=== PATIENT | female | born 1935 | race Caucasian/White ===

== ENCOUNTER 2017-04-12 02:45 | Observation (INO) | payer MEDICARE ==
[2017-04-12 03:31] LABS: Hematocrit 40 % (35-47); Hemoglobin 12.9 g/dl (12.0-16.0); Mean Corpuscular HGB Conc 32 g/dl (31-36); Mean Corpuscular Hemoglobin 28 pg (27-31); Mean Corpuscular Volume 88 fL (80-97); Mean Platelet Volume 10 um3 (7.4-10.4); Red Blood Count 4.56 10^6/ul (4.0-5.4); Red Cell Distribution Width 14 % (10.5-15); White Blood Count 10.5 10^3/ul (3.5-10.8)
[2017-04-12 03:50] LABS: Albumin 4.1 g/dL (3.2-5.2); BUN/Creatinine Ratio 32.4 (8-20); C Reactive Protein 4.58 mg/L (< 5.00); Calcium 9.4 mg/dL (8.6-10.3); EGFR African American 107.3 (>60); EGFR Non-African American 83.5 (>60); Globulin 3.9 g/dL (2-4); Potassium 4.1 mmol/L (3.5-5.0); Total Bilirubin 0.6 mg/dL (0.2-1.0)
[2017-04-12 03:53] LABS: Urine Bilirubin Negative (Negative); Urine Glucose 1+(50 mg/dL) (Negative); Urine Nitrite Negative (Negative)
[2017-04-12 03:56] LABS: Urine Bacteria Absent (Absent)
[2017-04-12] MEDS ORDERED: NS 0.9% 1000 ML* 1,000 ML IV ONE (05:51)
[2017-04-12] MEDS: NS 0.9% 1000 ML* 1,000 ML IV SCH ×4 (05:55→22:06)
[2017-04-12] MEDS ORDERED: Phytonadione Oral Solution* 5 MG/25 ML UDC PO ONE (06:16)
[2017-04-12] MEDS ORDERED: Iodixanol* (CONTRAST) 320 MG/ML 100 ML SDV IV ONE (06:17)
--- NOTE | 2017-04-12 08:46 | RAD ---
INDICATION: Gross hematuria. Relevant surgical history includes hysterectomy and appendectomy. COMPARISON: Most recent comparison CT is dated October 10, 2011 TECHNIQUE: Axial source images were acquired. Coronal and sagittal reconstructed images were obtained along with CT urography. A three-phase examination was performed with noncontrast, immediate postcontrast (nephrographic phase), and delayed postcontrast (pyelographic phase) imaging. The patient received 100 mL Visipaque 320 Intravenously. FINDINGS: There are centrilobular emphysematous changes of the bilateral lung bases. Otherwise the lung bases are clear. There is no pleural effusion. There are no focal abnormalities of the liver or spleen. There are no calcific gallstones. There is no evidence of an adrenal or pancreatic mass. There is no jacinta hydronephrosis bilaterally. There is a small amount of stranding surrounding the right renal pelvis and proximal right ureter. There is no definite renal stones seen in either collecting system or either ureter. There are no renal calculi seen in the urinary bladder. Cortical medullary phase imaging does not reveal any acute or suspicious masses in either kidney. There is a defect along the anterior margin of the mid-level left kidney that is unchanged from the prior CT examination. There is a small degree of relative delay in excretion at the right kidney relative to the left. There are no free or localized fluid collections. There is no retroperitoneal or mesenteric adenopathy. There is moderate calcified atherosclerosis of the abdominal aorta extending into the bilateral iliac arterial system. The small and large bowel is not pathologically dilated. Scattered colonic diverticula are noted but none exhibit acute inflammatory change according to CT criteria. The uterus is surgically absent. There are no sinister bone lesions identified. Multilevel degenerative changes of the lower thoracic and lumbar spine includes loss of intervertebral disc height, multilevel vacuum disc phenomenon with bony proliferation overlying the lower lumbar facet joints. IMPRESSION: 1. There is mild infiltration of the right renal pelvis and proximal right ureter without identification of a stone or gross hydronephrosis. Please correlate to signs or symptoms of passage of a right renal stone or, less likely, pyelonephritis. 2. Diverticulosis without acute inflammatory change. 3. Additional chronic and degenerative changes described in the body the report. Please note the excretory phase imaging did not include the distal ureters and bladder according to protocol.
[2017-04-12] MEDS ORDERED: Phytonadione INJ (Adult)* 10 MG/ML 1 ML AMP IV ONE (09:18)
[2017-04-12] MEDS ORDERED: Triamcinolone 0.025% OINT * 15 GM TUBE TOPICAL PRN (10:22)
[2017-04-12] MEDS ORDERED: Docusate CAP* 100 MG PO PRN (10:22)
[2017-04-12] MEDS ORDERED: Benzonatate CAP* 100 MG PO PRN (10:22)
[2017-04-12] MEDS ORDERED: Nystatin TOP POWDER* 15 GM BTL TOPICAL PRN (10:22)
[2017-04-12] MEDS ORDERED: Dextrose 50% Syringe 50 ML* 25 GM/50 ML SYRINGE IV PUSH PRN (10:24)
--- NOTE | 2017-04-12 10:32 | ED ---
Honorio Kowalski Gabriel, scribed for Mikhail Moss MD on 04/12/17 at 0704 . Progress - Progress Note Progress Note: This patient was signed out from Dr. Farley, pending disposition, awaiting. At 8:[address] Denny Fowler, urologist. He recommends admitting patient to the hospitalist. At 9:[address] White, hospitalist. Who has agreed to accept the patient for admission. The patients condition is stable. Diagnosis of hematuria. - Results/Orders Results/Orders: CT Urogram reveals, per radiologist, 1. There is mild infiltration of the right renal pelvis and proximal right ureter without identification of a stone or gross hydronephrosis. Please correlate to signs or symptoms of passage of a right renal stone or, less likely, pyelonephritis. 2. Diverticulosis without acute inflammatory change. 3. Additional chronic and degenerative changes described in the body the report. ED physician has reviewed this radiology report and agrees Course/Dx - Diagnoses Provider Diagnoses: Hematuria The documentation as recorded by the Honorio galvin Gabriel accurately reflects the service I personally performed and the decisions made by me, Mikhail Moss MD.
[2017-04-12 13:07] LABS: Hematocrit 37 % (35-47); Hemoglobin 12.1 g/dl (12.0-16.0)
[2017-04-12] MEDS: Insulin LISPRO* 1 UNITS UNIT SUBCUT SCH ×2 (13:42→17:20)
--- NOTE | 2017-04-12 15:44 | HP ---
CC: Dr. Fowler; Dr. Rodriguez* DATE OF ADMISSION: 04/12/2017. ATTENDING PHYSICIAN: Dr. Elida White * (report dictated by Montserrat Srivastava NP). PRIMARY CARE PHYSICIAN: Dr. Rodriguez. CONSULTING UROLOGIST: Dr. Fowler. CHIEF COMPLAINT: Hematuria. HISTORY OF PRESENT ILLNESS: This patient is a 81-year-old female with a past medical history significant for COPD, atrial fibrillation on Warfarin, hypothyroidism, hyperlipidemia, and history of CVA in the past who presents to the emergency room with complaint of hematuria. The patient has significant short-term memory loss with some degree of dementia. Hence, information is obtained from her at the bedside. The patient's states that in the last week the patient has intermittently had dark urine. He has also noted that she has had increased incontinence as well as increased frequency. The patient herself denies any pain with urination. In the middle of the night last night, the noticed a significant amount of jacinta red blood; hence, he brought her to the emergency room for further evaluation. In the emergency room, the patient was found to have a hemoglobin of 12.9. This is around her baseline hemoglobin. The patient had an INR of 3 and was given 5 mg oral of vitamin K and subsequently 10 mg IV of vitamin K. urology was consulted and recommended admission for further work- up. Hospitalists were asked to evaluate this patient for admission. The patient will be admitted with hematuria. 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 PAST SURGICAL HISTORY: Tonsillectomy, adenoidectomy, hysterectomy, appendectomy , distant breast surgery. HOME MEDICATIONS: 1. Multivitamin with minerals one capsule oral daily. 2. Halobetasol 0.05% topical daily as needed. 3. Warfarin 3 mg Monday, Monday, Monday, Monday; 4.5 mg Monday, Monday, . 4. Triamcinolone one application topical daily as needed. 5. Torsemide 5 mg oral daily. 6. Tikosyn 250 mcg oral twice daily. 7. Zoloft 37.5 mg oral daily. 8. Lopressor 50 mg oral twice daily. 9. Potassium Chloride 30 mEq oral twice daily. 10. Synthroid 25 mcg oral at 8:00 a.m. 11. Keppra 250 mg in the morning and 500 mg in the evening. 12. Hydrocortisone 2.5% cream one application topical twice daily. 13. Amlodipine 5 mg oral daily. 14. Tessalon 200 mg oral 3 times daily as needed. 15. Lipitor 20 mg oral at bedtime. ALLERGIES: KEFLEX CAUSES DIARRHEA, RAMIPRIL CAUSES UNKNOWN REACTION. THE PATIENT IS LACTOSE INTOLERANT. FAMILY HISTORY: The patient's father from heart disease at the age of 55. SOCIAL HISTORY: The patient currently smokes one to two cigarettes a day, but was previously smoking up to a pack a day since the age of 17. She rarely drinks alcohol. She is retired. The patient's surrogate decision maker is her , Eliot Mosquera. REVIEW OF SYSTEMS: I performed a 14 point review of systems. All the pertinent positives and negatives are mentioned in the history of present illness. The remaining review of systems are negative. PHYSICAL EXAMINATION GENERAL: The patient was alert, pleasant and appeared to be in no apparent distress. VITAL SIGNS: Temperature 97.5, heart rate 54, oxygen saturation 93 percent, blood pressure 125/52, respiratory rate 16. HEENT: Normocephalic/atraumatic. Pupils are equal and reactive to light. Extraocular movements are intact. NECK: Supple. There is no lymphadenopathy noted. CARDIAC: S1, S2 were crisp. No murmurs, rubs or gallops heard. RESPIRATORY: There is no accessory muscle use. Lungs were clear to auscultation. ABDOMEN: Soft, nontender, nondistended. There are bowel sounds times four. EXTREMITIES: There is no lower extremity edema. DP and PT pulses were 2+ and symmetric. MUSCULOSKELETAL: There is no clubbing or cyanosis noted. Patient exhibited equal strength in all extremities. SKIN: There were no rashes or abnormalities seen. NEUROLOGIC: Cranial nerves II through XII were intact. The patient moves all extremities. Lower extremities were intact to light touch. PSYCH: The patient is alert and oriented times three. LABORATORY DATA: Sodium 136, potassium 4.1, chloride 105, CO2 26, BUN 22, creatinine 0.68, glucose 152, calcium 9.4, liver function test within normal limits; white blood cell count 10.5, hemoglobin 12.9 consistent with prior hemoglobins, hematocrit 40, platelet count 253; INR 3, PTT 52.9; BNP 233; urinalysis shows 2+ protein, 1+ ketones, 3+ blood, trace esterase and 1+ glucose. CT urogram shows: Mild infiltration of the right renal pelvis and proximal right ureter without identification of a stone or gross hydronephrosis. Please correlate the signs and symptoms of passage of a right renal stone or less likely pyelonephritis. Diverticulosis without acute inflammatory change. Additionally chronic and degenerative changes described in the body of the report. IMPRESSION: This is a 81-year-old female with a past medical history significant for atrial fibrillation on Warfarin, status post CVA with short- term memory loss, and COPD who presents to the emergency room with a complaint of hematuria. The patient will be admitted and placed on observation for hematuria. ASSESSMENT AND PLAN: 1. Hematuria: Case has been discussed with Urology who recommends the following. The patient's INR will be reversed to normal level. The patient was already given 5 mg of oral vitamin K and 10 mg IV of vitamin K. INR will be rechecked in the morning. An additional urine sample will be collected via catheter to send for cytology. A 20 to 22 [place] Bender will be inserted when this collection occurs so that we can better monitor the patient's hematuria. If the cytology is negative and the hematuria improves, it is unlikely the patient will have a procedure. If hematuria persists and/or cytology is positive or the patient becomes hemodynamically unstable, we would plan on cystoscopy. Hemoglobin will be checked every six hours for the first 24 hours of the patient's hospitalization. Warfarin will be held. 2. Atrial fibrillation: Lopressor and Tikosyn will continue. Anticoagulation will be held. 3. Hypertension: The patient's blood pressure appears to be controlled, so the time being both Torsemide and Norvasc will be held. 4. Hypothyroidism: Synthroid will continue. 5. History of seizures: Keppra will continue. 6. Hyperlipidemia: Lipitor will continue. 7. COPD: The patient does not appear to be in acute exacerbation. Breathing treatments will be prescribed as needed. 8. DVT prophylaxis: The patient is moderate risk, yet chemical prophylaxis is contraindicated due to the current bleed. The patient is currently anticoagulated with an INR of 3, yet once this drops there will be no further chemical prophylaxis, SCD's only. 9. Code status: Full. Time for this admission was 60 minutes and 30 minutes were spent with the patient and her discussing medications, past medical history and events leading up to her arrival in the emergency room. MONTSERRAT SRIVASTAVA NP [id number]/[facility] #: [id number] JANEEN
[2017-04-12 17:26] LABS: Hematocrit 36 % (35-47); Hemoglobin 11.8 g/dl (12.0-16.0)
[2017-04-12] MEDS ORDERED: Atorvastatin* 20 MG TAB PO SCH (18:00)
[2017-04-12] MEDS ORDERED: levETIRAcetam TAB* 500 MG PO SCH (18:00)
--- NOTE | 2017-04-12 18:14 | CONS ---
UROLOGY CONSULTATION REPORT: DATE OF CONSULTATION: 04/12/17 REQUESTING PHYSICIAN: Dr. Reji Farley. DIAGNOSES: 1. Gross hematuria. 2. Abnormality involving right kidney. HISTORY OF PRESENT ILLNESS: Cecilia Mosquera is a 81-year-old lady with multiple medical issues including dementia. She had presented to the emergency room with complaints of bleeding and initially, I guess, there was some confusion about the etiology of the bleeding. Eventually, it was determined that this was urinary bleeding and a CT scan was obtained. The CT scan revealed some fullness of the right proximal collecting system with some infiltration of the tissue around the right proximal ureter with no evidence of a discrete mass or a calculus noted. Of note, is the fact that she is anticoagulated on Coumadin for atrial fibrillation and her INR was around 3 at the time of admission. Because of continued hematuria, the plan is to admit her and to assess the hematuria after the reversal of the anticoagulation. PAST MEDICAL HISTORY: Significant for: 1. Dementia. 2. High cholesterol. 3. Diabetes. MEDICATIONS ON ADMISSION: 1. Atorvastatin 20 mg daily. 2. Colace 100 mg b.i.d. p.r.n. 3. Tikosyn 250 mg b.i.d. 4. Insulin Humalog as directed. 5. Keppra 500 mg q.p.m. 6. Levothyroxine 25 mcg daily. 7. Metoprolol 50 mg b.i.d. 8. Potassium chloride 30 mEq daily. 9. Zoloft 37.5 mg daily. ALLERGIES AND INTOLERANCES: Include RAMIPRIL and CEPHALEXIN. PHYSICAL EXAM: Reveals a pleasant elderly lady who is not very communicative. Blood pressure is 109/77, pulse 54 per minute. Oxygen saturation 96% on room air. Cardiovascular Exam: S1, S2. Lungs are clear bilaterally. Abdomen is soft with mild bilateral flank tenderness, right greater than left. DIAGNOSTIC STUDIES/LAB DATA: Review of the labs reveals a white count of 10.5, hemoglobin and hematocrit are 12.9 and 40, platelet count is 243. Review of the chemistries reveals a sodium of 136, potassium of 4.1, BUN and creatinine are normal at 22 and 0.68. Glucose is elevated at 152. Her INR is 3.07 with a PTT of 52.9. Urinalysis revealed red colored urine with 3+ blood, absent bacteria and negative nitrite. I reviewed the CT scan which revealed mild infiltrative changes around the right renal pelvis and proximal right ureter. There is no evidence of a discrete mass or a calculus. IMPRESSION: A 81-year-old lady with gross hematuria while over-anticoagulated for atrial fibrillation with mild infiltrative changes surrounding the right proximal ureter and renal pelvis with no discrete mass or calculus. RECOMMENDATIONS: I would recommend trying to hold off on Coumadin for now and to see if the hematuria resolves with the lowering of the INR. Sometimes,there can be spontaneous bleeding from blood vessels within the renal pelvis, and if that is so, this may be self-limiting. Once the anticoagulation wears of, if she continues to have hematuria, then the next step would be to consider a right retrograde and ureteroscopy to visualize that area of the right renal pelvis. I also would recommend sending urine for cytology and I have discussed this with Montserrat Srivastava. [id number]/[facility] #: [id number] JANEEN
[2017-04-12] MEDS: Metoprolol Tartrate TAB* 25 MG PO SCH (21:26)
[2017-04-12] MEDS: Dofetilide CAP* 250 MCG PO SCH (21:26)
[2017-04-12] MEDS: Hydrocortisone 1% CREAM* 30 GM TUBE TOPICAL SCH (21:26)
[2017-04-12 23:05] LABS: Hematocrit 37 % (35-47)
[2017-04-13] MEDS ORDERED: Levothyroxine TAB* 25 MCG TAB PO SCH (06:00)
[2017-04-13] MEDS: NS 0.9% 1000 ML* 1,000 ML IV SCH (06:00)
[2017-04-13 06:53] LABS: Hematocrit 35 % (35-47); Hemoglobin 11.6 g/dl (12.0-16.0); Mean Corpuscular HGB Conc 33 g/dl (31-36); Mean Corpuscular Hemoglobin 29 pg (27-31); Mean Corpuscular Volume 88 fL (80-97); Mean Platelet Volume 10 um3 (7.4-10.4); Red Blood Count 4.01 10^6/ul (4.0-5.4); Red Cell Distribution Width 14 % (10.5-15); White Blood Count 9.4 10^3/ul (3.5-10.8)
[2017-04-13 07:06] LABS: BUN/Creatinine Ratio 18.4 (8-20); Calcium 9.1 mg/dL (8.6-10.3); EGFR African American 156.7 (>60); EGFR Non-African American 121.8 (>60); Potassium 3.5 mmol/L (3.5-5.0)
[2017-04-13 07:25] VITALS: BP 137/70
[2017-04-13] MEDS ORDERED: MINERA AREDS PO SCH (09:00)
[2017-04-13] MEDS ORDERED: levETIRAcetam TAB* 500 MG PO SCH (09:00)
[2017-04-13] MEDS ORDERED: Potassium Chlor TAB* 10 MEQ TAB.ER PO SCH (09:00)
[2017-04-13] MEDS ORDERED: MULTIVITAMINS PO SCH (09:00)
[2017-04-13] MEDS ORDERED: Sertraline* 25 MG TAB PO SCH (09:00)
[2017-04-13] MEDS: Insulin LISPRO* 1 UNITS UNIT SUBCUT SCH ×2 (10:24→13:00)
[2017-04-13] MEDS: Metoprolol Tartrate TAB* 25 MG PO SCH (10:27)
[2017-04-13] MEDS: Hydrocortisone 1% CREAM* 30 GM TUBE TOPICAL SCH (10:31)
[2017-04-13] MEDS: Dofetilide CAP* 250 MCG PO SCH (10:31)
--- NOTE | 2017-04-13 10:34 | PN ---
Subjective Date of Service: 04/13/17 Interval History: Patient seen and examined at bedside. Denies fever, chills, shortness of breath , chest discomfort, N/V/D. Pt states that she doesn't feel well this morning, but isn't able to quantify this. She reports feeling constipated. Family History: Unchanged from Admission Social History: Unchanged from Admission Past Medical History: Unchanged from Admission Objective Active Medications: Atorvastatin Calcium (Lipitor*) 20 mg PO QPM MIGNON Benzonatate (Tessalon Cap*) 200 mg PO TID PRN Reason: COUGH Dextrose (D50w Syringe 50 Ml*) 12.5 gm IV PUSH .FOR FS < 60 - SS PRN Reason: FS < 60 Docusate Sodium (Colace Cap*) 100 mg PO BID PRN Reason: CONSTIPATION Dofetilide (Tikosyn Cap*) 250 mcg PO BID MIGNON Hydrocortisone (Hytone Cream 1%*) 1 applic TOPICAL BID MIGNON Sodium Chloride (Ns 0.9% 1000 Ml*) 1,000 mls @ 150 mls/hr IV PER RATE MIGNON Insulin Human Lispro (Humalog*) 0 - 15 units SUBCUT AC MIGNON Levetiracetam (Keppra Tab*) 250 mg PO QAM MIGNON Levetiracetam (Keppra Tab*) 500 mg PO QPM MIGNON Levothyroxine Sodium (Synthroid Tab*) 25 mcg PO 0600 MIGNON Metoprolol Tartrate (Lopressor Tab*) 50 mg PO BID MIGNON Multivitamins/Minerals (Preservision Areds(Multivitamins/Mineral)(Nf)) 1 cap PO DAILY MIGNON Nystatin (Nystatin Top Powder*) 1 applic TOPICAL BID PRN Reason: RASH Potassium Chloride (Klor Con Er Tab*) 30 meq PO DAILY MIGNON Sertraline HCl (Zoloft*) 37.5 mg PO DAILY MIGNON Triamcinolone Acetonide (Triamcinolone 0.025% Oint *) 1 applic TOPICAL DAILY PRN Reason: RASH Vital Signs 04/12/17 04/12/17 04/12/17 10:30 11:00 14:00 Temperature 97.5 F 98.1 F Pulse Rate 53 52 52 Respiratory 19 20 Rate Blood Pressure 133/90 151/52 133/52 (mmHg) O2 Sat by Pulse 93 94 98 Oximetry 11/15/17 11/15/17 11/15/17 17:24 19:40 23:28 Temperature 97.7 F 97.5 F 97.9 F Pulse Rate 52 77 53 Respiratory 16 16 18 Rate Blood Pressure 146/58 143/50 130/58 (mmHg) O2 Sat by Pulse 98 95 97 Oximetry 04/13/17 04/13/17 04/13/17 02:57 07:23 10:26 Temperature 97.5 F 97.8 F Pulse Rate 59 57 64 Respiratory 16 16 Rate Blood Pressure 153/50 137/70 (mmHg) O2 Sat by Pulse 94 96 Oximetry Oxygen Devices in Use Now: None Appearance: NAD, sitting up in a chair Ears/Nose/Mouth/Throat: Mucous Membranes Moist Respiratory: Symmetrical Chest Expansion and Respiratory Effort, Clear to Auscultation Cardiovascular: NL Sounds; No Murmurs; No JVD, RRR Abdominal: NL Sounds; No Tenderness; No Distention Extremities: No Edema Skin: No Rash or Ulcers Neurological: Alert and Oriented x 3, NL Muscle Strength and Tone Lines/Tubes/Other Access: Clean, Dry and Intact Peripheral IV - site benign Result Diagrams: 04/13/17 06:37 04/13/17 06:37 Assess/Plan/Problems-Billing Assessment: Ms. Mosquera is a 81 yo female with PMH significant for afib on warfarin, CVA with short term memory loss, and COPD who presented to the emergency room with complaints of hematuria. - Patient Problems (1) Hematuria Code(s): R31.9 - HEMATURIA, UNSPECIFIED SNOMED Code(s): 22143468 Comment: - Appreciate urology input - Cytology pending - Resolved (2) Atrial fibrillation Code(s): I48.91 - UNSPECIFIED ATRIAL FIBRILLATION SNOMED Code(s): 13706462 Comment: - INR is now subtherapeutic at 1.25. - Continue metoprolol and Tikosyn. - Continue to hold anticoagulation in setting of hematuria. (3) Seizures Code(s): R56.9 - UNSPECIFIED CONVULSIONS SNOMED Code(s): 95175703 Comment: - No signs of seizure activity - Continue Keppra and seizure precautions (4) HLD (hyperlipidemia) Code(s): E78.5 - HYPERLIPIDEMIA, UNSPECIFIED SNOMED Code(s): 25576815 Comment: - Continue statin (5) History of CVA (cerebrovascular accident) Code(s): Z86.73 - PRSNL HX OF TIA (TIA), AND CEREB INFRC W/O RESID DEFICITS SNOMED Code(s): 042468768 Comment: - Continue statin (6) HTN (hypertension) Code(s): I10 - ESSENTIAL (PRIMARY) HYPERTENSION SNOMED Code(s): 11589206 Comment: - The patient's BP is under good control, SBP 130-150's. - Resume Norvasc. - Continue to hold Torsemide and consider resuming in the AM, if BP allows. (7) Hypothyroidism Code(s): E03.9 - HYPOTHYROIDISM, UNSPECIFIED SNOMED Code(s): 28436288 Comment: - TSH 3.4 on 03/16/17 - Continue levothyroxine (8) COPD (chronic obstructive pulmonary disease) Code(s): J44.9 - CHRONIC OBSTRUCTIVE PULMONARY DISEASE, UNSPECIFIED SNOMED Code(s): 30278427 Comment: - No signs of acute exacerbation at this time (9) Type II diabetes mellitus Comment: - Glucose 160-190's. (10) DVT prophylaxis Code(s): CNO0721 - SNOMED Code(s): 267382587 Comment: - subtherapeutic INR - Hold chemical DVT prophylaxis in setting of hematuria - SCDs (11) Full code status Code(s): Z78.9 - OTHER SPECIFIED HEALTH STATUS SNOMED Code(s): 348516715 Status and Disposition: OBV. Stable for discharge to home today.
--- NOTE | 2017-04-14 03:57 | DS ---
CC: Denny Fowler MD; Manda Rodriguez MD * DISCHARGE SUMMARY: DATE OF ADMISSION: 04/12/17 DATE OF DISCHARGE: 04/13/17 ATTENDING PHYSICIAN: Parviz Olivas MD * (dictated by Mehnaz Ogden NP) PRIMARY CARE PROVIDER: Manda Rodriguez MD PRIMARY DIAGNOSIS: Hematuria, suspect in the setting of slightly supratherapeutic INR. SECONDARY DIAGNOSES: 1. Atrial fibrillation. 2. Hypertension. 3. Hypothyroidism. 4. History of seizures. 5. Hyperlipidemia. 6. Chronic obstructive pulmonary disease. CONSULTATION WHILE IN THE HOSPITAL: Dr. Denny Fowler with Urology. STUDIES WHILE IN THE HOSPITAL: Urogram CT on 04/12/17. Radiologist's impression: There is mild infiltration of the right renal pelvis and proximal right ureter without identification of a stone or gross hydronephrosis. Diverticulosis without acute inflammatory change. Additional chronic and degenerative changes described in the body of the report. DISCHARGE MEDICATIONS: Continued home medications: 1. Nystatin powder apply topical twice daily as needed for rash. 2. Keppra 250 mg oral every morning. 3. Keppra 500 mg oral every evening. 4. PreserVision AREDS. 5. Multivitamins 1 capsule oral daily. 6. Ultravate 0.05% topical daily as needed for rash. 7. Triamcinolone 0.1% cream apply topical daily as needed for rash. 8. Torsemide 5 mg oral daily. 9. Tikosyn 250 mcg oral twice daily. 10. Zoloft 37.5 mg oral daily. 11. Metoprolol tartrate 50 mg oral twice daily. 12. Potassium chloride 30 mEq oral twice daily. 13. Levothyroxine 25 mcg oral daily. 14. Hydrocortisone 2.5% cream apply topical twice daily. 15. Amlodipine 5 mg oral daily. 16. Colace 100 mg oral twice daily as needed for constipation. 17. Tessalon 200 mg oral 3 times daily as needed for cough. 18. Atorvastatin 20 mg oral every evening. Discontinued home medication: 1. Warfarin. HISTORY OF PRESENT ILLNESS/HOSPITAL COURSE: Ms. Mosquera is a 81-year-old female with past medical history significant for COPD; atrial fibrillation, on warfarin; hypothyroidism; hyperlipidemia; and history of cerebrovascular accident in the past, who presented to the emergency room with complaints of hematuria. The patient has significant short-term memory loss due to dementia. According to the patient's , over the last week, the patient has had intermittently dark urine. He had also noticed increased incontinence and urinary frequency. The patient denied any urinary symptoms. The patient's a day prior to admission had noticed significant amount of jacinta blood in her urine and he brought her to the emergency room for further evaluation. While in the emergency room, she was found to have a hemoglobin of 12.9, which is around her baseline. She was found to have an INR of 3 and was given 5 mg of oral vitamin K and subsequently 10 mg of IV vitamin K. Dr. Fowler with Urology was consulted and recommended admitting the patient for further workup. She had a CT urogram, please see the interpretation above. The hospitalists were asked to evaluate the patient for admission. While in the hospital, the patient had a urinary catheter and her hematuria resolved. She had clear yellow urine the next day. Her INR decreased to 1.25. Her hemoglobin and hematocrit were trended and were stable. Urine cytology was still pending. I discussed with Dr. Fowler the resolution of the hematuria. He recommended removing the urinary catheter and discharging the patient home with followup with him. Ms. Mosquera is stable for discharge to home today. Vital signs are as follows , temperature 97.8, heart rate 57, respiratory rate 16, O2 sat 96% on room air, blood pressure 137/70. DISCHARGE PLAN: Ms. Mosquera will be discharged to home. Activity as tolerated. She will be on a regular diet. As far as her hematuria, she should continue to hold her warfarin until instructed to resume by Dr. Fowler. Her has been instructed to call Dr. Fowler's office after discharge to set up a followup appointment in the next 10 days. An appointment has been made with the patient's primary care provider, Dr. Manda Rodriguez. She has an appointment on 04/25/17, at 10:10 a.m. The patient is going to resume her other usual medications. The patient has been instructed to return to the emergency room for any chest pain or shortness of breath. This is a summarized report of a complex medical history and hospital stay. For further details, please see the entire medical record. TIME SPENT: Time for this discharge was approximately 50 minutes, greater than half of that was spent with the patient and discussing discharge plans and instructions. CONDITION ON DISCHARGE: Stable. Reviewed by EDUARDO TOMLINSON 04/17/17 1621 [id number]/[facility] #: [id number] MTDD
[2017-04-14] MEDS ORDERED: amLODIPine TAB* 5 MG PO SCH (09:00)
--- NOTE | 2017-04-17 10:25 | ED ---
Amparo Kowalski Alfonso, scribed for Reji Farley MD on 04/12/17 at 0301 . GI/ HPI - HPI Summary HPI Summary: This patient is a 81 year old F presenting to [facility] accompanied by with a chief complaint of hematuria noticed at 0230 today. states there was dark blood on her depends and blood in the toilet. The patient rates the pain 0/10 in severity. Symptoms aggravated by nothing. Symptoms alleviated by nothing. reports vaginal erythema, and urinary incontinency (chronic) . Patient denies dizziness, lightheadedness, near-syncope, blood in the stool, melena, bowel symptoms, dysuria, abdominal pain, and back pain. She is on Coumadin. - History of Current Complaint Chief Complaint: EDUrogenitalProblems Time Seen by Provider: 04/12/17 02:58 Stated Complaint: VAGINAL BLEEDING Hx Obtained From: Patient, Family/Car Whacker Onset/Duration: Started Minutes Ago, Still Present Timing: Constant Pain Intensity: 0 - /10 Associated Signs and Symptoms: Positive: Other: - reports vaginal erythema, and urinary incontinency (chronic). Patient denies dizziness, lightheadedness, near-syncope, blood in the stool, melena, bowel symptoms, dysuria, abdominal pain, and back pain. She is on Coumadin. Aggravating Factor(s): Nothing Alleviating Factor(s): Nothing - Additional Pertinent History Primary Care Physician: [id number] - Allergy/Home Medications Allergies/Adverse Reactions: Allergies Allergy/AdvReac Type Severity Reaction Status Date / Time Lactose Intolerance (GI) Allergy Diarrhea Verified 04/13/17 10:52 Ramipril [From Altace] Allergy Unknown Verified 01/17/14 09:41 Reaction Details Cephalexin [From Keflex] AdvReac SEVERE Verified 03/13/15 07:48 DIARRHEA MILK Allergy Diarrhea Uncoded 01/17/14 09:41 PMH/Surg Hx/FS Hx/Imm Hx Endocrine/Hematology History: Reports: Hx Anticoagulant Therapy, Hx Diabetes - NO MEDS, CONTROLLED WITH DIET/ACTIVITY, Hx Thyroid Disease - ON DAILY MEDS Cardiovascular History: Reports: Hx Congestive Heart Failure, Hx Hypercholesterolemia, Hx Hypertension - ON MEDS, Other Cardiovascular Problems/ Disorders - 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, IDDM II Respiratory History: Reports: Hx Chronic Obstructive Pulmonary Disease (COPD) GI History: Reports: Other GI Disorders - gallstones Musculoskeletal History: Reports: Hx Back Problems Sensory History: Reports: Hx Cataracts, Hx Glaucoma Denies: Hx Contacts or Glasses, Hx Eye Injury, Hx Eye Prosthesis, Hx Legally Blind, Hx Macular Degeneration, Hx Vision Problem, Hx Deafness, Hx Hearing Aid, Hx Hearing Problem, Other Sensory Impairments Opthamlomology History: Reports: Hx Cataracts, Hx Glaucoma Denies: Hx Contacts or Glasses, Hx Eye Injury, Hx Eye Prosthesis, Hx Legally Blind, Hx Macular Degeneration, Hx Vision Problem, Other Sensory Impairments Neurological History: Reports: Hx Seizures - NOW ON KEPPRA, Hx Transient Ischemic Attacks (TIA) Denies: Hx Dementia, Hx Developmental Delay, Hx Headaches, Hx Migraine, Hx Nerve Disease, Hx Spinal Cord Injury Psychiatric History: Reports: Hx Anxiety - ON MEDS, Hx Depression - Cancer History Hx Chemotherapy: No Hx Radiation Therapy: No - Surgical History Surgery Procedure, Year, and Place: 1944 TONSILLECTOMY. 1984 HYSTERECTOMY AND APPENDECTOMY. 2011 RETINA SURGERY- RIGHT EYE- [place]. BREAST BIOPSY- [facility]. 12/18/13 RT EYE CATARACT [facility] Hx Anesthesia Reactions: No Infectious Disease History: No Infectious Disease History: Denies: Hx Clostridium Difficile, Hx Hepatitis, Hx Human Immunodeficiency Virus (HIV), Hx of Known/Suspected MRSA, Hx Shingles, Hx Tuberculosis, Hx Known/ Suspected VRE, Hx Known/Suspected VRSA, History Other Infectious Disease, Traveled Outside the [place] in Last 30 Days - Family History Known Family History: Positive: Cardiac Disease - Social History Alcohol Use: None Alcohol Amount: REFRAINS NOW BECAUSE OF MEDS Substance Use Type: Reports: None Hx Tobacco Use: Yes Smoking Status (MU): Light Every Day Tobacco Smoker Type: Cigarettes Amount Used/How Often: LESS THEN 1/2PPD CIGARETTES PER DAY X 60 YEARS Have You Smoked in the Last Year: Yes Review of Systems Negative: Fever Positive: Other - Negative blood in the stool, melena, bowel symptoms. Negative : Abdominal Pain Positive: hematuria, incontinence. Negative: dysuria Positive: Other - Negative back pain Positive: Other - vaginal erythema Neurological: Other - Negative dizziness, lightheadedness, near-syncope All Other Systems Reviewed And Are Negative: Yes Physical Exam - Summary Physical Exam Summary: General: well-appearing, no pain distress Skin: warm, color reflects adequate perfusion, dry Head: normal Eyes: EOMI, RAJINDER ENT: normal Neck: supple, nontender Respiratory: CTA, breath sounds present Cardiovascular: RRR Abdomen: soft, nontender, no CVA tenderness Bowel: present Musculoskeletal: normal, strength/ROM intact Neurological: normal, sensory/motor intact, A&O x3 Psychological: mildly confused Triage Information Reviewed: Yes Vital Signs On Initial Exam: Initial Vitals Temp Pulse Resp BP Pulse Ox 97.2 F 52 18 181/80 96 04/12/17 02:45 04/12/17 02:45 04/12/17 02:45 04/12/17 02:45 04/12/17 02:45 Vital Signs Reviewed: Yes Diagnostics - Vital Signs Vital Signs Temp Pulse Resp BP Pulse Ox 04/12/17 02:45 97.2 F 52 18 181/80 96 - Laboratory Lab Results: Lab Results 04/12/17 04/12/17 04/12/17 Range/Units 03:10 03:17 03:17 WBC (3.5-10.8) 10^3/ul RBC (4.0-5.4) 10^6/ul Hgb (12.0-16.0) g/dl Hct (35-47) % MCV (80-97) fL MCH (27-31) pg MCHC (31-36) g/dl RDW (10.5-15) % Plt Count (150-450) 10^3/ul MPV (7.4-10.4) um3 Neut % (Auto) (38-83) % Lymph % (Auto) (25-47) % Bureau % (Auto) (1-9) % Eos % (Auto) (0-6) % Baso % (Auto) (0-2) % Absolute Neuts (auto) (1.5-7.7) 10^3/ul Absolute Lymphs (auto) (1.0-4.8) 10^3/ul Absolute Monos (auto) (0-0.8) 10^3/ul Absolute Eos (auto) (0-0.6) 10^3/ul Absolute Basos (auto) (0-0.2) 10^3/ul Absolute Nucleated RBC 10^3/ul Nucleated RBC % INR (Anticoag Therapy) 3.07 H (0.89-1.11) APTT 52.9 H (26.0-36.3) seconds Sodium (133-145) mmol/L Potassium (3.5-5.0) mmol/L Chloride (101-111) mmol/L Carbon Dioxide (22-32) mmol/L Anion Gap (2-11) mmol/L BUN (6-24) mg/dL Creatinine (0.51-0.95) mg/dL Est GFR ( Amer) (>60) Est GFR (Non-Af Amer) (>60) BUN/Creatinine Ratio (8-20) Glucose (70-100) mg/dL Lactic Acid 0.8 (0.5-2.0) mmol/L Calcium (8.6-10.3) mg/dL Total Bilirubin (0.2-1.0) mg/dL AST (13-39) U/L ALT (7-52) U/L Alkaline Phosphatase (34-104) U/L C-Reactive Protein (< 5.00) mg/L B-Natriuretic Peptide ( - 100) pg/mL Total Protein (6.4-8.9) g/dL Albumin (3.2-5.2) g/dL Globulin (2-4) g/dL Albumin/Globulin Ratio (1-3) Urine Color Red A Urine Appearance Turbid Urine pH 6.0 (5-9) Ur Specific [place] 1.017 (1.010-1.030) Urine Protein 2+(100 mg/dl) H (Negative) Urine Ketones 1+ H (Negative) Urine Blood 3+ H (Negative) Urine Nitrate Negative (Negative) Urine Bilirubin Negative (Negative) Urine Urobilinogen Negative (Negative) Ur Leukocyte Esterase Trace H (Negative) Urine WBC (Auto) Absent (Absent) Urine RBC (Auto) 3+(>10/hpf) H (Absent) Urine Bacteria Absent (Absent) Urine Glucose 1+(50 mg/dl) H (Negative) Urine Ascorbic Acid * H (Negative) Blood Type Antibody Screen 04/12/17 04/12/17 04/12/17 Range/Units 03:17 03:17 03:17 WBC 10.5 (3.5-10.8) 10^3/ul RBC 4.56 (4.0-5.4) 10^6/ul Hgb 12.9 (12.0-16.0) g/dl Hct 40 (35-47) % MCV 88 (80-97) fL MCH 28 (27-31) pg MCHC 32 (31-36) g/dl RDW 14 (10.5-15) % Plt Count 253 (150-450) 10^3/ul MPV 10 (7.4-10.4) um3 Neut % (Auto) 44.3 (38-83) % Lymph % (Auto) 40.4 (25-47) % Bureau % (Auto) 9.7 H (1-9) % Eos % (Auto) 4.6 (0-6) % Baso % (Auto) 1.0 (0-2) % Absolute Neuts (auto) 4.6 (1.5-7.7) 10^3/ul Absolute Lymphs (auto) 4.2 (1.0-4.8) 10^3/ul Absolute Monos (auto) 1.0 H (0-0.8) 10^3/ul Absolute Eos (auto) 0.5 (0-0.6) 10^3/ul Absolute Basos (auto) 0.1 (0-0.2) 10^3/ul Absolute Nucleated RBC 0.01 10^3/ul Nucleated RBC % 0.1 INR (Anticoag Therapy) (0.89-1.11) APTT (26.0-36.3) seconds Sodium 136 (133-145) mmol/L Potassium 4.1 (3.5-5.0) mmol/L Chloride 105 (101-111) mmol/L Carbon Dioxide 26 (22-32) mmol/L Anion Gap 5 (2-11) mmol/L BUN 22 (6-24) mg/dL Creatinine 0.68 (0.51-0.95) mg/dL Est GFR ( Amer) 107.3 (>60) Est GFR (Non-Af Amer) 83.5 (>60) BUN/Creatinine Ratio 32.4 H (8-20) Glucose 152 H (70-100) mg/dL Lactic Acid (0.5-2.0) mmol/L Calcium 9.4 (8.6-10.3) mg/dL Total Bilirubin 0.60 (0.2-1.0) mg/dL AST 19 (13-39) U/L ALT 14 (7-52) U/L Alkaline Phosphatase 103 (34-104) U/L C-Reactive Protein 4.58 (< 5.00) mg/L B-Natriuretic Peptide 233 H ( - 100) pg/mL Total Protein 8.0 (6.4-8.9) g/dL Albumin 4.1 (3.2-5.2) g/dL Globulin 3.9 (2-4) g/dL Albumin/Globulin Ratio 1.1 (1-3) Urine Color Urine Appearance Urine pH (5-9) Ur Specific [place] (1.010-1.030) Urine Protein (Negative) Urine Ketones (Negative) Urine Blood (Negative) Urine Nitrate (Negative) Urine Bilirubin (Negative) Urine Urobilinogen (Negative) Ur Leukocyte Esterase (Negative) Urine WBC (Auto) (Absent) Urine RBC (Auto) (Absent) Urine Bacteria (Absent) Urine Glucose (Negative) Urine Ascorbic Acid (Negative) Blood Type Antibody Screen 04/12/17 Range/Units 03:17 WBC (3.5-10.8) 10^3/ul RBC (4.0-5.4) 10^6/ul Hgb (12.0-16.0) g/dl Hct (35-47) % MCV (80-97) fL MCH (27-31) pg MCHC (31-36) g/dl RDW (10.5-15) % Plt Count (150-450) 10^3/ul MPV (7.4-10.4) um3 Neut % (Auto) (38-83) % Lymph % (Auto) (25-47) % Bureau % (Auto) (1-9) % Eos % (Auto) (0-6) % Baso % (Auto) (0-2) % Absolute Neuts (auto) (1.5-7.7) 10^3/ul Absolute Lymphs (auto) (1.0-4.8) 10^3/ul Absolute Monos (auto) (0-0.8) 10^3/ul Absolute Eos (auto) (0-0.6) 10^3/ul Absolute Basos (auto) (0-0.2) 10^3/ul Absolute Nucleated RBC 10^3/ul Nucleated RBC % INR (Anticoag Therapy) (0.89-1.11) APTT (26.0-36.3) seconds Sodium (133-145) mmol/L Potassium (3.5-5.0) mmol/L Chloride (101-111) mmol/L Carbon Dioxide (22-32) mmol/L Anion Gap (2-11) mmol/L BUN (6-24) mg/dL Creatinine (0.51-0.95) mg/dL Est GFR ( Amer) (>60) Est GFR (Non-Af Amer) (>60) BUN/Creatinine Ratio (8-20) Glucose (70-100) mg/dL Lactic Acid (0.5-2.0) mmol/L Calcium (8.6-10.3) mg/dL Total Bilirubin (0.2-1.0) mg/dL AST (13-39) U/L ALT (7-52) U/L Alkaline Phosphatase (34-104) U/L C-Reactive Protein (< 5.00) mg/L B-Natriuretic Peptide ( - 100) pg/mL Total Protein (6.4-8.9) g/dL Albumin (3.2-5.2) g/dL Globulin (2-4) g/dL Albumin/Globulin Ratio (1-3) Urine Color Urine Appearance Urine pH (5-9) Ur Specific [place] (1.010-1.030) Urine Protein (Negative) Urine Ketones (Negative) Urine Blood (Negative) Urine Nitrate (Negative) Urine Bilirubin (Negative) Urine Urobilinogen (Negative) Ur Leukocyte Esterase (Negative) Urine WBC (Auto) (Absent) Urine RBC (Auto) (Absent) Urine Bacteria (Absent) Urine Glucose (Negative) Urine Ascorbic Acid (Negative) Blood Type A Positive Antibody Screen Negative Result Diagrams: 04/13/17 06:37 04/13/17 06:37 Lab Statement: Any lab studies that have been ordered have been reviewed, and results considered in the medical decision making process. - CT Urogram CT Interpretation Completed By: Radiologist ERAN Course/Dx - Diagnoses Provider Diagnoses: Hematuria - Physician Notifications Discussed Care Of Patient With: Denny Fowler Time Discussed With Above Provider: 05:46 Instructed by Provider To: Other - Consulted Dr. Fowler (urologist) at 0546 regarding the patient's case. Discharge - Discharge Plan Condition: Stable Disposition: ADMITTED TO [facility] documentation as recorded by the Amparo galvin Alfonso accurately reflects the service I personally performed and the decisions made by me, Reji Farley MD.
== END 2017-04-13 14:30 | disposition home or self-care (01) ==
LOC: ED 02:45 → MED 09:18
PROVIDERS: ADMIT Internal Medicine; ATTEND Internal Medicine
DX: R31.9 Hematuria, unspecified (principal); I48.91 Unspecified atrial fibrillation; E03.9 Hypothyroidism, unspecified; I10 Essential (primary) hypertension; G40.909 Epilepsy, unspecified, not intractable, without status epilepticus; E78.5 Hyperlipidemia, unspecified; J44.9 Chronic obstructive pulmonary disease, unspecified; E11.9 Type 2 diabetes mellitus without complications; F32.9 Major depressive disorder, single episode, unspecified; I69.911 Memory deficit following unspecified cerebrovascular disease; F17.210 Nicotine dependence, cigarettes, uncomplicated; Z79.01 Long term (current) use of anticoagulants; Z79.899 Other long term (current) drug therapy; Z88.1 Allergy status to other antibiotic agents; Z88.8 Allergy status to other drugs, medicaments and biological substances; K57.90 Diverticulosis of intestine, part unspecified, without perforation or abscess without bleeding
CPT/HCPCS: 36415; 74178; 76377; 80048; 80053; 81003; 81015; 83605; 83880; 85014; 85018; 85025; 85610; 85730; 86140; 86850; 86900; 86901; 87077; 87086; 87186; 88112; 96361; 96374; 99284; A9270-GY; G0378; J3430; Q9967

== ENCOUNTER 2017-05-04 11:09 | Emergency (ER) | payer MEDICARE ==
[2017-05-04 13:42] LABS: Hematocrit 37 % (35-47); Hemoglobin 12.1 g/dl (12.0-16.0); Mean Corpuscular HGB Conc 33 g/dl (31-36); Mean Corpuscular Hemoglobin 29 pg (27-31); Mean Corpuscular Volume 88 fL (80-97); Mean Platelet Volume 9 um3 (7.4-10.4); Red Blood Count 4.15 10^6/ul (4.0-5.4); Red Cell Distribution Width 14 % (10.5-15)
[2017-05-04 15:16] VITALS: BP 152/59
--- NOTE | 2017-05-06 18:42 | ED ---
Ankush Kowalski Angela, scribed for Krzysztof Alcantar MD on 05/04/17 at 1314 . Throat Pain/Nasal Congestion - HPI Summary HPI Summary: This pt is a 82 y/o female, accompanied by her , presenting to [facility] c/o epistaxis today. Pt reports she has had intermittent epistaxis since 0600 today. She went to Urgent Care this morning to check her INR level since last week it was 1.45. Urgent Care sent the pt to the ED as they didn't want to draw her blood because it may be too thin. She was sent to the ED in case she needed a cauterization. PMHx includes diabetes. Pt is on anticoagulants. - History of Current Complaint Chief Complaint: EDEpistaxis Time Seen by Provider: 05/04/17 13:03 Hx Obtained From: Patient Onset/Duration: Lasting Hours, Resolved, Other - intermittent Associated Signs And Symptoms: Positive: Negative Cough: None - Allergies/Home Medications Allergies/Adverse Reactions: Allergies Allergy/AdvReac Type Severity Reaction Status Date / Time Lactose Intolerance (GI) Allergy Diarrhea Verified 04/13/17 10:52 Ramipril [From Altace] Allergy Unknown Verified 01/17/14 09:41 Reaction Details Cephalexin [From Keflex] AdvReac SEVERE Verified 03/13/15 07:48 DIARRHEA MILK Allergy Diarrhea Uncoded 01/17/14 09:41 PMH/Surg Hx/FS Hx/Imm Hx Endocrine/Hematology History: Reports: Hx Anticoagulant Therapy, Hx Diabetes - NO MEDS, CONTROLLED WITH DIET/ACTIVITY, Hx Thyroid Disease - ON DAILY MEDS Cardiovascular History: Reports: Hx Congestive Heart Failure, Hx Hypercholesterolemia, Hx Hypertension - ON MEDS, Other Cardiovascular Problems/ Disorders - 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, IDDM II Respiratory History: Reports: Hx Chronic Obstructive Pulmonary Disease (COPD) GI History: Reports: Other GI Disorders - gallstones Musculoskeletal History: Reports: Hx Back Problems Sensory History: Reports: Hx Cataracts, Hx Glaucoma Denies: Hx Contacts or Glasses, Hx Eye Injury, Hx Eye Prosthesis, Hx Legally Blind, Hx Macular Degeneration, Hx Vision Problem, Hx Deafness, Hx Hearing Aid, Hx Hearing Problem, Other Sensory Impairments Opthamlomology History: Reports: Hx Cataracts, Hx Glaucoma Denies: Hx Contacts or Glasses, Hx Eye Injury, Hx Eye Prosthesis, Hx Legally Blind, Hx Macular Degeneration, Hx Vision Problem, Other Sensory Impairments Neurological History: Reports: Hx Seizures - NOW ON KEPPRA, Hx Transient Ischemic Attacks (TIA) Denies: Hx Dementia, Hx Developmental Delay, Hx Headaches, Hx Migraine, Hx Nerve Disease, Hx Spinal Cord Injury Psychiatric History: Reports: Hx Anxiety - ON MEDS, Hx Depression - Cancer History Hx Chemotherapy: No Hx Radiation Therapy: No - Surgical History Surgery Procedure, Year, and Place: 1944 TONSILLECTOMY. 1984 HYSTERECTOMY AND APPENDECTOMY. 2011 RETINA SURGERY- RIGHT EYE- [place]. BREAST BIOPSY- [facility]. 12/18/13 RT EYE CATARACT [facility] Hx Anesthesia Reactions: No Infectious Disease History: No Infectious Disease History: Denies: Hx Clostridium Difficile, Hx Hepatitis, Hx Human Immunodeficiency Virus (HIV), Hx of Known/Suspected MRSA, Hx Shingles, Hx Tuberculosis, Hx Known/ Suspected VRE, Hx Known/Suspected VRSA, History Other Infectious Disease, Traveled Outside the [place] in Last 30 Days - Family History Known Family History: Positive: Cardiac Disease - Social History Alcohol Use: None Alcohol Amount: REFRAINS NOW BECAUSE OF MEDS Substance Use Type: Reports: None Hx Tobacco Use: Yes Smoking Status (MU): Light Every Day Tobacco Smoker Type: Cigarettes Amount Used/How Often: LESS THEN 1/2PPD CIGARETTES PER DAY X 60 YEARS Have You Smoked in the Last Year: Yes Review of Systems Negative: Fever, Chills Positive: Epistaxis Genitourinary: Negative Musculoskeletal: Negative Skin: Negative Neurological: Negative All Other Systems Reviewed And Are Negative: Yes Physical Exam - Summary Physical Exam Summary: VITAL SIGNS: Reviewed. GENERAL: Patient is a well-developed and nourished female who is lying comfortable in the stretcher. Patient is not in any acute respiratory distress. HEAD AND FACE: No signs of trauma. No ecchymosis, hematomas or skull depressions. No sinus tenderness. There is old blood in the right nostril. No active bleeding. EYES: PERRLA, EOMI x 2, No injected conjunctiva, no nystagmus. EARS: Hearing grossly intact. Ear canals and tympanic membranes are within normal limits. MOUTH: Oropharynx within normal limits. NECK: Supple, trachea is midline, no adenopathy, no JVD, no carotid bruit, no c- spine tenderness, neck with full ROM. CHEST: Symmetric, no tenderness at palpation LUNGS: Clear to auscultation bilaterally. No wheezing or crackles. CVS: Regular rate and rhythm, S1 and S2 present, no murmurs or gallops appreciated. ABDOMEN: Soft, non-tender. No signs of distention. No rebound no guarding, and no masses palpated. Bowel sounds are normal. EXTREMITIES: FROM in all major joints, no edema, no cyanosis or clubbing. NEURO: Alert and oriented x 3. No acute neurological deficits. Speech is normal and follows commands. SKIN: Dry and warm Triage Information Reviewed: Yes Vital Signs On Initial Exam: Initial Vitals Temp Pulse Resp BP Pulse Ox 97.8 F 56 18 142/68 96 05/04/17 11:11 05/04/17 11:11 05/04/17 11:11 05/04/17 11:11 05/04/17 11:11 Vital Signs Reviewed: Yes Diagnostics - Vital Signs Vital Signs Temp Pulse Resp BP Pulse Ox 05/04/17 11:11 97.8 F 56 18 142/68 96 - Laboratory Result Diagrams: 05/04/17 13:30 Lab Statement: Any lab studies that have been ordered have been reviewed, and results considered in the medical decision making process. EENT Course/Dx - Course Assessment/Plan: This pt is a 82 y/o female, accompanied by her , [facility]. Pt reports she has had intermittent epistaxis since 0600 today. She went to Urgent Care this morning to check her INR level since last week it was 1.45. Urgent Care sent the pt to the ED as they didn't want to draw her blood because it may be too thin. She was sent to the ED in case she needed a cauterization. PMHx includes diabetes. Pt is on anticoagulants. CBC shows a normal H&H and INR of 3.07. Pt does not have epistaxis at this time. Therefore, the pt will be discharged home with follow up from her PCP. She was asked to stop taking Coumadin for 1 day and start re- taking it tomorrow. I also discussed pt care with the nurse from Dr. Rivera office and she agrees, and Dr. Rodriguez will follow up with her tomorrow. Pt is hemodynamically stable, alert and oriented x3. - Diagnoses Provider Diagnoses: Epistaxis, Elevated INR - Provider Notifications Discussed Care Of Patient With: Nurse from Dr. Rodriguez's office Time Discussed With Above Provider: 15:03 Instructed by Provider To: Other - I discussed the pt's case with a nurse from Dr. Rodriguez's office and agrees with discharge plan and instructions. Nurse will relay the message to Dr. Rodriguez. Discharge - Discharge Plan Condition: Stable Disposition: HOME Patient Education Materials: Nosebleed (ED), Elevated INR (ED) Referrals: Manda Rodriguez MD [Primary Care Provider] - Additional Instructions: STOP taking Coumadin only for today. Please follow up with your primary care provider, Dr. Rodriguez. RETURN TO THE ED FOR ANY WORSENING OR NEW SYMPTOMS. The documentation as recorded by the Ankush glavin Angela accurately reflects the service I personally performed and the decisions made by me, Krzysztof Alcantar MD.
== END 2017-05-04 15:17 | disposition home or self-care (01) ==
LOC: ED 11:09
DX: R04.0 Epistaxis (principal); R79.1 Abnormal coagulation profile; E11.8 Type 2 diabetes mellitus with unspecified complications; E07.9 Disorder of thyroid, unspecified; Z79.01 Long term (current) use of anticoagulants; E78.00 Pure hypercholesterolemia, unspecified; I50.9 Heart failure, unspecified; I10 Essential (primary) hypertension; Z86.73 Personal history of transient ischemic attack (TIA), and cerebral infarction without residual deficits; J44.9 Chronic obstructive pulmonary disease, unspecified; F32.9 Major depressive disorder, single episode, unspecified; F41.9 Anxiety disorder, unspecified; G40.909 Epilepsy, unspecified, not intractable, without status epilepticus; F17.210 Nicotine dependence, cigarettes, uncomplicated
CPT/HCPCS: 36415; 85025; 85610; 99281

== ENCOUNTER 2017-05-06 12:23 | Emergency (ER) | payer MEDICARE ==
[2017-05-06 13:53] LABS: Hematocrit 36 % (35-47); Hemoglobin 11.7 g/dl (12.0-16.0); Mean Corpuscular HGB Conc 33 g/dl (31-36); Mean Corpuscular Hemoglobin 29 pg (27-31); Mean Corpuscular Volume 88 fL (80-97); Mean Platelet Volume 9 um3 (7.4-10.4); Red Blood Count 4.08 10^6/ul (4.0-5.4); Red Cell Distribution Width 14 % (10.5-15); White Blood Count 6.6 10^3/ul (3.5-10.8)
[2017-05-06 14:07] LABS: Albumin 3.5 g/dL (3.2-5.2); BUN/Creatinine Ratio 31.8 (8-20); EGFR African American 110.8 (>60); EGFR Non-African American 86.2 (>60); Globulin 3.4 g/dL (2-4); Potassium 4.1 mmol/L (3.5-5.0); Total Bilirubin 0.5 mg/dL (0.2-1.0); Total Protein 6.9 g/dL (6.4-8.9)
[2017-05-06] MEDS ORDERED: Pantoprazole IV* 40 MG IV ONE (14:55)
--- NOTE | 2017-05-06 15:09 | ED ---
Amparo Kowalski Alfonso, scribed for Krzysztof Alcantar MD on 05/06/17 at 1239 . GI/ HPI - HPI Summary HPI Summary: This patient is an 82 year old F presenting to [facility] accompanied by with a chief complaint of melena since 2200 last night. The patient rates the pain 0/10 in severity. Symptoms alleviated by nothing. reports frequent nose bleeds. Patient reports tiredness. Patient denies CP and SOB. She is on Coumadin. - History of Current Complaint Chief Complaint: EDGIBleed Time Seen by Provider: 05/06/17 12:31 Stated Complaint: BLOOD IN STOOL Hx Obtained From: Patient, Family/Product Safety Administrator Onset/Duration: Started Hours Ago, Still Present Timing: Constant Pain Intensity: 0 - /10 Associated Signs and Symptoms: Positive: Other: - reports frequent nose bleeds. Patient reports tiredness. Patient denies CP and SOB. Alleviating Factor(s): Nothing - Additional Pertinent History Primary Care Physician: YANI - Allergy/Home Medications Allergies/Adverse Reactions: Allergies Allergy/AdvReac Type Severity Reaction Status Date / Time Lactose Intolerance (GI) Allergy Diarrhea Verified 04/13/17 10:52 Ramipril [From Altace] Allergy Unknown Verified 01/17/14 09:41 Reaction Details Cephalexin [From Keflex] AdvReac SEVERE Verified 03/13/15 07:48 DIARRHEA MILK Allergy Diarrhea Uncoded 01/17/14 09:41 PMH/Surg Hx/FS Hx/Imm Hx Endocrine/Hematology History: Reports: Hx Anticoagulant Therapy, Hx Diabetes - NO MEDS, CONTROLLED WITH DIET/ACTIVITY, Hx Thyroid Disease - ON DAILY MEDS Cardiovascular History: Reports: Hx Congestive Heart Failure, Hx Hypercholesterolemia, Hx Hypertension - ON MEDS, Other Cardiovascular Problems/ Disorders - 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, IDDM II Respiratory History: Reports: Hx Chronic Obstructive Pulmonary Disease (COPD) GI History: Reports: Other GI Disorders - gallstones Musculoskeletal History: Reports: Hx Back Problems Sensory History: Reports: Hx Cataracts, Hx Glaucoma Denies: Hx Contacts or Glasses, Hx Eye Injury, Hx Eye Prosthesis, Hx Legally Blind, Hx Macular Degeneration, Hx Vision Problem, Hx Deafness, Hx Hearing Aid, Hx Hearing Problem, Other Sensory Impairments Opthamlomology History: Reports: Hx Cataracts, Hx Glaucoma Denies: Hx Contacts or Glasses, Hx Eye Injury, Hx Eye Prosthesis, Hx Legally Blind, Hx Macular Degeneration, Hx Vision Problem, Other Sensory Impairments Neurological History: Reports: Hx Seizures - NOW ON KEPPRA, Hx Transient Ischemic Attacks (TIA) Denies: Hx Dementia, Hx Developmental Delay, Hx Headaches, Hx Migraine, Hx Nerve Disease, Hx Spinal Cord Injury Psychiatric History: Reports: Hx Anxiety - ON MEDS, Hx Depression - Cancer History Hx Chemotherapy: No Hx Radiation Therapy: No - Surgical History Surgery Procedure, Year, and Place: 1944 TONSILLECTOMY. 1984 HYSTERECTOMY AND APPENDECTOMY. 2011 RETINA SURGERY- RIGHT EYE- [place]. BREAST BIOPSY- [facility]. 12/18/13 RT EYE CATARACT [facility] Hx Anesthesia Reactions: No Infectious Disease History: No Infectious Disease History: Denies: Hx Clostridium Difficile, Hx Hepatitis, Hx Human Immunodeficiency Virus (HIV), Hx of Known/Suspected MRSA, Hx Shingles, Hx Tuberculosis, Hx Known/ Suspected VRE, Hx Known/Suspected VRSA, History Other Infectious Disease, Traveled Outside the [place] in Last 30 Days - Family History Known Family History: Positive: Cardiac Disease - Social History Alcohol Use: None Alcohol Amount: REFRAINS NOW BECAUSE OF MEDS Hx Substance Use: No Substance Use Type: Reports: None Hx Tobacco Use: Yes Smoking Status (MU): Light Every Day Tobacco Smoker Type: Cigarettes Amount Used/How Often: LESS THEN 1/2PPD CIGARETTES PER DAY X 60 YEARS Have You Smoked in the Last Year: Yes Review of Systems Positive: Other - Tiredness. Negative: Fever Positive: Other - frequent nose bleeds Negative: Chest Pain Negative: Shortness Of Breath Positive: Other - melena All Other Systems Reviewed And Are Negative: Yes Physical Exam - Summary Physical Exam Summary: VITAL SIGNS: Reviewed. GENERAL: Patient is an elderly and nourished female who is lying comfortable in the stretcher. Patient is not in any acute respiratory distress. HEAD AND FACE: No signs of trauma. No ecchymosis, hematomas or skull depressions. No sinus tenderness. EYES: PERRLA, EOMI x 2, No injected conjunctiva, no nystagmus. EARS: Hearing grossly intact. Ear canals and tympanic membranes are within normal limits. MOUTH: Oropharynx within normal limits. NECK: Supple, trachea is midline, no adenopathy, no JVD, no carotid bruit, no c- spine tenderness, neck with full ROM. CHEST: Symmetric, no tenderness at palpation LUNGS: Clear to auscultation bilaterally. No wheezing or crackles. CVS: Regular rate and rhythm, S1 and S2 present, no murmurs or gallops appreciated. ABDOMEN: Soft, non-tender. No signs of distention. No rebound no guarding, and no masses palpated. Bowel sounds are normal. RECTAL: Dark stool. Normal sphincter tongue. RN Yessenia present. EXTREMITIES: FROM in all major joints, no edema, no cyanosis or clubbing. NEURO: Alert and oriented x 3. No acute neurological deficits. Speech is normal and follows commands. SKIN: Dry and warm Triage Information Reviewed: Yes Vital Signs On Initial Exam: Initial Vitals Temp Pulse Resp BP Pulse Ox 97.3 F 50 18 145/73 97 05/06/17 12:26 05/06/17 12:26 05/06/17 12:26 05/06/17 12:26 05/06/17 12:26 Vital Signs Reviewed: Yes Diagnostics - Vital Signs Vital Signs Temp Pulse Resp BP Pulse Ox 05/06/17 12:26 97.3 F 50 18 145/73 97 - Laboratory Lab Results: Lab Results 05/06/17 05/06/17 05/06/17 Range/Units 13:40 13:40 13:40 WBC 6.6 (3.5-10.8) 10^3/ul RBC 4.08 (4.0-5.4) 10^6/ul Hgb 11.7 L (12.0-16.0) g/dl Hct 36 (35-47) % MCV 88 (80-97) fL MCH 29 (27-31) pg MCHC 33 (31-36) g/dl RDW 14 (10.5-15) % Plt Count 232 (150-450) 10^3/ul MPV 9 (7.4-10.4) um3 Neut % (Auto) 45.9 (38-83) % Lymph % (Auto) 39.5 (25-47) % [place] % (Auto) 9.4 H (1-9) % Eos % (Auto) 4.0 (0-6) % Baso % (Auto) 1.2 (0-2) % Absolute Neuts (auto) 3.0 (1.5-7.7) 10^3/ul Absolute Lymphs (auto) 2.6 (1.0-4.8) 10^3/ul Absolute Monos (auto) 0.6 (0-0.8) 10^3/ul Absolute Eos (auto) 0.3 (0-0.6) 10^3/ul Absolute Basos (auto) 0.1 (0-0.2) 10^3/ul Absolute Nucleated RBC 0.01 10^3/ul Nucleated RBC % 0.1 INR (Anticoag Therapy) 2.20 H (0.77-1.02) APTT 48.5 H (26.0-36.3) seconds Sodium 139 (133-145) mmol/L Potassium 4.1 (3.5-5.0) mmol/L Chloride 105 (101-111) mmol/L Carbon Dioxide 30 (22-32) mmol/L Anion Gap 4 (2-11) mmol/L BUN 21 (6-24) mg/dL Creatinine 0.66 (0.51-0.95) mg/dL Est GFR ( Amer) 110.8 (>60) Est GFR (Non-Af Amer) 86.2 (>60) BUN/Creatinine Ratio 31.8 H (8-20) Glucose 136 H (70-100) mg/dL Calcium 9.0 (8.6-10.3) mg/dL Total Bilirubin 0.50 (0.2-1.0) mg/dL AST 20 (13-39) U/L ALT 14 (7-52) U/L Alkaline Phosphatase 102 (34-104) U/L Total Protein 6.9 (6.4-8.9) g/dL Albumin 3.5 (3.2-5.2) g/dL Globulin 3.4 (2-4) g/dL Albumin/Globulin Ratio 1.0 (1-3) Blood Type Antibody Screen 05/06/17 Range/Units 13:40 WBC (3.5-10.8) 10^3/ul RBC (4.0-5.4) 10^6/ul Hgb (12.0-16.0) g/dl Hct (35-47) % MCV (80-97) fL MCH (27-31) pg MCHC (31-36) g/dl RDW (10.5-15) % Plt Count (150-450) 10^3/ul MPV (7.4-10.4) um3 Neut % (Auto) (38-83) % Lymph % (Auto) (25-47) % [place] % (Auto) (1-9) % Eos % (Auto) (0-6) % Baso % (Auto) (0-2) % Absolute Neuts (auto) (1.5-7.7) 10^3/ul Absolute Lymphs (auto) (1.0-4.8) 10^3/ul Absolute Monos (auto) (0-0.8) 10^3/ul Absolute Eos (auto) (0-0.6) 10^3/ul Absolute Basos (auto) (0-0.2) 10^3/ul Absolute Nucleated RBC 10^3/ul Nucleated RBC % INR (Anticoag Therapy) (0.77-1.02) APTT (26.0-36.3) seconds Sodium (133-145) mmol/L Potassium (3.5-5.0) mmol/L Chloride (101-111) mmol/L Carbon Dioxide (22-32) mmol/L Anion Gap (2-11) mmol/L BUN (6-24) mg/dL Creatinine (0.51-0.95) mg/dL Est GFR ( Amer) (>60) Est GFR (Non-Af Amer) (>60) BUN/Creatinine Ratio (8-20) Glucose (70-100) mg/dL Calcium (8.6-10.3) mg/dL Total Bilirubin (0.2-1.0) mg/dL AST (13-39) U/L ALT (7-52) U/L Alkaline Phosphatase (34-104) U/L Total Protein (6.4-8.9) g/dL Albumin (3.2-5.2) g/dL Globulin (2-4) g/dL Albumin/Globulin Ratio (1-3) Blood Type A Positive Antibody Screen Negative Result Diagrams: 05/06/17 13:40 05/06/17 13:40 Lab Statement: Any lab studies that have been ordered have been reviewed, and results considered in the medical decision making process. - EKG 1255 Cardiac Rate: Bradycardia EKG Rhythm: Sinus Bradycardia - 47 BPM EKG Interpretation: No ST elevations. GIGU Course/Dx - Course Assessment/Plan: Patient is an 82 y/o female with melena. In the ED course an IV access was obtained. Patient was placed in a manager laboratory. Patient was started with IV fluids. She was given Protonix IV. P/E: revela melena and she has a positive occult blood test. Labs without any significant abnormality except for Hb 11.7, Otherwise H/H is stable. INR is 2.2. EKG shows a A. fib at 47 BPM. CXR impression: No acute pathology. Patient is hemodynamically stable at this time. She is Alert and oriented x 3. There is no GI service front office spec. I discussed with Ms. Nick in [facility] transfer center and she accepted the petition for transfer Accepting physician is Dr. Pollock. [facility] [place] [facility] - Diagnoses Differential Diagnoses - Female: Gastritis, Gastroenteritis (Viral), Gastroenteritis (Bacterial), Other - GI bleed, Melena Provider Diagnoses: GI bleed, Atrial fib on Warfarin - Physician Notifications Discussed Care Of Patient With: Phill Time Discussed With Above Provider: 14:34 Instructed by Provider To: Other - Consulted Dr. Pollock ([facility]) at 1434 who accept the patient for transfer. Discharge - Discharge Plan Condition: Guarded Disposition: TRANS HIGHER LVL OF CARE FAC Discharge Disposition Comment: [facility] Referrals: Manda Rodriguez MD [Primary Care Provider] - The documentation as recorded by the Amparo galvin Alfonso accurately reflects the service I personally performed and the decisions made by , Krzysztof Alcantar MD.
[2017-05-06 15:25] VITALS: BP 117/53
== END 2017-05-06 16:02 | disposition short-term general hospital (02) ==
LOC: ED 12:23
DX: K92.2 Gastrointestinal hemorrhage, unspecified (principal); I48.91 Unspecified atrial fibrillation; Z79.01 Long term (current) use of anticoagulants; I50.9 Heart failure, unspecified; E78.00 Pure hypercholesterolemia, unspecified; I10 Essential (primary) hypertension; Z86.73 Personal history of transient ischemic attack (TIA), and cerebral infarction without residual deficits; E11.9 Type 2 diabetes mellitus without complications; F41.9 Anxiety disorder, unspecified; F32.9 Major depressive disorder, single episode, unspecified; F17.210 Nicotine dependence, cigarettes, uncomplicated
CPT/HCPCS: 36415; 80053; 82270; 85025; 85610; 85730; 86850; 86900; 86901; 93005; 96374; 99284

== ENCOUNTER 2017-08-26 17:05 | Emergency (ER) | payer MEDICARE ==
[2017-08-26] MEDS ORDERED: NS 0.9% 1000 ML* 1,000 ML IV SCH ×2 (17:45)
[2017-08-26 18:12] LABS: ABS Basophils 0.1 10^3/ul (0-0.2); ABS Eosinophils 0.5 10^3/ul (0-0.6); ABS Monocytes 0.9 10^3/ul (0-0.8); ABS Neutrophils 5.1 10^3/ul (1.5-7.7); ABS Nucleated RBC 0 10^3/ul; Eosinophil % 4.9 % (0-6); Hematocrit 39 % (35-47); Lymphocyte % 31.5 % (25-47); Mean Corpuscular HGB Conc 33 g/dl (31-36); Mean Corpuscular Hemoglobin 29 pg (27-31); Mean Corpuscular Volume 86 fL (80-97); Mean Platelet Volume 9.8 um3 (7.4-10.4); Nucleated Red Blood Cells % 0.1; Platelet Count 198 10^3/ul (150-450); Red Blood Count 4.53 10^6/ul (4.0-5.4); Red Cell Distribution Width 14 % (10.5-15); White Blood Count 9.5 10^3/ul (3.5-10.8)
[2017-08-26 18:21] LABS: INR 1.89 (0.77-1.02)
--- NOTE | 2017-08-26 18:22 | RAD ---
Indication: Fall. Anticoagulated. Early dementia. Comparison: June 09, 2015 CT Technique: Noncontrast CT vertex of skull through foramen magnum. Report: Massive RIGHT middle cerebral artery distribution encephalomalacia related to old infarct and smaller foci of encephalomalacia at the LEFT middle cerebral artery and posterior cerebral artery distribution consistent with old infarcts. No new region of stanley matter white matter obscuration evident compared with the 2016 exam. Moderate prominence of the cerebral sulci and mild prominence of the cerebellar fissures. Proportional enlargement of the ventricles. Patent basal cisterns. Negative for intra or extra-axial hemorrhage. Negative for calvarial or skull base fracture or suspicious focal osseous lesion. Fluid level at the LEFT sphenoid sinus. Mucosal thickening at the bilateral ethmoid sinuses. The remaining visualized paranasal sinuses and mastoid air spaces are grossly clear. Negative for scalp hematoma. IMPRESSION: 1. No CT evidence for traumatic brain injury/intracranial hemorrhage. 2. Multiple old cerebral infarcts as described. Stigmata of chronic small vessel ischemic disease. Involutional change. 3. Fluid level at the LEFT sphenoid sinus may represent acute sinusitis.
--- NOTE | 2017-08-26 18:31 | RAD ---
INDICATION: Fall. Anticoagulated. COMPARISON: No relevant prior exams available on the [facility] PACS for comparison. TECHNIQUE: Multidetector CT images foramen magnum to lung apices without contrast. Multiplanar reformation. REPORT: Normal vertebral alignment accounting for exam positioning without facet subluxation at any level. Negative for cervical vertebral body or posterior element fracture. Negative for paravertebral hematoma. Diffuse degenerative spondylosis and facet joint osteoarthritis. At C3-C4 uncinate process spurring and facet joint osteoarthritis results in moderately severe RIGHT foraminal stenosis. At C4-C5 uncinate process spurring and facet joint osteoarthritis results in moderately severe LEFT foraminal stenosis. At C5-C6 uncinate process spurring and facet joint osteoarthritis results in moderately severe bilateral foraminal stenosis. Congenitally generous pedicles mitigate against significant acquired central canal stenosis. IMPRESSION: No CT evidence for traumatic cervical spine injury.
[2017-08-26 18:38] LABS: EGFR Non-African American 80.5 (>60)
--- NOTE | 2017-08-26 19:30 | RAD ---
Indication: Fall. Comparison: March 16, 2017 chest radiograph. April 12, 2017 CT abdomen Technique: Upright AP 1910 hours Report: Cardiomegaly, prominent mildly ill-defined central pulmonary vasculature and diffuse prominence of interstitial markings with subtle thickened peripheral intralobular septa. Grossly clear pleural spaces. Negative for pneumothorax. No thoracic fracture evident. IMPRESSION: Mild pulmonary vascular congestion and interstitial edema.
[2017-08-26 20:20] VITALS: BP 142/66
--- NOTE | 2017-08-26 20:23 | ED ---
Vipul Kowalski Natalie, scribed for Reji Farley MD on 08/26/17 at 1748 . Syncope/Near Syncope - HPI Summary HPI Summary: The pt is an 82 y/o F presenting to the ED c/o headache s/p syncope at 14:00 today. She hit her head when she fell, and her posterior head and neck still hurt in the ED. Her states that she was complaining that her leg also hurt earlier, but the pt denies it hurting now. She also denies arm, back, and abd pain. The pt was able to ambulate as normal post fall, and she was alert, per . She isnt sure why she fell, but she didnt lose consciousness. She has hx of stroke in 2003, and seizure a few years ago. - History Of Current Complaint Chief Complaint: EDHeadInjury Time Seen by Provider: 08/26/17 17:30 Hx Obtained From: Patient Onset/Duration: Sudden Onset, Lasting Hours, Still Present Timing: Constant Context: Unwitnessed Activity At Onset: Other - standing Aggravating Factor(s): Nothing Alleviating Factor(s): Nothing Associated Signs And Symptoms: Headache, Other - POSITIVE: neck pain; NEGATIVE: leg, back, arm, abd pain, LOC - Allergies/Home Medications Allergies/Adverse Reactions: Allergies Allergy/AdvReac Type Severity Reaction Status Date / Time cephalexin Allergy Diarrhea Verified 08/26/17 17:19 lactose Allergy Diarrhea Verified 08/26/17 17:19 ramipril [From Altace] Allergy Unknown Verified 08/26/17 17:19 Reaction Details Home Medications: Home Medications Dofetilide CAP* [Tikosyn CAP*] 250 mcg PO BID 08/26/17 [History Confirmed ] Halobetasol Propionate [Ultravate] 0.05 % TOPICAL DAILY PRN 08/26/17 [History Confirmed 08/26/17] Loperamide CAP* [Imodium CAP*] 2 mg PO Q6H PRN 08/26/17 [History Confirmed 08/26] Torsemide TAB* [Demadex*] 50 mg PO DAILY 08/26/17 [History Confirmed 08/26/17] PMH/Surg Hx/FS Hx/Imm Hx Previously Healthy: No Endocrine/Hematology History: Reports: Hx Anticoagulant Therapy, Hx Diabetes - NO MEDS, CONTROLLED WITH DIET/ACTIVITY, Hx Thyroid Disease - ON DAILY MEDS Cardiovascular History: Reports: Hx Congestive Heart Failure, Hx Hypercholesterolemia, Hx Hypertension - ON MEDS, Other Cardiovascular Problems/ Disorders - CVA X 2 '02 & , IDDM II Respiratory History: Reports: Hx Chronic Obstructive Pulmonary Disease (COPD) GI History: Reports: Other GI Disorders - gallstones Musculoskeletal History: Reports: Hx Back Problems Sensory History: Reports: Hx Cataracts, Hx Glaucoma Denies: Hx Contacts or Glasses, Hx Eye Injury, Hx Eye Prosthesis, Hx Legally Blind, Hx Macular Degeneration, Hx Vision Problem, Hx Deafness, Hx Hearing Aid, Hx Hearing Problem, Other Sensory Impairments Opthamlomology History: Reports: Hx Cataracts, Hx Glaucoma Denies: Hx Contacts or Glasses, Hx Eye Injury, Hx Eye Prosthesis, Hx Legally Blind, Hx Macular Degeneration, Hx Vision Problem, Other Sensory Impairments Neurological History: Reports: Hx Seizures - NOW ON KEPPRA, Hx Transient Ischemic Attacks (TIA) Denies: Hx Dementia, Hx Developmental Delay, Hx Headaches, Hx Migraine, Hx Nerve Disease, Hx Spinal Cord Injury Psychiatric History: Reports: Hx Anxiety - ON MEDS, Hx Depression - Cancer History Hx Chemotherapy: No Hx Radiation Therapy: No - Surgical History Surgery Procedure, Year, and Place: 1944 TONSILLECTOMY. 1984 HYSTERECTOMY AND APPENDECTOMY. 2011 RETINA SURGERY- RIGHT EYE- [place]. BREAST BIOPSY- [facility]. 12/18/13 RT EYE CATARACT [facility] Hx Anesthesia Reactions: No Infectious Disease History: No Infectious Disease History: Denies: Hx Clostridium Difficile, Hx Hepatitis, Hx Human Immunodeficiency Virus (HIV), Hx of Known/Suspected MRSA, Hx Shingles, Hx Tuberculosis, Hx Known/ Suspected VRE, Hx Known/Suspected VRSA, History Other Infectious Disease, Traveled Outside the [place] in Last 30 Days - Family History Known Family History: Positive: Cardiac Disease, Hypertension - Social History Alcohol Use: None Alcohol Amount: REFRAINS NOW BECAUSE OF MEDS Hx Substance Use: No Substance Use Type: Reports: None Hx Tobacco Use: Yes Smoking Status (MU): Light Every Day Tobacco Smoker Type: Cigarettes Amount Used/How Often: LESS THEN 1/2PPD CIGARETTES PER DAY X 60 YEARS Have You Smoked in the Last Year: Yes Review of Systems Musculoskeletal: Negative Positive: Other - POSITIVE: neck pain; NEGATIVE: leg, back, arm, pain Neurological: Negative - LOC Positive: Headache, Syncope All Other Systems Reviewed And Are Negative: Yes Physical Exam Triage Information Reviewed: Yes Vital Signs On Initial Exam: Initial Vitals Temp Pulse Resp BP Pulse Ox 96.7 F 58 15 151/94 98 08/26/17 17:20 08/26/17 17:20 08/26/17 17:20 08/26/17 17:20 08/26/17 17:20 Vital Signs Reviewed: Yes Appearance: Positive: Well-Appearing, No Pain Distress Skin: Positive: Warm, Skin Color Reflects Adequate Perfusion, Dry Head/Face: Positive: Normal Head/Face Inspection Eyes: Positive: EOMI, RAJINDER ENT: Positive: Normal ENT inspection Neck: Positive: Supple, Nontender Respiratory/Lung Sounds: Positive: Clear to Auscultation, Breath Sounds Present Cardiovascular: Positive: RRR Abdomen Description: Positive: Nontender, Soft Bowel Sounds: Positive: Present Musculoskeletal: Positive: Normal, Strength/ROM Intact Neurological: Positive: Normal, Sensory/Motor Intact, Alert, Oriented to Person Place, Time, Other - some dementia Psychiatric: Positive: Affect/Mood Appropriate Diagnostics - Vital Signs Vital Signs Temp Pulse Resp BP Pulse Ox 08/26/17 17:20 96.7 F 58 15 151/94 98 - Laboratory Lab Results: Lab Results 08/26/17 08/26/17 08/26/17 Range/Units 17:57 17:57 17:57 WBC 9.5 (3.5-10.8) 10^3/ul RBC 4.53 (4.0-5.4) 10^6/ul Hgb 13.0 (12.0-16.0) g/dl Hct 39 (35-47) % MCV 86 (80-97) fL MCH 29 (27-31) pg MCHC 33 (31-36) g/dl RDW 14 (10.5-15) % Plt Count 198 (150-450) 10^3/ul MPV 9.8 (7.4-10.4) um3 Neut % (Auto) 53.6 (38-83) % Lymph % (Auto) 31.5 (25-47) % Dickey % (Auto) 9.0 H (0-7) % Eos % (Auto) 4.9 (0-6) % Baso % (Auto) 1.0 (0-2) % Absolute Neuts (auto) 5.1 (1.5-7.7) 10^3/ul Absolute Lymphs (auto) 3.0 (1.0-4.8) 10^3/ul Absolute Monos (auto) 0.9 H (0-0.8) 10^3/ul Absolute Eos (auto) 0.5 (0-0.6) 10^3/ul Absolute Basos (auto) 0.1 (0-0.2) 10^3/ul Absolute Nucleated RBC 0 10^3/ul Nucleated RBC % 0.1 INR (Anticoag Therapy) 1.89 H (0.77-1.02) APTT 45.3 H (26.0-36.3) seconds Sodium 141 (139-145) mmol/L Potassium 3.9 (3.5-5.0) mmol/L Chloride 106 (101-111) mmol/L Carbon Dioxide 29 (22-32) mmol/L Anion Gap 6 (2-11) mmol/L BUN 17 (6-24) mg/dL Creatinine 0.70 (0.51-0.95) mg/dL Est GFR ( Amer) 103.5 (>60) Est GFR (Non-Af Amer) 80.5 (>60) BUN/Creatinine Ratio 24.3 H (8-20) Glucose 137 H (70-100) mg/dL Lactic Acid (0.5-2.0) mmol/L Calcium 9.0 (8.6-10.3) mg/dL Magnesium 2.1 (1.9-2.7) mg/dL Total Bilirubin 0.40 (0.2-1.0) mg/dL AST 20 (13-39) U/L ALT 17 (7-52) U/L Alkaline Phosphatase 110 H (34-104) U/L Total Creatine Kinase 56 (10-223) U/L CK-MB (CK-2) 2.1 (0.6-6.3) ng/mL Troponin I 0.01 (<0.04) ng/mL C-Reactive Protein 2.19 (< 5.00) mg/L Total Protein 7.1 (6.4-8.9) g/dL Albumin 3.9 (3.2-5.2) g/dL Globulin 3.2 (2-4) g/dL Albumin/Globulin Ratio 1.2 (1-3) Lipase 23 (11.0-82.0) U/L TSH 2.54 (0.34-5.60) mcIU/mL 08/26/17 Range/Units 17:57 WBC (3.5-10.8) 10^3/ul RBC (4.0-5.4) 10^6/ul Hgb (12.0-16.0) g/dl Hct (35-47) % MCV (80-97) fL MCH (27-31) pg MCHC (31-36) g/dl RDW (10.5-15) % Plt Count (150-450) 10^3/ul MPV (7.4-10.4) um3 Neut % (Auto) (38-83) % Lymph % (Auto) (25-47) % Dickey % (Auto) (0-7) % Eos % (Auto) (0-6) % Baso % (Auto) (0-2) % Absolute Neuts (auto) (1.5-7.7) 10^3/ul Absolute Lymphs (auto) (1.0-4.8) 10^3/ul Absolute Monos (auto) (0-0.8) 10^3/ul Absolute Eos (auto) (0-0.6) 10^3/ul Absolute Basos (auto) (0-0.2) 10^3/ul Absolute Nucleated RBC 10^3/ul Nucleated RBC % INR (Anticoag Therapy) (0.77-1.02) APTT (26.0-36.3) seconds Sodium (139-145) mmol/L Potassium (3.5-5.0) mmol/L Chloride (101-111) mmol/L Carbon Dioxide (22-32) mmol/L Anion Gap (2-11) mmol/L BUN (6-24) mg/dL Creatinine (0.51-0.95) mg/dL Est GFR ( Amer) (>60) Est GFR (Non-Af Amer) (>60) BUN/Creatinine Ratio (8-20) Glucose (70-100) mg/dL Lactic Acid 0.9 (0.5-2.0) mmol/L Calcium (8.6-10.3) mg/dL Magnesium (1.9-2.7) mg/dL Total Bilirubin (0.2-1.0) mg/dL AST (13-39) U/L ALT (7-52) U/L Alkaline Phosphatase (34-104) U/L Total Creatine Kinase (10-223) U/L CK-MB (CK-2) (0.6-6.3) ng/mL Troponin I (<0.04) ng/mL C-Reactive Protein (< 5.00) mg/L Total Protein (6.4-8.9) g/dL Albumin (3.2-5.2) g/dL Globulin (2-4) g/dL Albumin/Globulin Ratio (1-3) Lipase (11.0-82.0) U/L TSH (0.34-5.60) mcIU/mL Result Diagrams: 08/26/17 17:57 08/26/17 17:57 Lab Statement: Any lab studies that have been ordered have been reviewed, and results considered in the medical decision making process. - CT Brain CT CT Interpretation: No Acute Changes - 1. No CT evidence for traumatic brain injury/intracranial hemorrhage. 2. Multiple old cerebral infarcts as described. Stigmata of chronic small vessel ischemic disease. Involutional change. 3. Fluid level at the LEFT sphenoid sinus may represent acute sinusitis. ED physician has reviewed this report. CT Interpretation Completed By: Radiologist Cervical Spine CT CT Interpretation: No Acute Changes - No CT evidence for traumatic cervical spine injury. ED physician has reviewed this report. CT Interpretation Completed By: Radiologist - EKG 18:30 Cardiac Rate: Bradycardia EKG Rhythm: Sinus Bradycardia - [address] Segment: Normal Ectopy: None Course/Dx Course Of Treatment: Medications reviewed. Allergies noted. BP noted and advised to follow up with PCP. DISCUSSED RESULTS WITH THE PATIENT AND HER . SHE DENIES SOB/PAIN/SINUSITIS SX. DISCUSSED ADMISSION VERSES DISCHARGE HOME, THE PATIENT WISHES TO GO HOME. F/U PMD; RETURN IF WORSE. - Diagnoses Provider Diagnoses: Head injury Discharge - Sign-Out/Discharge Documenting (check all that apply): Discharge - Discharge Plan Condition: Stable Disposition: HOME Patient Education Materials: Head Injury (ED) Referrals: Manda Rodriguez MD [Primary Care Provider] - Additional Instructions: FOLLOW UP WITH YOUR DOCTOR. RETURN TO THE EMERGENCY DEPARTMENT FOR ANY WORSENING OF YOUR CONDITION OR QUESTIONS OR CONCERNS. YOUR BLOOD PRESSURE WAS ELEVATED TODAY; FOLLOW UP WITH YOUR PRIMARY CARE DOCTOR WITHIN ONE WEEK. - Billing Disposition and Condition Condition: STABLE Disposition: HOME The documentation as recorded by the Vipul galvin Natalie accurately reflects the service I personally performed and the decisions made by me, Reji Farley MD.
== END 2017-08-26 20:23 | disposition home or self-care (01) ==
LOC: ED 17:05
DX: S09.90XA Unspecified injury of head, initial encounter (principal); R51 Headache; R55 Syncope and collapse; Z79.01 Long term (current) use of anticoagulants; F17.210 Nicotine dependence, cigarettes, uncomplicated; W19.XXXA Unspecified fall, initial encounter; Y92.9 Unspecified place or not applicable
CPT/HCPCS: 36415; 70450; 71045; 72125; 80053; 82550; 82553; 83605; 83690; 83735; 84443; 84484; 85025; 85610; 85730; 86140; 93005; 99283

== ENCOUNTER 2017-10-17 18:52 | Emergency (ER) | payer MEDICARE ==
--- NOTE | 2017-10-17 19:42 | RAD ---
INDICATION: Left rib pain after a fall COMPARISON: Chest x-ray August 26, 2017 TECHNIQUE: 4 views of the left ribs were obtained. FINDINGS: No fracture or significant focal osseous abnormality is seen. No pneumothorax is apparent. Limited views demonstrate grossly clear lungs. IMPRESSION: No radiographically apparent displaced rib fracture or pneumothorax. If the patient's symptoms persist, follow-up imaging is recommended.
--- NOTE | 2017-10-17 20:35 | ED ---
Adult Trauma - HPI Summary HPI Summary: Patient complains of right-sided pain S/P unwitnessed fall today at 4 PM. was in the other room heard "a thump" and was there immediately. denies head injury, LOC, any other observed symptoms other then right rib pain. Patient ambulated after fall to the car. Patient has history of dementia, cannot remember fall, but denies any other pain other than right side. States no pain here in the ED. - History of Current Complaint Chief Complaint: EDGeneral Stated Complaint: FALL/RIB PAIN Time Seen by Provider: 10/17/17 20:17 Hx Obtained From: Patient Hx From Patient Unobtainable Due To: Dementia Mechanism of Injury: Fall Ambulatory at the Scene: Yes Loss of Consciousness: no loss of consciousness Current Severity: None Pain Intensity: 0 - Additional Pertinent History Primary Care Physician: YANI - Allergy/Home Medications Allergies/Adverse Reactions: Allergies Allergy/AdvReac Type Severity Reaction Status Date / Time cephalexin Allergy Diarrhea Verified 10/17/17 18:59 lactose Allergy Diarrhea Verified 10/17/17 18:59 ramipril [From Altace] Allergy Unknown Verified 10/17/17 18:59 Reaction Details PMH/Surg Hx/FS Hx/Imm Hx Endocrine/Hematology History: Reports: Hx Anticoagulant Therapy, Hx Diabetes - NO MEDS, CONTROLLED WITH DIET/ACTIVITY, Hx Thyroid Disease - ON DAILY MEDS Cardiovascular History: Reports: Hx Congestive Heart Failure, Hx Hypercholesterolemia, Hx Hypertension - ON MEDS, Other Cardiovascular Problems/ Disorders - 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, IDDM II Respiratory History: Reports: Hx Chronic Obstructive Pulmonary Disease (COPD) GI History: Reports: Other GI Disorders - gallstones Musculoskeletal History: Reports: Hx Back Problems Sensory History: Reports: Hx Cataracts, Hx Glaucoma Denies: Hx Contacts or Glasses, Hx Eye Injury, Hx Eye Prosthesis, Hx Legally Blind, Hx Macular Degeneration, Hx Vision Problem, Hx Deafness, Hx Hearing Aid, Hx Hearing Problem, Other Sensory Impairments Opthamlomology History: Reports: Hx Cataracts, Hx Glaucoma Denies: Hx Contacts or Glasses, Hx Eye Injury, Hx Eye Prosthesis, Hx Legally Blind, Hx Macular Degeneration, Hx Vision Problem, Other Sensory Impairments Neurological History: Reports: Hx Seizures - NOW ON KEPPRA, Hx Transient Ischemic Attacks (TIA) Denies: Hx Dementia, Hx Developmental Delay, Hx Headaches, Hx Migraine, Hx Nerve Disease, Hx Spinal Cord Injury Psychiatric History: Reports: Hx Anxiety - ON MEDS, Hx Depression - Cancer History Hx Chemotherapy: No Hx Radiation Therapy: No - Surgical History Surgery Procedure, Year, and Place: 1944 TONSILLECTOMY. 1984 HYSTERECTOMY AND APPENDECTOMY. 2011 RETINA SURGERY- RIGHT EYE- [place]. BREAST BIOPSY- [facility]. 12/18/13 RT EYE CATARACT [facility] Hx Anesthesia Reactions: No Infectious Disease History: No Infectious Disease History: Denies: Hx Clostridium Difficile, Hx Hepatitis, Hx Human Immunodeficiency Virus (HIV), Hx of Known/Suspected MRSA, Hx Shingles, Hx Tuberculosis, Hx Known/ Suspected VRE, Hx Known/Suspected VRSA, History Other Infectious Disease, Traveled Outside the [place] in Last 30 Days - Family History Known Family History: Positive: Cardiac Disease, Hypertension - Social History Alcohol Use: None Alcohol Amount: REFRAINS NOW BECAUSE OF MEDS Hx Substance Use: No Substance Use Type: Reports: None Hx Tobacco Use: Yes Smoking Status (MU): Former Smoker Type: Cigarettes Amount Used/How Often: LESS THEN 1/2PPD CIGARETTES PER DAY X 60 YEARS Have You Smoked in the Last Year: Yes Review of Systems Constitutional: Negative Eyes: Negative ENT: Negative Cardiovascular: Negative Respiratory: Negative Gastrointestinal: Negative Genitourinary: Negative Musculoskeletal: Negative Skin: Negative Neurological: Negative Psychological: Normal All Other Systems Reviewed And Are Negative: Yes Physical Exam - Summary Physical Exam Summary: No ecchymosis, erythema, swelling, deformity, laceration or abrasion noted to head, face, tongue, teeth, lips. No pain with palpation of face, neck, back, chest wall, abdomen, bilateral upper extremities, bilateral lower extremities. Pain with palpation of right lower ribs. Breath sounds clear to auscultation bilaterally. Patient flexes and extends bilateral lower extremities and hips without any indication of pain. Fixes and extends bilateral upper extremities without any indication of pain Triage Information Reviewed: Yes Vital Signs On Initial Exam: Initial Vitals Temp Pulse Resp BP Pulse Ox 97.3 F 56 16 133/56 95 10/17/17 18:55 10/17/17 18:55 10/17/17 18:55 10/17/17 18:55 10/17/17 18:55 Vital Signs Reviewed: Yes Appearance: Positive: Well-Appearing Skin: Positive: Warm Head/Face: Positive: Normal Head/Face Inspection Eyes: Positive: Normal ENT: Positive: Normal ENT inspection Neck: Positive: Supple Respiratory/Lung Sounds: Positive: Clear to Auscultation Cardiovascular: Positive: Normal Abdomen Description: Positive: Nontender Musculoskeletal: Positive: Normal Neurological: Positive: Normal Psychiatric: Positive: Normal AVPU Assessment: Alert - Joesph Coma Scale Best Eye Response: 4 - Spontaneous Best Motor Response: 6 - Obeys Commands Diagnostics - Vital Signs Vital Signs Temp Pulse Resp BP Pulse Ox 10/17/17 18:55 97.3 F 56 16 133/56 95 - Laboratory Lab Statement: Any lab studies that have been ordered have been reviewed, and results considered in the medical decision making process. - Radiology cxr Xray Interpretation: No Acute Changes Radiology Interpretation Completed By: Radiologist Adult Trauma Course/Dx - Course Course Of Treatment: Complains of right side pain after fall. Denies active pain. Mild Pain with palpation of right side. Physical exam otherwise benign. Patient ambulatory. Chest x-ray negative for pneumothorax or rib fractures. Vital signs within normal limits. Discussed patient with Dr. Perez. Follow- up with primary care - Diagnoses Provider Diagnoses: Fall Discharge - Sign-Out/Discharge Documenting (check all that apply): Discharge/Admit/Transfer - Discharge Plan Condition: Stable Disposition: HOME Patient Education Materials: Fall Prevention for Older Adults (ED) Referrals: Manda Rodriguez MD [Primary Care Provider] - Additional Instructions: Follow-up with primary care. Return to the ED for any new or worsening symptoms - Billing Disposition and Condition Condition: STABLE Disposition: HOME
[2017-10-17 20:52] VITALS: BP 176/69
--- NOTE | 2017-10-17 22:08 | ED ---
Progress - Progress Note Progress Note: I supervised the care of the physician programs assistant and performed a history of physical on this patient. History: Unwitnessed fall with pain in the right rib area. History of dementia. No known head injury. Physical exam: Patient is comfortable and moves with assistance. There is no ecchymosis or abrasion the area of tenderness in the right lateral lower chest wall. No evidence of injury to the head. Plan: X-rays are negative. Treat symptomatically. Follow closely primary care physician. Course/Dx - Course Course Of Treatment: Complains of right side pain after fall. Denies active pain. Mild Pain with palpation of right side. Physical exam otherwise benign. Patient ambulatory. Chest x-ray negative for pneumothorax or rib fractures. Vital signs within normal limits. Discussed patient with Dr. Perez. Follow- up with primary care - Diagnoses Provider Diagnoses: Fall, Rib contusion Discharge - Sign-Out/Discharge Documenting (check all that apply): Discharge/Admit/Transfer - Discharge Plan Condition: Stable Disposition: HOME Patient Education Materials: Fall Prevention for Older Adults (ED) Referrals: Manda Rodriguez MD [Primary Care Provider] - Additional Instructions: Follow-up with primary care. Return to the ED for any new or worsening symptoms - Billing Disposition and Condition Condition: STABLE Disposition: HOME
== END 2017-10-17 20:51 | disposition home or self-care (01) ==
LOC: ED 18:52
DX: R07.81 Pleurodynia (principal); W19.XXXA Unspecified fall, initial encounter; Y92.9 Unspecified place or not applicable; I11.0 Hypertensive heart disease with heart failure; I50.9 Heart failure, unspecified; J44.9 Chronic obstructive pulmonary disease, unspecified; Z86.73 Personal history of transient ischemic attack (TIA), and cerebral infarction without residual deficits; Z79.899 Other long term (current) drug therapy; Z87.891 Personal history of nicotine dependence; Z88.8 Allergy status to other drugs, medicaments and biological substances; Z51.81 Encounter for therapeutic drug level monitoring; I48.91 Unspecified atrial fibrillation; Z79.01 Long term (current) use of anticoagulants
CPT/HCPCS: 99282

== ENCOUNTER 2018-10-01 15:07 | Emergency (ER) | payer MEDICARE ==
[2018-10-01] MEDS ORDERED: NS 0.9% 1000 ML** 1,000 ML IV ONE (15:33)
--- NOTE | 2018-10-01 15:39 | ED ---
Complex/Multi-Sys Presentation - HPI Summary HPI Summary: Pt is an 83 y/o female brought in by EMS who presents to the ED c/o medication non-compliance. As per EMS, she has been refusing to take her medications for the past 3 days. Today at the senior care she was combative with the staff. She was sent here by Dr. Rodriguez for further evaluation. As per EMS there is possible concern for a rash in her buttocks area. Pt is a level 5 caveat due to dementia. - History Of Current Complaint Time Seen by Provider: 10/01/18 15:19 Hx Obtained From: EMS, Medical Records Hx From Patient Unobtainable Due To: Dementia Onset/Duration: Gradual Onset Timing: Constant Aggravating Factor(s): Medication non-compliance Alleviating Factor(s): Nothing Associated Signs And Symptoms: Positive: Agitation - Allergies/Home Medications Allergies/Adverse Reactions: Allergies Allergy/AdvReac Type Severity Reaction Status Date / Time cephalexin Allergy Diarrhea Verified 10/17/17 18:59 lactose Allergy Diarrhea Verified 10/17/17 18:59 ramipril [From Altace] Allergy Unknown Verified 10/17/17 18:59 Reaction Details PMH/Surg Hx/FS Hx/Imm Hx Endocrine/Hematology History: Reports: Hx Anticoagulant Therapy, Hx Diabetes - NO MEDS, CONTROLLED WITH DIET/ACTIVITY, Hx Thyroid Disease - ON DAILY MEDS Cardiovascular History: Reports: Hx Congestive Heart Failure, Hx Hypercholesterolemia, Hx Hypertension - ON MEDS, Other Cardiovascular Problems/ Disorders - 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, IDDM II Respiratory History: Reports: Hx Chronic Obstructive Pulmonary Disease (COPD) GI History: Reports: Other GI Disorders - gallstones Musculoskeletal History: Reports: Hx Back Problems Sensory History: Reports: Hx Cataracts, Hx Glaucoma Denies: Hx Contacts or Glasses, Hx Eye Injury, Hx Eye Prosthesis, Hx Legally Blind, Hx Macular Degeneration, Hx Vision Problem, Hx Deafness, Hx Hearing Aid, Hx Hearing Problem, Other Sensory Impairments Opthamlomology History: Reports: Hx Cataracts, Hx Glaucoma Denies: Hx Contacts or Glasses, Hx Eye Injury, Hx Eye Prosthesis, Hx Legally Blind, Hx Macular Degeneration, Hx Vision Problem, Other Sensory Impairments Neurological History: Reports: Hx Dementia, Hx Seizures - NOW ON KEPPRA, Hx Transient Ischemic Attacks (TIA) Denies: Hx Developmental Delay, Hx Headaches, Hx Migraine, Hx Nerve Disease, Hx Spinal Cord Injury Psychiatric History: Reports: Hx Anxiety - ON MEDS, Hx Depression - Cancer History Hx Chemotherapy: No Hx Radiation Therapy: No - Surgical History Surgery Procedure, Year, and Place: 1944 TONSILLECTOMY. 1984 HYSTERECTOMY AND APPENDECTOMY. 2011 RETINA SURGERY- RIGHT EYE- [place]. BREAST BIOPSY- [facility]. 12/18/13 RT EYE CATARACT [facility] Hx Anesthesia Reactions: No Infectious Disease History: No Infectious Disease History: Denies: Hx Clostridium Difficile, Hx Hepatitis, Hx Human Immunodeficiency Virus (HIV), Hx of Known/Suspected MRSA, Hx Shingles, Hx Tuberculosis, Hx Known/ Suspected VRE, Hx Known/Suspected VRSA, History Other Infectious Disease, Traveled Outside the [place] in Last 30 Days - Family History Known Family History: Positive: Cardiac Disease, Hypertension - Social History Alcohol Use: None Alcohol Amount: REFRAINS NOW BECAUSE OF MEDS Hx Substance Use: No Substance Use Type: Reports: None Hx Tobacco Use: Yes Smoking Status (MU): Former Smoker Type: Cigarettes Amount Used/How Often: LESS THEN 1/2PPD CIGARETTES PER DAY X 60 YEARS Have You Smoked in the Last Year: Yes Review of Systems Positive: Rash Positive: Other - combative All Other Systems Reviewed And Are Negative: No Physical Exam - Summary Physical Exam Summary: GENERAL: Patient is a well-developed and nourished F who is lying comfortable in the stretcher. Patient is not in any acute respiratory distress. HEAD AND FACE: Normocephalic EYES: PERRLA, EOMI x 2. EARS: Hearing grossly intact. MOUTH: Oropharynx within normal limits. NECK: Supple, trachea is midline, no adenopathy, no JVD, no carotid bruit. CHEST: Symmetric, no tenderness at palpation LUNGS: Clear to auscultation bilaterally. No wheezing or crackles. CVS: Regular rate and rhythm, S1 and S2 present, no murmurs or gallops appreciated. ABDOMEN: Soft, non-tender. Bowel sounds are normal. No abnormal abdominal pulsations. EXTREMITIES: Full ROM in all major joints, no edema, no cyanosis or clubbing. NEURO: Alert but not oriented. No acute neurological deficits. Speech is normal and follows commands. SKIN: Dry and warm Triage Information Reviewed: Yes Vital Signs On Initial Exam: Initial Vitals Temp Pulse Resp BP Pulse Ox 97.8 F 62 17 173/73 96 05/06/19 15:07 10/01/18 15:07 10/01/18 15:07 10/01/18 15:07 10/01/18 15:07 Vital Signs Reviewed: Yes Completion Of Physical Exam Limited Due To: Dementia Diagnostics - Vital Signs Vital Signs Temp Pulse Resp BP Pulse Ox 10/01/18 15:07 97.8 F 62 17 173/73 96 - Laboratory Result Diagrams: 10/01/18 16:51 10/01/18 16:51 Lab Statement: Any lab studies that have been ordered have been reviewed, and results considered in the medical decision making process. - Radiology CXR Radiology Interpretation Completed By: Radiologist Summary of Radiographic Findings: No active cardiopulmonary disease is noted. ED physician reviewed radiology report. - EKG 18:17 Cardiac Rate: NL - 69 bpm EKG Rhythm: Sinus Rhythm Summary of EKG Findings: occasional PVCs, borderline prolonged QT interval Complex Multi-Symp Course/Dx Course Of Treatment: Pt is an 83 y/o female brought in by EMS who presents to the ED c/o being combative s/p medication non-compliance for 3 days. Pt is a level 5 caveat due to dementia. A physical exam revealed alert but not oriented. Pt has been calm and cooperative. Mood swings could be caused by her missed Zoloft doses. Pt is hypertensive because she missed several doses of her BP medication as well. A CXR was negative. An EKG revealed occasional PVCs, borderline prolonged QT interval. Bloodwork obtained. In the course pt was given Amlodipine, Lopressor, fluids, and Torsemide. Final dx of encounter for physical exam. Pt will be discharged. I discussed results with patient, and she reports feeling better. She is hemodynamically stable and safe for discharge. Strict return precautions given and she will otherwise follow up with her PCP. - Diagnoses Provider Diagnoses: Encounter for physical examination Discharge - Sign-Out/Discharge Documenting (check all that apply): Patient Departure - Discharge Patient Received Moderate/Deep Sedation with Procedure: No - Discharge Plan Condition: Stable Disposition: HOME Patient Education Materials: Dementia (ED) Referrals: Manda Rodriguez MD [Primary Care Provider] - (1-3 days) Additional Instructions: RETURN TO THE EMERGENCY DEPARTMENT FOR CHANGING OR WORSENING SYMPTOMS. - Billing Disposition and Condition Condition: STABLE Disposition: Home - Attestation Statements Document Initiated by Scribe: Yes Documenting Scribe: Shakila Benitez Provider For Whom Scribe is Documenting (Include Credential): Lindsay Wright MD Scribe Attestation: IShakila, scribed for Lindsay Wright MD on 10/02/18 at 0733. Scribe Documentation Reviewed: Yes Provider Attestation: The documentation as recorded by the scribeShakila accurately reflects the service I personally performed and the decisions made by me, Lindsay Wright MD Status of Scribe Document: Viewed
[2018-10-01 17:04] LABS: ABS Basophils 0.1 10^3/ul (0-0.2); ABS Eosinophils 0.2 10^3/ul (0-0.6); ABS Monocytes 0.6 10^3/ul (0-0.8); ABS Neutrophils 3.4 10^3/ul (1.5-7.7); Eosinophil % 2.6 %; Hematocrit 38 % (35-47); Hemoglobin 12.3 g/dL (12.0-16.0); Lymphocyte % 41.1 %; Mean Corpuscular HGB Conc 33 g/dL (31-36); Mean Corpuscular Hemoglobin 28 pg (27-31); Mean Corpuscular Volume 87 fL (80-97); Mean Platelet Volume 9.1 fL (7.4-10.4); Nucleated Red Blood Cells % 0.1; Platelet Count 216 10^3/uL (150-450); Red Blood Count 4.35 10^6 /uL (3.70-4.87); Red Cell Distribution Width 14 % (10.5-15); White Blood Count 7.3 10^3/uL (3.5-10.8)
[2018-10-01 17:13] LABS: Activated Partial Thrombo Time 49.8 seconds (26.0-36.3); INR 3.41 (0.82-1.09)
[2018-10-01] MEDS ORDERED: Metoprolol Tartrate TAB* 50 mg PO ONE (17:22)
[2018-10-01] MEDS ORDERED: amLODIPine TAB* 5 MG PO ONE (17:22)
[2018-10-01 17:23] LABS: Albumin 3.7 g/dL (3.2-5.2); Albumin/Globulin Ratio 1.2 (1-3); BUN/Creatinine Ratio 18.6 (8-20); C Reactive Protein 1.14 mg/L (<8.01); Calcium 8.9 mg/dL (8.6-10.3); EGFR African American 118.4 (>60); EGFR Non-African American 97.8 (>60); Globulin 3.2 g/dL (2-4); Potassium 3.5 mmol/L (3.5-5.0); Total Bilirubin 0.5 mg/dL (0.2-1.0); Total Protein 6.9 g/dL (6.4-8.9); Troponin I 0.01 ng/mL (<0.04)
[2018-10-01] MEDS ORDERED: Torsemide TAB* 20 MG PO ONE (17:23)
[2018-10-01] MEDS ORDERED: Metoprolol Tartrate TAB* 25 MG PO ONE (17:35)
[2018-10-01 17:40] LABS: Urine Appearance Clear; Urine Bacteria 1+ (Absent); Urine Bilirubin Negative (Negative); Urine Blood Negative (Negative); Urine Color Yellow; Urine Glucose 2+(150 mg/dL) (Negative); Urine Ketones Negative (Negative); Urine Nitrite Negative (Negative); Urine Protein Negative (Negative); Urine Red Blood Cell Trace(0-2/hpf) (Absent); Urine Specific Gravity 1.014 (1.010-1.030); Urine Squamous Epithelial Cell Present (Absent); Urine Urobilinogen Negative (Negative); Urine White Blood Cell 1+(6-10/hpf) (Absent)
[2018-10-01] MEDS ORDERED: Sertraline* 100 MG TAB PO ONE (18:35)
[2018-10-01] MEDS ORDERED: Sertraline* 50 MG TAB PO ONE (18:37)
[2018-10-01 19:15] VITALS: BP 174/92
[2018-10-02] MEDS ORDERED: Metoprolol Tartrate TAB* 25 MG PO ONE (18:33)
== END 2018-10-01 19:16 | disposition home or self-care (01) ==
LOC: ED 15:07
DX: Z00.00 Encounter for general adult medical examination without abnormal findings (principal); R94.31 Abnormal electrocardiogram [ECG] [EKG]; I11.0 Hypertensive heart disease with heart failure; I50.9 Heart failure, unspecified; E11.9 Type 2 diabetes mellitus without complications; E07.9 Disorder of thyroid, unspecified; E78.00 Pure hypercholesterolemia, unspecified; J44.9 Chronic obstructive pulmonary disease, unspecified; F03.90 Unspecified dementia, unspecified severity, without behavioral disturbance, psychotic disturbance, mood disturbance, and anxiety; F41.9 Anxiety disorder, unspecified; F32.9 Major depressive disorder, single episode, unspecified; Z88.3 Allergy status to other anti-infective agents; Z88.8 Allergy status to other drugs, medicaments and biological substances; Z79.01 Long term (current) use of anticoagulants; Z79.899 Other long term (current) drug therapy; Z86.73 Personal history of transient ischemic attack (TIA), and cerebral infarction without residual deficits; Z87.891 Personal history of nicotine dependence
CPT/HCPCS: 36415; 71046; 80053; 81003; 81015; 83605; 83880; 84484; 85025; 85610; 85730; 86140; 87040; 87086; 93005; 96360; 96361; 99283; A9270-GY

== ENCOUNTER 2019-01-09 17:00 | Emergency (ER) | payer MEDICARE ==
--- NOTE | 2019-01-09 18:20 | ED ---
Head Injury - HPI Summary HPI Summary: 83 year old F brought in by [facility] to [facility] from [place] accompanied by Eliot with a chief complaint of ecchymosis on the right side of her head after witnessed mechanical fall at 16:15 today. This afternoon, pt was walking to a chair when she suddenly turned to the right, fell forward, tried to grab a chair handle, but hit her head on the right side on a wall and landed on her right side on the floor per . states that pt did not get up to walk after the fall. Instead, pt laid on the floor until EMS arrived per . reports ecchymosis and swelling of pt's left index finger. reports left knee pain, right wrist pain, right middle finger pain. Pt denies shortness of breath, left arm pain, right elbow pain. denies bleeding and LOC. The patient rates the pain 5/10 initially in severity per triage note. Symptoms aggravated by movement and bending her left knee. Symptoms alleviated by nothing. Pt has taken Tylenol before to treat pain prior to today's fall. Pt takes Coumadin per . Pt gets bloodwork done routinely per . states pt is up to date on her vaccinations. Patient lives in [place] in the memory unit. Patient does not use walker or cane to ambulate. Patients medication reviewed this visit. Pt is no coumadin - History Of Current Complaint Chief Complaint: EDHeadInjury Stated Complaint: FALL PER EMS Time Seen by Provider: 01/09/19 17:42 Hx Obtained From: Patient, Family/Floor Layer - Eliot Mechanism Of Injury: Other - pt was walking to a chair when she suddenly turned to the right, fell forward, tried to grab a chair handle, but hit her head on the right side on a wall and landed on her right side on the floor Onset/Duration: Started Hours Ago - 2, Still Present Severity Initially: Moderate Pain Intensity: 5 Pain Scale Used: 0-10 Numeric Aggravating Factor(s): Movement, Other: - bending left knee Alleviating Factor(s): Other: Associated Signs And Symptoms: Negative - shortness of breath, left arm pain, right elbow pain, bleeding, LOC, Other: - ecchymosis and swelling of pt's left index finger, left knee pain, right wrist pain, right middle finger pain - Allergies/Home Medications Allergies/Adverse Reactions: Allergies Allergy/AdvReac Type Severity Reaction Status Date / Time cephalexin Allergy Diarrhea Verified 10/17/17 18:59 lactose Allergy Diarrhea Verified 10/17/17 18:59 ramipril [From Altace] Allergy Unknown Verified 10/17/17 18:59 Reaction Details Home Medications: Home Medications C,E,Zinc,Copper 11/Vfbpo7x/Lut [Ocuvite Adult 50 Plus Softgel] 1 each PO DAILY 01/09/19 [History Confirmed 01/09/19] Metoprolol Succinate XL TAB* [Toprol XL TAB*] 50 mg PO DAILY 01/09/19 [History Confirmed 01/09/19] Warfarin TAB(*) [Coumadin TAB(*)] 3 mg PO TUTHSA 01/09/19 [History Confirmed ] Warfarin TAB(*) [Coumadin TAB(*)] 6 mg PO MOWEFR 01/09/19 [History Confirmed ] PMH/Surg Hx/FS Hx/Imm Hx Previously Healthy: No Endocrine/Hematology History: Reports: Hx Anticoagulant Therapy, Hx Diabetes - NO MEDS, CONTROLLED WITH DIET/ACTIVITY, Hx Thyroid Disease - ON DAILY MEDS Cardiovascular History: Reports: Hx Congestive Heart Failure, Hx Hypercholesterolemia, Hx Hypertension - ON MEDS, Other Cardiovascular Problems/ Disorders - 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, IDDM II Respiratory History: Reports: Hx Chronic Obstructive Pulmonary Disease (COPD) GI History: Reports: Other GI Disorders - gallstones Musculoskeletal History: Reports: Hx Back Problems Sensory History: Reports: Hx Cataracts, Hx Glaucoma Denies: Hx Contacts or Glasses, Hx Eye Injury, Hx Eye Prosthesis, Hx Legally Blind, Hx Macular Degeneration, Hx Vision Problem, Hx Deafness, Hx Hearing Aid, Hx Hearing Problem, Other Sensory Impairments Opthamlomology History: Reports: Hx Cataracts, Hx Glaucoma Denies: Hx Contacts or Glasses, Hx Eye Injury, Hx Eye Prosthesis, Hx Legally Blind, Hx Macular Degeneration, Hx Vision Problem, Other Sensory Impairments Neurological History: Reports: Hx Dementia, Hx Seizures - NOW ON KEPPRA, Hx Transient Ischemic Attacks (TIA) Denies: Hx Developmental Delay, Hx Headaches, Hx Migraine, Hx Nerve Disease, Hx Spinal Cord Injury Psychiatric History: Reports: Hx Anxiety - ON MEDS, Hx Depression - Cancer History Hx Chemotherapy: No Hx Radiation Therapy: No - Surgical History Surgery Procedure, Year, and Place: 1944 TONSILLECTOMY. 1984 HYSTERECTOMY AND APPENDECTOMY. 2011 RETINA SURGERY- RIGHT EYE- [place]. BREAST BIOPSY- [facility]. 12/18/13 RT EYE CATARACT [facility] Hx Anesthesia Reactions: No - Immunization History Immunizations Up to Date: Yes Infectious Disease History: No Infectious Disease History: Denies: Hx Clostridium Difficile, Hx Hepatitis, Hx Human Immunodeficiency Virus (HIV), Hx of Known/Suspected MRSA, Hx Shingles, Hx Tuberculosis, Hx Known/ Suspected VRE, Hx Known/Suspected VRSA, History Other Infectious Disease, Traveled Outside the [place] in Last 30 Days - Family History Known Family History: Positive: Cardiac Disease, Hypertension, Non-Contributory - Social History Alcohol Use: None Alcohol Amount: REFRAINS NOW BECAUSE OF MEDS Hx Substance Use: No Substance Use Type: Reports: None Hx Tobacco Use: Yes Smoking Status (MU): Former Smoker Type: Cigarettes Amount Used/How Often: LESS THEN 1/2PPD CIGARETTES PER DAY X 60 YEARS Have You Smoked in the Last Year: Yes Review of Systems Constitutional: Negative Negative: Shortness Of Breath Musculoskeletal: Negative - left arm pain, right elbow pain Positive: Other - ecchymosis on the right side of her head, left knee pain, right wrist pain, right middle finger pain Neurological: Negative - LOC All Other Systems Reviewed And Are Negative: Yes Physical Exam - Summary Physical Exam Summary: Vital Signs Reviewed: Yes Alert, confused, at baseline per Eyes: Conjunctiva Clear, RAJINDER. EOM intact and full ENT: Hearing grossly normal TM x 2 clear no hemotymp b/l, no septal hematoma b/ l, pt with small bite wound left inner buccal membrane - , mmoist, uvula midline , no exudate, no erythema Neck: Positive: Suppl, no obvious pain Respiratory: Positive: No respiratory distress, No accessory muscle use + CTA throughout no w/r Cardiovascular: RRR nl s1, s2 no m/r CBT <2 sec abd soft + BS nt/nd no guarding, no distension Musculoskeletal Exam: TTP right wrist,, left middle finger + flex/ext elbow, shoulder + pronate/supinate + SLE b/l +TTP and flexion left knee > 60 + external rotation b/l hips + flex/ext ankle Neurological: Positive: Alert- confused at baseline Psychological: Positive: Normal 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 Re-Evaluation - Re-Evaluation First Eval Re-Evaluation Time: 22:20 Comment: We discussed all imaging results and discharge plan. Head Injury Course/Dx Course Of Treatment: Patient presents to the department by EMS. Patient coming by her . Patient had a witnessed fall at her nursing facility where she lives in a memory care unit. Patient did not lose consciousness. Patient is on Coumadin. Patient is unable to indicate or localized pain. Vital signs are stable. Patient does have discomfort with flexion of her left knee. Patient has ecchymosis of her left middle finger at the PIP joint. Patient with mild discomfort in the wrist. Patient does not have bruising to her chest and her pelvis. Patient also evidence of bruising to her head. We'll check a head CT C -spines. CT and plain film x-ray. We'll give patient Tylenol and ice. Patient 's tetanus is up-to-date. Patient will be signed out to Dr. Waller for his imaging. comfortable and aware of plan - Diagnoses Provider Diagnoses: Fall, Contusion of right wrist Discharge - Sign-Out/Discharge Documenting (check all that apply): Sign-Out Patient Signing out patient TO: Mikhail Waller Patient Received Moderate/Deep Sedation with Procedure: No - Discharge Plan Condition: Good Disposition: HOME Patient Education Materials: Wrist Injury (ED), Fall Prevention for Older Adults (ED) Referrals: Manda Rodriguez MD [Primary Care Provider] - 4 Days Additional Instructions: Return to the emergency department for any new or worsening symptoms. - Billing Disposition and Condition Condition: GOOD Disposition: Home - Attestation Statements Document Initiated by Scribe: Yes Documenting Scribe: Yasmeen Joseph Provider For Whom Scribe is Documenting (Include Credential): Park Guzman MD Scribe Attestation: I, Yasmeen Joseph, scribed for Park Guzman MD on 01/11/19 at 1809. Scribe Documentation Reviewed: Yes Provider Attestation: The documentation as recorded by the scribe, Yasmeen Joseph accurately reflects the service I personally performed and the decisions made by me, Park Guzman MD Status of Scribe Document: Viewed
[2019-01-09 18:45] LABS: INR 2.72 (0.82-1.09)
--- NOTE | 2019-01-09 19:15 | ED ---
Progress - Progress Note Progress Note: The patient is a sign-out from Dr. Park Guzman MD, to Dr. Mikhail Waller MD , at change of shift at 1900 on 01/09/2019, pending Brain CT, Cervical Spine CT , Bilateral Hands XR, Left Knee XR, and Right Wrist XR results, and disposition. Brain CT Impression: 1. No acute intracranial findings. 2. Old bilateral infarcts as above. 3. Age-related atrophy and chronic white matter ischemic change. Cervical Spine CT Impression: 1. No cervical spine fracture. Multilevel degenerative change. 2. Mild reversal of the normal cervical lordosis and minimal grade 1 C3 on C4 anterolisthesis, increased since prior. This finding is likely positional or related to muscle spasm and degenerative change. Soft tissue injury is not favored but cannot be excluded. Correlate with clinical exam. Bilateral Hands x-ray is negative for fracture. Left Knee x-ray is negative for fracture. Right Wrist x-ray is negative for fracture. I discussed all results with the patient. She agrees with discharge plan. - Results/Orders Results/Orders: Brain CT Impression: 1. No acute intracranial findings. 2. Old bilateral infarcts as above. 3. Age-related atrophy and chronic white matter ischemic change. ED physician has reviewed this report. Cervical Spine CT Impression: 1. No cervical spine fracture. Multilevel degenerative change. 2. Mild reversal of the normal cervical lordosis and minimal grade 1 C3 on C4 anterolisthesis, increased since prior. This finding is likely positional or related to muscle spasm and degenerative change. Soft tissue injury is not favored but cannot be excluded. Correlate with clinical exam. ED physician has reviewed this report. Bilateral Hands XR Impression: No obvious fracture. ED physician has interpreted this report. Pending official report. Left Knee XR Impression: No obvious fracture. ED physician has interpreted this report. Pending official report. Right Wrist XR Impression: No obvious fracture. ED physician has interpreted this report. Pending official report. Re-Evaluation - Re-Evaluation First Eval Re-Evaluation Time: 22:20 Comment: We discussed all imaging results and discharge plan. Course/Dx - Course Course Of Treatment: The patient is a sign-out from Dr. Park Guzman MD, to Dr. Mikhail Waller MD, at change of shift at 1900 on 01/09/2019, pending Brain CT, Cervical Spine CT, Bilateral Hands XR, Left Knee XR, and Right Wrist XR results, and disposition. Brain CT Impression: 1. No acute intracranial findings. 2. Old bilateral infarcts as above. 3. Age-related atrophy and chronic white matter ischemic change. Cervical Spine CT Impression: 1. No cervical spine fracture. Multilevel degenerative change. 2. Mild reversal of the normal cervical lordosis and minimal grade 1 C3 on C4 anterolisthesis, increased since prior. This finding is likely positional or related to muscle spasm and degenerative change. Soft tissue injury is not favored but cannot be excluded. Correlate with clinical exam. Bilateral Hands x-ray, Left Knee x-ray, and Right Wrist x-ray are negative for fracture. I discussed all results with the patient. She agrees with discharge plan. - Diagnoses Provider Diagnoses: Fall, Contusion of right wrist Discharge - Sign-Out/Discharge Documenting (check all that apply): Patient Departure - Patient will be discharged home., Receiving Sign-Out Receiving patient FROM: Park Guzman - Patient is a sign-out from Dr. Park Guzman MD, at change of shift 1900 on 01/09/2019, pending Brain CT, Cervical Spine CT, Bilateral Hands XR, Left Knee XR, and Right Wrist XR results, and disposition. Patient Received Moderate/Deep Sedation with Procedure: No - Discharge Plan Condition: Good Disposition: HOME Patient Education Materials: Wrist Injury (ED), Fall Prevention for Older Adults (ED) Referrals: Manda Rodriguez MD [Primary Care Provider] - 4 Days Additional Instructions: Return to the emergency department for any new or worsening symptoms. - Billing Disposition and Condition Condition: GOOD Disposition: Home - Attestation Statements Document Initiated by Garcia: Yes Documenting Scribe: Mary Matthew Provider For Whom Garcia is Documenting (Include Credential): Dr. Mikhail Waller MD Scribe Attestation: Mary Kowalski, scribed for Dr. Mikhail Waller MD on 01/13/19 at 2257. Scribe Documentation Reviewed: Yes Provider Attestation: The documentation as recorded by the Mary galvin accurately reflects the service I personally performed and the decisions made by me, Dr. Mikhail Waller MD Status of Scribe Document: Viewed
[2019-01-09] MEDS ORDERED: Acetaminophen TAB* 325 MG PO ONE (19:22)
[2019-01-09 22:26] VITALS: BP 117/89
--- NOTE | 2019-01-10 10:38 | PN ---
Progress Note - Progress Note Date of Service: 01/10/19 Note: patient xray read as IMPRESSION: 1. Nondisplaced transversely oriented lucency through the distal right radius. This is highly suspicious for fracture. Correlate with point tenderness and consider short-term follow-up imaging. 2. Osteopenia. 3. Advanced osteoarthropathy of the first IP and first [facility]. left vm to call back to arrange to get splint or told to follow up with ortho on message. spoke with . patient has been using wrist without difficult. will have pt son berry picker wrist splint for patient in ER
== END 2019-01-09 22:26 | disposition home or self-care (01) ==
LOC: ED 17:00
DX: S60.211A Contusion of right wrist, initial encounter (principal); W18.39XA Other fall on same level, initial encounter; Y92.9 Unspecified place or not applicable; E11.9 Type 2 diabetes mellitus without complications; E07.9 Disorder of thyroid, unspecified; I50.9 Heart failure, unspecified; E78.00 Pure hypercholesterolemia, unspecified; I11.0 Hypertensive heart disease with heart failure; J44.9 Chronic obstructive pulmonary disease, unspecified; F41.9 Anxiety disorder, unspecified; Z79.01 Long term (current) use of anticoagulants; Z79.899 Other long term (current) drug therapy; Z88.1 Allergy status to other antibiotic agents; Z88.8 Allergy status to other drugs, medicaments and biological substances; Z87.891 Personal history of nicotine dependence; M17.12 Unilateral primary osteoarthritis, left knee; M18.0 Bilateral primary osteoarthritis of first carpometacarpal joints; M85.842 Other specified disorders of bone density and structure, left hand; M85.841 Other specified disorders of bone density and structure, right hand
CPT/HCPCS: 36415; 70450; 72125; 85610; 99284; A9270-GY

== ENCOUNTER 2019-01-27 15:54 | Emergency (ER) | payer MEDICARE ==
--- NOTE | 2019-01-27 16:52 | ED ---
Skin Complaint - HPI Summary HPI Summary: This patient is a 83 year old F presenting to [facility] accompanied by daughter and with a chief complaint of rash on lower extremities since 01/26/19. Pt resides at [facility]. Pt has a PMHx of stroke, and a fib. Patient daughter reports tachycardia. Patient daughter denies change in diet, or known allergies. - History of Current Complaint Chief Complaint: EDRashSkinAbscess Time Seen by Provider: 01/27/19 16:37 Stated Complaint: RASH ON ARM AND LEGS PER Hx Obtained From: Family/Semiautomatic Stitcher Operator - daughter, negra Hx From Patient Unobtainable Due To: Altered Mental Status Onset/Duration: Started Hours Ago Skin Exposure Onset/Duration: Hours Ago Timing: Constant Current Severity: None Pain Intensity: 0 Pain Scale Used: 0-10 Numeric Skin Location: Arm, Leg Character: Swelling, Redness, Raised Aggravating Symptom(s): Nothing Alleviating Symptom(s): Nothing Associated Signs & Symptoms: Rash - Additional Pertinent History Primary Care Physician: YANI - Allergy/Home Medications Allergies/Adverse Reactions: Allergies Allergy/AdvReac Type Severity Reaction Status Date / Time cephalexin Allergy Diarrhea Verified 10/17/17 18:59 lactose Allergy Diarrhea Verified 10/17/17 18:59 ramipril [From Altace] Allergy Unknown Verified 10/17/17 18:59 Reaction Details Home Medications: Home Medications Docusate Sodium 100 mg PO BID 01/27/19 [History Confirmed 01/27/19] Loperamide HCl [Imodium A-D] 2 mg PO DAILY PRN 01/27/19 [History Confirmed 01/27] PMH/Surg Hx/FS Hx/Imm Hx Previously Healthy: Yes Endocrine/Hematology History: Reports: Hx Anticoagulant Therapy, Hx Diabetes - NO MEDS, CONTROLLED WITH DIET/ACTIVITY, Hx Thyroid Disease - ON DAILY MEDS Cardiovascular History: Reports: Hx Congestive Heart Failure, Hx Hypercholesterolemia, Hx Hypertension - ON MEDS, Other Cardiovascular Problems/ Disorders - CVA X 2 '02 & 03, IDDM II Respiratory History: Reports: Hx Chronic Obstructive Pulmonary Disease (COPD) GI History: Reports: Other GI Disorders - gallstones Musculoskeletal History: Reports: Hx Back Problems Sensory History: Reports: Hx Cataracts, Hx Glaucoma Denies: Hx Contacts or Glasses, Hx Eye Injury, Hx Eye Prosthesis, Hx Legally Blind, Hx Macular Degeneration, Hx Vision Problem, Hx Deafness, Hx Hearing Aid, Hx Hearing Problem, Other Sensory Impairments Opthamlomology History: Reports: Hx Cataracts, Hx Glaucoma Denies: Hx Contacts or Glasses, Hx Eye Injury, Hx Eye Prosthesis, Hx Legally Blind, Hx Macular Degeneration, Hx Vision Problem, Other Sensory Impairments Neurological History: Reports: Hx Dementia, Hx Seizures - NOW ON KEPPRA, Hx Transient Ischemic Attacks (TIA) Denies: Hx Developmental Delay, Hx Headaches, Hx Migraine, Hx Nerve Disease, Hx Spinal Cord Injury Psychiatric History: Reports: Hx Anxiety - ON MEDS, Hx Depression - Cancer History Hx Chemotherapy: No Hx Radiation Therapy: No - Surgical History Surgery Procedure, Year, and Place: 1944 TONSILLECTOMY. 1984 HYSTERECTOMY AND APPENDECTOMY. 2011 RETINA SURGERY- RIGHT EYE- [place]. BREAST BIOPSY- [facility]. 12/18/13 RT EYE CATARACT [facility] Hx Anesthesia Reactions: No Infectious Disease History: No Infectious Disease History: Denies: Hx Clostridium Difficile, Hx Hepatitis, Hx Human Immunodeficiency Virus (HIV), Hx of Known/Suspected MRSA, Hx Shingles, Hx Tuberculosis, Hx Known/ Suspected VRE, Hx Known/Suspected VRSA, History Other Infectious Disease, Traveled Outside the [place] in Last 30 Days - Family History Known Family History: Positive: Cardiac Disease, Hypertension, Non-Contributory - Social History Alcohol Use: None Alcohol Amount: REFRAINS NOW BECAUSE OF MEDS Hx Substance Use: No Substance Use Type: Reports: None Hx Tobacco Use: Yes Smoking Status (MU): Former Smoker Type: Cigarettes Amount Used/How Often: LESS THEN 1/2PPD CIGARETTES PER DAY X 60 YEARS Have You Smoked in the Last Year: Yes Review of Systems Negative: Fever Positive: Edema Positive: Rash All Other Systems Reviewed And Are Negative: Yes - Comments Additional Review of Systems Comments: LEVEL 5 CAVEAT - AMS Physical Exam - Summary Physical Exam Summary: Appearance: The patient is well-nourished in no acute distress and in no acute pain. Skin: The skin is warm and dry, and skin color reflects adequate perfusion. HEENT: The head is normocephalic and atraumatic. The pupils are equal and reactive. The conjunctivae are clear and without drainage. Nares are patent and without drainage. Mouth reveals moist mucous membranes, and the throat is without erythema and exudate. The external ears are intact. The ear canals are patent and without drainage. The tympanic membranes are intact. Neck: The neck is supple with full range of motion and non-tender. There are no carotid bruits. There is no neck vein distension. Respiratory: Chest is non-tender. Lungs are clear to auscultation and breath sounds are symmetrical and equal. Cardiovascular: Heart is tachycardic. There is no murmur or rub auscultated. pulses are symmetrical and equal. Abdomen: The abdomen is soft and non-tender. There are normal bowel sounds heard in all four quadrants and there is no organomegaly palpated. Musculoskeletal: There is no back tenderness noted. Extremities are non-tender with full range of motion. There is good capillary refill. Pitting edema. Non blanching macular papular rash on lower extremities Neurological: Patient is alert and oriented to person, place and time. The patient has symmetrical motor strength in all four extremities. Cranial nerves are grossly intact. Deep tendon reflexes are symmetrical and equal in all four extremities. Psychiatric: The patient has an appropriate affect and does not exhibit any anxiety or depression. Triage Information Reviewed: Yes Vital Signs On Initial Exam: Initial Vitals Temp Pulse Resp BP Pulse Ox 98.1 F 136 16 104/73 97 01/27/19 15:57 01/27/19 15:57 01/27/19 15:57 01/27/19 15:57 01/27/19 15:57 Vital Signs Reviewed: Yes Diagnostics - Vital Signs Vital Signs Temp Pulse Resp BP Pulse Ox 01/27/19 15:57 98.1 F 136 16 104/73 97 - Laboratory Result Diagrams: 01/27/19 17:06 01/27/19 17:06 Lab Statement: Any lab studies that have been ordered have been reviewed, and results considered in the medical decision making process. - Radiology CXR Radiology Interpretation Completed By: Radiologist Summary of Radiographic Findings: CXR reveals, per radiologist, IMPRESSION: CARDIOMEGALY IS NOTED. NO PNEUMONIA IS IDENTIFIED. ED physician has reviewed this radiology report. - EKG 1651 Cardiac Rate: Tachycardia - 134 BPM EKG Rhythm: Sinus Tachycardia Ectopy: PACs Summary of EKG Findings: An EKG at 16:51 reveals sinus tachycardia 134 bpm. Re-Evaluation - Re-Evaluation First Eval Re-Evaluation Time: 18:18 Comment: Discussed plan of care with pt Course/Dx - Course Course Of Treatment: Ms. Mosquera was brought in from the assisted for rash on her lower extremities. On arrival she is noted to be nontoxic in appearance but she is tachycardic in the 130s. This is a sinus tachycardia on EKG. Her chart from the assisted reveals that she has been running in the 110-140 range for a month. She has a nonblanching maculopapular sparse rash on her lower extremities. Her labs are unremarkable and she is kept on the monitor here. I'm not clear the etiology of the rash and on going to treat it with some steroid cream at this point. I recommended that they contact her PCP on Monday about the ongoing tachycardia. - Diagnoses Provider Diagnoses: Rash Discharge ED - Sign-Out/Discharge Documenting (check all that apply): Patient Departure - Discharge Patient Received Moderate/Deep Sedation with Procedure: No - Discharge Plan Condition: Stable Disposition: HOME Prescriptions: Betamethasone Cherry 0.1% CRM(NF) [Valisone 0.1% CM(NF)] 1 applic TOPICAL BID #1 tube Patient Education Materials: Acute Rash (ED) Referrals: Manda Rodriguez MD [Primary Care Provider] - 3 Days Additional Instructions: Follow up with Primary Care Physician in the upcoming week. RETURN TO THE ED FOR ANY NEW OR WORSENING SYMPTOMS. - Billing Disposition and Condition Condition: STABLE Disposition: Home - Attestation Statements Document Initiated by Garcia: Yes Documenting Scribe: Diana Fournier Provider For Whom Garcia is Documenting (Include Credential): Mikhail Moss MD Scribe Attestation: Diana Kowalski, scribed for Mikhail Moss MD on 01/28/19 at 0845. Scribe Documentation Reviewed: Yes Provider Attestation: The documentation as recorded by the Diana galvin accurately reflects the service I personally performed and the decisions made by me, Mikhail Moss MD Status of Scribe Document: Viewed
[2019-01-27 17:13] LABS: ABS Basophils 0.1 10^3/ul (0-0.2); ABS Eosinophils 0.5 10^3/ul (0-0.6); ABS Lymphocytes 1.6 10^3/ul (1.0-4.8); ABS Monocytes 0.6 10^3/ul (0-0.8); ABS Neutrophils 5.3 10^3/ul (1.5-7.7); Eosinophil % 6.6 %; Hematocrit 41 % (35-47); Hemoglobin 13.6 g/dL (12.0-16.0); Lymphocyte % 19.2 %; Mean Corpuscular HGB Conc 33 g/dL (31-36); Mean Corpuscular Hemoglobin 29 pg (27-31); Mean Corpuscular Volume 87 fL (80-97); Mean Platelet Volume 9.7 fL (7.4-10.4); Platelet Count 238 10^3/uL (150-450); Red Blood Count 4.75 10^6 /uL (3.70-4.87); Red Cell Distribution Width 15 % (10-15); White Blood Count 8.1 10^3/uL (3.5-10.8)
[2019-01-27 17:18] LABS: INR 3.52 (0.82-1.09)
[2019-01-27 17:32] LABS: Albumin 3.9 g/dL (3.2-5.2); Albumin/Globulin Ratio 1.1 (1-3); BUN/Creatinine Ratio 19.8 (8-20); C Reactive Protein 6.7 mg/L (<8.01); Calcium 9.5 mg/dL (8.6-10.3); EGFR African American 76.6 (>60); EGFR Non-African American 63.3 (>60); Globulin 3.4 g/dL (2-4); Total Bilirubin 0.6 mg/dL (0.2-1.0); Total Protein 7.3 g/dL (6.4-8.9)
[2019-01-27 17:34] LABS: Troponin I 0.03 ng/mL (<0.04)
[2019-01-27] MEDS ORDERED: Triamcinolone 0.025% OINT * 15 GM TUBE TOPICAL ONE (19:00)
[2019-01-27 19:16] VITALS: BP 138/117
[2019-01-27] MEDS ORDERED: BETAMETHASONE VAL 0.1% TOPICAL SCH (21:00)
== END 2019-01-27 19:15 | disposition home or self-care (01) ==
LOC: ED 15:54
DX: R21 Rash and other nonspecific skin eruption (principal); R60.0 Localized edema; Z87.891 Personal history of nicotine dependence; R00.0 Tachycardia, unspecified
CPT/HCPCS: 36415; 71045; 80053; 83605; 84484; 85025; 85610; 86140; 93005; 99284; A9270-GY

== ENCOUNTER 2019-01-28 11:42 | Inpatient (IN) | payer MEDICARE ==
--- NOTE | 2019-01-28 11:59 | ED ---
Altered Mental Status - HPI Summary HPI Summary: 83 year old F brought in by ambulance to [facility] from [place] complains of altered mental status since this morning per [place] staff. Per [place] staff, patient is less responsive than baseline and is leaning more to the right than baseline. Symptoms aggravated by nothing. Symptoms alleviated by nothing. Patient has PMHx TIAs. - History Of Current Complaint Chief Complaint: EDAltMentalStatus Stated Complaint: CONFUSION PER EMS Time Seen by Provider: 01/28/19 11:43 Hx Obtained From: Other: - [place] staff Onset/Duration: Still Present Severity Currently: None Aggravating Factor(s): Nothing Alleviating Factor(s): Nothing - Allergies/Home Medications Allergies/Adverse Reactions: Allergies Allergy/AdvReac Type Severity Reaction Status Date / Time cephalexin Allergy Diarrhea Verified 01/28/19 12:10 lactose Allergy Diarrhea Verified 01/28/19 12:10 ramipril [From Altace] Allergy Unknown Verified 01/28/19 12:10 Reaction Details Home Medications: Home Medications Triamcinolone 0.1% Oint (NF) [Triamcinolone Acetonide] 0.025 % TOPICAL BID 01/28 [History Confirmed 01/28/19] PMH/Surg Hx/FS Hx/Imm Hx Endocrine/Hematology History: Reports: Hx Anticoagulant Therapy, Hx Diabetes - NO MEDS, CONTROLLED WITH DIET/ACTIVITY, Hx Thyroid Disease - ON DAILY MEDS Cardiovascular History: Reports: Hx Congestive Heart Failure, Hx Hypercholesterolemia, Hx Hypertension - ON MEDS, Other Cardiovascular Problems/ Disorders - 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, IDDM II Respiratory History: Reports: Hx Chronic Obstructive Pulmonary Disease (COPD) GI History: Reports: Other GI Disorders - gallstones Musculoskeletal History: Reports: Hx Back Problems Sensory History: Reports: Hx Cataracts, Hx Glaucoma Denies: Hx Contacts or Glasses, Hx Eye Injury, Hx Eye Prosthesis, Hx Legally Blind, Hx Macular Degeneration, Hx Vision Problem, Hx Deafness, Hx Hearing Aid, Hx Hearing Problem, Other Sensory Impairments Opthamlomology History: Reports: Hx Cataracts, Hx Glaucoma Denies: Hx Contacts or Glasses, Hx Eye Injury, Hx Eye Prosthesis, Hx Legally Blind, Hx Macular Degeneration, Hx Vision Problem, Other Sensory Impairments Neurological History: Reports: Hx Dementia, Hx Seizures - NOW ON KEPPRA, Hx Transient Ischemic Attacks (TIA) Denies: Hx Developmental Delay, Hx Headaches, Hx Migraine, Hx Nerve Disease, Hx Spinal Cord Injury Psychiatric History: Reports: Hx Anxiety - ON MEDS, Hx Depression - Cancer History Hx Chemotherapy: No Hx Radiation Therapy: No - Surgical History Surgery Procedure, Year, and Place: 1944 TONSILLECTOMY. 1984 HYSTERECTOMY AND APPENDECTOMY. 2011 RETINA SURGERY- RIGHT EYE- [place]. BREAST BIOPSY- [facility]. 12/18/13 RT EYE CATARACT [facility] Hx Anesthesia Reactions: No Infectious Disease History: No Infectious Disease History: Denies: Hx Clostridium Difficile, Hx Hepatitis, Hx Human Immunodeficiency Virus (HIV), Hx of Known/Suspected MRSA, Hx Shingles, Hx Tuberculosis, Hx Known/ Suspected VRE, Hx Known/Suspected VRSA, History Other Infectious Disease, Traveled Outside the [place] in Last 30 Days - Family History Known Family History: Positive: Cardiac Disease, Hypertension - Social History Alcohol Use: None Alcohol Amount: REFRAINS NOW BECAUSE OF MEDS Hx Substance Use: No Substance Use Type: Reports: None Hx Tobacco Use: Yes Smoking Status (MU): Former Smoker Type: Cigarettes Amount Used/How Often: LESS THEN 1/2PPD CIGARETTES PER DAY X 60 YEARS Have You Smoked in the Last Year: Yes Review of Systems Negative: Fever Neurological: Other - altered mental status All Other Systems Reviewed And Are Negative: Yes Physical Exam - Summary Physical Exam Summary: Appearance: The patient is well-nourished in no acute distress and in no acute pain. Skin: The skin is warm and dry, and skin color reflects adequate perfusion. She prefers to sit leaning to the right but is able to look to the left. HEENT: The head is normocephalic and atraumatic. The pupils are equal and reactive. The conjunctivae are clear and without drainage. Nares are patent and without drainage. Mouth reveals moist mucous membranes, and the throat is without erythema and exudate. The external ears are intact. The ear canals are patent and without drainage. The tympanic membranes are intact. Neck: The neck is supple with full range of motion and non-tender. There are no carotid bruits. There is no neck vein distension. Respiratory: Chest is non-tender. Lungs are clear to auscultation and breath sounds are symmetrical and equal. Cardiovascular: Patient is tachycardic and has regular rhythm. There is no murmur or rub auscultated. There is no peripheral edema and pulses are symmetrical and equal. Abdomen: The abdomen is soft and non-tender. There are normal bowel sounds heard in all four quadrants and there is no organomegaly palpated. Musculoskeletal: There is no back tenderness noted. Extremities are non-tender with full range of motion. There is good capillary refill. There is no peripheral edema or calf tenderness elicited. Neurological: Patient answers to yes/no questions sometimes. Psychiatric: The patient has an appropriate affect and does not exhibit any anxiety or depression. GCS: Triage Information Reviewed: Yes Vital Signs On Initial Exam: Initial Vitals Temp Pulse Resp BP Pulse Ox 97.5 F 133 18 122/89 95 01/28/19 11:49 01/28/19 11:49 01/28/19 11:49 01/28/19 11:49 01/28/19 11:49 Vital Signs Reviewed: Yes Diagnostics - Vital Signs Vital Signs Temp Pulse Resp BP Pulse Ox 01/28/19 11:49 97.5 F 133 18 122/89 95 - Laboratory Result Diagrams: 01/28/19 11:57 01/28/19 11:57 Lab Statement: Any lab studies that have been ordered have been reviewed, and results considered in the medical decision making process. - CT Brain CT Interpretation Completed By: Radiologist Summary of CT Findings: Old infarct in the right middle cerebral artery territory. Old infarct in the left cerebral hemisphere. No acute changes are noted. Atrophy with chronic ischemic change. ED physician has reviewed this report. - EKG 1156 Cardiac Rate: Tachycardia - 138 BPM EKG Rhythm: Sinus Tachycardia Summary of EKG Findings: Sinus tachycardia 138 BPM. Unchanged from previous EKG done on 01/27/19 Altered Mental Statu Course/Dx - Course Course Of Treatment: Ms. Mosquera presented with report that she [facility]. When she arrives here she is in no acute distress and her exam is similar to yesterday. Her level of consciousness is also she was placed on the monitor while EKG and labs were obtained. Again she was noted to be tachycardic as she has [facility] at the [facility]. They have been trying to manage her medications and Tikosyn has been stopped and metoprolol has been titrated up. She went home yesterday as she seemed to be stable and they were working on the problem that it's unclear to me what this event was that happened at home today. It may be that her rate went a lot higher therefore I spoke with the hospitalist about bringing her in and slowing her down - Diagnoses Provider Diagnoses: Atrial fibrillation with RVR - Provider Notifications Discussed Care Of Patient With: Milly Kaufman Time Discussed With Above Provider: 13:00 Instructed by Provider To: Other - Dr. Kaufman, hospitalist, agrees to admit patient Discharge ED - Sign-Out/Discharge Documenting (check all that apply): Patient Departure - Admit All imaging exams completed and their final reports reviewed: Yes Patient Received Moderate/Deep Sedation with Procedure: No - Discharge Plan Condition: Stable Disposition: ADMITTED TO [facility] - Billing Disposition and Condition Condition: STABLE Disposition: Admitted to [facility] - Attestation Statements Document Initiated by Kdibe: Yes Documenting Scribe: Yasmeen Joseph Provider For Whom Garcia is Documenting (Include Credential): Mikhail Moss MD Scribe Attestation: I, Yasmeen Joseph, scribed for Mikhail Moss MD on 01/28/19 at 1640. Scribe Documentation Reviewed: Yes Provider Attestation: The documentation as recorded by the Yasmeen galvin accurately reflects the service I personally performed and the decisions made by me, Mikhail Moss MD Status of Scribe Document: Viewed
[2019-01-28 12:05] LABS: ABS Basophils 0.1 10^3/ul (0-0.2); ABS Eosinophils 0.5 10^3/ul (0-0.6); ABS Lymphocytes 1.5 10^3/ul (1.0-4.8); ABS Monocytes 0.5 10^3/ul (0-0.8); ABS Neutrophils 5.5 10^3/ul (1.5-7.7); Eosinophil % 5.8 %; Hematocrit 41 % (35-47); Hemoglobin 13.6 g/dL (12.0-16.0); Lymphocyte % 18.6 %; Mean Corpuscular HGB Conc 33 g/dL (31-36); Mean Corpuscular Hemoglobin 28 pg (27-31); Mean Corpuscular Volume 86 fL (80-97); Mean Platelet Volume 9.5 fL (7.4-10.4); Platelet Count 216 10^3/uL (150-450); Red Cell Distribution Width 15 % (10-15)
[2019-01-28 12:10] LABS: INR 3.46 (0.82-1.09)
[2019-01-28 12:23] LABS: Albumin 3.7 g/dL (3.2-5.2); Albumin/Globulin Ratio 1.2 (1-3); BUN/Creatinine Ratio 17.5 (8-20); Calcium 9.4 mg/dL (8.6-10.3); EGFR African American 83.3 (>60); EGFR Non-African American 68.8 (>60); Globulin 3.2 g/dL (2-4); Potassium 3.8 mmol/L (3.5-5.0); Total Bilirubin 0.9 mg/dL (0.2-1.0); Total Protein 6.9 g/dL (6.4-8.9); Troponin I 0.02 ng/mL (<0.04)
[2019-01-28 12:47] LABS: Urine Appearance Cloudy; Urine Bilirubin Negative (Negative); Urine Blood Negative (Negative); Urine Color Yellow; Urine Glucose 1+(50 mg/dL) (Negative); Urine Ketones Negative (Negative); Urine Nitrite Negative (Negative); Urine Protein Negative (Negative); Urine Specific Gravity 1.018 (1.010-1.030); Urine Urobilinogen Negative (Negative)
[2019-01-28] MEDS ORDERED: Digoxin IV* 0.5 MG/2 ML AMP (0.25 MG/ML) IV SLOW PU ONE ×3 (12:49→23:00)
[2019-01-28] MEDS ORDERED: NS 0.9% 1000 ML** 1,000 ML IV.FLUID IV ONE (13:06)
[2019-01-28] MEDS ORDERED: Ondansetron INJ* 2 MG/ML VIAL IV PRN (13:39)
[2019-01-28] MEDS ORDERED: Acetaminophen TAB* 325 MG PO PRN (13:39)
[2019-01-28] MEDS ORDERED: levETIRAcetam 1000MG IVPREMIX* 1,000 MG/100 ML BAG IVPB ONE (13:46)
[2019-01-28] MEDS ORDERED: Nystatin TOP POWDER* 15 GM BTL TOPICAL PRN (13:47)
[2019-01-28] MEDS: predniSONE TAB* 10 MG PO SCH (13:59)
[2019-01-28] MEDS ORDERED: WARFARIN - No Order Today* 1 NOTE MISC FOLLOW UP ONE (14:00)
[2019-01-28 14:16] LABS: C Reactive Protein 12.17 mg/L (<8.01)
[2019-01-28 14:48] LABS: TSH (Thyroid Stimulating Horm) 2.25 mcIU/mL (0.34-5.60)
[2019-01-28 15:04] LABS: Erythrocyte Sed Rate 48 mm/Hr (0-29)
--- NOTE | 2019-01-28 16:49 | HP ---
CC: Dr. Manda Rodriguez; Dr. Milly Kaufman; Dr. Yogesh Wilson; Dr. Catrachita Frederick* ADMISSION HISTORY AND PHYSICAL: DATE OF ADMISSION: 01/28/19 PRIMARY CARE PROVIDER: Dr. Manda Rodriguez. MY ATTENDING WHILE IN THE HOSPITAL: Dr. Milly Kaufman* (dictated by JUSTINE Ac). CONSULTING LEAD SHIPPER: Dr. Yogesh Wilson. CONSULTING NEUROLOGIST: Dr. Catrachita Frederick. CHIEF COMPLAINT: Altered mental status x1 day. HISTORY OF PRESENT ILLNESS: Ms. Mosquera is an 83-year-old female with past medical history significant for multiple CVAs; atrial fibrillation, on Coumadin ; COPD; dementia; and seizures who presents to the emergency department for the second time in 2 days after initially she was found to have a rash, came into the emergency department, was prescribed triamcinolone cream, but noted to have a heart rate of 130 which had been going on for approximately 7 weeks per her . The patient was discharged back to home with instructions to follow up with her primary care provider and her mortgage collector. The patient today had an episode around 10:45 which lasted about 15 minutes, wherein she was relatively unresponsive, had gaze and head deviation to her right, but did not have any other abnormal movements. The patient has not had a seizure in 5 years , but has recently been taken off her Keppra. The patient returned to baseline over the course of several hours, but was very lethargic after her episode. The patient has not had any other recent illnesses. The patient has no complaints, though she is markedly demented and is a very poor historian and is only intermittently cooperative with exam. The patient was found continued to have a heart rate of 130. The patient has been having some swelling in her legs , which her states was worse 2 weeks ago. The patient has not passed out. The patient has been falling more to her left and has significantly decreased exercise capacity compared to about 8 weeks ago. The patient was stopped on her Tikosyn 8 weeks ago. It is unclear why this occurred. The patient follows with Dr. Pablo Nesbitt outpatient and his most recent records are not able to be obtained at this time. The patient denies fevers, chills, chest pain, shortness of breath. The patient has no abdominal pain or diarrhea. Due to concern for altered mental status and tachycardia, we were asked to evaluate the patient for admission to the hospital. PAST MEDICAL HISTORY: COPD, atrial fibrillation, hypothyroidism, hyperlipidemia , multiple CVAs, dementia, psoriasis, history of seizure, diabetes mellitus type 2, depression. PAST SURGICAL HISTORY: Tonsillectomy, adenoidectomy, hysterectomy, appendectomy , breast surgery. MEDICATIONS: Per [facility] records: 1. Potassium chloride 30 mEq p.o. b.i.d. 2. Synthroid 25 mcg p.o. daily. 3. Atorvastatin 20 mg p.o. daily. 4. Sertraline 50 mg p.o. daily. 5. Nystatin topical powder 1 application topical b.i.d. as needed. 6. Torsemide 5 mg p.o. daily. 7. Warfarin 6 mg p.o. Monday, Monday. 8. Warfarin 3 mg p.o. Monday, , Monday, Monday, Monday. 9. Ocuvite 1 tab b.i.d. 10. Metoprolol succinate 150 mg p.o. daily. 11. Loperamide 2 mg p.o. daily as needed. 12. Docusate 100 mg p.o. b.i.d. 13. Triamcinolone 0.25% topical b.i.d. ALLERGIES: KEFLEX, RAMIPRIL, LACTOSE. FAMILY HISTORY: The patient's father of [place] at 55. The patient's mother of a medical complication at age 91. The patient's sister is alive and has mild dementia. SOCIAL HISTORY: The patient has a 70-pack year history of smoking. The patient drinks rare alcohol. The patient denies illicit drug use. 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 The patient is and has 2 children. REVIEW OF SYSTEMS: A 14-point review of systems was reviewed with the patient and her and is negative except as above in the HPI. PHYSICAL EXAMINATION GENERAL: The patient is an 83-year-old female who appears stated age and sitting comfortably in bed, in no acute distress. VITAL SIGNS: At the time of evaluation, temperature 97.5, pulse rate 138, respiratory rate 24, oxygen saturation 97% on room air, blood pressure 141/111. HEENT: Head: Normocephalic, atraumatic. Sclerae anicteric. No conjunctival injection. Nasal mucosa moist. Oral mucosa moist. No pharyngeal erythema, discharge, or exudate. NECK: Supple, nontender. No lymphadenopathy. No carotid bruits auscultated. No JVD. RESPIRATORY: Crackles heard in the bilateral lower lobes, diminished breath sounds. No other wheezes, rales, or rhonchi. Good air exchange bilaterally. CARDIAC: Tachycardic. S3 present. No other clicks, murmurs, gallops, or rubs. Pulses are 2+ in the bilateral dorsalis pedis, posterior tibialis, and radial areas. 1+ bilateral lower extremity edema noted. ABDOMEN: Soft, nontender, nondistended. Bowel sounds present and normoactive in all 4 quadrants. No hepatosplenomegaly. No abdominal bruits auscultated. No hepatojugular reflux. GENITOURINARY: No suprapubic or CVA tenderness. NEURO: Cranial nerves II through XII grossly intact. Diffusely weak. Unable to complete full neuro exam due to the patient's noncooperation. PSYCHIATRIC: Pleasant and cooperative, occasionally nonresponsive. SKIN: Clean, dry, and intact. Widespread papular rash on legs, shoulders, chest, arms. Possible 3-4 vesicles on B/L LE. DIAGNOSTIC STUDIES/LAB DATA: White blood cell count 8.0, hemoglobin 13.6, platelet count 216. INR 3.46. Sodium 140, potassium 3.8, chloride 106, carbon dioxide 27, anion gap 7, BUN 14, creatinine 0.80, glucose 159, lactic 1.2, calcium 9.4. Bilirubin 0.9, AST 16, ALT 10, alkaline phosphatase 98. Troponin I 0.02. Protein 6.9, albumin 3.7, globulin 3.2. Urine: Yellow, cloudy, pH 5.0 , otherwise unremarkable. Studies: Brain CT read as old infarct in the left middle cerebral artery territory and left cerebral hemisphere. No acute changes noted. Atrophy of chronic ischemic change. EKG shows tachycardia, borderline ST segment depression. No discernible definitive P waves. Normal axis. ASSESSMENT AND PLAN: Impression: Ms. Mosquera is an 83-year-old female with past medical history significant for multiple cerebrovascular accidents; atrial fibrillation, on Coumadin; chronic obstructive pulmonary disease; dementia; and seizures who presents to the emergency department after 2 days of rash and altered mental status for approximately 15 minutes this morning with subsequent lethargy consistent with seizure. 1. Altered mental status. The patient's altered mental status seems most likely related to a seizure with postictal state. The patient was taken off her Keppra. It is unclear why this occurred. The family just thinks it is because she was doing very well without it. The patient will be reloaded with Keppra and restarted on 500 mg b.i.d. The patient has been seen in consultation by Dr. Catrachita Frederick, who did not recommend additional neuroimaging. The patient had significant encephalomalacia on her CT consistent with previous multiple infarcts. The patient is going to have an EEG and will be monitored closely in the hospital. 2. Atrial fibrillation with rapid ventricular response. 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 The patient had a BNP during this time which was elevated above her baseline. The patient does have a known history of heart failure with preserved ejection fraction with significant pulmonary hypertension. The patient will have a repeat BNP at this time. The patient will have a repeat echocardiogram. The patient will be seen in consultation by Dr. Yogesh Wilson. The patient will be loaded with digoxin. The patient's blood pressure is initially low. The patient appeared dehydrated. Her diuretics will be held. The patient has been given 1 L of fluids gently. Her blood pressure responded well. Additional rate control agents will be given based on the patient's response to digoxin. The patient may require further definitive rhythm or rate control with increased medications or possible AV node ablation and pacemaker implantation. The patient was stopped on her Tikosyn, it is unclear why this was; however, the patient will not be restarted on rhythm control agents at this time. Cardioversion may be indicated. We will optimize the patient's electrolytes. 3. History of cerebrovascular accident. Continue secondary prophylaxis with warfarin. She is currently supratherapeutic. 4. Rash. The patient's rash is of unknown etiology. It is mainly papular with some macules and possible vesicular component. It is itchy. The patient will have systemic steroids for help with the itching. A biopsy will be obtained when available. The patient may need dermatology consultation if no other cause is found. 5. Chronic obstructive pulmonary disease. The patient is not in current exacerbation. 6. Dementia. Supportive care. 7. Hypothyroidism. Test TSH due to atrial fibrillation. Continue the patient' s Synthroid. 8. DVT prophylaxis: The patient is therapeutic on warfarin. 9. FEN: The patient will have a heart-healthy diet without caffeine. The patient had 1 L of fluids and will not be continued. TIME SPENT: Approximately 75 minutes was spent on the admission of this patient , 30 of which was spent [id number] with the patient obtaining history and physical and discussing treatment plan. This plan was discussed with my attending, Dr. Milly Kaufman, and she is in agreement. JUSTINE AC [id number]/[facility] #: [id number] JANEEN
--- NOTE | 2019-01-28 17:13 | CONS ---
NEUROLOGY CONSULTATION NOTE: DATE OF CONSULT: 01/28/19 CONSULTING PROVIDER: JUSTINE Lujan REASON FOR CONSULT: Seizure. CHIEF COMPLAINT: Elevated heart rate. HISTORY OF PRESENT ILLNESS: Ms. Cecilia Mosquera is an 83-year-old right-handed female, who has history of vascular dementia and post-stroke seizures. The patient is unable to provide any medical history. The medical history was obtained by Mr. Mosquera, who was at bedside today. According to the family, the patient was in normal state of health early this morning at approximately 10 :30 a.m. The patient resides at [place]. One of the nurses walked in and noticed that she was leaning towards the left side with eyes deviation towards the left. The patient was not verbalizing. After a few minutes, the patient was slowly getting back to her normal self with some groggy-like behavior. The patient was recently weaned off levetiracetam where she was taking 250 mg in the morning and 500 mg at night. She follows up with Dr. Cole. She discontinued the levetiracetam 1 month ago. It was suspected that the patient may have had a seizure today. The patient also has history of tachycardia for the past 2 weeks and has a rash that developed over the last few days mostly involving the distal lower extremity. The rash is pruritic. She does not complain of any pain caused by the rash. There have been no new medications that were initiated. PAST MEDICAL HISTORY: Atrial fibrillation, on Coumadin, with therapeutic INR; hypothyroidism; dyslipidemia; history of multifocal ischemic infarction with a large malignant right MCA stroke in 2003. She has a history of vascular dementia. She has history of post-stroke seizure with last seizure was in 2013, type 2 diabetes, depression, psoriasis. PAST SURGICAL HISTORY: Tonsillectomy, adenoidectomy, hysterectomy, appendectomy , distant breast surgery. MEDICATIONS: 1. Potassium 30 mEq p.o. b.i.d. 2. Levothyroxine 25 mcg p.o. daily. 3. Atorvastatin 20 mg p.o. daily. 4. Sertraline 50 mg p.o. daily. 5. Nystatin. 6. Torsemide 5 mg p.o. daily. 7. Warfarin 6 mg p.o. Monday, Monday, Monday. 8. Warfarin 3 mg p.o. the other remaining days. 9. Metoprolol. 10. Loperamide. 11. Docusate. ALLERGIES: CEPHALEXIN, LACTULOSE, RAMIPRIL. FAMILY HISTORY: Father of heart disease at age 55. No history of stroke or seizures. SOCIAL HISTORY: The patient lives at [place]. She was a former smoker. She does not drink alcohol. REVIEW OF SYSTEMS: A 14-point review of systems was obtained and otherwise negative except for what was mentioned in the HPI. PHYSICAL EXAM: Vitals: Temperature of 97.5, pulse rate of 138, respiratory rate of 24, oxygen saturation of 97%, blood pressure of 141/111. General: Well - nourished, well-developed, pleasant female, in no acute distress. Head: Atraumatic, normocephalic. Eyes: Conjunctivae/corneas are clear. Neck is supple and symmetrical with no carotid bruits. Cardiovascular: Sinus tachycardia. Pulmonary: Clear to auscultation bilaterally. Extremities: Normal range of motion with no cyanosis. No hammertoes. Skin: There is an erythematous, warm rash involving the left greater than right distal extremities. The rash is pruritic. There is some erythematous maculopapular rash involving the upper extremities bilaterally. Psych: Affect is broad and slightly restricted mood due to her previous history of dementia. Neurological Examination: Awake, alert, and oriented to person and place. She knew she was in the hospital. She is not oriented to time. Pupils are equal, round, and reactive to light. Extraocular muscles are intact. There is no facial asymmetry. Tongue is symmetrical and midline with no atrophy or fasciculation. Motor Examination: 5/5 strength in the right upper and right lower extremity with 3-4/5 strength in the left upper and lower extremities. Sensation is intact throughout. Reflexes 2+ in the left upper extremity with 1+ in the right , 0 at the ankles and knees bilaterally. Upgoing plantar responses bilaterally. [id number] and [id number] testing is normal. Gait was not assessed. DIAGNOSTIC STUDIES/LAB DATA: WBC of 8.0, hemoglobin of 13, hematocrit of 41, platelet count of 216. INR of 3.46. Sodium of 140, potassium of 3.8, chloride of 106, BUN of 14, glucose of 159, lactic acid 1.2. C-reactive protein 12.17. TSH is pending. Urinalysis is negative for pyuria. CT of the brain and head showed multifocal areas of chronic old lacunar stroke, mostly involving the right middle cerebral artery, the left cerebral artery, the left posterior cerebral artery. ASSESSMENT AND RECOMMENDATIONS: Ms. Cecilia Mosquera is an 83-year-old female with multifocal ischemic strokes, post-stroke seizures, and vascular dementia, who presented with what was reported to be a seizure-like activity, persistent tachycardia and a diffuse erythematous maculopapular rash involving the left more than the right lower extremity. In regards to her seizure, I recommend starting the patient on levetiracetam 1000 mg loading dose and 500 mg twice daily. The side effects of levetiracetam include, but are not limited to drowsiness and irritability. I discussed these side effects with the patient's at bedside. Defer management of the tachycardia and the rash to the primary team. No need for further imaging as the patient is back to her baseline. Please practice seizure precautions. The patient does not operate any heavy machinery. Please note that the rash was present before starting levetiracetam. Feel free to contact me for any questions or concerns. [id number]/[facility] #: [id number] MTDD
[2019-01-28] MEDS ORDERED: Metoprolol Tartrate TAB* 25 MG PO ONE (17:20)
[2019-01-28] MEDS ORDERED: Digoxin IV* 0.5 MG/2 ML AMP (0.25 MG/ML) IV SLOW PU SCH (19:30)
[2019-01-28] MEDS: levETIRAcetam LIQ* 500 MG/5 ML UDC PO SCH (23:04)
[2019-01-28] MEDS: Potassium Chlor TAB* 10 MEQ TAB.ER PO SCH (23:04)
[2019-01-29 06:05] LABS: ABS Eosinophils 0.5 10^3/ul (0-0.6); ABS Lymphocytes 1.2 10^3/ul (1.0-4.8); ABS Monocytes 0.6 10^3/ul (0-0.8); ABS Neutrophils 7.6 10^3/ul (1.5-7.7); Eosinophil % 5.1 %; Hematocrit 38 % (35-47); Hemoglobin 12.3 g/dL (12.0-16.0); Lymphocyte % 12.2 %; Mean Corpuscular HGB Conc 32 g/dL (31-36); Mean Corpuscular Hemoglobin 28 pg (27-31); Mean Corpuscular Volume 87 fL (80-97); Mean Platelet Volume 10.1 fL (7.4-10.4); Platelet Count 203 10^3/uL (150-450); Red Blood Count 4.39 10^6 /uL (3.70-4.87); Red Cell Distribution Width 15 % (10-15)
[2019-01-29] MEDS: Levothyroxine TAB* 25 MCG TAB PO SCH (06:08)
[2019-01-29 06:20] LABS: INR 4.14 (0.82-1.09)
[2019-01-29 06:25] LABS: BUN/Creatinine Ratio 17.3 (8-20); Calcium 8.8 mg/dL (8.6-10.3); EGFR African American 89.7 (>60); EGFR Non-African American 74.2 (>60); Magnesium 2.1 mg/dL (1.9-2.7); Potassium 3.7 mmol/L (3.5-5.0)
[2019-01-29 06:32] LABS: Digoxin 0.8 ng/ml (0.8-2.0)
[2019-01-29] MEDS ORDERED: Digoxin IV* 0.5 MG/2 ML AMP (0.25 MG/ML) IV SLOW PU ONE (07:05)
[2019-01-29] MEDS ORDERED: WARFARIN - No Order Today* 1 NOTE MISC FOLLOW UP ONE (08:00)
[2019-01-29] MEDS: Atorvastatin* 20 MG TAB PO SCH (08:26)
[2019-01-29] MEDS: levETIRAcetam LIQ* 500 MG/5 ML UDC PO SCH ×2 (08:26→21:27)
[2019-01-29] MEDS: Sertraline* 50 MG TAB PO SCH (08:28)
[2019-01-29] MEDS: Potassium Chlor TAB* 10 MEQ TAB.ER PO SCH ×2 (08:29→21:30)
[2019-01-29] MEDS: predniSONE TAB* 10 MG PO SCH (08:29)
--- NOTE | 2019-01-29 08:58 | ECHO ---
*[facility]* [place] [address] Fax #: [phone] Transthoracic Echocardiogram Patient: Cecilia Mosquera : 1935 Study Date: 01/29/2019 Age: 83 Gender: F HR: 99 bpm Height: 67 in /170.2 cm BSA: 2 m^2 Weight: 194.6 lb /88.5 kg BMI: 30.5 kg/m^2 *Billet Inspector: * Mehnaz Valenzuela [facility] *Referring Physician: * Reij Franz *Reading Physician: * Yogesh Wilson MD Indications: Congestive Heart Failure. History: Atrial fibrillation. Patent foramen ovale. Cerebrovascular accident. Chronic obstructive pulmonary disease. Risk factors: Current tobacco use. Conclusions Summary: - Left ventricle: Systolic function is at the lower limits of normal. The estimated ejection fraction is 50-55%. Wall motion is normal; there are no regional wall motion abnormalities. Left ventricular diastolic function parameters are indeterminate. - Right ventricle: Systolic function is mildly reduced. Systolic pressure is moderately increased. - Left atrium: The atrium is moderately to severely dilated. - Mitral valve: The findings are consistent with mild stenosis. There is mild regurgitation. - Aortic valve: Thickening, consistent with sclerosis. There is no evidence of stenosis. There is no significant regurgitation. - Tricuspid valve: There is moderate-severe regurgitation. - Ascending aorta: The ascending aorta is appears normal. - Pericardium, extracardiac: There is no significant pericardial effusion. - Compared to study of 08/18/15, the left ventricle function is the same. The degree of tricuspid regurgitation is worse. Pulm hypertension is the same. Study data: Transthoracic echocardiogram. Procedure: Transthoracic echocardiography was performed. Image quality was fair. Complete 2D, spectral Doppler, and color flow Doppler. Location: Bedside. Patient status: Inpatient. Patient room number: 435. Rhythm: Atrial fibrillation. Findings Left ventricle: The cavity size is normal. Wall thickness is normal. Systolic function is at the lower limits of normal. The estimated ejection fraction is 50-55%. Wall motion is normal; there are no regional wall motion abnormalities. Left ventricular diastolic function parameters are indeterminate. Right ventricle: The cavity size is mildly to moderately dilated. Systolic function is mildly reduced. Systolic pressure is moderately increased. Left atrium: The atrium is moderately to severely dilated. Right atrium: The atrium is moderately dilated. Mitral valve: The Mitral valve annulus appears mildly calcified. The leaflets are mildly thickened. The findings are consistent with mild stenosis. There is mild regurgitation. Aortic valve: The annulus is mildly calcified. The valve is trileaflet. Mild focal thickening involving the noncoronary cusp. Thickening, consistent with sclerosis. Noncoronary cusp mobility is mildly restricted. There is no evidence of stenosis. There is no significant regurgitation. Tricuspid valve: The leaflets are normal thickness. There is no evidence of stenosis. There is moderate-severe regurgitation. Pulmonic valve: The leaflets are normal thickness. There is no evidence of stenosis. There is trace regurgitation. Aorta: Ascending aorta: The ascending aorta is appears normal. Aortic arch: The aortic arch is not visualized. The aortic root appears normal. Pericardium: A prominent pericardial fat pad is present. There is no significant pericardial effusion. Pulmonary arteries: The main pulmonary artery is normal-sized. Systolic pressure is moderately increased. Systemic veins: Inferior vena cava: The vessel is dilated. There is (< 50%) respiratory change in the IVC dimension. Measurements Left ventricle Value Ref Aortic valve Value Ref ZULEMA, LAX 4.3 cm 3.8 - 5.2 Aleah diam, ED 1.9 cm ----- ESD, LAX 3.4 cm 2.2 - 3.5 Peak v, S 1.16 m/sec ----- FS, LAX (L) 19 % 27 - 45 VTI, S 21.8 cm ----- PW, ED, LAX 0.9 cm 0.6 - 0.9 Mean grad, S 3.0 mm Hg ----- FS (L) 19 % 27 - 45 Peak grad, S 5.0 mm Hg ----- PW, ED 0.9 cm 0.6 - 0.9 LVOT/AV, VTI ratio 0.69 ----- E', lat aleah, TDI (L) 6.4 cm/sec >=10.0 DAVID, VTI 2.16 cm^2 --- -- E/e', lat aleah, 21 DAVID, Vmax 1.91 cm^2 ----- TDI E', med aleah, TDI (L) 6.6 cm/sec >=7.0 Mitral valve Value Ref E/e', med aleah, 20 Peak E 1.32 m/sec ----- TDI Peak A 0 m/sec ----- E', avg, TDI 6.5 cm/sec Decel time 98 ms ----- E/e', avg, TDI (H) 20 <=14 PHT 119 ms --- -- Mean grad, D 2.0 mm Hg ----- LVOT Value Ref Peak grad, D 8.0 mm Hg ----- Diam, S 2.00 cm Peak E/A ratio 660 ----- Area 3.1 cm^2 MVA, PHT 2.0 cm^2 ----- Peak juanita, S 0.71 m/sec VTI, S 15.0 cm Pulmonic valve Value Ref Mean grad, S 1 mm Hg Peak v, S 0.79 m/sec ----- SV 46 ml Peak grad, S 2.0 mm Hg ----- SV/bsa 23 ml/m^2 Tricuspid valve Value Ref Ventricular septum Value Ref TR peak v (H) 3 m/sec <=2.8 IVS, ED 0.9 cm 0.6 - 0.9 Peak RV-RA grad, S 36 mm Hg ----- Right ventricle Value Ref Aortic root Value Ref ZULEMA, LAX 3.4 cm Root diam 3.2 cm <4.1 ZULEMA minor ax, A4C (H) 5.1 cm 1.9 - 3.5 mid Ascending aorta Value Ref Pressure, S 51 mm Hg AAo AP diam, S 3.5 cm ----- Left atrium Value Ref Pulmonary artery Value Ref AP dim, ES (H) 4.40 cm 2.70 - Pressure, S 49.0 mm Hg ----- 3.80 ML dim, A4C 4.2 cm Inferior vena cava Value Ref SI dim, A4C 5.7 cm Diam 2.9 cm ----- Vol/bsa, ES, 1-p 34 ml/m^2 11 - 40 A4C Vol/bsa, ES, A/L (H) 48 ml/m^2 16 - 34 Right atrium Value Ref SI dim, ES (H) 6.7 cm 3.4 - 5.3 ML dim, ES, A4C 3.8 cm 2.6 - 4.4 SI dim, ES, A4C (H) 6.7 cm 3.4 - 5.3 Estimated RAP 15 mm Hg Legend: (L) and (H) nakita values outside specified reference range. Prepared and electronically signed by Yogesh Wilson MD 01/29/2019 08:57
[2019-01-29] MEDS ORDERED: Metoprolol Succinate XL TAB* 50 MG PO SCH (09:00)
--- NOTE | 2019-01-29 10:59 | CONS ---
CC: Dr. Yogesh Wilson* CONSULTATION REPORT: DATE OF CONSULT: 01/29/19 ATTENDING PHYSICIAN: Dr. Yogesh Wilson, cardiology* (dictated by Chelsey Saldivar NP). PRIMARY PHYSICIAN: Dr. Rodriguez. PRIMARY MANUAL ARTS THERAPIST: Dr. Pablo Nesbitt. CHIEF COMPLAINT: According to [place], where the patient resides, increased altered mental status and difficulty articulating words. HISTORY OF PRESENT ILLNESS: This is an 83-year-old female patient with a history of advanced dementia, residing at [facility] in addition to paroxysmal AFib; on metoprolol and Coumadin therapy, CVA in 2003, diabetes, and hyperlipidemia. According to her medical records, the patient presented to [facility] on 01/28/19 due to increased confusion with inability to form words. I personally spoke with one of the nurses at [facility] who states that for the past month the patient has been having increased heart rates. There has been a confusion in her metoprolol order. Apparently, all of her medications are written to be crushed because the patient has a hard time swallowing pills and will spit them out; however, apparently, metoprolol is not able to be crushed. However, the patient's medications were ordered to be given while her was with her at dinnertime and I am told she has been adequately taking medication. Apparently, she started to develop a rash on Monday afternoon. On Monday, she developed the episode of increased altered mental status and difficulty articulating words. Thus, she presented to [facility]. According to the emergency room records, she underwent a brain CT that revealed an old right middle cerebral artery infarct. Dr. Frederick of neurology saw the patient in consultation. Apparently, there were recent medication changes involving Keppra. The patient was restarted on Keppra therapy. She was noted to be in AFib with rapid ventricular response; thus, cardiology was consulted. The patient, although severely demented, denies any pain. It is very difficult to obtain an adequate history of present illness. According to the nurse at [facility], again, she has had elevated heart rates to the past month. Her isoenzymes have been negative x2. She was loaded with IV digoxin. Currently, her heart rate is 119. Last echocardiogram according to her outpatient notes was in 2016; at that time , LVEF of 55% to 60% with moderate left atrial dilatation. Left ischemic valve with Lexiscan nuclear stress test in 2016, no ischemia per myocardial perfusion report. PAST MEDICAL HISTORY: 1. AFib. 2. Pulmonary hypertension. 3. Diabetes. 4. Hyperlipidemia. 5. CVA in 2003. 6. COPD. 7. Dementia. PAST SURGICAL HISTORY: Listed in her medical records include appendectomy, cataract repair, and cardioversion in 2011. HOME MEDICATIONS: Per admission med rec. ALLERGIES: Listed in her medical records include ALTACE, KEFLEX, VANTIN, LACTOSE, and RAMIPRIL. FAMILY HISTORY: Noncontributory. SOCIAL HISTORY: The patient is . She resides at [place]. She is a DNR. Otherwise, unable to obtain other social history. REVIEW OF SYSTEMS: Unfortunately, due to the patient's baseline confusion, unable to obtain accurate review of systems. PHYSICAL EXAMINATION: The patient is lying in bed, appears in no apparent distress with registered nurse at her bedside. When asked to state her name, she is unable to do so. Current temperature 97.2, pulse 107, respirations 20, oxygenation 93% on room air, blood pressure 133/75. General: The patient is lying upright in bed, appears in no apparent distress. HEENT: Head is atraumatic, normocephalic. Oral mucosa is moist. Tongue is midline. Neck: Supple. Trachea midline. No JVD. No carotid bruits. Cardiac: Tachycardic, S1, S2. Irregular rate and rhythm. No murmur, rub, or gallop noted. Lungs: Auscultated posteriorly. Clear throughout. Respirations nonlabored, rate 20. /GI: Abdomen is soft, nontender, nondistended. Positive bowel sounds throughout. Extremities: No pedal edema. No clubbing. No cyanosis. Peripheral Vascular: 2+ brachial and dorsalis pedis pulses palpated bilaterally and symmetrically. Skin: Positive rash noted on bilateral lower extremities; otherwise, intact. DIAGNOSTIC STUDIES/LAB DATA: Blood work obtained here at [facility] on 01/29/19: Sodium 140, potassium of 3.7, chloride 110, carbon dioxide 25, BUN 13, creatinine 0.75, glucose 176. Troponin negative x2. TSH 2.25. INR 4.14. White count 10, hemoglobin 12.3, hematocrit 38, platelets 203. ECG obtained from 01/28/19 was reviewed. Although P waves are difficult to identify in leads II and I, there appear to be P waves. Thus, ECG is sinus tachycardia, rate 138, although it could be AFib given difficulty identifying P waves. Very minimal ST-segment depression noted in lead II, V6, V5, and V4. Telemetry reviewed AFib, rate 100 to 120. ASSESSMENT AND PLAN: 1. History of paroxysmal atrial fibrillation; currently, in atrial fibrillation with rapid ventricular rate response despite IV digoxin load. The patient reportedly takes metoprolol 150 mg a day, although in the past she has had problems with being combative and refusing medications. Thus, Tikosyn was discontinued in September 2018. Historically, she had liver toxicity on amiodarone therapy. It does not appear that the patient is symptomatic; however, this is difficult to assess due to her advanced dementia. She has a history of cerebrovascular accident and is on Coumadin therapy with a supratherapeutic INR of 4.14 today. Currently, her heart rate is 106. Echocardiogram is pending. I am told for the past 4 weeks she has had an elevated heart rate. Ultimately, rate control response would be appropriate. I think it would be prudent to establish goals of care given the patient's advanced dementia to the point of having difficulty swallowing medications and sometimes refusing medications. Would recommend continuing digoxin therapy and continuing metoprolol therapy. We will follow and reevaluate post echocardiogram. Recommend labile heart rate control. Troponin negative. TFTs are normal. 2. History of cerebrovascular accident in 2003, likely due to above #1, on Coumadin therapy. Recommend INR 2 to 3. 3. Altered mental status 01/28/19. Neurology following, now back on Keppra therapy. 4. History of advanced dementia. The patient is DNR. It would likely be beneficial to have a conversation with her and daughter about goals of care. I am told by the nursing staff at [place] that her medications have to be crushed due to her having difficulty swallowing medications and then refusing them. 5. Disposition. Pending course. Thank you for this kind consultation. We will follow the patient. Dr. Yogesh Wilson has seen the patient and agrees with the above plan. CHELSEYLEONEL SALDIVAR NP [id number]/[facility] #: [id number] JANEEN
[2019-01-29] MEDS: Torsemide TAB 10 MG PO SCH ×2 (11:13→12:27)
--- NOTE | 2019-01-29 11:33 | PN ---
Subjective Date of Service: 01/29/19 Length of Stay: 1 Days Neurology is following for breakthrough seizure. Interval History: There has been no reported seizures overnight. She is tolerating levetiracetam therapy. She refused her PO medications today, but with encouragement, we were able to give her the medications with apple sauce. The rash is still apparent especially in the left lower extremity. Review of Systems: Denied CP. Difficult to obtain a detailed ROS due to her cognitive slowing. Objective Active Medications: Acetaminophen (Tylenol Tab*) 650 mg PO Q6H PRN PRN Reason: MILD PAIN or TEMP > 100.4 Atorvastatin Calcium (Lipitor*) 20 mg PO DAILY [facility] Last Admin: 01/29/19 08:26 Dose: 20 mg Digoxin (Lanoxin Tab*) 0.25 mg PO 1700 [facility] Levetiracetam (Keppra Liq*) 500 mg PO BID [facility] Last Admin: 01/29/19 08:26 Dose: 500 mg Levothyroxine Sodium (Synthroid Tab*) 25 mcg PO 0600 [facility] Last Admin: 01/29/19 06:08 Dose: 25 mcg Metoprolol Succinate (Toprol Xl Tab*) 50 mg PO ONCE ONE Stop: 01/29/19 21:01 Metoprolol Succinate (Toprol Xl Tab*) 100 mg PO BID [facility] Nystatin (Nystatin Top Powder*) 1 applic TOPICAL BID PRN PRN Reason: RASH Ondansetron HCl (Zofran Inj*) 4 mg IV Q6H PRN PRN Reason: NAUSEA Pharmacy Profile Note (Coumadin Per Pharmacy*) 1 note FOLLOW UP .PER PHARMACY PROTOC [facility]; Protocol Potassium Chloride (Klor Con Er Tab*) 30 meq PO BID [facility] Last Admin: 01/29/19 08:29 Dose: 30 meq Prednisone (Deltasone Tab*) 30 mg PO DAILY [facility] Last Admin: 01/29/19 08:29 Dose: 30 mg Sertraline HCl (Zoloft*) 50 mg PO DAILY [facility] Last Admin: 01/29/19 08:28 Dose: 50 mg Torsemide (Torsemide) 5 mg PO DAILY [facility] Vital Signs 01/28/19 01/28/19 01/28/19 11:46 11:48 11:49 Temperature 97.5 F Pulse Rate 139 133 Respiratory 18 Rate Blood Pressure 122/89 122/89 (mmHg) O2 Sat by Pulse 92 95 Oximetry 01/28/19 01/28/19 01/28/19 12:01 12:08 12:16 Temperature Pulse Rate 121 138 Respiratory 19 19 Rate Blood Pressure 117/90 (mmHg) O2 Sat by Pulse 95 96 96 Oximetry 01/28/19 01/28/19 01/28/19 12:26 12:40 12:57 Temperature Pulse Rate 140 138 142 Respiratory 26 20 26 Rate Blood Pressure 115/88 124/89 99/79 (mmHg) O2 Sat by Pulse 91 96 88 Oximetry 01/28/19 01/28/19 01/28/19 13:00 13:01 13:26 Temperature Pulse Rate 139 133 136 Respiratory 24 27 Rate Blood Pressure 119/86 (mmHg) O2 Sat by Pulse 98 96 Oximetry 01/28/19 01/28/19 01/28/19 13:44 13:49 13:56 Temperature Pulse Rate 138 139 147 Respiratory 21 23 Rate Blood Pressure 136/94 141/111 (mmHg) O2 Sat by Pulse 93 96 Oximetry 01/28/19 01/28/19 01/28/19 14:00 14:46 15:15 Temperature 98.6 F Pulse Rate 141 138 135 Respiratory 24 17 Rate Blood Pressure 141/111 (mmHg) O2 Sat by Pulse 97 97 Oximetry 01/28/19 01/28/19 01/28/19 15:32 19:15 20:00 Temperature 98.1 F 97.5 F Pulse Rate 122 136 Respiratory 18 16 16 Rate Blood Pressure 136/79 128/87 (mmHg) O2 Sat by Pulse 91 93 Oximetry 01/28/19 01/28/19 01/29/19 23:05 23:15 03:15 Temperature 97.6 F 97.4 F Pulse Rate 137 136 132 Respiratory 18 18 Rate Blood Pressure 151/81 139/75 (mmHg) O2 Sat by Pulse 95 91 Oximetry 01/29/19 01/29/19 07:15 08:21 Temperature 97.2 F Pulse Rate 107 104 Respiratory 20 Rate Blood Pressure 133/75 (mmHg) O2 Sat by Pulse 93 Oximetry Intake and Output Last 24 Hours 01/27/19 01/28/19 01/29/19 01/30/19 06:59 06:59 06:59 06:59 Intake Total 220 Output Total 115 Balance 105 Weight 185 lb 6.4 oz Intake: IV Fluids 100 Oral 120 Output: Urine 0 Straight Cath 115 Oxygen Devices in Use Now: None Neurology Exam: General: Pleasantly demented female in no acute distress. She is resting comfortable. HEENT: Normocephelic/atraumatic, sclera anicteric, mucous membranes moist Neck: Supple Chest: Clear to auscultation bilaterally Cardiovascular: Regular rate and rhythm without murmurs, rubs, gallops Extremities: No clubbing, cyanosis, or edema Skin: erythematous maculopapular rash involving the left > right lower extremity and minimally in the upper extremities bilaterally. Neurological Findings: awake, alert to self, but not place or time. Severely demented. Severe psychomotor slowing. Speech: severe dysarthria Cranial Nerve: PERRL, EOM intact, left facial droop Motor: right extremity 4/5, left 3/5. Sensation: intact to LT/PP bilaterally upper and lower extremities Deep Tendon Reflex: 2+ symmetric in the upper/lower extremities, Babinski - extensor plantar response bilaterally Coordination: unable to cooperate Gait: n/a Result Diagrams: 01/29/19 05:15 01/29/19 05:15 Microbiology and Other Data: Microbiology 01/28/19 12:40 Nasal Screen MRSA (PCR) - Final Nasal Mrsa Not Detected Assessment/Plan Mrs. 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 She was recently weaned off levetiracetam. She presented to [facility] with symptoms of one episode of seizure like activity, two week history of tachycardia, and a diffuse rash. 1. Breakthrough seizure- restarted levetiracetam 500 mg twice daily. I discontinued the EEG as it's not necessary at this point. Patient does not have any clinical seizures and is back to her baseline. Follow-up with Dr. Cole. We will arrange a follow-up appointment in 6 weeks. Continue neuro checks every 4 hours. I will sign off but please contact me for any questions or concerns.
--- NOTE | 2019-01-29 13:21 | PN ---
Subjective Date of Service: 01/29/19 Interval History: Patient continues to be intermittently only mildly communicative. Patient denies pain. Patient keeps spitting out meds, but was able to get all meds in eventually. Family History: Unchanged from Admission Social History: Unchanged from Admission Past Medical History: Unchanged from Admission Objective Active Medications: Acetaminophen (Tylenol Tab*) 650 mg PO Q6H PRN PRN Reason: MILD PAIN or TEMP > 100.4 Atorvastatin Calcium (Lipitor*) 20 mg PO DAILY [facility] Last Admin: 01/29/19 08:26 Dose: 20 mg Digoxin (Lanoxin Tab*) 0.25 mg PO 1700 [facility] Levetiracetam (Keppra Liq*) 500 mg PO BID [facility] Last Admin: 01/29/19 08:26 Dose: 500 mg Levothyroxine Sodium (Synthroid Tab*) 25 mcg PO 0600 [facility] Last Admin: 01/29/19 06:08 Dose: 25 mcg Metoprolol Succinate (Toprol Xl Tab*) 50 mg PO ONCE ONE Stop: 01/29/19 21:01 Metoprolol Succinate (Toprol Xl Tab*) 100 mg PO BID [facility] Nystatin (Nystatin Top Powder*) 1 applic TOPICAL BID PRN PRN Reason: RASH Ondansetron HCl (Zofran Inj*) 4 mg IV Q6H PRN PRN Reason: NAUSEA Pharmacy Profile Note (Coumadin Per Pharmacy*) 1 note FOLLOW UP .PER PHARMACY PROTOC [facility]; Protocol Potassium Chloride (Klor Con Er Tab*) 30 meq PO BID [facility] Last Admin: 01/29/19 08:29 Dose: 30 meq Prednisone (Deltasone Tab*) 30 mg PO DAILY [facility] Last Admin: 01/29/19 08:29 Dose: 30 mg Sertraline HCl (Zoloft*) 50 mg PO DAILY [facility] Last Admin: 01/29/19 08:28 Dose: 50 mg Torsemide (Torsemide) 5 mg PO DAILY [facility] Last Admin: 01/29/19 12:27 Dose: 5 mg Vital Signs - 8 hr 01/29/19 01/29/19 01/29/19 07:15 08:21 11:43 Temperature 97.2 F 97 F Pulse Rate 107 104 93 Respiratory 20 16 Rate Blood Pressure 133/75 132/76 (mmHg) O2 Sat by Pulse 93 92 Oximetry Oxygen Devices in Use Now: None Appearance: Patient is an 83yo female who appears stated age and is sitting in the bed in [facility]. Eyes: No Scleral Icterus, PERRLA Ears/Nose/Mouth/Throat: NL Teeth, Lips, Gums, Clear Oropharnyx, Mucous Membranes Moist Neck: NL Appearance and Movements; NL JVP, Trachea Midline Respiratory: Symmetrical Chest Expansion and Respiratory Effort, - - Crackles [place] in B/L LL Cardiovascular: NL Sounds; No Murmurs; No JVD, - - 1+ B/L LE edema. Tachycardia with irregularly irregular rhythm. Abdominal: NL Sounds; No Tenderness; No Distention, No Hepatosplenomegaly Lymphatic: No Cervical Adenopathy Extremities: No Edema, No Clubbing, Cyanosis Skin: No Nodules or Sclerosis, - - Widespread papular rash. Neurological: - - alert, not oriented, general weakness, limited exam. Result Diagrams: 01/29/19 05:15 01/29/19 05:15 Microbiology and Other Data: Microbiology 01/28/19 12:40 Nasal Screen MRSA (PCR) - Final Nasal Mrsa Not Detected Assess/Plan/Problems-Billing Mrs. 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 She was recently weaned off levetiracetam. She presented to [facility] ER with symptoms of one episode of seizure like activity, two week history of tachycardia, and a diffuse rash. - Patient Problems (1) Elevated INR Current Visit: No Status: Acute Code(s): R79.1 - ABNORMAL COAGULATION PROFILE SNOMED Code(s): 162406027 Comment: INR is still elevated. Follow up level on 03/18/15 and redose coumadin as outpatient. (2) Atrial fibrillation Current Visit: No Status: Chronic Code(s): I48.91 - UNSPECIFIED ATRIAL FIBRILLATION SNOMED Code(s): 55318232 Comment: - With RVR - Appreciate Cardiology input - Continue Digoxin and Metoprolol - Has possibly not been taking meds. Rate now controlled. - Continue Coumadin - EF not depressed, possibly exacerbating HFpEF (3) Rash Current Visit: Yes Status: Acute Code(s): R21 - RASH AND OTHER NONSPECIFIC SKIN ERUPTION SNOMED Code(s): 027026113 Comment: - Papular, Pruritic and widespread - Appears to be urticarial, biopsy requested - On Steroids. (4) COPD (chronic obstructive pulmonary disease) Current Visit: No Status: Chronic Code(s): J44.9 - CHRONIC OBSTRUCTIVE PULMONARY DISEASE, UNSPECIFIED SNOMED Code(s): 06602129 Comment: - No signs of acute exacerbation at this time (5) HLD (hyperlipidemia) Current Visit: No Status: Chronic Code(s): E78.5 - HYPERLIPIDEMIA, UNSPECIFIED SNOMED Code(s): 68661534 Comment: - Continue statin (6) HTN (hypertension) Current Visit: No Status: Chronic Code(s): I10 - ESSENTIAL (PRIMARY) HYPERTENSION SNOMED Code(s): 94219930 Comment: - The patient's BP is under good control, SBP 130-150's. - Resume Norvasc. - Continue to hold Torsemide and consider resuming in the AM, if BP allows. (7) History of CVA (cerebrovascular accident) Current Visit: No Status: Chronic Code(s): Z86.73 - PRSNL HX OF TIA (TIA), AND CEREB INFRC W/O RESID DEFICITS SNOMED Code(s): 690780791 Comment: - Continue statin and coumadin - Severe encephalomalacia and multiple strokes - Likely cause of dementia. (8) Hypothyroidism Current Visit: No Status: Chronic Code(s): E03.9 - HYPOTHYROIDISM, UNSPECIFIED SNOMED Code(s): 44655355 Comment: - Continue levothyroxine - TSH WNL (9) Seizures Current Visit: No Status: Chronic Code(s): R56.9 - UNSPECIFIED CONVULSIONS SNOMED Code(s): 11777299 Comment: - Seizure before admission - Continue Keppra and seizure precautions (10) Type II diabetes mellitus Current Visit: No Status: Chronic Comment: - On No meds (11) DVT prophylaxis Current Visit: No Status: Acute Code(s): PWT5449 - SNOMED Code(s): 353810058 Comment: - Supratherapeutic INR Status and Disposition: Inpatient, hopeful D/C in 1-2 days.
[2019-01-29] MEDS ORDERED: Warfarin TAB(*) 3 MG PO SCH (17:00)
[2019-01-29] MEDS: Digoxin TAB* 0.25 MG PO SCH (18:26)
[2019-01-29] MEDS ORDERED: Metoprolol Succinate XL TAB* 50 MG PO ONE (21:00)
[2019-01-30] MEDS: Levothyroxine TAB* 25 MCG TAB PO SCH (05:52)
[2019-01-30 05:55] LABS: Hematocrit 38 % (35-47); Hemoglobin 12.4 g/dL (12.0-16.0); Mean Platelet Volume 9.7 fL (7.4-10.4); Platelet Count 220 10^3/uL (150-450)
[2019-01-30 06:18] LABS: INR 5.51 (0.82-1.09)
[2019-01-30] MEDS: Torsemide TAB 10 MG PO SCH (08:43)
[2019-01-30] MEDS: levETIRAcetam LIQ* 500 MG/5 ML UDC PO SCH ×2 (08:43→22:02)
[2019-01-30] MEDS: Atorvastatin* 20 MG TAB PO SCH (08:43)
[2019-01-30] MEDS: Sertraline* 50 MG TAB PO SCH (08:44)
[2019-01-30] MEDS: Metoprolol Succinate XL TAB* 100 MG PO SCH ×2 (08:44→22:03)
[2019-01-30] MEDS: Potassium Chlor TAB* 10 MEQ TAB.ER PO SCH ×2 (08:45→22:03)
[2019-01-30] MEDS: predniSONE TAB* 10 MG PO SCH (08:45)
--- NOTE | 2019-01-30 08:58 | PN ---
<JannaChelsey - Last Filed: 01/30/19 08:43> Subjective Date of Service: 01/30/19 - PAF with RVR Interval History: Patient sitting up right in bed with nurse trying to administer morning medications. No events last night per nurse. HR 90-=120. Patient is severely demented Medications Active Medications: Acetaminophen (Tylenol Tab*) 650 mg PO Q6H PRN PRN Reason: MILD PAIN or TEMP > 100.4 Atorvastatin Calcium (Lipitor*) 20 mg PO DAILY [facility] Last Admin: 01/29/19 08:26 Dose: 20 mg Digoxin (Lanoxin Tab*) 0.25 mg PO 1700 [facility] Last Admin: 01/29/19 18:26 Dose: 0.25 mg Levetiracetam (Keppra Liq*) 500 mg PO BID [facility] Last Admin: 01/29/19 21:27 Dose: 500 mg Levothyroxine Sodium (Synthroid Tab*) 25 mcg PO 0600 [facility] Last Admin: 01/30/19 05:52 Dose: 25 mcg Metoprolol Succinate (Toprol Xl Tab*) 100 mg PO BID [facility] Nystatin (Nystatin Top Powder*) 1 applic TOPICAL BID PRN PRN Reason: RASH Ondansetron HCl (Zofran Inj*) 4 mg IV Q6H PRN PRN Reason: NAUSEA Pharmacy Profile Note (Coumadin Per Pharmacy*) 1 note FOLLOW UP .PER PHARMACY PROTOC [facility]; Protocol Potassium Chloride (Klor Con Er Tab*) 30 meq PO BID [facility] Last Admin: 01/29/19 21:30 Dose: 30 meq Prednisone (Deltasone Tab*) 30 mg PO DAILY [facility] Last Admin: 01/29/19 08:29 Dose: 30 mg Sertraline HCl (Zoloft*) 50 mg PO DAILY [facility] Last Admin: 01/29/19 08:28 Dose: 50 mg Torsemide (Torsemide) 5 mg PO DAILY [facility] Last Admin: 01/29/19 12:27 Dose: 5 mg Objective Vital Signs: Temp Pulse Resp BP Pulse Ox 97.1 F 81 18 145/88 94 01/30/19 03:38 01/30/19 03:38 01/30/19 03:38 01/30/19 03:38 01/30/19 03:38 Oxygen Devices in Use Now: None Appearance: sitting up in bed. not alert per person place or time Eyes: PERRLA Ears/Nose/Mouth/Throat: NL Teeth, Lips, Gums, Mucous Membranes Moist Neck: NL Appearance and Movements; NL JVP, Trachea Midline Respiratory: Symmetrical Chest Expansion and Respiratory Effort Cardiovascular: No Edema, - - normal S1, S2 Irregular rate and rhythm. Extremities: No Edema Lines/Tubes/Other Access: Clean, Dry and Intact Peripheral IV Laboratory Results: 01/30/19 05:36 01/29/19 05:15 INR (Anticoag Therapy) 5.51 (0.82-1.09) H* 01/30/19 05:36 Total Bilirubin 0.90 mg/dL (0.2-1.0) 01/28/19 11:57 AST 16 U/L (13-39) 01/28/19 11:57 ALT 10 U/L (7-52) 01/28/19 11:57 Alkaline Phosphatase 98 U/L (34-104) 01/28/19 11:57 B-Natriuretic Peptide 523 pg/mL (<=100) H 01/28/19 11:57 Total Protein 6.9 g/dL (6.4-8.9) 01/28/19 11:57 Albumin 3.7 g/dL (3.2-5.2) 01/28/19 11:57 Globulin 3.2 g/dL (2-4) 01/28/19 11:57 Albumin/Globulin Ratio 1.2 (1-3) 01/28/19 11:57 TSH 2.25 mcIU/mL (0.34-5.60) 01/28/19 11:57 01/28/19 11:57 Troponin I 0.02 Laboratory Results - last 24 hr 01/30/19 01/30/19 05:36 05:36 Hgb 12.4 Hct 38 Plt Count 220 MPV 9.7 INR (Anticoag Therapy) 5.51 H* Diagnostic Imaging: *[facility]* [place] [address] Fax #: [phone] Transthoracic Echocardiogram Patient: Cecilia Mosquera : 1935 Study Date: 01/29/2019 Age: 83 Gender: F HR: 99 bpm Height: 67 in /170.2 cm BSA: 2 m^2 Weight: 194.6 lb /88.5 kg BMI: 30.5 kg/m^2 *Sex Crimes Detective: * Mehnaz Valenzuela RDCS *Referring Physician: * Reji Franz *Reading Physician: * Yogesh Wilson MD Indications: Congestive Heart Failure. History: Atrial fibrillation. Patent foramen ovale. Cerebrovascular accident. Chronic obstructive pulmonary disease. Risk factors: Current tobacco use. Conclusions Summary: - Left ventricle: Systolic function is at the lower limits of normal. The estimated ejection fraction is 50-55%. Wall motion is normal; there are no regional wall motion abnormalities. Left ventricular diastolic function parameters are indeterminate. - Right ventricle: Systolic function is mildly reduced. Systolic pressure is moderately increased. - Left atrium: The atrium is moderately to severely dilated. - Mitral valve: The findings are consistent with mild stenosis. There is mild regurgitation. - Aortic valve: Thickening, consistent with sclerosis. There is no evidence of stenosis. There is no significant regurgitation. - Tricuspid valve: There is moderate-severe regurgitation. - Ascending aorta: The ascending aorta is appears normal. This report is only to be considered final once signed by the Provider(s) as displayed in the "<Electronically Signed by >" field (s). Absence of a signature indicates the report is in a draft status and still needs to be finalized. In the event this document was created by someone other than the signing Provider, the individual initiating the document will be listed in the "Entered by:" or "Dictated by:" fung. EKG Data: ECG 01/28/2019; Afib/Flutter rate 138 telemetry; Afib rate 80-120. pauses < 3 seconds noted. Assessment/Plan #1 h/o PAF with RVR; Chads Vasc >2 on coumadin with goal INR 2-3. Coumadin current held due to supratherapeutic INR. Currently HR in 80-90's. Toprol increased from 150/day to now 100mg BID. Continue Digoxin therapy. Recommend labile heart rate control <110 given patient appears to be asymptomatic and has severe dementia. In the past she has failed tikosyn and Amiodarone therapy due to medication side effects ( amio) and uncertainty of taking medications due to spitting them out ( Tikosyn). It appears if someone sits next to her after a period of time she eventually takes her medications. #2 h/o Advanced dementia; patient DNR. Defer to primary team #3 h/o CVA; on coumadin #4 Disposition pending course. Will follow and consider up titrating Toprol if rates do not lower to consistently < 110. Attending: Merna Barillas <Merna Barillas - Last Filed: 01/30/19 10:30> Medications Active Medications: Acetaminophen (Tylenol Tab*) 650 mg PO Q6H PRN PRN Reason: MILD PAIN or TEMP > 100.4 Atorvastatin Calcium (Lipitor*) 20 mg PO DAILY [facility] Last Admin: 01/30/19 08:43 Dose: 20 mg Digoxin (Lanoxin Tab*) 0.25 mg PO 1700 [facility] Last Admin: 01/29/19 18:26 Dose: 0.25 mg Levetiracetam (Keppra Liq*) 500 mg PO BID [facility] Last Admin: 01/30/19 08:43 Dose: 500 mg Levothyroxine Sodium (Synthroid Tab*) 25 mcg PO 0600 [facility] Last Admin: 01/30/19 05:52 Dose: 25 mcg Metoprolol Succinate (Toprol Xl Tab*) 100 mg PO BID [facility] Last Admin: 01/30/19 08:44 Dose: 100 mg Nystatin (Nystatin Top Powder*) 1 applic TOPICAL BID PRN PRN Reason: RASH Ondansetron HCl (Zofran Inj*) 4 mg IV Q6H PRN PRN Reason: NAUSEA Pharmacy Profile Note (Coumadin Per Pharmacy*) 1 note FOLLOW UP .PER PHARMACY PROTOC [facility]; Protocol Potassium Chloride (Klor Con Er Tab*) 30 meq PO BID [facility] Last Admin: 01/30/19 08:45 Dose: 30 meq Prednisone (Deltasone Tab*) 30 mg PO DAILY [facility] Last Admin: 01/30/19 08:45 Dose: 30 mg Sertraline HCl (Zoloft*) 50 mg PO DAILY [facility] Last Admin: 01/30/19 08:44 Dose: 50 mg Torsemide (Torsemide) 5 mg PO DAILY [facility] Last Admin: 01/30/19 08:43 Dose: 5 mg Objective Vital Signs: Temp Pulse Resp BP Pulse Ox 97.3 F 82 18 152/73 92 01/30/19 07:53 01/30/19 07:53 01/30/19 07:53 01/30/19 07:53 01/30/19 07:53 Laboratory Results: 01/30/19 05:36 01/29/19 05:15 INR (Anticoag Therapy) 5.51 (0.82-1.09) H* 01/30/19 05:36 Total Bilirubin 0.90 mg/dL (0.2-1.0) 01/28/19 11:57 AST 16 U/L (13-39) 01/28/19 11:57 ALT 10 U/L (7-52) 01/28/19 11:57 Alkaline Phosphatase 98 U/L (34-104) 01/28/19 11:57 B-Natriuretic Peptide 523 pg/mL (<=100) H 01/28/19 11:57 Total Protein 6.9 g/dL (6.4-8.9) 01/28/19 11:57 Albumin 3.7 g/dL (3.2-5.2) 01/28/19 11:57 Globulin 3.2 g/dL (2-4) 01/28/19 11:57 Albumin/Globulin Ratio 1.2 (1-3) 01/28/19 11:57 TSH 2.25 mcIU/mL (0.34-5.60) 01/28/19 11:57 01/28/19 11:57 Troponin I 0.02 Assessment/Plan I personally saw and examined the patient. The patient denied c/o, but vague/poor historian and exam c/w dementia. Clear lungs. Monitor: A fib, RVR, rate improved with improved compliance of meds (pt spits pills), increased metoprolol and addition of digoxen. Agree with continuation of rate control and anticoagulation for persistent/ chronic Afib. Responding to measures above. If unable to rate control adequately the most aggressive path would be pacemaker implant and AVN ablate, but I don't recommend this at this time due to current improvements, on steroids for rash and INR. I agree with the above recommendations and plans.
--- NOTE | 2019-01-30 16:35 | PN ---
Subjective Date of Service: 01/30/19 Interval History: Patient is feeling well today. Patient appears much better. Patient is unable to give a ROS. Discussed treatment with and he states he would be open to invasive intervention if medical therapy failed, but would want to discuss it at the time. Family History: Unchanged from Admission Social History: Unchanged from Admission Past Medical History: Unchanged from Admission Objective Active Medications: Acetaminophen (Tylenol Tab*) 650 mg PO Q6H PRN PRN Reason: MILD PAIN or TEMP > 100.4 Atorvastatin Calcium (Lipitor*) 20 mg PO DAILY [facility] Last Admin: 01/30/19 08:43 Dose: 20 mg Digoxin (Lanoxin Tab*) 0.25 mg PO 1700 [facility] Last Admin: 01/29/19 18:26 Dose: 0.25 mg Levetiracetam (Keppra Liq*) 500 mg PO BID [facility] Last Admin: 01/30/19 08:43 Dose: 500 mg Levothyroxine Sodium (Synthroid Tab*) 25 mcg PO 0600 [facility] Last Admin: 01/30/19 05:52 Dose: 25 mcg Metoprolol Succinate (Toprol Xl Tab*) 100 mg PO BID [facility] Last Admin: 01/30/19 08:44 Dose: 100 mg Nystatin (Nystatin Top Powder*) 1 applic TOPICAL BID PRN PRN Reason: RASH Ondansetron HCl (Zofran Inj*) 4 mg IV Q6H PRN PRN Reason: NAUSEA Pharmacy Profile Note (Coumadin Per Pharmacy*) 1 note FOLLOW UP .PER PHARMACY PROTOC [facility]; Protocol Potassium Chloride (Klor Con Er Tab*) 30 meq PO BID [facility] Last Admin: 01/30/19 08:45 Dose: 30 meq Prednisone (Deltasone Tab*) 20 mg PO DAILY [facility] Sertraline HCl (Zoloft*) 50 mg PO DAILY [facility] Last Admin: 01/30/19 08:44 Dose: 50 mg Torsemide (Torsemide) 5 mg PO DAILY [facility] Last Admin: 01/30/19 08:43 Dose: 5 mg Vital Signs - 8 hr 01/30/19 01/30/19 11:18 15:07 Temperature 97 F 97 F Pulse Rate 99 67 Respiratory 20 20 Rate Blood Pressure 108/52 132/98 (mmHg) O2 Sat by Pulse 94 91 Oximetry Oxygen Devices in Use Now: None Appearance: Patient is an 83yo female who appears stated age and is sitting in the bed in [facility]. Eyes: No Scleral Icterus, PERRLA Ears/Nose/Mouth/Throat: NL Teeth, Lips, Gums, Clear Oropharnyx, Mucous Membranes Moist Neck: NL Appearance and Movements; NL JVP, Trachea Midline Respiratory: Symmetrical Chest Expansion and Respiratory Effort, Clear to Auscultation Cardiovascular: NL Sounds; No Murmurs; No JVD, - - Irregularly irregular rhythm. Abdominal: NL Sounds; No Tenderness; No Distention, No Hepatosplenomegaly Lymphatic: No Cervical Adenopathy Extremities: No Clubbing, Cyanosis Skin: No Nodules or Sclerosis, - - Widespread rash on arms, legs, and chest, improving. Neurological: Alert and Oriented x 3, NL Sensation, NL Muscle Strength and Tone , - - CN II-XII intact. Result Diagrams: 01/30/19 05:36 01/29/19 05:15 Microbiology and Other Data: Microbiology 01/28/19 12:40 Nasal Screen MRSA (PCR) - Final Nasal Mrsa Not Detected Assess/Plan/Problems-Billing Mrs. 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 She was recently weaned off levetiracetam. She presented to [facility] with symptoms of one episode of seizure like activity, two week history of tachycardia, and a diffuse rash. - Patient Problems (1) Atrial fibrillation Current Visit: No Status: Chronic Code(s): I48.91 - UNSPECIFIED ATRIAL FIBRILLATION SNOMED Code(s): 22617117 Comment: - With RVR - Appreciate Cardiology input - Continue Digoxin and Metoprolol - Has possibly not been taking meds. Rate now controlled. Goal <110 - Continue Coumadin outpatient - EF not depressed, possibly exacerbating HFpEF - Continue torsemide. - Minimize pill burden if able. (2) Rash Current Visit: Yes Status: Acute Code(s): R21 - RASH AND OTHER NONSPECIFIC SKIN ERUPTION SNOMED Code(s): 883123250 Comment: - Papular, Pruritic and widespread - Appears to be urticarial, biopsy requested - On Steroids. Improving, taper steroids. (3) COPD (chronic obstructive pulmonary disease) Current Visit: No Status: Chronic Code(s): J44.9 - CHRONIC OBSTRUCTIVE PULMONARY DISEASE, UNSPECIFIED SNOMED Code(s): 87335090 Comment: - No signs of acute exacerbation at this time (4) HLD (hyperlipidemia) Current Visit: No Status: Chronic Code(s): E78.5 - HYPERLIPIDEMIA, UNSPECIFIED SNOMED Code(s): 70042571 Comment: - Continue statin (5) HTN (hypertension) Current Visit: No Status: Chronic Code(s): I10 - ESSENTIAL (PRIMARY) HYPERTENSION SNOMED Code(s): 62792468 Comment: - The patient's BP is under good control, SBP 130-150's. - Resume Norvasc. - Continue to hold Torsemide and consider resuming in the AM, if BP allows. (6) History of CVA (cerebrovascular accident) Current Visit: No Status: Chronic Code(s): Z86.73 - PRSNL HX OF TIA (TIA), AND CEREB INFRC W/O RESID DEFICITS SNOMED Code(s): 110006656 Comment: - Continue statin and coumadin - Severe encephalomalacia and multiple strokes - Likely cause of dementia. (7) Hypothyroidism Current Visit: No Status: Chronic Code(s): E03.9 - HYPOTHYROIDISM, UNSPECIFIED SNOMED Code(s): 14681533 Comment: - Continue levothyroxine - TSH WNL (8) Seizures Current Visit: No Status: Chronic Code(s): R56.9 - UNSPECIFIED CONVULSIONS SNOMED Code(s): 28286742 Comment: - Seizure before admission - Continue Keppra and seizure precautions - No ongoing activity. (9) Type II diabetes mellitus Current Visit: No Status: Chronic Comment: - On No meds (10) Elevated INR Current Visit: No Status: Acute Code(s): R79.1 - ABNORMAL COAGULATION PROFILE SNOMED Code(s): 237609469 Comment: - Supratherapeutic INR, continue to hold coumadin. (11) DVT prophylaxis Current Visit: No Status: Acute Code(s): QKB4393 - SNOMED Code(s): 304952387 Comment: - Supratherapeutic INR Status and Disposition: Inpatient, hopeful D/C tomorrow.
[2019-01-30] MEDS: Digoxin TAB* 0.25 MG PO SCH (16:51)
[2019-01-30] MEDS ORDERED: Warfarin TAB(*) 6 MG PO SCH (17:00)
--- NOTE | 2019-01-30 17:39 | PN ---
Progress Note - Progress Note Date of Service: 01/30/19 Note: Brief Surgery Note: (full note dictated) Asked to perform punch biopsy of rash. Hx reviewed. INR 5.5 No allergies to lidocaine or betadine. Consent obtained from her . Timeout performed. Two traveling sales representative areas of the proximal Left riley-lateral thigh were marked and 3 mm punch bx taken from each, submitted in formalin and Shira solution. Wounds closed w/ single 5-0 nylon suture each. Hemostasis obtained. Pressure dressing placed. Patient tolerated procedure well.
--- NOTE | 2019-01-30 20:55 | PRO ---
CC: Dr. Manda Rodriguez PROCEDURE NOTE: DATE OF PROCEDURE: 01/30/19 ATTENDING SURGEON: Dr. Dillon Lemon. HISTORY: This is an 83-year-old female who was admitted to the Medical Service with mental status ch anges preceded by a rash. We were asked by the Medical Service to perform punch biopsy of representa tive lesions of the rash. The patient was examined. The rash included both upper and lower extremit ies and was more or less confluent in the distal lower extremities, but with separate areas with macu lopapular lesions measuring on average approximately 1 to 1.5 cm each and these were salmon colored. Medical history is also notable for the patient being chronically anticoagulated on Coumadin for her chronic atrial fibrillation, her INR was noted to be at 5.5 today. She had no allergies to lidocain e or Betadine. Because of the patient's dementia, consent was obtained from her . The procedu re was explained in detail including risks. DESCRIPTION OF PROCEDURE: A time-out was performed with the nursing staff. Two mortician supplies sales representative areas had previously been marked on the left anterolateral thigh. 1% plain lidocaine was administered for local anesthesia to each of the areas utilizing approximately a total of 2 cc. A 3 mm punch biopsy w as performed of each of the areas and one specimen each submitted in formalin in Maurice's solution. E ach wound was closed with a single 5-0 nylon suture. Hemostasis was obtained. A dry sterile pressur e dressing was applied. The patient tolerated the procedure well. There were no complications. Spe cimens were submitted as noted above and delivered personally to the lab. Sutures will need to be re moved in 7 to 10 days. JUSTINE NAVARRO [id number]/[facility] #: [id number]
[2019-01-31 06:02] LABS: ABS Eosinophils 1.2 10^3/ul (0-0.6); ABS Lymphocytes 2.4 10^3/ul (1.0-4.8); ABS Monocytes 0.9 10^3/ul (0-0.8); ABS Neutrophils 6.4 10^3/ul (1.5-7.7); Eosinophil % 10.8 %; Hematocrit 37 % (35-47); Hemoglobin 12.2 g/dL (12.0-16.0); Lymphocyte % 21.7 %; Mean Corpuscular HGB Conc 33 g/dL (31-36); Mean Corpuscular Hemoglobin 28 pg (27-31); Mean Corpuscular Volume 85 fL (80-97); Mean Platelet Volume 9.7 fL (7.4-10.4); Platelet Count 220 10^3/uL (150-450); Red Blood Count 4.36 10^6 /uL (3.70-4.87); Red Cell Distribution Width 14 % (10-15); White Blood Count 10.9 10^3/uL (3.5-10.8)
[2019-01-31 06:07] LABS: INR 2.82 (0.82-1.09)
[2019-01-31 06:16] LABS: BUN/Creatinine Ratio 20.5 (8-20); Calcium 8.9 mg/dL (8.6-10.3); EGFR African American 92.6 (>60); EGFR Non-African American 76.5 (>60); Potassium 3.9 mmol/L (3.5-5.0)
[2019-01-31 06:22] LABS: Digoxin 1.3 ng/ml (0.8-2.0)
[2019-01-31] MEDS: Levothyroxine TAB* 25 MCG TAB PO SCH (06:27)
[2019-01-31] MEDS ORDERED: Warfarin TAB(*) 3 MG PO ONE ×2 (09:00→17:00)
[2019-01-31] MEDS: Torsemide TAB 10 MG PO SCH (09:35)
[2019-01-31] MEDS: Sertraline* 50 MG TAB PO SCH (09:37)
[2019-01-31] MEDS: predniSONE TAB* 20 MG PO SCH (09:37)
[2019-01-31] MEDS: Potassium Chlor TAB* 10 MEQ TAB.ER PO SCH ×2 (09:37→21:50)
[2019-01-31] MEDS: Atorvastatin* 20 MG TAB PO SCH (09:38)
[2019-01-31] MEDS: Metoprolol Succinate XL TAB* 100 MG PO SCH ×2 (09:38→21:50)
[2019-01-31] MEDS: levETIRAcetam LIQ* 500 MG/5 ML UDC PO SCH ×2 (09:41→21:50)
--- NOTE | 2019-01-31 16:05 | PN ---
Subjective Date of Service: 01/31/19 Interval History: Patient was very alert and in a good mood in AM. When preparing to D/C, patient became briefly unresponsive with involuntary movement of left hand and a prolonged period of sedation afterward. Family History: Unchanged from Admission Social History: Unchanged from Admission Past Medical History: Unchanged from Admission Objective Active Medications: Acetaminophen (Tylenol Tab*) 650 mg PO Q6H PRN PRN Reason: MILD PAIN or TEMP > 100.4 Atorvastatin Calcium (Lipitor*) 20 mg PO DAILY [facility] Last Admin: 01/31/19 09:38 Dose: 20 mg Digoxin (Lanoxin Tab*) 0.25 mg PO 1700 [facility] Last Admin: 01/30/19 16:51 Dose: 0.25 mg Levetiracetam (Keppra Liq*) 500 mg PO BID [facility] Last Admin: 01/31/19 09:41 Dose: 500 mg Levothyroxine Sodium (Synthroid Tab*) 25 mcg PO 0600 [facility] Last Admin: 01/31/19 06:27 Dose: 25 mcg Metoprolol Succinate (Toprol Xl Tab*) 100 mg PO BID [facility] Last Admin: 01/31/19 09:38 Dose: 100 mg Nystatin (Nystatin Top Powder*) 1 applic TOPICAL BID PRN PRN Reason: RASH Ondansetron HCl (Zofran Inj*) 4 mg IV Q6H PRN PRN Reason: NAUSEA Pharmacy Profile Note (Coumadin Per Pharmacy*) 1 note FOLLOW UP .PER PHARMACY PROTOC [facility]; Protocol Potassium Chloride (Klor Con Er Tab*) 30 meq PO BID [facility] Last Admin: 01/31/19 09:37 Dose: 30 meq Prednisone (Deltasone Tab*) 20 mg PO DAILY [facility] Last Admin: 01/31/19 09:37 Dose: 20 mg Sertraline HCl (Zoloft*) 50 mg PO DAILY [facility] Last Admin: 01/31/19 09:37 Dose: 50 mg Torsemide (Torsemide) 5 mg PO DAILY [facility] Last Admin: 01/31/19 09:35 Dose: 5 mg Warfarin Sodium (Coumadin Tab(*)) 3 mg PO ONCE ONE Stop: 01/31/19 17:01 Vital Signs - 8 hr 01/31/19 08:00 Respiratory 18 Rate Oxygen Devices in Use Now: None Appearance: Patient is an 83yo female who appears stated age and is sitting in the bed in NAD. Eyes: No Scleral Icterus, PERRLA Ears/Nose/Mouth/Throat: NL Teeth, Lips, Gums, Clear Oropharnyx, Mucous Membranes Moist Neck: NL Appearance and Movements; NL JVP, Trachea Midline Respiratory: Symmetrical Chest Expansion and Respiratory Effort, Clear to Auscultation Cardiovascular: NL Sounds; No Murmurs; No JVD, No Edema, - - Irregularly irregular rhythm. Abdominal: NL Sounds; No Tenderness; No Distention, No Hepatosplenomegaly Lymphatic: No Cervical Adenopathy Extremities: No Edema, No Clubbing, Cyanosis Skin: No Nodules or Sclerosis, - - Improving widespread rash, Biopsy sites benign. Neurological: - - Diffusely weak, drowsy on reassessment. Result Diagrams: 01/31/19 05:41 01/31/19 05:41 Microbiology and Other Data: Microbiology 01/28/19 12:40 Nasal Screen MRSA (PCR) - Final Nasal Mrsa Not Detected Assess/Plan/Problems-Billing Mrs. 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 She was recently weaned off levetiracetam. She presented to [facility] with symptoms of one episode of seizure like activity, two week history of tachycardia, and a diffuse rash. - Patient Problems (1) Atrial fibrillation Current Visit: No Status: Chronic Code(s): I48.91 - UNSPECIFIED ATRIAL FIBRILLATION SNOMED Code(s): 55933446 Comment: - With RVR, now excellent control. - Appreciate Cardiology input - Continue Digoxin and Metoprolol - Has possibly not been taking meds. Rate now controlled. Goal <110 - Continue Coumadin outpatient - EF not depressed, possibly exacerbating HFpEF - Continue torsemide. - Minimize pill burden if able. (2) Seizures Current Visit: No Status: Chronic Code(s): R56.9 - UNSPECIFIED CONVULSIONS SNOMED Code(s): 05424403 Comment: - Seizure before admission - Continue Keppra and seizure precautions - Possible repeat seizure today. - EEG in AM. (3) Rash Current Visit: Yes Status: Acute Code(s): R21 - RASH AND OTHER NONSPECIFIC SKIN ERUPTION SNOMED Code(s): 762780511 Comment: - Papular, Pruritic and widespread - Appears to be urticarial, biopsy requested - On Steroids. Improving, taper steroids. - Biopsy sites benign. (4) COPD (chronic obstructive pulmonary disease) Current Visit: No Status: Chronic Code(s): J44.9 - CHRONIC OBSTRUCTIVE PULMONARY DISEASE, UNSPECIFIED SNOMED Code(s): 61047443 Comment: - No signs of acute exacerbation at this time (5) HLD (hyperlipidemia) Current Visit: No Status: Chronic Code(s): E78.5 - HYPERLIPIDEMIA, UNSPECIFIED SNOMED Code(s): 80746141 Comment: - Continue statin (6) HTN (hypertension) Current Visit: No Status: Chronic Code(s): I10 - ESSENTIAL (PRIMARY) HYPERTENSION SNOMED Code(s): 56146404 Comment: - The patient's BP is under good control, SBP 130-150's. - Resume Norvasc. - Resume Torsemide. (7) History of CVA (cerebrovascular accident) Current Visit: No Status: Chronic Code(s): Z86.73 - PRSNL HX OF TIA (TIA), AND CEREB INFRC W/O RESID DEFICITS SNOMED Code(s): 075464518 Comment: - Continue statin and coumadin - Severe encephalomalacia and multiple strokes - Likely cause of dementia. (8) Hypothyroidism Current Visit: No Status: Chronic Code(s): E03.9 - HYPOTHYROIDISM, UNSPECIFIED SNOMED Code(s): 26488683 Comment: - Continue levothyroxine - TSH WNL (9) Type II diabetes mellitus Current Visit: No Status: Chronic Comment: - On No meds (10) Elevated INR Current Visit: No Status: Acute Code(s): R79.1 - ABNORMAL COAGULATION PROFILE SNOMED Code(s): 614550283 Comment: - Therapeutic INR, Coumadin Per pharmacy. (11) DVT prophylaxis Current Visit: No Status: Acute Code(s): RTL1219 - SNOMED Code(s): 320706501 Comment: - Therapeutic INR Status and Disposition: Inpatient, hopeful D/C tomorrow.
[2019-01-31] MEDS: Digoxin TAB* 0.25 MG PO SCH (17:40)
--- NOTE | 2019-01-31 20:53 | PN ---
Subjective Date of Service: 01/31/19 Length of Stay: 3 Days Neurology is following for history of seizures and stroke. Interval History: I was contacted by Reji to reassess the patient for increase in confusion and cooperation. The patient had an episode of unresponsiveness of unknown duration. According to the documentation from the bedside nurse, the patient would only respond to noxious stimuli. After a few minutes, she was able to respond to command and state her name. Mr. Mosquera reported the patient to be awake and interactive yesterday. She was greeting friends and doing extremely well. Today, he reports the patient is very different and quiet. She wants to keep getting up to the bathroom without assistance, which she does not typically do that. She is groggy. She does not want to communicate or verbalize with anyone. She is irritable. These behaviors are new and started today. When interviewing Mrs. Mosquera, she responds with one word sentences and is not as pleasant as she was two days ago-last time I assessed her. She denied any headaches or visual disturbance. She denied any new weakness. The new change that took place is we started her back on levetiracetam 3 days ago. She is on 500 mg twice daily. According to the [facility] notes, the patient was drowsy on that dose and Dr. Cole had decreased it at some point to 250 mg in AM and 500 mg at night. Review of Systems: Denied CP, SOB, or palpitations. Family History: Unchanged from Admission Social History: Unchanged from Admission Past Medical History: Unchanged from Admission Objective Active Medications: Acetaminophen (Tylenol Tab*) 650 mg PO Q6H PRN PRN Reason: MILD PAIN or TEMP > 100.4 Atorvastatin Calcium (Lipitor*) 20 mg PO DAILY [facility] Last Admin: 01/31/19 09:38 Dose: 20 mg Digoxin (Lanoxin Tab*) 0.25 mg PO 1700 [facility] Last Admin: 01/31/19 17:40 Dose: 0.25 mg Levetiracetam (Keppra Liq*) 500 mg PO BID [facility] Last Admin: 01/31/19 09:41 Dose: 500 mg Levothyroxine Sodium (Synthroid Tab*) 25 mcg PO 0600 [facility] Last Admin: 01/31/19 06:27 Dose: 25 mcg Metoprolol Succinate (Toprol Xl Tab*) 100 mg PO BID [facility] Last Admin: 01/31/19 09:38 Dose: 100 mg Nystatin (Nystatin Top Powder*) 1 applic TOPICAL BID PRN PRN Reason: RASH Ondansetron HCl (Zofran Inj*) 4 mg IV Q6H PRN PRN Reason: NAUSEA Pharmacy Profile Note (Coumadin Per Pharmacy*) 1 note FOLLOW UP .PER PHARMACY PROTOC [facility]; Protocol Potassium Chloride (Klor Con Er Tab*) 30 meq PO BID [facility] Last Admin: 01/31/19 09:37 Dose: 30 meq Prednisone (Deltasone Tab*) 20 mg PO DAILY [facility] Last Admin: 01/31/19 09:37 Dose: 20 mg Sertraline HCl (Zoloft*) 50 mg PO DAILY [facility] Last Admin: 01/31/19 09:37 Dose: 50 mg Torsemide (Torsemide) 5 mg PO DAILY [facility] Last Admin: 01/31/19 09:35 Dose: 5 mg Vital Signs 01/30/19 01/30/19 01/31/19 22:15 23:54 03:54 Temperature 97.7 F 97.1 F Pulse Rate 95 96 96 Respiratory 18 22 Rate Blood Pressure 131/71 120/72 (mmHg) O2 Sat by Pulse 96 95 Oximetry 01/31/19 01/31/19 01/31/19 07:15 08:00 17:40 Temperature 97 F Pulse Rate 69 68 Respiratory 20 18 Rate Blood Pressure 129/70 (mmHg) O2 Sat by Pulse 93 Oximetry Intake and Output Last 24 Hours 01/29/19 01/30/19 01/31/19 02/01/19 06:59 06:59 06:59 06:59 Intake Total 220 480 360 120 Output Total 115 250 0 0 Balance 105 230 360 120 Weight 185 lb 6.4 oz 183 lb 11.2 oz Intake: IV Fluids 100 0 IV Fluids 0 IVPB 0 IV Fluids 0 Oral 120 480 360 120 Output: Urine 0 250 0 0 Straight Cath 115 Other: Estimated Void Medium Large # Voids 1 2 Oxygen Devices in Use Now: None Neurology Exam: General: Ill appearing frail female in no distress. Resting in a chair. Requiring multiple cues to move back in a chair or to follow simple commands. HEENT: Normocephelic/atraumatic, sclera anicteric, mucous membranes moist Neurological Findings: Awake, alert to self but not place or time. She has severe psychomotor slowing , worse than prior examination. Speech: moderate dysarthria. Cranial Nerve: PERRL, EOM intact, left facial droop Motor: reduced activation throughout due to poor cooperation but she has left> right sided weakness graded as 3-4/5. Sensation: seems intact as she responded to minimal stimuli. Result Diagrams: 01/31/19 05:41 01/31/19 05:41 Microbiology and Other Data: Microbiology 01/28/19 12:40 Nasal Screen MRSA (PCR) - Final Nasal Mrsa Not Detected Assessment/Plan Mrs. Mosquera is an 83-year-old female with a past medical history of remote multifocal embolic strokes, largest one involving the entire right MCA distribution, who has history of severe dementia, most likely of vascular type, and post-stroke seizures. She was recently weaned off levetiracetam. She presented to [facility] with symptoms of one episode of seizure like activity, two week history of tachycardia, and a diffuse rash. She was loaded with levetiracetam and continued with a 500 mg BID dosing. She was ready for discharge today when she suddenly developed what was reported as transient encephalopathy manifesting as reduced cooperation and alertness. The patient was then irritable to staff and did not want to participate with the examiner. There were no reported seizures. 1. Acute encephalopathy of unclear etiology- the differential diagnosis includes complex partial seizures with post-ictal state, side effects related to levetiracetam, mild ICH in the setting of previously elevated INR, or hospitalization related delirium. Recommendation: - Neuro checks every 4 hours - Ordered a UA - CT head without contrast to rule out ICH - EEG to evaluate epileptiform abnormalities. If there is any epileptiform discharges, then we can assume that she is at risk of having complex and possible subclinical seizures. If the EEG shows the expected slowing pattern, we can trial her on a lower dose of levetiracetam. - Continue supportive care Discussed the case with Mr. Mosquera. The discharge was cancelled so we can further evaluate the patient's change in mentation.
[2019-02-01] MEDS: Levothyroxine TAB* 25 MCG TAB PO SCH (05:14)
[2019-02-01 06:04] LABS: ABS Basophils 0.1 10^3/ul (0-0.2); ABS Eosinophils 1.3 10^3/ul (0-0.6); ABS Lymphocytes 2.9 10^3/ul (1.0-4.8); ABS Monocytes 0.9 10^3/ul (0-0.8); ABS Neutrophils 4.8 10^3/ul (1.5-7.7); Eosinophil % 13.4 %; Hematocrit 39 % (35-47); Hemoglobin 13.2 g/dL (12.0-16.0); Lymphocyte % 28.7 %; Mean Corpuscular HGB Conc 34 g/dL (31-36); Mean Corpuscular Hemoglobin 29 pg (27-31); Mean Corpuscular Volume 85 fL (80-97); Mean Platelet Volume 9.6 fL (7.4-10.4); Platelet Count 248 10^3/uL (150-450); Red Cell Distribution Width 14 % (10-15); White Blood Count 9.9 10^3/uL (3.5-10.8)
[2019-02-01 06:10] LABS: INR 1.4 (0.82-1.09)
[2019-02-01 06:20] LABS: BUN/Creatinine Ratio 21.4 (8-20); Calcium 9.2 mg/dL (8.6-10.3); EGFR African American 97.2 (>60); EGFR Non-African American 80.3 (>60); Potassium 3.9 mmol/L (3.5-5.0)
[2019-02-01] MEDS: Torsemide TAB 10 MG PO SCH (10:46)
[2019-02-01] MEDS: predniSONE TAB* 20 MG PO SCH (10:46)
[2019-02-01] MEDS: Atorvastatin* 20 MG TAB PO SCH (10:46)
[2019-02-01] MEDS: Potassium Chlor TAB* 10 MEQ TAB.ER PO SCH ×2 (10:46→22:07)
[2019-02-01] MEDS: Metoprolol Succinate XL TAB* 100 MG PO SCH ×2 (10:46→22:09)
[2019-02-01] MEDS: Sertraline* 50 MG TAB PO SCH (10:49)
[2019-02-01] MEDS: levETIRAcetam LIQ* 500 MG/5 ML UDC PO SCH (10:51)
[2019-02-01 13:42] LABS: Urine Appearance Clear; Urine Bilirubin Negative (Negative); Urine Blood Negative (Negative); Urine Color Yellow; Urine Glucose 2+(150 mg/dL) (Negative); Urine Ketones Negative (Negative); Urine Nitrite Negative (Negative); Urine Protein Negative (Negative); Urine Urobilinogen Negative (Negative)
--- NOTE | 2019-02-01 15:13 | PN ---
Subjective Date of Service: 02/01/19 Interval History: Patient is intermittently tired today. Patient was also aggravated early with staff and resisting care. Patient denies pain on exam, ROS otherwise not able to be obtained. Family History: Unchanged from Admission Social History: Unchanged from Admission Past Medical History: Unchanged from Admission Objective Active Medications: Acetaminophen (Tylenol Tab*) 650 mg PO Q6H PRN PRN Reason: MILD PAIN or TEMP > 100.4 Atorvastatin Calcium (Lipitor*) 20 mg PO DAILY [facility] Last Admin: 02/01/19 10:46 Dose: 20 mg Digoxin (Lanoxin Tab*) 0.25 mg PO 1700 [facility] Last Admin: 01/31/19 17:40 Dose: 0.25 mg Levetiracetam (Keppra Liq*) 500 mg PO BID [facility] Last Admin: 02/01/19 10:51 Dose: 500 mg Levothyroxine Sodium (Synthroid Tab*) 25 mcg PO 0600 [facility] Last Admin: 02/01/19 05:14 Dose: 25 mcg Metoprolol Succinate (Toprol Xl Tab*) 100 mg PO BID [facility] Last Admin: 02/01/19 10:46 Dose: 100 mg Nystatin (Nystatin Top Powder*) 1 applic TOPICAL BID PRN PRN Reason: RASH Ondansetron HCl (Zofran Inj*) 4 mg IV Q6H PRN PRN Reason: NAUSEA Pharmacy Profile Note (Coumadin Per Pharmacy*) 1 note FOLLOW UP .PER PHARMACY PROTOC [facility]; Protocol Potassium Chloride (Klor Con Er Tab*) 30 meq PO BID [facility] Last Admin: 02/01/19 10:46 Dose: 30 meq Prednisone (Deltasone Tab*) 20 mg PO DAILY [facility] Last Admin: 02/01/19 10:46 Dose: 20 mg Sertraline HCl (Zoloft*) 50 mg PO DAILY [facility] Last Admin: 02/01/19 10:49 Dose: 50 mg Torsemide (Torsemide) 5 mg PO DAILY [facility] Last Admin: 02/01/19 10:46 Dose: 5 mg Warfarin Sodium (Coumadin Tab(*)) 4 mg PO ONCE@1700 [facility] Stop: 02/01/19 17:01 Vital Signs - 8 hr 02/01/19 02/01/19 02/01/19 07:58 09:00 11:39 Temperature 97.4 F Pulse Rate 67 83 Respiratory 18 18 Rate Blood Pressure 133/67 113/52 (mmHg) O2 Sat by Pulse 93 Oximetry Oxygen Devices in Use Now: None Appearance: Patient is an 83yo female who appears older than stated age and is sitting in the bed in NAD. Eyes: No Scleral Icterus, PERRLA Ears/Nose/Mouth/Throat: NL Teeth, Lips, Gums, Clear Oropharnyx, Mucous Membranes Moist Neck: NL Appearance and Movements; NL JVP, Trachea Midline Respiratory: Symmetrical Chest Expansion and Respiratory Effort, Clear to Auscultation Cardiovascular: NL Sounds; No Murmurs; No JVD, RRR, No Edema Abdominal: NL Sounds; No Tenderness; No Distention, No Hepatosplenomegaly Lymphatic: No Cervical Adenopathy Extremities: No Edema, No Clubbing, Cyanosis Skin: No Nodules or Sclerosis, - - Rash diminished, biosy sites benign Neurological: - - Uncooperative with exam. Result Diagrams: 02/01/19 05:46 02/01/19 05:46 Microbiology and Other Data: Microbiology 01/28/19 12:40 Nasal Screen MRSA (PCR) - Final Nasal Mrsa Not Detected Assess/Plan/Problems-Billing Mrs. 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 She was recently weaned off levetiracetam. She presented to [facility] with symptoms of one episode of seizure like activity, two week history of tachycardia, and a diffuse rash. - Patient Problems (1) Atrial fibrillation Current Visit: No Status: Chronic Code(s): I48.91 - UNSPECIFIED ATRIAL FIBRILLATION SNOMED Code(s): 85713860 Comment: - With RVR, now excellent control. - Appreciate Cardiology input - Continue Digoxin and Metoprolol - Has possibly not been taking meds. Rate now controlled. Goal <110 - Continue Coumadin outpatient - EF not depressed, possibly exacerbating HFpEF - Continue torsemide. - Minimize pill burden if able. (2) Seizures Current Visit: No Status: Chronic Code(s): R56.9 - UNSPECIFIED CONVULSIONS SNOMED Code(s): 40779545 Comment: - Seizure before admission - Continue Keppra and seizure precautions - Possible repeat seizure yesterday - Sedation possibly from Keppra. - EEG in AM read pending. (3) Rash Current Visit: Yes Status: Acute Code(s): R21 - RASH AND OTHER NONSPECIFIC SKIN ERUPTION SNOMED Code(s): 752111920 Comment: - Papular, Pruritic and widespread - Appears to be urticarial, biopsy shows likely allregic rash from something taken orally. - On Steroids. Improving, taper steroids. - Biopsy sites benign. (4) COPD (chronic obstructive pulmonary disease) Current Visit: No Status: Chronic Code(s): J44.9 - CHRONIC OBSTRUCTIVE PULMONARY DISEASE, UNSPECIFIED SNOMED Code(s): 54042849 Comment: - No signs of acute exacerbation at this time (5) HLD (hyperlipidemia) Current Visit: No Status: Chronic Code(s): E78.5 - HYPERLIPIDEMIA, UNSPECIFIED SNOMED Code(s): 55777496 Comment: - Continue statin (6) HTN (hypertension) Current Visit: No Status: Chronic Code(s): I10 - ESSENTIAL (PRIMARY) HYPERTENSION SNOMED Code(s): 90477971 Comment: - The patient's BP is under good control, SBP 130-150's. - Resume Norvasc. - Resume Torsemide. (7) History of CVA (cerebrovascular accident) Current Visit: No Status: Chronic Code(s): Z86.73 - PRSNL HX OF TIA (TIA), AND CEREB INFRC W/O RESID DEFICITS SNOMED Code(s): 021564541 Comment: - Continue statin and coumadin - Severe encephalomalacia and multiple strokes - Likely cause of dementia. (8) Hypothyroidism Current Visit: No Status: Chronic Code(s): E03.9 - HYPOTHYROIDISM, UNSPECIFIED SNOMED Code(s): 62825513 Comment: - Continue levothyroxine - TSH WNL (9) Type II diabetes mellitus Current Visit: No Status: Chronic Comment: - On No meds (10) DVT prophylaxis Current Visit: No Status: Acute Code(s): SYG8398 - SNOMED Code(s): 673019520 Comment: - Subtherapeutic INR - Do not bridge Status and Disposition: Inpatient, Patient will now need rehab and is pending placement, likely on Monday.
[2019-02-01] MEDS ORDERED: Warfarin TAB(*) 4 MG PO ONE (17:00)
[2019-02-01] MEDS: Digoxin TAB* 0.25 MG PO SCH (17:20)
--- NOTE | 2019-02-01 18:18 | EEG ---
ELECTROENCEPHALOGRAPHY: DATE OF STUDY: 02/01/19 ORDERED BY: JUSTINE Lujan CLINICAL PROBLEM: Ms. Mosquera is an 83-year-old female with history of multifocal strokes with malignant right MCA stroke in the past, who presents with excessive drowsiness. MEDICATIONS: 1. Lipitor. 2. Keppra. 3. Toprol. 4. Potassium. 5. Prednisone. 6. Zoloft. 7. Torsemide. 8. Digoxin. 9. Synthroid. 10. Tylenol. 11. Nystatin. 12. Zofran. 13. Warfarin. DURATION OF RECORDIN:59 to :19. CLINICAL STATE: Predominantly encephalopathic. REPORT: The background lacked organization of clearly defined anterior- posterior voltage and frequency gradients. There was a brief discernible posterior dominant rhythm of approximately 5 Hz. However, instead though throughout the recording, the background consisted of diffuse, medium amplitude , polymorphic 2-5 Hz delta and theta range slowing. At times, the delta slowing became sharply contoured over the left frontal region and took on triphasic morphology. There was some emergence of faster frequency with verbal and tactile stimulation. Please note that there was some high amplitude delta slowing seen in the left frontal, right frontal and central regions. Hyperventilation and photic stimulation were not performed. Throughout the recording, there were no epileptiform discharges or electrographic seizures. CLINICAL IMPRESSION: This is an abnormal EEG due to the presence of diffuse slowing, triphasic waves over the left frontal region, and multifocal independent delta slowing in the right frontocentral, temporal and left frontal regions. These findings are suggestive of nonspecific moderate diffuse encephalopathy with superimposed multifocal neuronal dysfunction consistent with the patient's history of remote stroke. There is no evidence of epileptiform discharges or electrographic seizures. I reviewed the results with JUSTINE Lujan. We will decrease the levetiracetam to 250 mg in the morning and 500 mg at night to help with the patient's excessive drowsiness. [id number]/[facility] #: [id number] [facility]
[2019-02-01] MEDS: levETIRAcetam TAB* 500 MG PO SCH (22:09)
--- NOTE | 2019-02-01 23:36 | PN ---
Subjective Date of Service: 02/01/19 Length of Stay: 4 Days Neurology is following for confusion. Interval History: No seizure activity reported overnight. She is smiling and interacting with the examiner by responding to one step command. She denied any headaches or visual disturbance. Mr. Mosquera stated that she is still drowsy in the morning. She did not have breakfast as a result. I reviewed the CT head result and imaging with Mr. Mosquera. Review of Systems: Denied CP, SOB, or palpitations. Family History: Unchanged from Admission Social History: Unchanged from Admission Past Medical History: Unchanged from Admission Objective Active Medications: Acetaminophen (Tylenol Tab*) 650 mg PO Q6H PRN PRN Reason: MILD PAIN or TEMP > 100.4 Atorvastatin Calcium (Lipitor*) 20 mg PO DAILY [facility] Last Admin: 02/01/19 10:46 Dose: 20 mg Digoxin (Lanoxin Tab*) 0.25 mg PO 1700 [facility] Last Admin: 02/01/19 17:20 Dose: 0.25 mg Levetiracetam (Keppra Tab*) 500 mg PO BEDTIME [facility] Last Admin: 02/01/19 22:09 Dose: 500 mg Levetiracetam (Keppra Liq*) 250 mg PO DAILY [facility] Levothyroxine Sodium (Synthroid Tab*) 25 mcg PO 0600 [facility] Last Admin: 02/01/19 05:14 Dose: 25 mcg Metoprolol Succinate (Toprol Xl Tab*) 100 mg PO BID [facility] Last Admin: 02/01/19 22:09 Dose: 100 mg Nystatin (Nystatin Top Powder*) 1 applic TOPICAL BID PRN PRN Reason: RASH Ondansetron HCl (Zofran Inj*) 4 mg IV Q6H PRN PRN Reason: NAUSEA Pharmacy Profile Note (Coumadin Per Pharmacy*) 1 note FOLLOW UP .PER PHARMACY PROTOC [facility]; Protocol Potassium Chloride (Klor Con Er Tab*) 30 meq PO BID [facility] Last Admin: 02/01/19 22:07 Dose: 30 meq Prednisone (Deltasone Tab*) 20 mg PO DAILY [facility] Last Admin: 02/01/19 10:46 Dose: 20 mg Sertraline HCl (Zoloft*) 50 mg PO DAILY [facility] Last Admin: 02/01/19 10:49 Dose: 50 mg Torsemide (Torsemide) 5 mg PO DAILY [facility] Last Admin: 02/01/19 10:46 Dose: 5 mg Vital Signs 02/01/19 02/01/19 02/01/19 04:20 07:58 09:00 Temperature 97.5 F 97.4 F Pulse Rate 78 67 Respiratory 18 18 18 Rate Blood Pressure 155/78 133/67 (mmHg) O2 Sat by Pulse 93 93 Oximetry 02/01/19 02/01/19 02/01/19 11:39 15:30 17:20 Temperature 98.3 F Pulse Rate 83 65 85 Respiratory 16 Rate Blood Pressure 113/52 145/60 (mmHg) O2 Sat by Pulse 94 Oximetry Intake and Output Last 24 Hours 01/30/19 01/31/19 02/01/19 02/02/19 06:59 06:59 06:59 06:59 Intake Total 480 360 120 360 Output Total 250 0 0 400 Balance 230 360 120 -40 Weight 183 lb 11.2 oz 177 lb 3.2 oz Intake: IV Fluids 0 IV Fluids 0 IVPB 0 IV Fluids 0 Oral 480 360 120 360 Output: Urine 250 0 0 400 Other: Estimated Void Medium Large Large # Voids 1 2 1 Oxygen Devices in Use Now: None Neurology Exam: General: Ill appearing frail female in no distress. Resting in a chair. Resting with deviation towards the right. HEENT: Normocephelic/atraumatic, sclera anicteric, mucous membranes moist Neurological Findings: Awake, alert to self but not place or time. She has severe psychomotor slowing , better than yesterday. Speech: moderate dysarthria. Cranial Nerve: PERRL, EOM intact, left facial droop Motor: reduced activation throughout due to poor cooperation but she has left> right sided weakness graded as 3-4/5. Sensation: seems intact as she responded to minimal stimuli. Result Diagrams: 02/01/19 05:46 02/01/19 05:46 Microbiology and Other Data: Microbiology 01/28/19 12:40 Nasal Screen MRSA (PCR) - Final Nasal Mrsa Not Detected Assessment/Plan Mrs. Mosquera is an 83-year-old female with a past medical history of remote multifocal embolic strokes, largest one involving the entire right MCA distribution, who has history of severe dementia, most likely of vascular type, and post-stroke seizures. She was recently weaned off levetiracetam. She presented to [facility] ER with symptoms of one episode of seizure like activity, two week history of tachycardia, and a diffuse rash. She was loaded with levetiracetam and continued with a 500 mg BID dosing. She was ready for discharge today when she suddenly developed what was reported as transient encephalopathy manifesting as reduced cooperation and alertness. The patient was then irritable to staff and did not want to participate with the examiner. There were no reported seizures. The EEG today did not show any seizures or epileptiform discharges. UA was obtained and did not show UTI. Repeat CT head without contrast on 01/31/2019 showed no new stroke or hemorrhage. 1. Acute encephalopathy of unclear etiology- most likely chronic encephalopathy due to severe vascular dementia, delirium, and possible medication side effect. Levetiracetam may be contributing to her confusion and drowsiness. Recommendation: - Neuro checks every 4 hours - Reduce levetiracetam to 250 mg in the morning and 500 mg at night to minimize side effects. May have to change levetiracetam to Depakote if she develops agitation, worsening delirium, or seizures. - Continue supportive care - I will sign off but please contact us for any questions or concerns. Discussed the case with Mr. Mosquera and Reji.
[2019-02-02] MEDS: Levothyroxine TAB* 25 MCG TAB PO SCH (05:46)
[2019-02-02 07:32] LABS: INR 1.67 (0.82-1.09)
[2019-02-02] MEDS: levETIRAcetam LIQ* 500 MG/5 ML UDC PO SCH (08:31)
[2019-02-02] MEDS: Potassium Chlor TAB* 10 MEQ TAB.ER PO SCH ×2 (08:34→22:11)
[2019-02-02] MEDS: predniSONE TAB* 20 MG PO SCH (08:36)
[2019-02-02] MEDS: Atorvastatin* 20 MG TAB PO SCH (08:37)
[2019-02-02] MEDS: Sertraline* 50 MG TAB PO SCH (08:38)
[2019-02-02] MEDS: Torsemide TAB 10 MG PO SCH (08:41)
[2019-02-02] MEDS: Metoprolol Succinate XL TAB* 100 MG PO SCH ×2 (08:42→22:11)
[2019-02-02] MEDS: Enoxaparin(*) 80 MG/0.8 ML SYR SUBCUT SCH ×2 (14:11→22:12)
--- NOTE | 2019-02-02 15:24 | PN ---
Subjective Date of Service: 02/02/19 Interval History: Patient was very calm and pleasant this morning, Patient denies pain, shortness of breath, or chest pain. Patient later in the morning became agitated and was resistant to care. Patient was able to be calmed by her and is now more cooperative. Family History: Unchanged from Admission Social History: Unchanged from Admission Past Medical History: Unchanged from Admission Objective Active Medications: Acetaminophen (Tylenol Tab*) 650 mg PO Q6H PRN PRN Reason: MILD PAIN or TEMP > 100.4 Atorvastatin Calcium (Lipitor*) 20 mg PO DAILY [facility] Last Admin: 02/02/19 08:37 Dose: 20 mg Digoxin (Lanoxin Tab*) 0.25 mg PO 1700 [facility] Last Admin: 02/01/19 17:20 Dose: 0.25 mg Enoxaparin Sodium (Lovenox(*)) 80 mg SUBCUT Q12H [facility] Last Admin: 02/02/19 14:11 Dose: 80 mg Levetiracetam (Keppra Tab*) 500 mg PO BEDTIME [facility] Last Admin: 02/01/19 22:09 Dose: 500 mg Levetiracetam (Keppra Liq*) 250 mg PO DAILY [facility] Last Admin: 02/02/19 08:31 Dose: 250 mg Levothyroxine Sodium (Synthroid Tab*) 25 mcg PO 0600 [facility] Last Admin: 02/02/19 05:46 Dose: 25 mcg Metoprolol Succinate (Toprol Xl Tab*) 100 mg PO BID [facility] Last Admin: 02/02/19 08:42 Dose: 100 mg Nystatin (Nystatin Top Powder*) 1 applic TOPICAL BID PRN PRN Reason: RASH Ondansetron HCl (Zofran Inj*) 4 mg IV Q6H PRN PRN Reason: NAUSEA Pharmacy Profile Note (Coumadin Per Pharmacy*) 1 note FOLLOW UP .PER PHARMACY PROTOC [facility]; Protocol Potassium Chloride (Klor Con Er Tab*) 30 meq PO BID [facility] Last Admin: 02/02/19 08:34 Dose: 30 meq Prednisone (Deltasone Tab*) 10 mg PO DAILY [facility] Sertraline HCl (Zoloft*) 50 mg PO DAILY [facility] Last Admin: 02/02/19 08:38 Dose: 50 mg Torsemide (Torsemide) 5 mg PO DAILY [facility] Last Admin: 09/07/19 08:41 Dose: 5 mg Warfarin Sodium (Coumadin Tab(*)) 4 mg PO 1700 [facility] Stop: 02/02/19 17:01 Vital Signs - 8 hr 02/02/19 02/02/19 07:15 08:00 Temperature 97.7 F Pulse Rate 70 Respiratory 20 18 Rate Blood Pressure 144/74 (mmHg) O2 Sat by Pulse 92 Oximetry Oxygen Devices in Use Now: None Appearance: Patient is an 83yo female who appears stated age and is sitting in the bed in NAD. Eyes: No Scleral Icterus, PERRLA Ears/Nose/Mouth/Throat: NL Teeth, Lips, Gums, Clear Oropharnyx, Mucous Membranes Moist Neck: NL Appearance and Movements; NL JVP, Trachea Midline Respiratory: Symmetrical Chest Expansion and Respiratory Effort, Clear to Auscultation Cardiovascular: NL Sounds; No Murmurs; No JVD, RRR, No Edema Abdominal: NL Sounds; No Tenderness; No Distention, No Hepatosplenomegaly Lymphatic: No Cervical Adenopathy Extremities: No Edema, No Clubbing, Cyanosis Skin: No Rash or Ulcers, No Nodules or Sclerosis Neurological: NL Sensation, NL Gait, NL Muscle Strength and Tone, - - Oriented only to self. Result Diagrams: 02/01/19 05:46 02/01/19 05:46 Microbiology and Other Data: Microbiology 01/28/19 12:40 Nasal Screen MRSA (PCR) - Final Nasal Mrsa Not Detected Assess/Plan/Problems-Billing Mrs. 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 She was recently weaned off levetiracetam. She presented to [facility] with symptoms of one episode of seizure like activity, two week history of tachycardia, and a diffuse rash. - Patient Problems (1) Atrial fibrillation Current Visit: No Status: Chronic Code(s): I48.91 - UNSPECIFIED ATRIAL FIBRILLATION SNOMED Code(s): 82654021 Comment: - With RVR, now excellent control. - Appreciate Cardiology input - Continue Digoxin and Metoprolol - Has possibly not been taking meds. Rate now controlled. Goal <110 - Continue Coumadin outpatient - EF not depressed, possibly exacerbating HFpEF - Continue torsemide. - Minimize pill burden if able. (2) Seizures Current Visit: No Status: Chronic Code(s): R56.9 - UNSPECIFIED CONVULSIONS SNOMED Code(s): 43098755 Comment: - Seizure before admission - Continue Keppra and seizure precautions - Possible repeat seizure yesterday - Sedation possibly from Keppra. - EEG shows slowing - Decrease keppra for sedation and agitation. If persistently agitated, may need to chnage seizure meds. (3) Rash Current Visit: Yes Status: Acute Code(s): R21 - RASH AND OTHER NONSPECIFIC SKIN ERUPTION SNOMED Code(s): 421673852 Comment: - Papular, Pruritic and widespread - Appears to be urticarial, biopsy shows likely allregic rash from something taken orally. - On Steroids. Improving, taper steroids. - Biopsy sites benign. (4) COPD (chronic obstructive pulmonary disease) Current Visit: No Status: Chronic Code(s): J44.9 - CHRONIC OBSTRUCTIVE PULMONARY DISEASE, UNSPECIFIED SNOMED Code(s): 75461115 Comment: - No signs of acute exacerbation at this time (5) HLD (hyperlipidemia) Current Visit: No Status: Chronic Code(s): E78.5 - HYPERLIPIDEMIA, UNSPECIFIED SNOMED Code(s): 75485042 Comment: - Continue statin (6) HTN (hypertension) Current Visit: No Status: Chronic Code(s): I10 - ESSENTIAL (PRIMARY) HYPERTENSION SNOMED Code(s): 33369936 Comment: - The patient's BP is under good control, SBP 130-150's. - Resume Norvasc. - Resume Torsemide. (7) History of CVA (cerebrovascular accident) Current Visit: No Status: Chronic Code(s): Z86.73 - PRSNL HX OF TIA (TIA), AND CEREB INFRC W/O RESID DEFICITS SNOMED Code(s): 586110172 Comment: - Continue statin and coumadin - Severe encephalomalacia and multiple strokes - Likely cause of dementia. - Bridge until therapeutic. (8) Hypothyroidism Current Visit: No Status: Chronic Code(s): E03.9 - HYPOTHYROIDISM, UNSPECIFIED SNOMED Code(s): 63185687 Comment: - Continue levothyroxine - TSH WNL (9) Type II diabetes mellitus Current Visit: No Status: Chronic Comment: - On No meds (10) DVT prophylaxis Current Visit: No Status: Acute Code(s): WGZ0529 - SNOMED Code(s): 665917598 Comment: - Persistent Subtherapeutic INR - Bridge with Lovenox. Status and Disposition: Inpatient, Patient will now need rehab and is pending placement, likely on Monday.
[2019-02-02] MEDS: Digoxin TAB* 0.25 MG PO SCH (16:33)
[2019-02-02] MEDS ORDERED: Warfarin TAB(*) 4 MG PO ONE (17:00)
[2019-02-02] MEDS: levETIRAcetam TAB* 500 MG PO SCH (22:10)
[2019-02-03] MEDS: Levothyroxine TAB* 25 MCG TAB PO SCH (05:51)
[2019-02-03 06:40] LABS: INR 1.67 (0.82-1.09)
[2019-02-03 06:54] LABS: BUN/Creatinine Ratio 20.8 (8-20); Calcium 8.8 mg/dL (8.6-10.3); EGFR African American 94.1 (>60); EGFR Non-African American 77.7 (>60)
[2019-02-03 06:57] LABS: Digoxin 1.6 ng/ml (0.8-2.0)
[2019-02-03] MEDS ORDERED: predniSONE TAB* 20 MG PO SCH (09:00)
--- NOTE | 2019-02-03 11:24 | PN ---
Subjective Date of Service: 02/03/19 Length of Stay: 6 Days Interval History: She has had no seizure activity, but since restarting her on Keppra, her agitation has worsened dramatically, even after lowering the Keppra. No other new issues overnight. Family History: Unchanged from Admission Social History: Unchanged from Admission Past Medical History: Unchanged from Admission Objective Active Medications: Acetaminophen (Tylenol Tab*) 650 mg PO Q6H PRN PRN Reason: MILD PAIN or TEMP > 100.4 Atorvastatin Calcium (Lipitor*) 20 mg PO DAILY [facility] Last Admin: 02/02/19 08:37 Dose: 20 mg Digoxin (Lanoxin Tab*) 0.125 mg PO 1700 [facility] Divalproex Sodium (Depakote Er Tab(*)) 500 mg PO DAILY [facility] Enoxaparin Sodium (Lovenox(*)) 80 mg SUBCUT Q12H [facility] Last Admin: 02/02/19 22:12 Dose: 80 mg Valproic Acid 750 mg/ Sodium (Chloride) 107.5 mls @ 210 mls/hr IVPB ONCE ONE Stop: 02/03/19 12:00 Levetiracetam (Keppra Tab*) 500 mg PO BEDTIME [facility] Last Admin: 02/02/19 22:10 Dose: 500 mg Levetiracetam (Keppra Liq*) 250 mg PO DAILY [facility] Last Admin: 02/02/19 08:31 Dose: 250 mg Levothyroxine Sodium (Synthroid Tab*) 25 mcg PO 0600 [facility] Last Admin: 02/03/19 05:51 Dose: 25 mcg Metoprolol Succinate (Toprol Xl Tab*) 100 mg PO BID [facility] Last Admin: 02/02/19 22:11 Dose: 100 mg Nystatin (Nystatin Top Powder*) 1 applic TOPICAL BID PRN PRN Reason: RASH Ondansetron HCl (Zofran Inj*) 4 mg IV Q6H PRN PRN Reason: NAUSEA Pharmacy Profile Note (Coumadin Per Pharmacy*) 1 note FOLLOW UP .PER PHARMACY PROTOC [facility]; Protocol Potassium Chloride (Klor Con Er Tab*) 30 meq PO BID [facility] Last Admin: 02/02/19 22:11 Dose: 30 meq Prednisone (Deltasone Tab*) 5 mg PO DAILY [facility] Sertraline HCl (Zoloft*) 50 mg PO DAILY [facility] Last Admin: 02/02/19 08:38 Dose: 50 mg Torsemide (Torsemide) 5 mg PO DAILY [facility] Last Admin: 02/02/19 08:41 Dose: 5 mg Vital Signs 02/02/19 02/02/19 02/02/19 15:15 19:30 20:00 Temperature 97.6 F 97.4 F Pulse Rate 69 63 Respiratory 16 16 16 Rate Blood Pressure 131/69 137/63 (mmHg) O2 Sat by Pulse 95 95 Oximetry 02/03/19 02/03/19 02/03/19 00:11 06:04 07:15 Temperature 98.6 F 96.7 F Pulse Rate 72 61 63 Respiratory 16 20 18 Rate Blood Pressure 139/63 137/86 143/54 (mmHg) O2 Sat by Pulse 93 96 Oximetry 02/03/19 08:00 Temperature Pulse Rate Respiratory 18 Rate Blood Pressure (mmHg) O2 Sat by Pulse Oximetry Intake and Output Last 24 Hours 02/01/19 02/02/19 02/03/19 02/04/19 06:59 06:59 06:59 06:59 Intake Total 120 360 120 Output Total 0 400 Balance 120 -40 120 Weight 177 lb 3.2 oz 180 lb 179 lb 6.4 oz Intake: Oral 120 360 120 Output: Urine 0 400 Other: Estimated Void Large Large # Voids 1 Oxygen Devices in Use Now: None Neurology Exam: General: Well nourished, well developed HEENT: Normocephalic/atraumatic, sclera anicteric, mucous membranes moist Neck: Supple Chest: Clear to auscultation bilaterally Abdomen: Soft, non-tender/non-distended Extremities: No clubbing Neurological Findings: Awake, oriented to person only Speech: non-fluent Cranial Nerve: PERRL, Face appears symmetric Motor: moves all extremities although not following commands No tremors or seizure like activity Result Diagrams: 02/01/19 05:46 02/03/19 05:14 Microbiology and Other Data: Microbiology 01/28/19 12:40 Nasal Screen MRSA (PCR) - Final Nasal Mrsa Not Detected Assessment/Plan Initial assessment: Mrs. Mosquera is an 83-year-old female with a past medical history of remote multifocal embolic strokes, largest one involving the entire right MCA distribution, who has history of severe dementia, most likely of vascular type, and post-stroke seizures. She was recently weaned off levetiracetam. She presented to [facility] ER with symptoms of one episode of seizure like activity, two week history of tachycardia, and a diffuse rash. She was loaded with levetiracetam and continued with a 500 mg BID dosing. She was ready for discharge today when she suddenly developed what was reported as transient encephalopathy manifesting as reduced cooperation and alertness. The patient was then irritable to staff and did not want to participate with the examiner. There were no reported seizures. The EEG today did not show any seizures or epileptiform discharges. UA was obtained and did not show UTI. Repeat CT head without contrast on 01/31/2019 showed no new stroke or hemorrhage. Since adding the Keppra back, she has been much more agitated and angry at times. Despite the fact that she was tolerating this in the past, given the temporal nature of her symptoms, I have real concerns she is no longer able to tolerate and I fear decreasing the dose further will make her more likely to have a seizure. 1. I am going to load her on Depakote 750mg IV X 1 and then start Depakote ER 500mg qd, will check level tomorrow 2. Continue Keppra for now, once therapeutic on Depakote, will start wean 3. Watch for seizure like activity 4. Follow INR closely on the new medication would could affect level 5. Supportive care
[2019-02-03] MEDS: Atorvastatin* 20 MG TAB PO SCH (11:29)
[2019-02-03] MEDS: Potassium Chlor TAB* 10 MEQ TAB.ER PO SCH ×2 (11:29→21:04)
[2019-02-03] MEDS: Torsemide TAB 10 MG PO SCH (11:30)
[2019-02-03] MEDS: predniSONE TAB* 5 MG PO SCH (11:30)
[2019-02-03] MEDS ORDERED: Valproic Acid IV(*) 750 MG in NS 0.9% 100 ML* 100 ML IVPB ONE (11:30)
[2019-02-03] MEDS: Sertraline* 50 MG TAB PO SCH (11:30)
[2019-02-03] MEDS: Metoprolol Succinate XL TAB* 100 MG PO SCH ×2 (11:31→21:04)
[2019-02-03] MEDS: Enoxaparin(*) 80 MG/0.8 ML SYR SUBCUT SCH ×2 (11:42→22:48)
[2019-02-03] MEDS: levETIRAcetam LIQ* 500 MG/5 ML UDC PO SCH (12:13)
--- NOTE | 2019-02-03 13:12 | PN ---
Subjective Date of Service: 02/03/19 Interval History: Patient much more amaya and uncooperative with care for last 2 days, resisting vital signs and any other intervention. Threatening to hit staff as well. Discussed with neurologist and this could be related to Keppra dosing. Unable to obtain ROS. Family History: Unchanged from Admission Social History: Unchanged from Admission Past Medical History: Unchanged from Admission Objective Active Medications: Acetaminophen (Tylenol Tab*) 650 mg PO Q6H PRN PRN Reason: MILD PAIN or TEMP > 100.4 Atorvastatin Calcium (Lipitor*) 20 mg PO DAILY [facility] Last Admin: 02/03/19 11:29 Dose: 20 mg Digoxin (Lanoxin Tab*) 0.125 mg PO 1700 [facility] Divalproex Sodium (Depakote Er Tab(*)) 500 mg PO DAILY [facility] Enoxaparin Sodium (Lovenox(*)) 80 mg SUBCUT Q12H [facility] Last Admin: 02/03/19 11:42 Dose: 80 mg Levetiracetam (Keppra Tab*) 500 mg PO BEDTIME [facility] Last Admin: 02/02/19 22:10 Dose: 500 mg Levetiracetam (Keppra Liq*) 250 mg PO DAILY [facility] Last Admin: 02/03/19 12:13 Dose: Not Given Levothyroxine Sodium (Synthroid Tab*) 25 mcg PO 0600 [facility] Last Admin: 02/03/19 05:51 Dose: 25 mcg Metoprolol Succinate (Toprol Xl Tab*) 100 mg PO BID [facility] Last Admin: 02/03/19 11:31 Dose: 100 mg Nystatin (Nystatin Top Powder*) 1 applic TOPICAL BID PRN PRN Reason: RASH Ondansetron HCl (Zofran Inj*) 4 mg IV Q6H PRN PRN Reason: NAUSEA Pharmacy Profile Note (Coumadin Per Pharmacy*) 1 note FOLLOW UP .PER PHARMACY PROTOC [facility]; Protocol Potassium Chloride (Klor Con Er Tab*) 30 meq PO BID [facility] Last Admin: 02/03/19 11:29 Dose: 30 meq Prednisone (Deltasone Tab*) 5 mg PO DAILY [facility] Last Admin: 02/03/19 11:30 Dose: 5 mg Sertraline HCl (Zoloft*) 50 mg PO DAILY [facility] Last Admin: 02/03/19 11:30 Dose: 50 mg Torsemide (Torsemide) 5 mg PO DAILY [facility] Last Admin: 02/03/19 11:30 Dose: 5 mg Vital Signs - 8 hr 02/03/19 02/03/19 02/03/19 06:04 07:15 08:00 Temperature 96.7 F Pulse Rate 61 63 Respiratory 20 18 18 Rate Blood Pressure 137/86 143/54 (mmHg) O2 Sat by Pulse 96 Oximetry Oxygen Devices in Use Now: None Appearance: Patient is an 83yo female who appears stated age and is sitting in the bed in [facility]. Eyes: No Scleral Icterus, PERRLA Ears/Nose/Mouth/Throat: NL Teeth, Lips, Gums, Clear Oropharnyx, Mucous Membranes Moist Neck: NL Appearance and Movements; NL JVP, Trachea Midline Respiratory: Symmetrical Chest Expansion and Respiratory Effort, Clear to Auscultation Cardiovascular: NL Sounds; No Murmurs; No JVD, RRR, No Edema Abdominal: NL Sounds; No Tenderness; No Distention, No Hepatosplenomegaly Lymphatic: No Cervical Adenopathy Extremities: No Edema, No Clubbing, Cyanosis Skin: No Nodules or Sclerosis, - - Rash almost resolved. Neurological: - - Unable to perform. Result Diagrams: 02/01/19 05:46 02/03/19 05:14 Microbiology and Other Data: Microbiology 01/28/19 12:40 Nasal Screen MRSA (PCR) - Final Nasal Mrsa Not Detected Assess/Plan/Problems-Billing Mrs. 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 She was recently weaned off levetiracetam. She presented to [facility] ER with symptoms of one episode of seizure like activity, two week history of tachycardia, and a diffuse rash. - Patient Problems (1) Atrial fibrillation Current Visit: No Status: Chronic Code(s): I48.91 - UNSPECIFIED ATRIAL FIBRILLATION SNOMED Code(s): 80975675 Comment: - With RVR, now excellent control. - Appreciate Cardiology input - Continue Digoxin and Metoprolol - Has possibly not been taking meds. Rate now controlled. Goal <110 - Continue Coumadin outpatient - EF not depressed, possibly exacerbating HFpEF - Continue torsemide. - Minimize pill burden if able. (2) Seizures Current Visit: No Status: Chronic Code(s): R56.9 - UNSPECIFIED CONVULSIONS SNOMED Code(s): 02274712 Comment: - Seizure before admission - Started Keppra, Patient became aggressive, now transitioning to Depakote. - Sedation possibly from Keppra. - EEG shows slowing - Appreciate Neuro Input (3) Rash Current Visit: Yes Status: Acute Code(s): R21 - RASH AND OTHER NONSPECIFIC SKIN ERUPTION SNOMED Code(s): 227929099 Comment: - Papular, Pruritic and widespread. Now almost resolved. - Appears to be urticarial, biopsy shows likely allregic rash from something taken orally. - On Steroids. Improving, taper steroids. - Biopsy sites benign. (4) COPD (chronic obstructive pulmonary disease) Current Visit: No Status: Chronic Code(s): J44.9 - CHRONIC OBSTRUCTIVE PULMONARY DISEASE, UNSPECIFIED SNOMED Code(s): 80769787 Comment: - No signs of acute exacerbation at this time (5) HLD (hyperlipidemia) Current Visit: No Status: Chronic Code(s): E78.5 - HYPERLIPIDEMIA, UNSPECIFIED SNOMED Code(s): 58035221 Comment: - Continue statin (6) HTN (hypertension) Current Visit: No Status: Chronic Code(s): I10 - ESSENTIAL (PRIMARY) HYPERTENSION SNOMED Code(s): 95423886 Comment: - The patient's BP is under good control, SBP 130-150's. - Resume Norvasc. - Resume Torsemide. (7) History of CVA (cerebrovascular accident) Current Visit: No Status: Chronic Code(s): Z86.73 - PRSNL HX OF TIA (TIA), AND CEREB INFRC W/O RESID DEFICITS SNOMED Code(s): 833902778 Comment: - Continue statin and coumadin - Severe encephalomalacia and multiple strokes - Likely cause of dementia. - Bridge until therapeutic. (8) Hypothyroidism Current Visit: No Status: Chronic Code(s): E03.9 - HYPOTHYROIDISM, UNSPECIFIED SNOMED Code(s): 59701873 Comment: - Continue levothyroxine - TSH WNL (9) Type II diabetes mellitus Current Visit: No Status: Chronic Comment: - On No meds (10) DVT prophylaxis Current Visit: No Status: Acute Code(s): KMX7761 - SNOMED Code(s): 101409430 Comment: - Persistent Subtherapeutic INR - Bridge with Lovenox. Status and Disposition: Inpatient, Patient will now need rehab and is pending placement, likely on Monday.
[2019-02-03] MEDS: Digoxin TAB* 0.125 MG PO SCH (16:27)
[2019-02-03] MEDS: levETIRAcetam TAB* 500 MG PO SCH (21:04)
[2019-02-04 06:05] LABS: ABS Basophils 0.1 10^3/ul (0-0.2); ABS Lymphocytes 4.4 10^3/ul (1.0-4.8); ABS Monocytes 0.8 10^3/ul (0-0.8); Eosinophil % 9.6 %; Hematocrit 42 % (35-47); Mean Corpuscular HGB Conc 33 g/dL (31-36); Mean Corpuscular Hemoglobin 28 pg (27-31); Mean Corpuscular Volume 85 fL (80-97); Mean Platelet Volume 9.5 fL (7.4-10.4); Nucleated Red Blood Cells % 0.1; Platelet Count 289 10^3/uL (150-450); Red Blood Count 4.97 10^6 /uL (3.70-4.87); Red Cell Distribution Width 15 % (10-15); White Blood Count 10.2 10^3/uL (3.5-10.8)
[2019-02-04 06:09] LABS: INR 2.2 (0.82-1.09)
[2019-02-04 06:23] LABS: BUN/Creatinine Ratio 19.2 (8-20); Calcium 8.9 mg/dL (8.6-10.3); EGFR African American 85.8 (>60); EGFR Non-African American 70.9 (>60); Magnesium 2.2 mg/dL (1.9-2.7)
--- NOTE | 2019-02-04 08:56 | PN ---
Subjective Date of Service: 02/04/19 Length of Stay: 7 Days Interval History: No new issues overnight. Her nurse today states that she has had some episodes of mild agitation. No seizure activity. Eating breakfast this am. Depakote Level 33 Family History: Unchanged from Admission Social History: Unchanged from Admission Past Medical History: Unchanged from Admission Objective Active Medications: Acetaminophen (Tylenol Tab*) 650 mg PO Q6H PRN PRN Reason: MILD PAIN or TEMP > 100.4 Atorvastatin Calcium (Lipitor*) 20 mg PO DAILY [facility] Last Admin: 02/03/19 11:29 Dose: 20 mg Digoxin (Lanoxin Tab*) 0.125 mg PO 1700 [facility] Last Admin: 02/03/19 16:27 Dose: 0.125 mg Divalproex Sodium (Depakote Er Tab(*)) 500 mg PO BID [facility] Levetiracetam (Keppra Tab*) 500 mg PO BEDTIME [facility] Last Admin: 02/03/19 21:04 Dose: Not Given Levetiracetam (Keppra Liq*) 250 mg PO DAILY [facility] Last Admin: 02/03/19 12:13 Dose: Not Given Levothyroxine Sodium (Synthroid Tab*) 25 mcg PO 0600 [facility] Last Admin: 02/03/19 05:51 Dose: 25 mcg Metoprolol Succinate (Toprol Xl Tab*) 100 mg PO BID [facility] Last Admin: 02/03/19 21:04 Dose: Not Given Nystatin (Nystatin Top Powder*) 1 applic TOPICAL BID PRN PRN Reason: RASH Ondansetron HCl (Zofran Inj*) 4 mg IV Q6H PRN PRN Reason: NAUSEA Pharmacy Profile Note (Coumadin Per Pharmacy*) 1 note FOLLOW UP .PER PHARMACY PROTOC [facility]; Protocol Potassium Chloride (Klor Con Er Tab*) 30 meq PO BID [facility] Last Admin: 02/03/19 21:04 Dose: Not Given Prednisone (Deltasone Tab*) 5 mg PO DAILY [facility] Last Admin: 02/03/19 11:30 Dose: 5 mg Sertraline HCl (Zoloft*) 50 mg PO DAILY [facility] Last Admin: 02/03/19 11:30 Dose: 50 mg Torsemide (Torsemide) 5 mg PO DAILY [facility] Last Admin: 02/03/19 11:30 Dose: 5 mg Vital Signs 02/03/19 02/03/19 02/03/19 11:15 15:15 16:27 Temperature 97.0 F 98.2 F Pulse Rate 51 55 71 Respiratory 16 18 Rate Blood Pressure 137/56 132/65 (mmHg) O2 Sat by Pulse 94 94 Oximetry 02/03/19 02/03/19 02/04/19 19:40 20:00 03:40 Temperature 98.3 F 98.1 F Pulse Rate 74 80 Respiratory 18 18 18 Rate Blood Pressure 116/50 127/58 (mmHg) O2 Sat by Pulse 92 Oximetry Intake and Output Last 24 Hours 02/02/19 02/03/19 02/04/19 02/05/19 06:59 06:59 06:59 06:59 Intake Total 360 120 323 Output Total 400 Balance -40 120 323 Weight 180 lb 179 lb 6.4 oz 179 lb 6.4 oz Intake: IV Fluids 15 Valproic Acid 15 IVPB 108 Valproic Acid 108 Oral 360 120 200 Output: Urine 400 Other: Estimated Void Large # Voids 1 Oxygen Devices in Use Now: None Neurology Exam: General: Well nourished, well developed, and in no acute distress HEENT: Normocephalic/atraumatic, sclera anicteric, mucous membranes moist Neck: Supple Chest: Clear to auscultation bilaterally Abdomen: Soft, non-tender/non-distended Extremities: No clubbing, cyanosis, or edema Neurological Findings: Awake, oriented to person Speech: paucity of speech, no severe dysarthria but only speaks a few words Cranial Nerve: PERRL, EOM intact Motor: Moving all extremities, antigravity No trmeors Result Diagrams: 02/04/19 05:22 02/04/19 05:22 Microbiology and Other Data: Microbiology 01/28/19 12:40 Nasal Screen MRSA (PCR) - Final Nasal Mrsa Not Detected Assessment/Plan Initial assessment: Mrs. Mosquera is an 83-year-old female with a past medical history of remote multifocal embolic strokes, largest one involving the entire right MCA distribution, who has history of severe dementia, most likely of vascular type, and post-stroke seizures. She was recently weaned off levetiracetam. She presented to [facility] [place] [facility] with symptoms of one episode of seizure like activity, two week history of tachycardia, and a diffuse rash. She was loaded with levetiracetam and continued with a 500 mg BID dosing. She was ready for discharge today when she suddenly developed what was reported as transient encephalopathy manifesting as reduced cooperation and alertness. The patient was then irritable to staff and did not want to participate with the examiner. There were no reported seizures. The EEG today did not show any seizures or epileptiform discharges. UA was obtained and did not show UTI. Repeat CT head without contrast on 01/31/2019 showed no new stroke or hemorrhage. Since adding the Keppra back, she has been much more agitated and angry at times. Despite the fact that she was tolerating this in the past, given the temporal nature of her symptoms, I have real concerns she is no longer able to tolerate and I fear decreasing the dose further will make her more likely to have a seizure. 1. Depakote level 33 after 750mg load yesterday. We are going to start 500mg po bid, will check a level in am. Once above 50, we can start to decrease the Keppra by 250mg every 3-4 days. Will continue the Keppra unchanged for now. 2. Continue to monitor for seizure like activity 3. Follow INR 4. Supportive Care
[2019-02-04] MEDS ORDERED: Divalproex ER TAB(*) 500 MG PO SCH (09:00)
[2019-02-04] MEDS: Atorvastatin* 20 MG TAB PO SCH (11:01)
[2019-02-04] MEDS: levETIRAcetam LIQ* 500 MG/5 ML UDC PO SCH (11:01)
[2019-02-04] MEDS: Sertraline* 50 MG TAB PO SCH (11:01)
[2019-02-04] MEDS: Metoprolol Succinate XL TAB* 100 MG PO SCH ×2 (11:02→21:07)
[2019-02-04] MEDS: predniSONE TAB* 5 MG PO SCH (11:02)
[2019-02-04] MEDS: Potassium Chlor TAB* 10 MEQ TAB.ER PO SCH ×2 (11:02→21:01)
[2019-02-04] MEDS: Divalproex ER TAB(*) 500 MG PO SCH ×2 (11:02→21:01)
[2019-02-04] MEDS: Torsemide TAB 10 MG PO SCH (11:03)
[2019-02-04] MEDS: Levothyroxine TAB* 25 MCG TAB PO SCH (11:20)
--- NOTE | 2019-02-04 11:56 | PN ---
Progress Note - Progress Note Date of Service: 02/04/19 Note: Surgery followup. POD #6 from punch bx x 2 Left proximal thigh. Path report noted. Both bx sites are healing well w/o evidence of infection. Single sutures from each wound were removed. No add'l dressings needed. Communicated w/ nurse. Will sign off.
--- NOTE | 2019-02-04 16:39 | PN ---
Subjective Date of Service: 02/04/19 Interval History: Patient is feeling well today. More alert and cooperative with care. States she has no pain and denies CP, SOB. Patient is still needing assistance with walking. SON states that she would need to be only "hand hold" assistance to return. Family History: Unchanged from Admission Social History: Unchanged from Admission Past Medical History: Unchanged from Admission Objective Active Medications: Acetaminophen (Tylenol Tab*) 650 mg PO Q6H PRN PRN Reason: MILD PAIN or TEMP > 100.4 Atorvastatin Calcium (Lipitor*) 20 mg PO DAILY [facility] Last Admin: 02/04/19 11:01 Dose: 20 mg Digoxin (Lanoxin Tab*) 0.125 mg PO 1700 [facility] Last Admin: 02/03/19 16:27 Dose: 0.125 mg Divalproex Sodium (Depakote Er Tab(*)) 500 mg PO BID [facility] Last Admin: 02/04/19 11:02 Dose: 500 mg Levetiracetam (Keppra Tab*) 500 mg PO BEDTIME [facility] Last Admin: 02/03/19 21:04 Dose: Not Given Levetiracetam (Keppra Liq*) 250 mg PO DAILY [facility] Last Admin: 02/04/19 11:01 Dose: 250 mg Levothyroxine Sodium (Synthroid Tab*) 25 mcg PO 0600 [facility] Last Admin: 02/04/19 11:20 Dose: Not Given Metoprolol Succinate (Toprol Xl Tab*) 100 mg PO BID [facility] Last Admin: 02/04/19 11:02 Dose: 100 mg Nystatin (Nystatin Top Powder*) 1 applic TOPICAL BID PRN PRN Reason: RASH Ondansetron HCl (Zofran Inj*) 4 mg IV Q6H PRN PRN Reason: NAUSEA Pharmacy Profile Note (Coumadin Per Pharmacy*) 1 note FOLLOW UP .PER PHARMACY PROTOC [facility]; Protocol Pharmacy Profile Note (Coumadin Daily Reminder*) 1 note FOLLOW UP 1700 [facility] Potassium Chloride (Klor Con Er Tab*) 30 meq PO BID [facility] Last Admin: 02/04/19 11:02 Dose: 30 meq Prednisone (Deltasone Tab*) 5 mg PO DAILY [facility] Last Admin: 02/04/19 11:02 Dose: 5 mg Sertraline HCl (Zoloft*) 50 mg PO DAILY [facility] Last Admin: 02/04/19 11:01 Dose: 50 mg Torsemide (Torsemide) 5 mg PO DAILY [facility] Last Admin: 02/04/19 11:03 Dose: 5 mg Warfarin Sodium (Coumadin Tab(*)) 4 mg PO ONCE ONE Stop: 02/04/19 17:01 Vital Signs - 8 hr 02/04/19 02/04/19 02/04/19 11:00 11:15 15:13 Temperature 97.5 F 97.6 F Pulse Rate 68 71 84 Respiratory 16 17 Rate Blood Pressure 115/50 107/87 136/61 (mmHg) O2 Sat by Pulse 98 95 Oximetry 02/04/19 16:16 Temperature Pulse Rate 84 Respiratory Rate Blood Pressure (mmHg) O2 Sat by Pulse Oximetry Oxygen Devices in Use Now: None Appearance: Patient is an 83yo female who appears stated age and is sitting in the bed in [facility]. Eyes: No Scleral Icterus, PERRLA Ears/Nose/Mouth/Throat: NL Teeth, Lips, Gums, Clear Oropharnyx, Mucous Membranes Moist Neck: NL Appearance and Movements; NL JVP, Trachea Midline Respiratory: Symmetrical Chest Expansion and Respiratory Effort, Clear to Auscultation Cardiovascular: NL Sounds; No Murmurs; No JVD, No Edema, - - Irregularly irregular rhythm. Abdominal: NL Sounds; No Tenderness; No Distention, No Hepatosplenomegaly Lymphatic: No Cervical Adenopathy Extremities: No Edema, No Clubbing, Cyanosis Skin: No Nodules or Sclerosis, - - Slight erythema. Neurological: - - Refused to have gait assessed. Result Diagrams: 02/04/19 05:22 02/04/19 05:22 Microbiology and Other Data: Microbiology 01/28/19 12:40 Nasal Screen MRSA (PCR) - Final Nasal Mrsa Not Detected Assess/Plan/Problems-Billing Mrs. 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 She was recently weaned off levetiracetam. She presented to [facility] [place] [facility] with symptoms of one episode of seizure like activity, two week history of tachycardia, and a diffuse rash. - Patient Problems (1) Seizures Current Visit: No Status: Chronic Code(s): R56.9 - UNSPECIFIED CONVULSIONS SNOMED Code(s): 35418231 Comment: - Seizure before admission - Started Keppra, Patient became aggressive, now transitioning to Depakote. - Depakote subtherapeutic this am. Increased to BID. When therapeutic, taper Keppra. - Sedation possibly from Keppra. - EEG shows slowing - Appreciate Neuro Input (2) Atrial fibrillation Current Visit: No Status: Chronic Code(s): I48.91 - UNSPECIFIED ATRIAL FIBRILLATION SNOMED Code(s): 01727822 Comment: - With RVR, now excellent control. - Appreciate Cardiology input - Continue Digoxin and Metoprolol - Has possibly not been taking meds. Rate now controlled. Goal <110 - Continue Coumadin outpatient - EF not depressed, possibly exacerbating HFpEF - Continue torsemide. - Minimize pill burden if able. (3) Rash Current Visit: Yes Status: Acute Code(s): R21 - RASH AND OTHER NONSPECIFIC SKIN ERUPTION SNOMED Code(s): 469435209 Comment: - Papular, Pruritic and widespread. Now almost resolved. - Appears to be urticarial, biopsy shows likely allregic rash from something taken orally. - On Steroids. Improving, stop steroids - Biopsy sites benign. (4) COPD (chronic obstructive pulmonary disease) Current Visit: No Status: Chronic Code(s): J44.9 - CHRONIC OBSTRUCTIVE PULMONARY DISEASE, UNSPECIFIED SNOMED Code(s): 60812388 Comment: - No signs of acute exacerbation at this time (5) HLD (hyperlipidemia) Current Visit: No Status: Chronic Code(s): E78.5 - HYPERLIPIDEMIA, UNSPECIFIED SNOMED Code(s): 79015455 Comment: - Continue statin (6) HTN (hypertension) Current Visit: No Status: Chronic Code(s): I10 - ESSENTIAL (PRIMARY) HYPERTENSION SNOMED Code(s): 56308232 Comment: - The patient's BP is under good control, SBP 130-150's. - Resume Norvasc. - Resume Torsemide. (7) History of CVA (cerebrovascular accident) Current Visit: No Status: Chronic Code(s): Z86.73 - PRSNL HX OF TIA (TIA), AND CEREB INFRC W/O RESID DEFICITS SNOMED Code(s): 876991039 Comment: - Continue statin and coumadin - Severe encephalomalacia and multiple strokes - Likely cause of dementia. - INR therapeutic. (8) Hypothyroidism Current Visit: No Status: Chronic Code(s): E03.9 - HYPOTHYROIDISM, UNSPECIFIED SNOMED Code(s): 59657013 Comment: - Continue levothyroxine - TSH WNL (9) Type II diabetes mellitus Current Visit: No Status: Chronic Comment: - On No meds (10) DVT prophylaxis Current Visit: No Status: Acute Code(s): DZI5843 - SNOMED Code(s): 123119896 Comment: - Therapeutic INR - Stop Bridging. Status and Disposition: Inpatient, Will likely need rehab, Will get choices from tomorrow unless [facility] is able to take her back.
[2019-02-04] MEDS ORDERED: Warfarin TAB(*) 4 MG PO ONE (17:00)
[2019-02-04] MEDS: Digoxin TAB* 0.125 MG PO SCH (17:38)
[2019-02-04] MEDS: levETIRAcetam TAB* 500 MG PO SCH (21:01)
[2019-02-05] MEDS: Levothyroxine TAB* 25 MCG TAB PO SCH (06:03)
[2019-02-05 06:41] LABS: INR 2.61 (0.82-1.09)
[2019-02-05] MEDS: Potassium Chlor TAB* 10 MEQ TAB.ER PO SCH ×2 (08:56→21:38)
[2019-02-05] MEDS: Sertraline* 50 MG TAB PO SCH (08:57)
[2019-02-05] MEDS: Atorvastatin* 20 MG TAB PO SCH (08:57)
[2019-02-05] MEDS: Torsemide TAB 10 MG PO SCH (08:57)
--- NOTE | 2019-02-05 08:57 | PN ---
Subjective Date of Service: 02/05/19 Length of Stay: 8 Days Interval History: No new issues overnight. Reports are that she was slightly more awake and pleasant yesterday and cooperative. She seems to be tolerating the Depakote well. No side effects. No seizure activity. Family History: Unchanged from Admission Social History: Unchanged from Admission Past Medical History: Unchanged from Admission Objective Active Medications: Acetaminophen (Tylenol Tab*) 650 mg PO Q6H PRN PRN Reason: MILD PAIN or TEMP > 100.4 Atorvastatin Calcium (Lipitor*) 20 mg PO DAILY [facility] Last Admin: 02/04/19 11:01 Dose: 20 mg Digoxin (Lanoxin Tab*) 0.125 mg PO 1700 [facility] Last Admin: 02/04/19 17:38 Dose: 0.125 mg Divalproex Sodium (Depakote Er Tab(*)) 500 mg PO BID [facility] Last Admin: 02/04/19 21:01 Dose: 500 mg Levetiracetam (Keppra Tab*) 250 mg PO BID [facility] Levothyroxine Sodium (Synthroid Tab*) 25 mcg PO 0600 [facility] Last Admin: 02/05/19 06:03 Dose: 25 mcg Metoprolol Succinate (Toprol Xl Tab*) 100 mg PO BID [facility] Last Admin: 02/04/19 21:07 Dose: 100 mg Nystatin (Nystatin Top Powder*) 1 applic TOPICAL BID PRN PRN Reason: RASH Ondansetron HCl (Zofran Inj*) 4 mg IV Q6H PRN PRN Reason: NAUSEA Pharmacy Profile Note (Coumadin Per Pharmacy*) 1 note FOLLOW UP .PER PHARMACY PROTOC [facility]; Protocol Pharmacy Profile Note (Coumadin Daily Reminder*) 1 note FOLLOW UP 1700 [facility] Last Admin: 02/04/19 21:09 Dose: 1 note Potassium Chloride (Klor Con Er Tab*) 30 meq PO BID [facility] Last Admin: 02/04/19 21:01 Dose: 30 meq Prednisone (Deltasone Tab*) 5 mg PO DAILY [facility] Last Admin: 02/04/19 11:02 Dose: 5 mg Sertraline HCl (Zoloft*) 50 mg PO DAILY [facility] Last Admin: 02/04/19 11:01 Dose: 50 mg Torsemide (Torsemide) 5 mg PO DAILY [facility] Last Admin: 02/04/19 11:03 Dose: 5 mg Vital Signs 02/04/19 02/04/19 02/04/19 11:00 11:15 15:13 Temperature 97.5 F 97.6 F Pulse Rate 68 71 84 Respiratory 16 17 Rate Blood Pressure 115/50 107/87 136/61 (mmHg) O2 Sat by Pulse 98 95 Oximetry 02/04/19 02/04/19 02/04/19 16:16 17:36 17:38 Temperature Pulse Rate 84 78 78 Respiratory Rate Blood Pressure 170/83 (mmHg) O2 Sat by Pulse Oximetry 02/04/19 02/04/19 02/04/19 19:15 20:00 21:08 Temperature 97.9 F 97.9 F Pulse Rate 98 102 Respiratory 19 20 20 Rate Blood Pressure 128/48 130/54 (mmHg) O2 Sat by Pulse 97 97 Oximetry 02/04/19 02/05/19 23:15 04:08 Temperature 98.7 F 98.1 F Pulse Rate 81 94 Respiratory 18 18 Rate Blood Pressure 152/69 157/84 (mmHg) O2 Sat by Pulse 94 96 Oximetry Intake and Output Last 24 Hours 02/03/19 02/04/19 02/05/19 02/06/19 06:59 06:59 06:59 06:59 Intake Total 120 323 720 Balance 120 323 720 Weight 179 lb 6.4 oz 179 lb 6.4 oz 175 lb 12.8 oz Intake: IV Fluids 15 Valproic Acid 15 IVPB 108 Valproic Acid 108 Oral 120 200 720 Other: Estimated Void Medium Oxygen Devices in Use Now: None Neurology Exam: General: Well nourished, well developed, and in no acute distress. Sitting up in bed HEENT: Normocephalic/atraumatic, sclera anicteric, mucous membranes moist Neck: Supple Chest: Clear to auscultation bilaterally Abdomen: Soft, non-tender/non-distended Extremities: No clubbing, cyanosis Neurological Findings: Awake, alert, oriented to person only Speech: Paucity of speech. Cranial Nerve: PERRL, no nystagmus, face symmetric bilaterally. Motor: moving all extremities and holding antigravity without significant drift Sensation: W/D to pain X4 No tremors Result Diagrams: 02/04/19 05:22 02/04/19 05:22 Microbiology and Other Data: Microbiology 01/28/19 12:40 Nasal Screen MRSA (PCR) - Final Nasal Mrsa Not Detected Assessment/Plan Initial assessment: Mrs. Mosquera is an 83-year-old female with a past medical history of remote multifocal embolic strokes, largest one involving the entire right MCA distribution, who has history of severe dementia, most likely of vascular type, and post-stroke seizures. She was recently weaned off levetiracetam. She presented to [facility] with symptoms of one episode of seizure like activity, two week history of tachycardia, and a diffuse rash. She was loaded with levetiracetam and continued with a 500 mg BID dosing. She was ready for discharge today when she suddenly developed what was reported as transient encephalopathy manifesting as reduced cooperation and alertness. The patient was then irritable to staff and did not want to participate with the examiner. There were no reported seizures. The EEG today did not show any seizures or epileptiform discharges. UA was obtained and did not show UTI. Repeat CT head without contrast on 01/31/2019 showed no new stroke or hemorrhage. Since adding the Keppra back, she has been much more agitated and angry at times. Despite the fact that she was tolerating this in the past, given the temporal nature of her symptoms, I have real concerns she is no longer able to tolerate and I fear decreasing the dose further will make her more likely to have a seizure. Overnight, there have been no seizure activity. She seems to be tolerating the Depakote well. She was more pleasant and agreeable yesterday. 1. Depakote 500mg bid, tolerating well and her level is therapeutic. I would also recommend rechecking Depakote level in 1 week for stability and adjust according for a level 50-100. --We spoke with Pranav and she has to have her medications crushed. To that end, I am going to switch her ER formulation to sprinkles. --I am going to start a slow wean of her Keppra today. She will need liquid formulation. The plan is to decrease her dose today to 250mg po bid. I would recommend a slow, conservative wean over the next several weeks. Lower dose by 250mg every week until off. 2. Follow INR over time. 3. Supportive care I will sign off for now but remain available for any other issues or concerns. She will need follow up with Neurology in 1-2 months.
[2019-02-05] MEDS: predniSONE TAB* 5 MG PO SCH (08:58)
[2019-02-05] MEDS ORDERED: levETIRAcetam TAB* 500 MG PO SCH (09:00)
[2019-02-05] MEDS: levETIRAcetam LIQ* 500 MG/5 ML UDC PO SCH ×2 (09:11→21:36)
[2019-02-05] MEDS: Metoprolol Succinate XL TAB* 100 MG PO SCH ×2 (09:12→21:37)
[2019-02-05] MEDS: Divalproex Sprinkle CAP* 125 MG PO SCH ×2 (10:58→21:35)
--- NOTE | 2019-02-05 14:19 | PN ---
Subjective Date of Service: 02/05/19 Interval History: Patient seen and examined. Very lethargic today, will respond to voice but will not open her eyes for exam. Unable to answer questions meaningfully, but does not appear to be in distress. Family History: Unchanged from Admission Social History: Unchanged from Admission Past Medical History: Unchanged from Admission Objective Active Medications: Acetaminophen (Tylenol Tab*) 650 mg PO Q6H PRN PRN Reason: MILD PAIN or TEMP > 100.4 Atorvastatin Calcium (Lipitor*) 20 mg PO DAILY [facility] Last Admin: 02/05/19 08:57 Dose: 20 mg Digoxin (Lanoxin Tab*) 0.125 mg PO 1700 [facility] Last Admin: 02/04/19 17:38 Dose: 0.125 mg Divalproex Sodium (Depakote Sprinkle Cap*) 500 mg PO BID [facility] Last Admin: 02/05/19 10:58 Dose: 500 mg Levetiracetam (Keppra Liq*) 250 mg PO BID [facility] Last Admin: 02/05/19 09:11 Dose: 250 mg Levothyroxine Sodium (Synthroid Tab*) 25 mcg PO 0600 [facility] Last Admin: 02/05/19 06:03 Dose: 25 mcg Metoprolol Succinate (Toprol Xl Tab*) 100 mg PO BID [facility] Last Admin: 02/05/19 09:12 Dose: 100 mg Nystatin (Nystatin Top Powder*) 1 applic TOPICAL BID PRN PRN Reason: RASH Ondansetron HCl (Zofran Inj*) 4 mg IV Q6H PRN PRN Reason: NAUSEA Pharmacy Profile Note (Coumadin Per Pharmacy*) 1 note FOLLOW UP .PER PHARMACY PROTOC [facility]; Protocol Pharmacy Profile Note (Coumadin Daily Reminder*) 1 note FOLLOW UP 1700 [facility] Last Admin: 02/04/19 21:09 Dose: 1 note Potassium Chloride (Klor Con Er Tab*) 30 meq PO BID [facility] Last Admin: 02/05/19 08:56 Dose: 30 meq Prednisone (Deltasone Tab*) 5 mg PO DAILY [facility] Last Admin: 02/05/19 08:58 Dose: 5 mg Sertraline HCl (Zoloft*) 50 mg PO DAILY [facility] Last Admin: 02/05/19 08:57 Dose: 50 mg Torsemide (Torsemide) 5 mg PO DAILY [facility] Last Admin: 02/05/19 08:57 Dose: 5 mg Warfarin Sodium (Coumadin Tab(*)) 3 mg PO 1700 [facility] Stop: 02/05/19 17:01 Vital Signs - 8 hr 02/05/19 02/05/19 02/05/19 08:00 08:30 11:55 Temperature 97.6 F 97.6 F Pulse Rate 51 64 Respiratory 18 18 20 Rate Blood Pressure 121/59 138/57 (mmHg) O2 Sat by Pulse 96 98 Oximetry Oxygen Devices in Use Now: None Appearance: sleepy, NAD Eyes: PERRLA Ears/Nose/Mouth/Throat: Mucous Membranes Moist Neck: NL Appearance and Movements; NL JVP, Trachea Midline Respiratory: Symmetrical Chest Expansion and Respiratory Effort, Clear to Auscultation Cardiovascular: NL Sounds; No Murmurs; No JVD, RRR Abdominal: NL Sounds; No Tenderness; No Distention Skin: No Rash or Ulcers Neurological: - - confused, lethargic Nutrition: Taking PO's Result Diagrams: 02/04/19 05:22 02/04/19 05:22 Microbiology and Other Data: Microbiology 01/28/19 12:40 Nasal Screen MRSA (PCR) - Final Nasal Mrsa Not Detected Assess/Plan/Problems-Billing This is an 83-year-old female with a past medical history of remote multifocal embolic strokes, 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 - Patient Problems (1) Seizures Code(s): R56.9 - UNSPECIFIED CONVULSIONS SNOMED Code(s): 00275689 Comment: - Seizure before admission - Started Keppra, Patient became aggressive, now transitioning to Depakote sprinkles - Taper liquid Keppra per recs by neuro, by 250mg per week - Sedation likely from combo of depakote and keppra wean, continue supportive care (2) Rash Code(s): R21 - RASH AND OTHER NONSPECIFIC SKIN ERUPTION SNOMED Code(s): 958265862 Comment: - Papular, Pruritic and widespread, now resolved with prednisone - Appears to be urticarial, biopsy shows likely allregic rash from something taken orally. - Biopsy sites benign (3) Atrial fibrillation Code(s): I48.91 - UNSPECIFIED ATRIAL FIBRILLATION SNOMED Code(s): 51245122 Comment: - With RVR at admission - Appreciate Cardiology input, continuing Digoxin and Metoprolol - Has possibly not been taking meds. Rate now controlled. Goal <110 - Continue Coumadin for AC - EF not depressed, possibly exacerbating HFpEF - Continue torsemide. - Minimize pill burden if able. (4) Elevated INR Code(s): R79.1 - ABNORMAL COAGULATION PROFILE SNOMED Code(s): 301413750 Comment: - Resolved (5) HTN (hypertension) Code(s): I10 - ESSENTIAL (PRIMARY) HYPERTENSION SNOMED Code(s): 28794933 Comment: - Stable on Norvasc and Torsemide (6) History of CVA (cerebrovascular accident) Code(s): Z86.73 - PRSNL HX OF TIA (TIA), AND CEREB INFRC W/O RESID DEFICITS SNOMED Code(s): 947986204 Comment: - With severe encephalomalacia, dementia and seizures - Continue statin and coumadin (7) DVT prophylaxis Code(s): WVA5054 - SNOMED Code(s): 856251344 Comment: - INR therapeutic on coumadin (8) Full code status Code(s): Z78.9 - OTHER SPECIFIED HEALTH STATUS SNOMED Code(s): 561743663 Status and Disposition: Inpatient for Keppra wean. Cannot return to [place] until improved functioning. May need STR in between. Discussed with case mgmt.
[2019-02-05] MEDS ORDERED: Warfarin TAB(*) 3 MG PO ONE (17:00)
[2019-02-05] MEDS: Digoxin TAB* 0.125 MG PO SCH (17:15)
[2019-02-06] MEDS: Levothyroxine TAB* 25 MCG TAB PO SCH (05:25)
[2019-02-06 06:23] LABS: INR 3.21 (0.82-1.09)
[2019-02-06] MEDS: Atorvastatin* 20 MG TAB PO SCH (09:21)
[2019-02-06] MEDS: Potassium Chlor TAB* 10 MEQ TAB.ER PO SCH ×2 (09:21→21:54)
[2019-02-06] MEDS: Metoprolol Succinate XL TAB* 100 MG PO SCH ×2 (09:21→21:55)
[2019-02-06] MEDS: predniSONE TAB* 5 MG PO SCH (09:22)
[2019-02-06] MEDS: levETIRAcetam LIQ* 500 MG/5 ML UDC PO SCH ×2 (09:22→21:53)
[2019-02-06] MEDS: Divalproex Sprinkle CAP* 125 MG PO SCH ×2 (09:22→21:56)
[2019-02-06] MEDS: Sertraline* 50 MG TAB PO SCH (09:22)
[2019-02-06] MEDS: Torsemide TAB 10 MG PO SCH (09:22)
--- NOTE | 2019-02-06 10:30 | PN ---
Subjective Date of Service: 02/06/19 Interval History: patient seen this morning, she has intermittent confusion still, but as per nursing staff she seems to be doing better than yesterday. Past Medical History: Unchanged from Admission Objective Active Medications: Acetaminophen (Tylenol Tab*) 650 mg PO Q6H PRN PRN Reason: MILD PAIN or TEMP > 100.4 Atorvastatin Calcium (Lipitor*) 20 mg PO DAILY [facility] Last Admin: 02/06/19 09:21 Dose: 20 mg Digoxin (Lanoxin Tab*) 0.125 mg PO 1700 [facility] Last Admin: 02/05/19 17:15 Dose: 0.125 mg Divalproex Sodium (Depakote Sprinkle Cap*) 500 mg PO BID [facility] Last Admin: 02/06/19 09:22 Dose: 500 mg Levetiracetam (Keppra Liq*) 250 mg PO BID [facility] Last Admin: 02/06/19 09:22 Dose: 250 mg Levothyroxine Sodium (Synthroid Tab*) 25 mcg PO 0600 [facility] Last Admin: 02/06/19 05:25 Dose: 25 mcg Metoprolol Succinate (Toprol Xl Tab*) 100 mg PO BID [facility] Last Admin: 02/06/19 09:21 Dose: 100 mg Nystatin (Nystatin Top Powder*) 1 applic TOPICAL BID PRN PRN Reason: RASH Ondansetron HCl (Zofran Inj*) 4 mg IV Q6H PRN PRN Reason: NAUSEA Pharmacy Profile Note (Coumadin Per Pharmacy*) 1 note FOLLOW UP .PER PHARMACY PROTOC [facility]; Protocol Pharmacy Profile Note (Coumadin Daily Reminder*) 1 note FOLLOW UP 1700 [facility] Last Admin: 02/05/19 17:16 Dose: 1 note Potassium Chloride (Klor Con Er Tab*) 30 meq PO BID [facility] Last Admin: 02/06/19 09:21 Dose: 30 meq Prednisone (Deltasone Tab*) 5 mg PO DAILY [facility] Last Admin: 02/06/19 09:22 Dose: 5 mg Sertraline HCl (Zoloft*) 50 mg PO DAILY [facility] Last Admin: 02/06/19 09:22 Dose: 50 mg Torsemide (Torsemide) 5 mg PO DAILY [facility] Last Admin: 02/06/19 09:22 Dose: 5 mg Vital Signs - 8 hr 02/06/19 02/06/19 02/06/19 03:37 08:42 10:06 Temperature 98.6 F 97.3 F Pulse Rate 92 70 Respiratory 18 16 Rate Blood Pressure 149/75 132/64 (mmHg) O2 Sat by Pulse 92 93 Oximetry Oxygen Devices in Use Now: None Appearance: drowsy but arousable. no distress. out of bed in chair Eyes: No Scleral Icterus, - - EOMI Ears/Nose/Mouth/Throat: NL Teeth, Lips, Gums, - - dry oral mucosa Neck: Trachea Midline Respiratory: Symmetrical Chest Expansion and Respiratory Effort Cardiovascular: NL Sounds; No Murmurs; No JVD, No Edema Abdominal: NL Sounds; No Tenderness; No Distention Skin: No Rash or Ulcers Neurological: - - disoriented, drowsy Result Diagrams: 02/04/19 05:22 02/04/19 05:22 Microbiology and Other Data: Microbiology 01/28/19 12:40 Nasal Screen MRSA (PCR) - Final Nasal Mrsa Not Detected Assess/Plan/Problems-Billing This is an 83-year-old female with a past medical history of remote multifocal embolic strokes, 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 - Patient Problems (1) Seizures Current Visit: No Status: Chronic Code(s): R56.9 - UNSPECIFIED CONVULSIONS SNOMED Code(s): 30114266 Comment: - Seizure before admission - Started Keppra, Patient became aggressive, now transitioning to Depakote sprinkles and taper liquid Keppra per recs by neuro, by 250mg per week. currently on 250 mg bid - Sedation likely from combo of depakote and keppra wean, continue supportive care (2) Atrial fibrillation Current Visit: No Status: Chronic Code(s): I48.91 - UNSPECIFIED ATRIAL FIBRILLATION SNOMED Code(s): 11689790 Comment: - s/p RVR at admission, - Controlled on digoxin 0.125 mcg daily and and metoprolol-xl 100 mg bid - see by Cardiology on admissions - Continue Coumadin for AC as per pharmacy input (3) HLD (hyperlipidemia) Current Visit: No Status: Chronic Code(s): E78.5 - HYPERLIPIDEMIA, UNSPECIFIED SNOMED Code(s): 07974003 Comment: - Continue atorvastatin 20 mg HS (4) HTN (hypertension) Current Visit: No Status: Chronic Code(s): I10 - ESSENTIAL (PRIMARY) HYPERTENSION SNOMED Code(s): 83092359 Comment: - continue metoprolol 100 mg bid (5) History of CVA (cerebrovascular accident) Current Visit: No Status: Chronic Code(s): Z86.73 - PRSNL HX OF TIA (TIA), AND CEREB INFRC W/O RESID DEFICITS SNOMED Code(s): 870343072 Comment: - With severe encephalomalacia, dementia and seizures - Continue statin and coumadin - appreciate neuro input (6) Hypothyroidism Current Visit: No Status: Chronic Code(s): E03.9 - HYPOTHYROIDISM, UNSPECIFIED SNOMED Code(s): 83267581 Comment: - Continue levothyroxine 25 mcg daily (7) Type II diabetes mellitus Current Visit: No Status: Chronic Comment: - On No meds - Last A1c 10/25/2018 was 8.9% - Will place her o SS and recheck A1c (8) DVT prophylaxis Current Visit: No Status: Acute Code(s): [id number] - SNOMED Code(s): 991083578 Comment: - INR therapeutic on coumadin Status and Disposition: Inpatient for Keppra wean. Cannot return to [place] until improved functioning. May need STR in between. Discussed with case mgmt.
[2019-02-06] MEDS ORDERED: WARFARIN - No Order Today* 1 NOTE MISC FOLLOW UP SCH (13:00)
[2019-02-06] MEDS ORDERED: Dextrose 50% VIAL 50 ml IV PUSH PRN (17:32)
[2019-02-06] MEDS: Digoxin TAB* 0.125 MG PO SCH (17:32)
[2019-02-06] MEDS: Insulin LISPRO* 1 UNITS UNIT SUBCUT SCH (21:58)
[2019-02-07] MEDS: Levothyroxine TAB* 25 MCG TAB PO SCH (05:22)
[2019-02-07 06:17] LABS: ABS Basophils 0.1 10^3/ul (0-0.2); ABS Eosinophils 0.4 10^3/ul (0-0.6); ABS Lymphocytes 3.7 10^3/ul (1.0-4.8); ABS Neutrophils 5.8 10^3/ul (1.5-7.7); Eosinophil % 3.5 %; Hematocrit 43 % (35-47); Hemoglobin 14.1 g/dL (12.0-16.0); Lymphocyte % 33.5 %; Mean Corpuscular HGB Conc 33 g/dL (31-36); Mean Corpuscular Hemoglobin 28 pg (27-31); Mean Corpuscular Volume 86 fL (80-97); Mean Platelet Volume 9.7 fL (7.4-10.4); Nucleated Red Blood Cells % 0.1; Platelet Count 247 10^3/uL (150-450); Red Blood Count 4.99 10^6 /uL (3.70-4.87); Red Cell Distribution Width 14 % (10-15)
[2019-02-07 06:18] LABS: INR 2.82 (0.82-1.09)
[2019-02-07 06:42] LABS: BUN/Creatinine Ratio 27.6 (8-20); Calcium 9.2 mg/dL (8.6-10.3); EGFR African American 88.4 (>60); Magnesium 2.2 mg/dL (1.9-2.7); Phosphorus 3.9 mg/dL (2.5-5.0); Potassium 4.5 mmol/L (3.5-5.0)
[2019-02-07] MEDS: Insulin LISPRO* 1 UNITS UNIT SUBCUT SCH ×4 (09:16→20:56)
[2019-02-07] MEDS: Torsemide TAB 10 MG PO SCH (09:17)
[2019-02-07] MEDS: Atorvastatin* 20 MG TAB PO SCH (09:17)
[2019-02-07] MEDS: Potassium Chlor TAB* 10 MEQ TAB.ER PO SCH ×2 (09:17→21:41)
[2019-02-07] MEDS: Sertraline* 50 MG TAB PO SCH (09:17)
[2019-02-07] MEDS: Metoprolol Succinate XL TAB* 100 MG PO SCH (09:17)
[2019-02-07] MEDS: levETIRAcetam LIQ* 500 MG/5 ML UDC PO SCH ×2 (09:18→21:41)
[2019-02-07] MEDS: predniSONE TAB* 5 MG PO SCH (09:18)
[2019-02-07] MEDS: Divalproex Sprinkle CAP* 125 MG PO SCH ×2 (09:18→21:41)
--- NOTE | 2019-02-07 12:05 | PN ---
Subjective Date of Service: 02/07/19 Interval History: patient seen today, she is still waxing and waning. Apparently yesterday afternoon she was more awake and alert than her current mental state. she is arousable, respond to questions but having difficulty following command. she did have one episode of 8 beats V-Tach. Non sustained. No other acute issue Past Medical History: Unchanged from Admission Objective Active Medications: Acetaminophen (Tylenol Tab*) 650 mg PO Q6H PRN PRN Reason: MILD PAIN or TEMP > 100.4 Atorvastatin Calcium (Lipitor*) 20 mg PO DAILY [facility] Last Admin: 02/07/19 09:17 Dose: 20 mg Dextrose (Dextrose 50% Vial 50 Ml*) 25 ml IV PUSH .FOR FS < 60 - SS PRN PRN Reason: FS < 60 Digoxin (Lanoxin Tab*) 0.125 mg PO 1700 [facility] Last Admin: 02/06/19 17:32 Dose: 0.125 mg Divalproex Sodium (Depakote Sprinkle Cap*) 500 mg PO BID [facility] Last Admin: 02/07/19 09:18 Dose: 500 mg Insulin Human Lispro (Humalog*) 0 units SUBCUT [facility]; Protocol Last Admin: 02/07/19 09:16 Dose: 2 units Levetiracetam (Keppra Liq*) 250 mg PO BID [facility] Last Admin: 02/07/19 09:18 Dose: 250 mg Levothyroxine Sodium (Synthroid Tab*) 25 mcg PO 0600 [facility] Last Admin: 02/07/19 05:22 Dose: 25 mcg Metoprolol Succinate (Toprol Xl Tab*) 100 mg PO BID [facility] Last Admin: 02/07/19 09:17 Dose: 100 mg Nystatin (Nystatin Top Powder*) 1 applic TOPICAL BID PRN PRN Reason: RASH Ondansetron HCl (Zofran Inj*) 4 mg IV Q6H PRN PRN Reason: NAUSEA Pharmacy Profile Note (Coumadin Per Pharmacy*) 1 note FOLLOW UP .PER PHARMACY PROTOC [facility]; Protocol Pharmacy Profile Note (Coumadin Daily Reminder*) 1 note FOLLOW UP 1700 [facility] Last Admin: 02/06/19 17:42 Dose: 1 note Potassium Chloride (Klor Con Er Tab*) 30 meq PO BID [facility] Last Admin: 02/07/19 09:17 Dose: 30 meq Prednisone (Deltasone Tab*) 5 mg PO DAILY [facility] Last Admin: 02/07/19 09:18 Dose: 5 mg Sertraline HCl (Zoloft*) 50 mg PO DAILY [facility] Last Admin: 02/07/19 09:17 Dose: 50 mg Torsemide (Torsemide) 5 mg PO DAILY [facility] Last Admin: 02/07/19 09:17 Dose: 5 mg Warfarin Sodium (Coumadin Tab(*)) 2 mg PO 1700 [facility] Stop: 02/07/19 17:01 Vital Signs - 8 hr 02/07/19 02/07/19 07:15 08:00 Temperature 97.2 F Pulse Rate 88 Respiratory 16 16 Rate Blood Pressure 110/63 (mmHg) O2 Sat by Pulse 98 Oximetry Oxygen Devices in Use Now: None Appearance: in bed, flat affect. arousable. respond but sluggish. Eyes: No Scleral Icterus, - - EOMI Ears/Nose/Mouth/Throat: Mucous Membranes Moist Neck: NL Appearance and Movements; NL JVP, Trachea Midline Respiratory: Symmetrical Chest Expansion and Respiratory Effort, Clear to Auscultation Abdominal: NL Sounds; No Tenderness; No Distention, - - afib irregular irregular Extremities: No Edema Neurological: - - she is flat affect. she did respond to questions and follows command but very sluggist. no facial droop. 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 - Patient Problems (1) Seizures Current Visit: No Status: Chronic Code(s): R56.9 - UNSPECIFIED CONVULSIONS SNOMED Code(s): 50190306 Comment: - Seizure before admission - Started Keppra, Patient became aggressive, now transitioning to Depakote sprinkles and taper liquid Keppra per recs by neuro, by 250mg per week. currently on 250 mg bid as of 02/05 and plan to go to once a day on 02/12 for one week and stop - Sedation likely from combo of depakote and keppra wean, continue supportive care. Will check depakote level (2) Atrial fibrillation Current Visit: No Status: Chronic Code(s): I48.91 - UNSPECIFIED ATRIAL FIBRILLATION SNOMED Code(s): 75578680 Comment: - s/p RVR at admission, - Controlled on digoxin 0.125 mcg daily and and metoprolol-xl 100 mg bid, however, she has sinus pause today. I will hold off her digoxin and metoprolol for now. check EKG and Valproic acid level. - seen by Cardiology on admissions - Continue Coumadin for AC as per pharmacy input (3) HLD (hyperlipidemia) Current Visit: No Status: Chronic Code(s): E78.5 - HYPERLIPIDEMIA, UNSPECIFIED SNOMED Code(s): 61061536 Comment: - Continue atorvastatin 20 mg HS (4) HTN (hypertension) Current Visit: No Status: Chronic Code(s): I10 - ESSENTIAL (PRIMARY) HYPERTENSION SNOMED Code(s): 22834295 Comment: - continue metoprolol 100 mg bid, but held today due to sinsu pause (5) History of CVA (cerebrovascular accident) Current Visit: No Status: Chronic Code(s): Z86.73 - PRSNL HX OF TIA (TIA), AND CEREB INFRC W/O RESID DEFICITS SNOMED Code(s): 541508969 Comment: - With severe encephalomalacia, dementia and seizures - Continue statin and coumadin - appreciate neuro input (6) Hypothyroidism Current Visit: No Status: Chronic Code(s): E03.9 - HYPOTHYROIDISM, UNSPECIFIED SNOMED Code(s): 64695544 Comment: - Continue levothyroxine 25 mcg daily (7) Type II diabetes mellitus Current Visit: No Status: Chronic Comment: - On No meds - Last A1c 10/25/2018 was 8.9% - Will place her o SS and recheck A1c (8) DVT prophylaxis Current Visit: No Status: Acute Code(s): LXL7197 - SNOMED Code(s): 011533389 Comment: - INR therapeutic on coumadin Status and Disposition: Inpatient for Keppra wean. Cannot return to [place] until improved functioning. May need STR in between. Discussed with case mgmt.
[2019-02-07] MEDS ORDERED: Warfarin TAB(*) 2 MG PO ONE (17:00)
[2019-02-08] MEDS: Levothyroxine TAB* 25 MCG TAB PO SCH (05:48)
[2019-02-08 06:05] LABS: ABS Basophils 0.1 10^3/ul (0-0.2); ABS Eosinophils 0.2 10^3/ul (0-0.6); ABS Lymphocytes 3.7 10^3/ul (1.0-4.8); ABS Monocytes 0.8 10^3/ul (0-0.8); ABS Neutrophils 3.5 10^3/ul (1.5-7.7); Hematocrit 43 % (35-47); Hemoglobin 14.3 g/dL (12.0-16.0); Lymphocyte % 45.1 %; Mean Corpuscular HGB Conc 33 g/dL (31-36); Mean Corpuscular Hemoglobin 29 pg (27-31); Mean Corpuscular Volume 86 fL (80-97); Mean Platelet Volume 9.6 fL (7.4-10.4); Nucleated Red Blood Cells % 0.1; Platelet Count 222 10^3/uL (150-450); Red Blood Count 5.02 10^6 /uL (3.70-4.87); Red Cell Distribution Width 14 % (10-15); White Blood Count 8.3 10^3/uL (3.5-10.8)
[2019-02-08 06:07] LABS: INR 1.98 (0.82-1.09)
[2019-02-08 06:20] LABS: BUN/Creatinine Ratio 28.2 (8-20); Calcium 8.9 mg/dL (8.6-10.3); EGFR African American 95.6 (>60); Potassium 4.6 mmol/L (3.5-5.0)
[2019-02-08] MEDS: levETIRAcetam LIQ* 500 MG/5 ML UDC PO SCH ×2 (09:28→21:37)
[2019-02-08] MEDS: predniSONE TAB* 5 MG PO SCH (09:29)
[2019-02-08] MEDS: Potassium Chlor TAB* 10 MEQ TAB.ER PO SCH ×2 (09:29→21:42)
[2019-02-08] MEDS: Divalproex Sprinkle CAP* 125 MG PO SCH ×2 (09:29→21:42)
[2019-02-08] MEDS: Torsemide TAB 10 MG PO SCH (09:30)
[2019-02-08] MEDS: Insulin LISPRO* 1 UNITS UNIT SUBCUT SCH ×4 (09:30→21:39)
[2019-02-08] MEDS: Sertraline* 50 MG TAB PO SCH (09:30)
[2019-02-08] MEDS: Atorvastatin* 20 MG TAB PO SCH (09:30)
--- NOTE | 2019-02-08 12:16 | PN ---
Subjective Date of Service: 02/08/19 Interval History: Ms. Mosquera woke to voice and spoke 3 words to me. Would not open eyes. She feels "fine" today. When asked if anything is bothering her, she says no. Denies feeling tired. No concerns from nursing. Family History: Unchanged from Admission Social History: Unchanged from Admission Past Medical History: Unchanged from Admission Objective Active Medications: Acetaminophen (Tylenol Tab*) 650 mg PO Q6H PRN MILD PAIN or TEMP > 100.4 Atorvastatin Calcium (Lipitor*) 20 mg PO DAILY [facility] Dextrose (Dextrose 50% Vial 50 Ml*) 25 ml IV PUSH .FOR FS < 60 - SS PRN FS < 60 Divalproex Sodium (Depakote Sprinkle Cap*) 500 mg PO BID [facility] Insulin Human Lispro (Humalog*) 0 units SUBCUT [facility]; Protocol Levetiracetam (Keppra Liq*) 250 mg PO BID [facility] Levothyroxine Sodium (Synthroid Tab*) 25 mcg PO 0600 [facility] Nystatin (Nystatin Top Powder*) 1 applic TOPICAL BID PRN [facility] Ondansetron HCl (Zofran Inj*) 4 mg IV Q6H PRN NAUSEA Potassium Chloride (Klor Con Er Tab*) 30 meq PO BID [facility] Prednisone (Deltasone Tab*) 5 mg PO DAILY [facility] Sertraline HCl (Zoloft*) 50 mg PO DAILY [facility] Torsemide (Torsemide) 5 mg PO DAILY [facility] Warfarin Sodium (Coumadin Tab(*)) 2 mg PO ONCE [facility] Vital Signs - 8 hr 02/08/19 02/08/19 07:15 08:00 Temperature 98.1 F Pulse Rate 70 Respiratory 17 20 Rate Blood Pressure 140/69 (mmHg) O2 Sat by Pulse 95 Oximetry Oxygen Devices in Use Now: None Appearance: Elderly female laying in bed in NAD Neck: NL Appearance and Movements; NL JVP, Trachea Midline Respiratory: Symmetrical Chest Expansion and Respiratory Effort, - - Fine crackles bilat bases Cardiovascular: NL Sounds; No Murmurs; No JVD, RRR Abdominal: NL Sounds; No Tenderness; No Distention Neurological: - - Wakes to voice Lines/Tubes/Other Access: Clean, Dry and Intact Peripheral IV Result Diagrams: 02/08/19 05:07 02/08/19 05:02 Assess/Plan/Problems-Billing Assessment: This is an 83 yo F with a PMH of remote multifocal embolic strokes, 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 - Patient Problems (1) Seizures Code(s): R56.9 - UNSPECIFIED CONVULSIONS Comment: - Seizure activity prior to admission - EEG unremarkable for seziure activity - Appreciate Neuro consult - Was started Keppra and became aggressive, now transitioning to Depakote sprinkles and taper liquid Keppra per recs by neuro, by 250mg per week; currently on 250 mg bid as of 02/05 and plan to go to once a day on 02/12 for one week and stop - Sedation likely from combo of Depakote and Keppra wean; continue supportive care - Depakote level today therapeutic (2) Atrial fibrillation Code(s): I48.91 - UNSPECIFIED ATRIAL FIBRILLATION Comment: - RVR on admission, HR now 70-90s with one short episode of RVR overnight - Was started on digoxin 0.125 mcg daily and and metoprolol XL 100 mg bid, but developed pauses on 02/07/19 and both medications were discontinued - Cardiology consulted earlier this admission; has previously failed therapy on amiodarone and Tikosyn; recommended Toprol and digoxin - Continue Coumadin; resume Toprol 50 mg daily and monitor for pauses (3) HTN (hypertension) Code(s): I10 - ESSENTIAL (PRIMARY) HYPERTENSION Comment: - Slightly hypertensive, SBP 130-150s without medication - Resume metoprolol as above (4) Type II diabetes mellitus Comment: - Not on outpatient medication - Last A1c 8.9% in September 2018 - Continue Lispro SS (5) HLD (hyperlipidemia) Code(s): E78.5 - HYPERLIPIDEMIA, UNSPECIFIED Comment: - Continue atorvastatin (6) History of CVA (cerebrovascular accident) Code(s): Z86.73 - PRSNL HX OF TIA (TIA), AND CEREB INFRC W/O RESID DEFICITS Comment: - With severe encephalomalacia, dementia and seizures - Continue Coumadin, atorvastatin (7) Hypothyroidism Code(s): E03.9 - HYPOTHYROIDISM, UNSPECIFIED Comment: - Continue levothyroxine (8) DVT prophylaxis Comment: - Coumadin (9) Full code status Code(s): Z78.9 - OTHER SPECIFIED HEALTH STATUS Comment: Status and Disposition: Inpatient for Keppra wean. Cannot return to [place] until improved functioning. May need STR in between. Attending: Delicia Clarke
[2019-02-08] MEDS: Metoprolol Succinate XL TAB* 50 MG PO SCH (14:34)
[2019-02-08] MEDS ORDERED: Warfarin TAB(*) 2 MG PO ONE (17:00)
[2019-02-09] MEDS: Levothyroxine TAB* 25 MCG TAB PO SCH (05:33)
[2019-02-09 07:10] LABS: INR 1.49 (0.82-1.09)
[2019-02-09] MEDS: Potassium Chlor TAB* 10 MEQ TAB.ER PO SCH ×2 (09:03→20:27)
[2019-02-09] MEDS: Atorvastatin* 20 MG TAB PO SCH (09:04)
[2019-02-09] MEDS: Metoprolol Succinate XL TAB* 50 MG PO SCH (09:04)
[2019-02-09] MEDS: Torsemide TAB 10 MG PO SCH (09:04)
[2019-02-09] MEDS: Sertraline* 50 MG TAB PO SCH (09:04)
[2019-02-09] MEDS: predniSONE TAB* 5 MG PO SCH (09:05)
[2019-02-09] MEDS: levETIRAcetam LIQ* 500 MG/5 ML UDC PO SCH ×2 (09:06→20:27)
[2019-02-09] MEDS: Divalproex Sprinkle CAP* 125 MG PO SCH ×2 (09:07→20:27)
[2019-02-09] MEDS: Insulin LISPRO* 1 UNITS UNIT SUBCUT SCH ×4 (09:15→21:31)
--- NOTE | 2019-02-09 14:01 | PN ---
Subjective Date of Service: 02/09/19 Interval History: Ms. Mosquera is awake on my exam, but only answers questions by laughing. She does make eye contact when she is spoken to. Offers no complaints. No concerns from nursing. Family History: Unchanged from Admission Social History: Unchanged from Admission Past Medical History: Unchanged from Admission Objective Active Medications: Acetaminophen (Tylenol Tab*) 650 mg PO Q6H PRN MILD PAIN or TEMP > 100.4 Atorvastatin Calcium (Lipitor*) 20 mg PO DAILY [facility] Dextrose (Dextrose 50% Vial 50 Ml*) 25 ml IV PUSH .FOR FS < 60 - SS PRN FS < 60 Divalproex Sodium (Depakote Sprinkle Cap*) 500 mg PO BID [facility] Insulin Human Lispro (Humalog*) 0 units SUBCUT [facility]; Protocol Levetiracetam (Keppra Liq*) 250 mg PO BID [facility] Levothyroxine Sodium (Synthroid Tab*) 25 mcg PO 0600 [facility] Metoprolol Succinate (Toprol Xl Tab*) 50 mg PO DAILY [facility] Nystatin (Nystatin Top Powder*) 1 applic TOPICAL BID PRN [facility] Ondansetron HCl (Zofran Inj*) 4 mg IV Q6H PRN NAUSEA Potassium Chloride (Klor Con Er Tab*) 30 meq PO BID [facility] Prednisone (Deltasone Tab*) 5 mg PO DAILY [facility] Sertraline HCl (Zoloft*) 50 mg PO DAILY [facility] Torsemide (Torsemide) 5 mg PO DAILY [facility] Warfarin Sodium (Coumadin Tab(*)) 5 mg PO ONCE@1700 [facility]; Protocol Vital Signs - 8 hr 02/09/19 02/09/19 02/09/19 07:15 08:00 11:15 Temperature 96.8 F 97.4 F Pulse Rate 58 81 Respiratory 16 18 16 Rate Blood Pressure 132/56 117/83 (mmHg) O2 Sat by Pulse 92 98 Oximetry Oxygen Devices in Use Now: None Appearance: Elderly female laying in bed in NAD Ears/Nose/Mouth/Throat: Mucous Membranes Moist Neck: NL Appearance and Movements; NL JVP, Trachea Midline Respiratory: Symmetrical Chest Expansion and Respiratory Effort, Clear to Auscultation Cardiovascular: NL Sounds; No Murmurs; No JVD Abdominal: NL Sounds; No Tenderness; No Distention Neurological: - - Awake and alert Lines/Tubes/Other Access: Clean, Dry and Intact Peripheral IV Nutrition: Taking PO's Result Diagrams: 02/08/19 05:07 02/08/19 05:02 Assess/Plan/Problems-Billing Assessment: This is an 83 yo F with a PMH of remote multifocal embolic strokes, 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 - Patient Problems (1) Seizures Code(s): R56.9 - UNSPECIFIED CONVULSIONS Comment: - Seizure activity prior to admission - EEG unremarkable for seziure activity - Appreciate Neuro consult - Was started Keppra and became aggressive, now transitioning to Depakote sprinkles and taper liquid Keppra per recs by neuro, by 250mg per week; currently on 250 mg bid as of 02/05 and plan to go to once a day on 02/12 for one week and stop - Sedation likely from combo of Depakote and Keppra wean; continue supportive care - Depakote level today therapeutic (2) Atrial fibrillation Code(s): I48.91 - UNSPECIFIED ATRIAL FIBRILLATION Comment: - RVR on admission, HR now 70-90s with one short episode of RVR overnight - Was started on digoxin 0.125 mcg daily and and metoprolol XL 100 mg bid, but developed pauses on 02/07/19 and both medications were discontinued; metoprolol restarted on 02/08/19 at decreased dose with only occasional 2 sec pauses - Cardiology consulted earlier this admission; has previously failed therapy on amiodarone and Tikosyn; recommended Toprol and digoxin - Continue Coumadin, metoprolol 50mg daily (should likely not be increased any further d/t the risk of pauses) (3) HTN (hypertension) Code(s): I10 - ESSENTIAL (PRIMARY) HYPERTENSION Comment: - Normotensive, SBP 110-130s - Continue metoprolol (4) Type II diabetes mellitus Comment: - Not on outpatient medication - Last A1c 8.9% in September 2018 - Continue Lispro SS (5) HLD (hyperlipidemia) Code(s): E78.5 - HYPERLIPIDEMIA, UNSPECIFIED Comment: - Continue atorvastatin (6) History of CVA (cerebrovascular accident) Code(s): Z86.73 - PRSNL HX OF TIA (TIA), AND CEREB INFRC W/O RESID DEFICITS Comment: - With severe encephalomalacia, dementia and seizures - Continue Coumadin, atorvastatin (7) Hypothyroidism Code(s): E03.9 - HYPOTHYROIDISM, UNSPECIFIED Comment: - Continue levothyroxine (8) DVT prophylaxis Comment: - Coumadin (9) Full code status Code(s): Z78.9 - OTHER SPECIFIED HEALTH STATUS Comment: Status and Disposition: Inpatient for Keppra wean. Cannot return to [place] until improved functioning. May need STR in between. Attending: Delicia Clarke
[2019-02-09] MEDS ORDERED: Warfarin TAB(*) 5 MG PO ONE (17:00)
[2019-02-10 06:16] LABS: INR 1.24 (0.82-1.09)
[2019-02-10] MEDS: Levothyroxine TAB* 25 MCG TAB PO SCH (07:31)
[2019-02-10] MEDS: Potassium Chlor TAB* 10 MEQ TAB.ER PO SCH ×2 (09:11→21:28)
[2019-02-10] MEDS: Metoprolol Succinate XL TAB* 50 MG PO SCH (09:12)
[2019-02-10] MEDS: Torsemide TAB 10 MG PO SCH (09:13)
[2019-02-10] MEDS: Atorvastatin* 20 MG TAB PO SCH (09:13)
[2019-02-10] MEDS: Sertraline* 50 MG TAB PO SCH (09:14)
[2019-02-10] MEDS: levETIRAcetam LIQ* 500 MG/5 ML UDC PO SCH ×2 (09:14→21:30)
[2019-02-10] MEDS: predniSONE TAB* 5 MG PO SCH (09:14)
[2019-02-10] MEDS: Insulin LISPRO* 1 UNITS UNIT SUBCUT SCH ×4 (09:15→21:29)
[2019-02-10] MEDS: Divalproex Sprinkle CAP* 125 MG PO SCH ×2 (09:16→21:30)
--- NOTE | 2019-02-10 18:05 | PN ---
Subjective Date of Service: 02/10/19 Interval History: Patient seen and examined. Alert, at baseline does not follow commands. No acute overnight events per record. Chart reviewed in detail. Family History: Unchanged from Admission Social History: Unchanged from Admission Past Medical History: Unchanged from Admission Objective Active Medications: Acetaminophen (Tylenol Tab*) 650 mg PO Q6H PRN PRN Reason: MILD PAIN or TEMP > 100.4 Atorvastatin Calcium (Lipitor*) 20 mg PO DAILY [facility] Last Admin: 02/10/19 09:13 Dose: 20 mg Dextrose (Dextrose 50% Vial 50 Ml*) 25 ml IV PUSH .FOR FS < 60 - SS PRN PRN Reason: FS < 60 Divalproex Sodium (Depakote Sprinkle Cap*) 500 mg PO BID [facility] Last Admin: 02/10/19 09:16 Dose: 500 mg Insulin Human Lispro (Humalog*) 0 units SUBCUT [facility]; Protocol Last Admin: 02/10/19 17:48 Dose: Not Given Levetiracetam (Keppra Liq*) 250 mg PO BID [facility] Last Admin: 02/10/19 09:14 Dose: 250 mg Levothyroxine Sodium (Synthroid Tab*) 25 mcg PO 0600 [facility] Last Admin: 02/10/19 07:31 Dose: 25 mcg Metoprolol Succinate (Toprol Xl Tab*) 50 mg PO DAILY [facility] Last Admin: 02/10/19 09:12 Dose: 50 mg Ondansetron HCl (Zofran Inj*) 4 mg IV Q6H PRN PRN Reason: NAUSEA Pharmacy Profile Note (Coumadin Daily Reminder*) 1 note FOLLOW UP 1700 [facility] Last Admin: 02/10/19 17:48 Dose: 1 note Potassium Chloride (Klor Con Er Tab*) 30 meq PO BID [facility] Last Admin: 02/10/19 09:11 Dose: 30 meq Prednisone (Deltasone Tab*) 5 mg PO DAILY [facility] Last Admin: 02/10/19 09:14 Dose: 5 mg Sertraline HCl (Zoloft*) 50 mg PO DAILY [facility] Last Admin: 02/10/19 09:14 Dose: 50 mg Torsemide (Torsemide) 5 mg PO DAILY [facility] Last Admin: 02/10/19 09:13 Dose: 5 mg Vital Signs - 8 hr 02/10/19 02/10/19 11:30 15:15 Temperature 97.2 F 98.1 F Pulse Rate 89 93 Respiratory 20 16 Rate Blood Pressure 122/60 135/58 (mmHg) O2 Sat by Pulse 96 98 Oximetry Oxygen Devices in Use Now: None Appearance: alert, NAD Eyes: PERRLA Ears/Nose/Mouth/Throat: Mucous Membranes Moist Neck: NL Appearance and Movements; NL JVP, Trachea Midline Respiratory: Symmetrical Chest Expansion and Respiratory Effort, Clear to Auscultation Cardiovascular: - - irregular Extremities: No Edema Skin: No Rash or Ulcers Neurological: - - confused/dementia Nutrition: Taking PO's Result Diagrams: 02/08/19 05:07 02/08/19 05:02 Microbiology and Other Data: Microbiology 01/28/19 12:40 Nasal Screen MRSA (PCR) - Final Nasal Mrsa Not Detected Assess/Plan/Problems-Billing Assessment: This is an 83 yo F with a PMH of remote multifocal embolic strokes, 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 - Patient Problems (1) Seizures Code(s): R56.9 - UNSPECIFIED CONVULSIONS SNOMED Code(s): 17178231 Comment: - Seizure activity prior to admission - EEG unremarkable for seziure activity - Appreciate Neuro consult - Was started Keppra and became aggressive, now transitioning to Depakote sprinkles and taper liquid Keppra per recs by neuro, by 250mg per week; currently on 250 mg bid as of 02/05 and plan to go to once a day on 02/12 for one week and stop - Sedation likely from combo of Depakote and Keppra wean; continue supportive care - Depakote level therapeutic (2) Atrial fibrillation Code(s): I48.91 - UNSPECIFIED ATRIAL FIBRILLATION SNOMED Code(s): 28807711 Comment: - RVR on admission, HR mostly in the 70s to 90s - Short bursts of RVR, asymptomatic in the 140's, continue tele - Was started on digoxin 0.125 mcg daily and and metoprolol XL 100 mg bid, but developed pauses on 02/07/19 and both medications were discontinued; metoprolol restarted on 02/08/19 at decreased dose with only occasional 2 sec pauses - Cardiology consulted earlier this admission; has previously failed therapy on amiodarone and Tikosyn; recommended Toprol and digoxin - Continue Coumadin, metoprolol 50mg daily (should likely not be increased any further d/t the risk of pauses) (3) Rash Code(s): R21 - RASH AND OTHER NONSPECIFIC SKIN ERUPTION SNOMED Code(s): 491559347 Comment: - Resolved (4) Elevated INR Code(s): R79.1 - ABNORMAL COAGULATION PROFILE SNOMED Code(s): 681847255 Comment: - Resolved (5) HTN (hypertension) Code(s): I10 - ESSENTIAL (PRIMARY) HYPERTENSION SNOMED Code(s): 62591072 Comment: - Normotensive, SBP 110-130s - Continue metoprolol (6) History of CVA (cerebrovascular accident) Code(s): Z86.73 - PRSNL HX OF TIA (TIA), AND CEREB INFRC W/O RESID DEFICITS SNOMED Code(s): 142031635 Comment: - With severe encephalomalacia, dementia and seizures - Continue Coumadin, atorvastatin (7) DVT prophylaxis Code(s): UXT3651 - SNOMED Code(s): 434930456 Comment: - Coumadin (8) Full code status Code(s): Z78.9 - OTHER SPECIFIED HEALTH STATUS SNOMED Code(s): 676427685 Comment: Status and Disposition: Inpatient for Keronaldra wean. Cannot return to [place] until improved functioning. Discuss rehab with SW in AM.
[2019-02-10] MEDS ORDERED: Metoprolol Tartrate IV* 1 MG/ML 5 ML VIAL IV PRN (18:06)
[2019-02-11 05:23] LABS: INR 1.31 (0.82-1.09)
[2019-02-11] MEDS: Levothyroxine TAB* 25 MCG TAB PO SCH (07:12)
[2019-02-11 09:05] VITALS: BP 134/51
[2019-02-11] MEDS: Divalproex Sprinkle CAP* 125 MG PO SCH (09:47)
[2019-02-11] MEDS: Potassium Chlor TAB* 10 MEQ TAB.ER PO SCH (09:48)
[2019-02-11] MEDS: levETIRAcetam LIQ* 500 MG/5 ML UDC PO SCH (09:48)
[2019-02-11] MEDS: Metoprolol Succinate XL TAB* 50 MG PO SCH (09:49)
[2019-02-11] MEDS: predniSONE TAB* 5 MG PO SCH (09:50)
[2019-02-11] MEDS: Sertraline* 50 MG TAB PO SCH (09:50)
[2019-02-11] MEDS: Torsemide TAB 10 MG PO SCH (09:50)
[2019-02-11] MEDS: Atorvastatin* 20 MG TAB PO SCH (09:50)
[2019-02-11] MEDS: Insulin LISPRO* 1 UNITS UNIT SUBCUT SCH ×3 (09:53→13:26)
--- NOTE | 2019-02-11 14:09 | DS ---
CC: Dr. Manda Rodriguez; Dr. Alfonso Salinas, Neurology; Chelsey Saldivar NP, Cardiology * DATE OF ADMISSION: 01/28/2019. DATE OF DISCHARGE: 02/11/2019. ATTENDING PHYSICIAN: Dr. Vicky Kimble * (dictated by Juan Escobar NP ). PRIMARY CARE PHYSICIAN: Dr. Manda Rodriguez. HOSPITAL COURSE: Please refer to admitting history and physical dated 2018. In short, Ms. 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 She was prescribed Triamcinolone; however, the second time she came she was found to have a heart rate of 130. She was having tachycardia at home; however, she was discharged and told to follow-up with her primary care provider. However, after returning to the ER again, she was found to be somewhat unresponsive and did appear to have some upward gaze to the right and was possibly having some seizure activity. The patient was noted to have had seizures in the past and had recently been taken off of Keppra. The patient was also having some falls as per her and was also recently within the last couple of months taken off of Tikosyn which was being used for rate control. In any case, the patient was found to be somewhat altered, even though she has dementia she was off of her baseline, so she was admitted for her altered mental status and for her A-fib with RVR. She was also found to be somewhat fluid overloaded. She did have some edema in her legs and some elevated BNP. She was started on Prednisone for her rash. It did appear to be maculopapular in nature. She was continued on her Coumadin for her history of CVA. In terms of her A-fib, she was given rate control with Digoxin and beta yo. She received an echocardiogram and was seen by Cardiology. She was also seen by Neurology, by Dr. Frederick, given her history of CVA's and previous infarcts. She did receive CT imaging and an EEG. The patient's mental status was waxing and waning significantly. It was unclear whether this was related to additional seizure activity versus sundowning or advancing dementia-type activity. The patient had been started on her anti-seizure medications during this admission, so there was some concern that with the initiation of her anticonvulsants, that this was contributing to periods of unresponsiveness. This was also commingled with some periods of agitation and outburst behavior. Her brain CT did not show any acute changes. It did, in fact, just show her old damage. Her EEG on 2018 showed some predominantly encephalopathic changes, but there were no epileptiform discharges. She did have some nonspecified moderate diffuse encephalopathic changes and dysfunction that Dr. Frederick chose to manage medically given her physical presentation and altered mental status. During this time, her medications for her atrial fibrillation with rapid ventricular response were also titrated. The patient was noted to start having some pauses on telemetry. She was on a higher dose beta yo and also Digoxin. Even though she was having periods of RVR, these were interrupted with frequent pauses. Her beta block was titrated down and ultimately her Digoxin was weaned and stopped. Her heart rate has primarily been in atrial fibrillation in the 70s and 80s. There are periods where she does have RVR, but these are periods that are self-limiting and it is difficult to say whether she is asymptomatic or not because for the most part she is not very verbal and cannot describe her needs or her feelings; however, these periods again are self-limiting and she is no longer having pauses. In terms of her skin rash, she did respond well to Prednisone. She did have a skin biopsy on 01/30/2019. Her skin biopsy did not show any acute pathology. 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 The report also states it is favored to represent a hypersensitivity reaction, likely to a medication or other internal antigen. The rash continued to resolve during the course of her hospitalization. Overall, the patient's course was very complicated because of the patient's altered mental status and her cardiac and neurologic history. Essentially, the time in the hospital was utilized to manage her medically and titrate medications to benefit her and optimize her without overmedicating her and also without causing any further adverse side effects. The final recommendation from Neurology was to continue to wean her off her Keppra and continue her on Depakote sprinkles without oversedating the patient, minimizing any seizure activity, and then also controlling her heart rate with the lowest dose beta yo that would given her maximal control without causing pauses. On today' s examination, 02/11/2019, the patient does have significant periods of lethargy. She will open her eyes. She is not overtly responsive and does not answer questions and cannot state how she feels during review of systems. However, clinically she is stable. She has had not any major alterations in vital signs. Her laboratories have been within normal range for the last three days. Her only other issue was her INR was slightly elevated at admission. It is slightly subtherapeutic today, but her Warfarin has been continued. At this point, the patient is medically stable for discharge. She is not active enough and participating enough in her own care to return to [place]. The patient's has selected [facility] for her to be discharged to. DISCHARGE DIAGNOSES: 1. Seizures, now controlled. 2. Atrial fibrillation with RVR. 3. Maculopapular rash, now resolved. 4. Elevated INR, now resolved. 5. History of hypertension, stable. 6. History of CVA with encephalomalacia, stable. 7. History of dementia with altered mental status at baseline. SECONDARY DIAGNOSES: 1. Diabetes mellitus, type 2. 2. Hyperlipidemia. 3. Hypothyroidism. 4. COPD. MEDICATIONS FOR DISCHARGE: 1. Loperamide 2 mg daily prn. 2. Torsemide 5 mg daily. 3. Nystatin topical two times a day as needed. 4. Sertraline 50 mg p.o. daily. 5. Potassium Chloride 30 mEq p.o. b.i.d. 6. Warfarin 6 mg p.o. Monday, Monday, and Monday, and 3 mg Monday and . 7. Levothyroxine 25 mcg p.o. daily. 8. Atorvastatin 20 mg p.o. daily. 9. Prednisone 5 mg p.o. 10. Keppra 250 mg p.o. b.i.d. to be tapered by 250 mg per week until completed weaned. 11. Depakote sprinkles 500 mg p.o. b.i.d. 12. Tylenol 650 mg p.o. q.6 hours as needed for pain, fever, or headache. REVIEW OF SYMPTOMS: Unable to obtain secondary to the patient's condition. PHYSICAL EXAMINATION: General: The patient is lethargic, arousable to verbal and tactile stimulation, but otherwise in no acute distress. Vital signs: Blood pressure 134/51, heart rate 81, respiratory rate 16, 2 saturation 96 percent on room air, temperature 97.0. HEENT: The patient is atraumatic, normocephalic. PERRLA. Nonicteric sclerae. Oral mucosa is moist. Tongue is midline. Neck: Supple, nontender. No JVD noted. No thyromegaly appreciated. Cardiovascular: S1, S2 present. Rate is irregular. No murmurs, gallops or rubs noted. Chronic A- fib on telemetry with no ectopy. Lungs: Clear bilaterally to auscultation with no wheezing, rhonchi, or rales. Abdomen: Soft , nontender, nondistended. Positive bowel sounds all four quadrants. : Deferred. Musculoskeletal: There is no clubbing, no cyanosis. She has trace bipedal edema and +2 distal pulses palpable. Neurologic: She is confused at baseline, for the most part nonverbal. Can say some isolated words, but otherwise is not very talkative and cannot make her needs known. Psychiatric: Her demeanor is calm and otherwise cooperative. LABORATORY DATA: WBC 8.3, RBC 5.02, hemoglobin 14.3, hematocrit 43, platelets 222; sodium 139, potassium 4.6, chloride 104, CO2 28, BUN 20, creatinine 0.71, GFR 79, glucose 156, calcium 8.9, magnesium 2.0. IMAGING STUDIES: 1. CT of the brain at admission on 01/28/2019 shows old infarct in the right middle cerebral artery territory and an old infarct in the left cerebral hemisphere with no acute changes noted. Atrophy with chronic ischemic change. 2. Repeat CT of the head on 01/31/2019 shows chronic changes as noted on previous with no definite acute intracranial abnormalities. 3. Transthoracic echocardiogram dated 01/28/2019 shows LV systolic function at the lower limits of normal with an EF at 50 to 55 percent. Wall motion is normal. There are no regional wall motion abnormalities. LV diastolic function parameters are indeterminate. Right ventricle: Systolic function is mildly reduced; systolic pressure is moderately increased. Left atrium is moderately to severely dilated. Mitral valve: Findings are consistent with mild stenosis with mild regurgitation. Aortic valve thickening consistent with sclerosis. There was no evidence of stenosis. There was no significant regurgitation. Tricuspid valve: There is moderate-severe regurgitation. Ascending aorta appears normal. Pericardium shows no significant pericardial effusion. Compared to the study of 08/18/2015, the left ventricular function is the same. The degree of tricuspid regurgitation is slightly worse and pulmonary hypertension is sustained. 4. EEG is as noted in the body of this document above. 5. Pathology report is also noted in the body of this document above. DISPOSITION: The patient will be discharged to [facility] via ambulance transport. She is in stable condition. ACTIVITY: Progress activity as tolerated. DIET: Heart-healthy, no caffeine diet as tolerated with Glucerna with breakfast and lunch daily. FOLLOW-UP: The patient should follow-up with Dr. Rodriguez, her primary care provider after she is released from short-term rehab within one to two weeks. Also with Dr. Salinas from Neurology in four to six weeks. She may also follow-up with Cardiology, Dr. Nesbitt or Chelsey Saldivar NP in four to six weeks or on an as needed basis. Again, the patient was discharged in stable condition. All questions were directed through case management to the patient's who is satisfied with the discharge plan of care. JUAN ESCOBAR NP [id number]/[facility] #: [id number] JANEEN
== END 2019-02-11 14:11 | DRG 309 ==
LOC: ED 11:42 → MEDTELE 14:13
PROVIDERS: ADMIT Hospitalist; ATTEND Internal Medicine
PROC: 0HBJXZX Excision of Left Upper Leg Skin, External Approach, Diagnostic (ICD-10-PCS; principal; 2019-01-30)
PROC: 4A00X4Z Measurement of Central Nervous Electrical Activity, External Approach (ICD-10-PCS; 2019-02-01)
DX: I48.0 Paroxysmal atrial fibrillation (principal); G93.40 Encephalopathy, unspecified; I50.32 Chronic diastolic (congestive) heart failure; J44.9 Chronic obstructive pulmonary disease, unspecified; E03.9 Hypothyroidism, unspecified; E78.5 Hyperlipidemia, unspecified; L40.9 Psoriasis, unspecified; F32.9 Major depressive disorder, single episode, unspecified; R21 Rash and other nonspecific skin eruption; E78.00 Pure hypercholesterolemia, unspecified; I11.0 Hypertensive heart disease with heart failure; E11.36 Type 2 diabetes mellitus with diabetic cataract; F41.9 Anxiety disorder, unspecified; E11.39 Type 2 diabetes mellitus with other diabetic ophthalmic complication; H42 Glaucoma in diseases classified elsewhere; I49.5 Sick sinus syndrome; R79.89 Other specified abnormal findings of blood chemistry; G93.89 Other specified disorders of brain; R56.9 Unspecified convulsions; I47.2 Ventricular tachycardia; R79.1 Abnormal coagulation profile; I27.20 Pulmonary hypertension, unspecified; F01.50 Vascular dementia, unspecified severity, without behavioral disturbance, psychotic disturbance, mood disturbance, and anxiety; Z90.710 Acquired absence of both cervix and uterus; Z88.1 Allergy status to other antibiotic agents; Z88.8 Allergy status to other drugs, medicaments and biological substances; Z86.73 Personal history of transient ischemic attack (TIA), and cerebral infarction without residual deficits; Z82.49 Family history of ischemic heart disease and other diseases of the circulatory system; Z82.0 Family history of epilepsy and other diseases of the nervous system; Z87.891 Personal history of nicotine dependence; Z98.41 Cataract extraction status, right eye
CPT/HCPCS: 36415; 70450; 71045; 80048; 80053; 80162; 80164; 81003; 83036; 83605; 83735; 83880; 84100; 84443; 84484; 85014; 85018; 85025; 85049; 85610; 85652; 86140; 87641; 88305; 88312; 88341; 88342; 88346; 88350; 93005; 93306; 95816; 99284; A9270-GY; G8978-GP-CK; G8979-GP-CI; G8987-GO-CM; G8988-GO-CM; G8989-GO-CM; J1160; J1650; J1953; J7512

== ENCOUNTER 2019-04-05 15:44 | Inpatient (IN) | payer MEDICARE ==
--- OUTSIDE RECORDS SUMMARY | 2019-04-05 15:51 | XMS REPORT | Continuity of Care Document ---
:1935 External Reference #:[id number] Author Name Pablo Nesbitt M.D., [facility] (transmitted by agent of provider Belgica Kapadia) Address [address] [place] [address] Care Team Providers Name Role Phone Manda Rodriguez MD - Internal Care Team Information Heading And Priming Operator Medicine Pablo Nesbitt MD, [facility] - Care Team Information Heading And Priming Operator Cardiovascular Disease Maria Alejandra Woodruff MD - Dermatology Care Team Information Heading And Priming Operator Ade Srivastava MD - Surgery Care Team Information Heading And Priming Operator [phone] Zelalem Barth MD - Otolaryngology Care Team Information Heading And Priming Operator Problems Active Problems Provider Date 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 Onset: 04/18/2009 Hyperlipidemia Manda Rodriguez M.D. Onset: 04/18/2009 Elevated levels of transaminase & Manda Rodriguez M.D. Onset: 08/10/2009 lactic acid dehydrogenase Type 2 diabetes mellitus Manda Rodriguez M.D. Onset: 06/26/2011 Chest pain Pablo Nesbitt M.D., [facility], Onset: 07/29/2015 [facility] Paroxysmal atrial fibrillation aPblo Nesbitt M.D., [facility], Onset: 2016 [facility] Pulmonary hypertension Pablo Nesbitt M.D., [facility], Onset: 12/13/2017 [facility] Social History Type Date Description Comments Sex Unknown Tobacco Use Start: Unknown Currently smokes 1-5 Cigarettes Daily Tobacco Use Start: Unknown End: Former Cigarette Smoker quite 2016 Unknown Smoking Status Reviewed: 12/28/18 Former Cigarette Smoker 2016 ETOH Use Occasionally consumes alcohol Recreational Drug Use Denies Drug Use Tobacco Use Start: Unknown End: Patient is a former Unknown smoker Exercise Type/Frequency Does not exercise Allergies, Adverse Reactions, Alerts Active Allergies Reaction Severity Comments Date Altace intolerance, unknown Moderate 04/15/2009 Keflex Severe diarrhea 10/12/2010 Vantin Diarrhea 03/19/2015 Inactive Allergies Milk-related Compounds 04/11/2014 Medications Active Medications SIG Qnty Indications Ordering Date Provider Keppra 1 by mouth twice 60tabs Manda 02/12/2019 250mg Tablets a day to be Ishmael Rodriguez tapered by 250 mg a wk until completely weaned Depakote 1 by mouth twice 60tabs Manda 02/12/2019 500mg Tablets a day Ishmael Rodriguez DR Metoprolol Succinate 1 and half tabs 45tabs Manda 01/14/2019 ER once daily Ishmael Rodriguez 100mg Tablets ER 24HR Colace 100 MG Tablets one Tablet po bid 60units Manda 01/08/2019 prn Ishmael Rodriguez Warfarin Sodium pt. is to take 6 90tabs Manda 10/30/2018 6mg mg on Ishmael Rodriguez Tablets mon.wed.,fri.,and 3 mg the other days of the wk.as directed by physician, based on inr Sertraline HCL 1 by mouth every 90tabs Manda 10/04/2018 50mg day with evening Ishmael Rodriguez Tablets meal Ocuvite Eye + Multi 1 PO qd 90tabs Manda 08/02/2018 Ishmael Rodriguez Tablets Nystatin apply three times 60gm Manda 07/26/2018 [id number]/GM a day as needed Ishmael Rodriguez Cream Potassium Chloride ER 1 and 1/2 tablets 135tabs Manda 12/26/2016 by mouth once Ishmael Rodriguez 20Meq Tablets ER daily, take with evening meal Imodium A-D 2 tabs by mouth 30tabs Madna 06/30/2016 2mg Tablets with first loose Ishmael Rodriguez stool, followed by 1 by mouth as needed loose stool up to max 4 per day Levothyroxine Sodium take 1 tablet by 30tabs [facility] 03/17/2015 mouth once daily Ishmael Rodriguez 25mcg Tablets Torsemide take 1 tablet by 90tabs I10 [facility] 07/22/2013 5mg Tablets mouth once daily Ishmael Rodriguez Atorvastatin Calcium 1 tablet daily 90tabs [facility] 08/07/2012 Ishmael Rodriguez 20mg Tablets Nystop apply twice daily 15gm R21 [facility] 09/09/2010 [id number]/GM to affected areas Ishmael Rodriguez Powder History Medications [facility] Capsules daily as needed M.D. 01/08/2019 Metoprolol Succinate 1 and half by 45tabs [facility], 12/05/2018 - ER mouth every day M.D. 01/14/2019 50mg Tablets ER 24HR at night Doxycycline Hyclate 1 tab by mouth 14tabs [facility], 11/22/2018 - twice a day for 7 M.D. 12/27/2018 100mg Tablets days Metoprolol Tartrate take one tablet 60tabs [facility], 11/21/2018 - by mouth two M.D. 12/05/2018 25mg Tablets times daily Warfarin 6MG pt. to take 6 mg 90units [facility], 10/30/2018 - on Mon.,Wed.,and M.D. 10/30/2018 Fri.and 3 mg the other days of the wk as per Inr results Metoprolol Succinate 1 by mouth every 90tabs [facility], 2018 - ER day with evening M.D. 11/21/2018 50mg Tablets ER 24HR meal Medications Administered in Office Medication SIG Qnty Indications Ordering Provider Date ELIAN Starr NP 07/16/2018 Injection Inj, Regadenoson, 0.1 MG Pablo Nesbitt M.D., 09/14/2015 Injection REGGIE GREEN Technetium TC 99M Pablo Nesbitt M.D., 09/14/2015 Tetrofosmin, Per Unit Dose REGGIE GREEN Up To 40 Millicuries Injection Inj, Regadenoson, 0.1 MG Pablo Nesbitt M.D., 02/08/2013 Injection REGGIE GREEN Technetium TC 99M Pablo Nesbitt M.D., 02/08/2013 Tetrofosmin, Per Unit Dose REGGIE GREEN Up To 40 Millicuries Injection Immunizations CPT Code Status Date Vaccine Lot # [id number] Given 03/06/2018 Influenza Virus Vaccine, Quadrivalent, Split, Preservative Free [id number] Given 03/07/2017 Influenza Virus Vaccine, Quadrivalent, Split, Preservative Free [id number] Given 03/03/2016 Flu Vaccine NOS [id number] Given 03/19/2015 Influenza Virus Vaccine, Quadrivalent, Split, [id number] Preservative Free 94695 Given 01/26/2015 Pneumococcal Conjugate Vaccine 13 Valent For [id number] Intramuscular Use Q2037 Given 03/29/2014 Fluvirin Im 3Yrs And Older 81999 Given 07/09/2013 Tdap - Tetanus/Diptheria/Acellular Pertussis [id number] Given 03/08/2013 Flu Vaccine Split Virus Preservative Free For [id number] Indiv 3Yr Older Q2038 Given 01/26/2012 Fluzone Vaccine [id number] Vital Signs Date Vital Result Comment 12/28/2018 11:49am Height 61 inches 5'1" Weight 188.00 lb Heart Rate 128 /min BP Systolic 107 mmHg BP Diastolic 78 mmHg Body Temperature 96.5 F O2 % BldC Oximetry 94 % BMI (Body Mass Index) 35.5 kg/m2 07/16/2018 4:36pm Height 61 inches 5'1" Weight 184.00 lb Heart Rate 60 /min BP Systolic 133 mmHg BP Diastolic 67 mmHg Body Temperature 97.2 F O2 % BldC Oximetry 97 % BMI (Body Mass Index) 34.8 kg/m2 Results Test Date Facility Test Result H/L Range Note CBC Auto 01/28/2019 [facility] White Blood 8.0 10^3/uL Normal 3.5-10.[address] [place] [address] [phone] Red Blood Count 4.80 10^6/uL Normal 3.70-4.87 Hemoglobin 13.6 g/dL Normal 12.0-16.0 Hematocrit 41 % Normal 35-47 Mean Corpuscular Volume 86 fL Normal 80-97 Mean Corpuscular Hemoglobin 28 pg Normal 27-31 Mean Corpuscular HGB Conc 33 g/dL Normal 31-36 Red Cell Distribution Width 15 % Normal 10-15 Platelet Count 216 10^3/uL Normal 150-450 Mean Platelet Volume 9.5 fL Normal 7.4-10.4 Abs Neutrophils 5.5 10^3/uL Normal 1.5-7.7 Abs Lymphocytes 1.5 10^3/uL Normal 1.0-4.8 Abs Monocytes 0.5 10^3/uL Normal 0-0.8 Abs Eosinophils 0.5 10^3/uL Normal 0-0.6 Abs Basophils 0.1 10^3/uL Normal 0-0.2 Abs Nucleated RBC 0.0 10^3/uL Granulocyte % 68.9 % Lymphocyte % 18.6 % Monocyte % 6.0 % Eosinophil % 5.8 % Basophil % 0.7 % Nucleated Red Blood Cells % 0.0 Inr/Protime 01/28/2019 [facility] Inr 3.46 High 0.82-1.09 1 [address] [place] [address] [phone] Urinalysis Profile 01/28/2019 [facility] Urine Color Yellow [address] [place] [address] [phone] Urine Appearance Cloudy Urine Specific [place] 1.018 Normal 1.010-1.030 Urine pH 5.0 Normal 5-9 Urine Urobilinogen Negative Negative Urine Ketones Negative Negative Urine Protein Negative Negative Urine Leukocytes Negative Negative Urine Blood Negative Negative * * Abnormal Negative 2 Urine Nitrite Negative Negative Urine Bilirubin Negative Negative Urine Glucose 1+(50 mg/dL) Abnormal Negative Laboratory test 01/28/2019 [facility] Lactic Acid 1.2 mmol/L Normal 0.5-2.0 3 finding [address] [place] [address] [phone] Comp Metabolic 01/28/2019 [facility] Sodium 140 mmol/L Normal 135-[address] [place] [address] [phone] Potassium 3.8 mmol/L Normal 3.5-5.0 Chloride 106 mmol/L Normal 101-111 Co2 Carbon Dioxide 27 mmol/L Normal 22-32 Anion Gap 7 mmol/L Normal 2-11 Glucose 159 mg/dL High 70-100 Blood Urea Nitrogen 14 mg/dL Normal 6-24 Creatinine 0.80 mg/dL Normal 0.51-0.95 BUN/Creatinine Ratio 17.5 Normal 8-20 Calcium 9.4 mg/dL Normal 8.6-10.3 Total Protein 6.9 g/dL Normal 6.4-8.9 Albumin 3.7 g/dL Normal 3.2-5.2 Globulin 3.2 g/dL Normal 2-4 Albumin/Globulin Ratio 1.2 Normal 1-3 Total Bilirubin 0.90 mg/dL Normal 0.2-1.0 Alkaline Phosphatase 98 U/L Normal 34-104 Alt 10 U/L Normal 7-52 Ast 16 U/L Normal 13-39 Egfr Non- 68.8 >60 Egfr 83.3 >60 4 Laboratory test 01/28/2019 [facility] Troponin-I (TnI) 0.02 ng/ mL <0.04 [address] [place] [address] [phone] B-Type Natriuretic Peptide BNP 523 pg/mL High <=100 Magnesium 2.0 mg/dL Normal 1.9-2.7 C Reactive Protein 12.17 mg/L High <8.01 TSH (Thyroid Stim Horm) 2.25 mcIU/mL Normal 0.34-5.60 Erythrocyte Sed Rate 48 mm/Hr High 0-29 CBC Auto 01/27/2019 [facility] White Blood 8.1 10^3/uL Normal 3.5-10.[address] [place] [address] [phone] Red Blood Count 4.75 10^6/uL Normal 3.70-4.87 Hemoglobin 13.6 g/dL Normal 12.0-16.0 Hematocrit 41 % Normal 35-47 Mean Corpuscular Volume 87 fL Normal 80-97 Mean Corpuscular Hemoglobin 29 pg Normal 27-31 Mean Corpuscular HGB Conc 33 g/dL Normal 31-36 Red Cell Distribution Width 15 % Normal 10-15 Platelet Count 238 10^3/uL Normal 150-450 Mean Platelet Volume 9.7 fL Normal 7.4-10.4 Abs Neutrophils 5.3 10^3/uL Normal 1.5-7.7 Abs Lymphocytes 1.6 10^3/uL Normal 1.0-4.8 Abs Monocytes 0.6 10^3/uL Normal 0-0.8 Abs Eosinophils 0.5 10^3/uL Normal 0-0.6 Abs Basophils 0.1 10^3/uL Normal 0-0.2 Abs Nucleated RBC 0.0 10^3/uL Granulocyte % 65.6 % Lymphocyte % 19.2 % Monocyte % 7.8 % Eosinophil % 6.6 % Basophil % 0.8 % Nucleated Red Blood Cells % 0.0 Inr/Protime 01/27/2019 [facility] Inr 3.52 High 0.82-1.[address] [place] [address] [phone] Laboratory test 01/27/2019 [facility] Lactic Acid 1.2 Normal 0.5-2.0 [address] mmol/[place] [address] [phone] Comp Metabolic 01/27/2019 [facility] Sodium 136 Normal 135- [address] mmol/[place] [address] [phone] Potassium 4.0 mmol/L Normal 3.5-5.0 Chloride 103 mmol/L Normal 101-111 Co2 Carbon Dioxide 26 mmol/L Normal 22-32 Anion Gap 7 mmol/L Normal 2-11 Glucose 203 mg/dL High 70-100 Blood Urea Nitrogen 17 mg/dL Normal 6-24 Creatinine 0.86 mg/dL Normal 0.51-0.95 BUN/Creatinine Ratio 19.8 Normal 8-20 Calcium 9.5 mg/dL Normal 8.6-10.3 Total Protein 7.3 g/dL Normal 6.4-8.9 Albumin 3.9 g/dL Normal 3.2-5.2 Globulin 3.4 g/dL Normal 2-4 Albumin/Globulin Ratio 1.1 Normal 1-3 Total Bilirubin 0.60 mg/dL Normal 0.2-1.0 Alkaline Phosphatase 97 U/L Normal 34-104 Alt 12 U/L Normal 7-52 Ast 19 U/L Normal 13-39 Egfr Non- 63.3 >60 Egfr 76.6 >60 8 Laboratory test 01/27/2019 [facility] C Reactive 6.70 mg/L Normal <8.[address] [place] [address] [phone] Troponin-I (TnI) 0.03 ng/mL <0.04 9 Inr/Protime 01/09/2019 [facility] Inr 2.72 High 0.82-1.[address] [place] [address] [phone] Comp Metabolic 12/28/2018 [facility] Sodium 142 mmol/L Normal 135-[address] [place] [address] [phone] Potassium 4.2 mmol/L Normal 3.5-5.0 Chloride 106 mmol/L Normal 101-111 Co2 Carbon Dioxide 28 mmol/L Normal 22-32 Anion Gap 8 mmol/L Normal 2-11 Glucose 146 mg/dL High 70-100 Blood Urea Nitrogen 18 mg/dL Normal 6-24 Creatinine 0.84 mg/dL Normal 0.51-0.95 BUN/Creatinine Ratio 21.4 High 8-20 Calcium 9.5 mg/dL Normal 8.6-10.3 Total Protein 7.5 g/dL Normal 6.4-8.9 Albumin 4.2 g/dL Normal 3.2-5.2 Globulin 3.3 g/dL Normal 2-4 Albumin/Globulin Ratio 1.3 Normal 1-3 Total Bilirubin 0.70 mg/dL Normal 0.2-1.0 Alkaline Phosphatase 90 U/L Normal 34-104 Alt 10 U/L Normal 7-52 Ast 18 U/L Normal 13-39 Egfr Non- 65.1 >60 Egfr 78.7 >60 11 Laboratory 12/28/2018 [facility] B-Type 447 pg/mL High <=100 test finding [address] [place] [address] Peptide BNP [phone] Protime W/ Inr 12/13/2018 [facility] Inr 2.59 High 0.82-1.[address] [place] [address] [phone] Inr/Protime 11/28/2018 [facility] Inr 2.09 High 0.82-1.[address] [place] [address] [phone] Protime W/ Inr 11/22/2018 [facility] Inr 2.64 High 0.82-1.0 14, [address] 9 15 [place] [address] [phone] Protime W/ Inr 11/19/2018 Other Rendering Prothrombin <pending> Time Inr <pending> Urinalysis Profile 11/18/2018 [facility] Urine Color Straw [address] [place] [address] [phone] Urine Appearance Clear Urine Specific [place] 1.006 Low 1.010-1.030 Urine pH 7.0 Normal 5-9 Urine Urobilinogen Negative Negative Urine Ketones Negative Negative Urine Protein Negative Negative Urine Leukocytes Negative Negative Urine Blood 2+ Abnormal Negative Urine Nitrite Negative Negative Urine Bilirubin Negative Negative Urine Glucose Negative Negative Urine White Blood Cell Trace(0-5/hpf) Absent Urine Red Blood Cell Trace(0-2/hpf) Absent Urine Bacteria Absent Absent Urine Culture And 11/18/2018 [facility] Urine SEE RESULT [address] [place] [address] [phone] Protime W/ Inr 11/09/2018 [facility] Inr 2.04 High 0.[address] -1.0 [place] [address] 9 [phone] Protime W/ Inr 10/25/2018 [facility] Inr 2.34 High 0.[address] -1.0 [place] [address] 9 [phone] Comp Metabolic 10/25/2018 [facility] Sodium 139 mmol/L Normal 135- Panel [address] [place], [place] [address] [phone] Potassium 3.8 mmol/L Normal 3.5-5.0 Chloride 104 mmol/L Normal 101-111 Co2 Carbon Dioxide 27 mmol/L Normal 22-32 Anion Gap 8 mmol/L Normal 2-11 Glucose 283 mg/dL High 70-100 Blood Urea Nitrogen 15 mg/dL Normal 6-24 Creatinine 0.71 mg/dL Normal 0.51-0.95 BUN/Creatinine Ratio 21.1 High 8-20 Calcium 9.0 mg/dL Normal 8.6-10.3 Total Protein 7.0 g/dL Normal 6.4-8.9 Albumin 3.9 g/dL Normal 3.2-5.2 Globulin 3.1 g/dL Normal 2-4 Albumin/Globulin Ratio 1.3 Normal 1-3 Total Bilirubin 0.50 mg/dL Normal 0.2-1.0 Alkaline Phosphatase 94 U/L Normal 34-104 Alt 11 U/L Normal 7-52 Ast 16 U/L Normal 13-39 Egfr Non- 79.0 >60 Egfr 95.6 >60 19 Laboratory 10/25/2018 [facility] TSH (Thyroid 1.88 Normal 0.34 -5.60 test finding [address] Stim Horm) mcIU/[place] [address] [phone] Hemoglobin A1c (Glyco HGB) 8.6 % High 4.0-5.6 20 CBC Auto 10/18/2018 [facility] White Blood 8.2 10^3/uL Normal 3.5-10.[address] [place] [address] [phone] Red Blood Count 4.55 10^6/uL Normal 3.70-4.87 Hemoglobin 12.9 g/dL Normal 12.0-16.0 Hematocrit 40 % Normal 35-47 Mean Corpuscular Volume 87 fL Normal 80-97 Mean Corpuscular Hemoglobin 28 pg Normal 27-31 Mean Corpuscular HGB Conc 33 g/dL Normal 31-36 Red Cell Distribution Width 14 % Normal 10.5-15 Platelet Count 223 10^3/uL Normal 150-450 Mean Platelet Volume 9.8 fL Normal 7.4-10.4 Abs Neutrophils 4.0 10^3/uL Normal 1.5-7.7 Abs Lymphocytes 3.1 10^3/uL Normal 1.0-4.8 Abs Monocytes 0.7 10^3/uL Normal 0-0.8 Abs Eosinophils 0.3 10^3/uL Normal 0-0.6 Abs Basophils 0.1 10^3/uL Normal 0-0.2 Abs Nucleated RBC 0.0 10^3/uL Granulocyte % 49.2 % Lymphocyte % 37.7 % Monocyte % 8.2 % Eosinophil % 4.2 % Basophil % 0.7 % Nucleated Red Blood Cells % 0.0 Comp Metabolic 10/18/2018 [facility] Sodium 140 mmol/L Normal 135-[address] [place] [address] [phone] Potassium 4.2 mmol/L Normal 3.5-5.0 Chloride 104 mmol/L Normal 101-111 Co2 Carbon Dioxide 27 mmol/L Normal 22-32 Anion Gap 9 mmol/L Normal 2-11 Glucose 227 mg/dL High 70-100 Blood Urea Nitrogen 12 mg/dL Normal 6-24 Creatinine 0.59 mg/dL Normal 0.51-0.95 BUN/Creatinine Ratio 20.3 High 8-20 Calcium 8.9 mg/dL Normal 8.6-10.3 Total Protein 6.6 g/dL Normal 6.4-8.9 Albumin 3.7 g/dL Normal 3.2-5.2 Globulin 2.9 g/dL Normal 2-4 Albumin/Globulin Ratio 1.3 Normal 1-3 Total Bilirubin 0.60 mg/dL Normal 0.2-1.0 Alkaline Phosphatase 88 U/L Normal 34-104 Alt 10 U/L Normal 7-52 Ast 13 U/L Normal 13-39 Egfr Non- 97.8 >60 Egfr 118.4 >60 21 Inr/Protime 10/18/2018 [facility] Inr 3.14 High 0.82-1.[address] [place] [address] [phone] Laboratory test 10/18/2018 [facility] TSH 2.71 Normal 0.34- 5.[address] (Thyroid mcIU/[place] [address] Stim [phone] Horm) Hemoglobin A1c (Glyco HGB) 8.4 % High 4.0-5.6 23 Protime W/ Inr 10/15/2018 Other Rendering Prothrombin Time <pending> Inr <pending> CBC Auto 10/12/2018 [facility] White Blood 8.9 10^3/uL Normal 3.5-10.[address] [place] [address] [phone] Red Blood Count 4.88 10^6/uL High 3.70-4.87 Hemoglobin 14.0 g/dL Normal 12.0-16.0 Hematocrit 43 % Normal 35-47 Mean Corpuscular Volume 88 fL Normal 80-97 Mean Corpuscular Hemoglobin 29 pg Normal 27-31 Mean Corpuscular HGB Conc 33 g/dL Normal 31-36 Red Cell Distribution Width 14 % Normal 10.5-15 Platelet Count 249 10^3/uL Normal 150-450 Mean Platelet Volume 9.4 fL Normal 7.4-10.4 Abs Neutrophils 4.2 10^3/uL Normal 1.5-7.7 Abs Lymphocytes 3.5 10^3/uL Normal 1.0-4.8 Abs Monocytes 0.8 10^3/uL Normal 0-0.8 Abs Eosinophils 0.3 10^3/uL Normal 0-0.6 Abs Basophils 0.1 10^3/uL Normal 0-0.2 Abs Nucleated RBC 0.0 10^3/uL Granulocyte % 47.9 % Lymphocyte % 39.2 % Monocyte % 8.5 % Eosinophil % 3.4 % Basophil % 1.0 % Nucleated Red Blood Cells % 0.1 Inr/Protime 10/05/2018 [facility] Inr 4.29 High 0.82-1.09 24, [address] [place], [place] [id number] [phone] Urine Culture 10/01/2018 [facility] Urine Culture SEE [address] [place] [address] BELOW [phone] Laboratory test 10/01/2018 [facility] B-Type 208 High <=[address] Natriuretic pg/[place] [address] Peptide BNP [phone] Inr/Protime 10/01/2018 [facility] Inr 3.41 High 0.82-1.[address] [place] [address] [phone] CBC Auto Diff 10/01/2018 [facility] White Blood 7.3 Normal 3.5 -10.[address] Count 10^3/[place] [address] [phone] Red Blood Count 4.35 10^6/uL Normal 3.70-4.87 Hemoglobin 12.3 g/dL Normal 12.0-16.0 Hematocrit 38 % Normal 35-47 Mean Corpuscular Volume 87 fL Normal 80-97 Mean Corpuscular Hemoglobin 28 pg Normal 27-31 Mean Corpuscular HGB Conc 33 g/dL Normal 31-36 Red Cell Distribution Width 14 % Normal 10.5-15 Platelet Count 216 10^3/uL Normal 150-450 Mean Platelet Volume 9.1 fL Normal 7.4-10.4 Abs Neutrophils 3.4 10^3/uL Normal 1.5-7.7 Abs Lymphocytes 3.0 10^3/uL Normal 1.0-4.8 Abs Monocytes 0.6 10^3/uL Normal 0-0.8 Abs Eosinophils 0.2 10^3/uL Normal 0-0.6 Abs Basophils 0.1 10^3/uL Normal 0-0.2 Abs Nucleated RBC 0.0 10^3/uL Granulocyte % 47.0 % Lymphocyte % 41.1 % Monocyte % 8.2 % Eosinophil % 2.6 % Basophil % 1.1 % Nucleated Red Blood Cells % 0.1 Laboratory test 10/01/2018 [facility] Blood SEE RESULT [address] [place] [address] [phone] Comp Metabolic 10/01/2018 [facility] Sodium 140 mmol/L Normal 135-[address] [place] [address] [phone] Potassium 3.5 mmol/L Normal 3.5-5.0 Chloride 107 mmol/L Normal 101-111 Co2 Carbon Dioxide 25 mmol/L Normal 22-32 Anion Gap 8 mmol/L Normal 2-11 Glucose 168 mg/dL High 70-100 Blood Urea Nitrogen 11 mg/dL Normal 6-24 Creatinine 0.59 mg/dL Normal 0.51-0.95 BUN/Creatinine Ratio 18.6 Normal 8-20 Calcium 8.9 mg/dL Normal 8.6-10.3 Total Protein 6.9 g/dL Normal 6.4-8.9 Albumin 3.7 g/dL Normal 3.2-5.2 Globulin 3.2 g/dL Normal 2-4 Albumin/Globulin Ratio 1.2 Normal 1-3 Total Bilirubin 0.50 mg/dL Normal 0.2-1.0 Alkaline Phosphatase 79 U/L Normal 34-104 Alt 12 U/L Normal 7-52 Ast 18 U/L Normal 13-39 Egfr Non- 97.8 >60 Egfr 118.4 >60 29 Laboratory test 10/01/2018 [facility] Troponin-I (TnI) 0.01 ng/ mL <0.04 [address] [place] [address] [phone] C Reactive Protein 1.14 mg/L Normal <8.01 Lactic Acid 0.9 mmol/L Normal 0.5-2.0 31 Laboratory test 10/01/2018 [facility] Partial 49.8 High 26.0- 36.[address] [place] [address] PTT [phone] Urinalysis 10/01/2018 [facility] Urine Color Yellow Profile [address] [place] [address] [phone] Urine Appearance Clear Urine Specific [place] 1.014 Normal 1.010-1.030 Urine pH 5.0 Normal 5-9 Urine Urobilinogen Negative Negative Urine Ketones Negative Negative Urine Protein Negative Negative Urine Leukocytes Trace Abnormal Negative Urine Blood Negative Negative * * Abnormal Negative 32 Urine Nitrite Negative Negative Urine Bilirubin Negative Negative Urine Glucose 2+(150 mg/dL) Abnormal Negative Urine White Blood Cell 1+(6-10/hpf) Abnormal Absent Urine Red Blood Cell Trace(0-2/hpf) Absent Urine Bacteria 1+ Abnormal Absent Urine Squamous Epithelial Cell Present Abnormal Absent Urinalysis Profile 09/28/2018 [facility] Urine Color Yellow [address] [place] [address] [phone] Urine Appearance Cloudy Urine Specific [place] 1.013 Normal 1.010-1.030 Urine pH 5.0 Normal 5-9 Urine Urobilinogen Negative Negative Urine Ketones Negative Negative Urine Protein Negative Negative Urine Leukocytes 2+ Abnormal Negative Urine Blood Negative Negative Urine Nitrite Negative Negative Urine Bilirubin Negative Negative Urine Glucose Negative Negative Urine White Blood Cell 3+(>20/hpf) Abnormal Absent Urine Red Blood Cell Absent Absent Urine Bacteria 3+ Abnormal Absent Urine Squamous Epithelial Cell Present Abnormal Absent Urine Hyaline Casts Present Abnormal Absent Urine Culture And 09/28/2018 [facility] Urine Culture SEE RESULT [address] [place] [address] [phone] Protime W/ Inr 09/27/2018 Other Rendering Prothrombin Time <pending> Inr <pending> Inr/Protime 09/27/2018 [facility] Inr 3.63 High 0.82-1.[address] [place] [address] [phone] Inr/Protime 09/17/2018 [facility] Inr 2.34 High 0.82-1.[address] [place] [address] [phone] Protime W/ Inr 09/13/2018 [facility] Prothrombin <pending [phone] Time > Inr <pending> Protime W/ Inr 09/13/2018 [facility] Inr 1.85 High 0.77-1.[address] [place] [address] [phone] Protime W/ Inr 09/10/2018 [facility] Inr 1.74 High 0.77-1.[address] [place] [address] [phone] Inr/Protime 09/07/2018 [facility] Inr 1.40 High 0.77-1.[address] [place] [address] [phone] Standard intensity warfarin therapeutic range: 2.0-3.0 High intensity warfarin therapeutic range: 2.5-3.5 2 *Ascorbic acid is present which may interfere with detection of blood. 3 [facility] Severe Sepsis and Septic Shock Management Bundle Measure requires all lactic acids initially measuring >2.0 mmol/L be repeated. 4 Because ethnic data is not always readily available, this report includes an eGFR for both -Americans and non- Americans. The National Kidney Disease Education Program (NKDEP) does not endorse the use of the MDRD equation for patients that are not between the ages of 18 and 70, are , have extremes of body size, muscle mass, or nutritional status, or are non- or non-. According to the National Kidney Foundation, irrespective of diagnosis, the stage of the disease is based on the level of kidney function: Stage Description GFR(mL/min/1.73 m(2)) 1 Kidney damage with normal or decreased GFR 90 2 Kidney damage with mild decrease in GFR 60-89 3 Moderate decrease in GFR 30-59 4 Severe decrease in GFR 15-29 5 Kidney failure <15 (or dialysis) 5 Troponin-I testing on Plasma Separator Tubes (PST) has a known false positive rate of 0.20-0.40%. All positive troponins reflex immediately to secondary confirmatory testing. Using the Graphenea DxI 800 Access Immunoassay systems, the 99th percentile upper reference limit was demonstrated to be < 0.03 ng/mL. 6 Standard intensity warfarin therapeutic range: 2.0-3.0 High intensity warfarin therapeutic range: 2.5-3.5 7 [facility] Severe Sepsis and Septic Shock Management Bundle Measure requires all lactic acids initially measuring >2.0 mmol/L be repeated. 8 Because ethnic data is not always readily available, this report includes an eGFR for both -Americans and non- Americans. The National Kidney Disease Education Program (NKDEP) does not endorse the use of the MDRD equation for patients that are not between the ages of 18 and 70, are , have extremes of body size, muscle mass, or nutritional status, or are non- or non-. According to the National Kidney Foundation, irrespective of diagnosis, the stage of the disease is based on the level of kidney function: Stage Description GFR(mL/min/1.73 m(2)) 1 Kidney damage with normal or decreased GFR 90 2 Kidney damage with mild decrease in GFR 60-89 3 Moderate decrease in GFR 30-59 4 Severe decrease in GFR 15-29 5 Kidney failure <15 (or dialysis) 9 Troponin-I testing on Plasma Separator Tubes (PST) has a known false positive rate of 0.20-0.40%. All positive troponins reflex immediately to secondary confirmatory testing. Using the RegulatoryBinderI 800 Access Immunoassay systems, the 99th percentile upper reference limit was demonstrated to be < 0.03 ng/mL. 10 Standard intensity warfarin therapeutic range: 2.0-3.0 High intensity warfarin therapeutic range: 2.5-3.5 11 Because ethnic data is not always readily available, this report includes an eGFR for both -Americans and non- Americans. The National Kidney Disease Education Program (NKDEP) does not endorse the use of the MDRD equation for patients that are not between the ages of 18 and 70, are , have extremes of body size, muscle mass, or nutritional status, or are non- or non-. According to the National Kidney Foundation, irrespective of diagnosis, the stage of the disease is based on the level of kidney function: Stage Description GFR(mL/min/1.73 m(2)) 1 Kidney damage with normal or decreased GFR 90 2 Kidney damage with mild decrease in GFR 60-89 3 Moderate decrease in GFR 30-59 4 Severe decrease in GFR 15-29 5 Kidney failure <15 (or dialysis) 12 Standard intensity warfarin therapeutic range: 2.0-3.0 High intensity warfarin therapeutic range: 2.5-3.5 13 Standard intensity warfarin therapeutic range: 2.0-3.0 High intensity warfarin therapeutic range: 2.5-3.5 14 [id number] Standard intensity warfarin therapeutic range: 2.0-3.0 High intensity warfarin therapeutic range: 2.5-3.5 16 SEE RESULT BELOW Name: CECILIA MOSQUERA : [address]: Manda Rodriguez MD Acct: [id number] Unit: [id number] AGE: 83 Location: [facility] Re11/18/18 SEX: F Status: REG REF SPEC: [id number] JUAN: 11/18/[address]: Manda Rodriguez MD REQ: [id number] RECD: 11/18/18 STATUS: COMP _ SOURCE: URINE SPDESC: ORDERED: Urine Culture QUERIES: Urine Source: Random Procedure Result Reported Site Urine Culture Final 11/21/18- 0836 ML Organism 1 ESCHERICHIA COLI [place] Count 25-50,000 (Moderate) CFU/ML Organism 2 NORMAL REBECA [place] Count 10-25,000 (Moderate) CFU/ML 1. ESCHERICHIA COLI M.I.C. RX --------- ------ Ampicillin 4 S Cefazolin <=4 S Cefepime <=1 S Ceftriaxone <=1 S Ciprofloxacin <=0.25 S Gentamicin <=1 S Levofloxacin <=0.12 S Meropenem <=0.25 S Nitrofurantoin <=16 S Tetracycline <=1 S Pipercillin/Tazobactam <=4 S Trimethoprim/Sulfamethoxazole <=20 S Amoxicillin/Clavulanic Acid <=2 S Aztreonam <=1 S Contact the Microbiology Department for any additional antibiotic reporting. * ML - Main Lab . END OF REPORT DEPARTMENT OF PATHOLOGY, [address] [place] [address] Leeroy Fraga M.D. Director [facility] # [id number] 17 Standard intensity warfarin therapeutic range: 2.0-3.0 High intensity warfarin therapeutic range: 2.5-3.5 18 Standard intensity warfarin therapeutic range: 2.0-3.0 High intensity warfarin therapeutic range: 2.5-3.5 19 Because ethnic data is not always readily available, this report includes an eGFR for both -Americans and non- Americans. The National Kidney Disease Education Program (NKDEP) does not endorse the use of the MDRD equation for patients that are not between the ages of 18 and 70, are , have extremes of body size, muscle mass, or nutritional status, or are non- or non-. According to the National Kidney Foundation, irrespective of diagnosis, the stage of the disease is based on the level of kidney function: Stage Description GFR(mL/min/1.73 m(2)) 1 Kidney damage with normal or decreased GFR 90 2 Kidney damage with mild decrease in GFR 60-89 3 Moderate decrease in GFR 30-59 4 Severe decrease in GFR 15-29 5 Kidney failure <15 (or dialysis) 20 Therapeutic target for the treatment of diabetes mellitus patients is <7% HBA1C, and in selective patients <6.0%. Please refer to [place] [employer] diabetic care guidelines for further information. 21 Because ethnic data is not always readily available, this report includes an eGFR for both -Americans and non- Americans. The National Kidney Disease Education Program (NKDEP) does not endorse the use of the MDRD equation for patients that are not between the ages of 18 and 70, are , have extremes of body size, muscle mass, or nutritional status, or are non- or non-. According to the National Kidney Foundation, irrespective of diagnosis, the stage of the disease is based on the level of kidney function: Stage Description GFR(mL/min/1.73 m(2)) 1 Kidney damage with normal or decreased GFR 90 2 Kidney damage with mild decrease in GFR 60-89 3 Moderate decrease in GFR 30-59 4 Severe decrease in GFR 15-29 5 Kidney failure <15 (or dialysis) 22 Standard intensity warfarin therapeutic range: 2.0-3.0 High intensity warfarin therapeutic range: 2.5-3.5 23 Therapeutic target for the treatment of diabetes mellitus patients is <7% HBA1C, and in selective patients <6.0%. Please refer to [place] [employer] diabetic care guidelines for further information. 24 [id number] 25 Standard intensity warfarin therapeutic range: 2.0-3.0 High intensity warfarin therapeutic range: 2.5-3.5 26 SEE RESULT BELOW Name: CECILIA MOSQUERA : [address]: Jax Wright MD Acct: [id number] Unit: [id number] AGE: 83 Location: ED Re10/01/18 SEX: F Status: DEP ER SPEC: [id number] JUAN: 10/01/[address]: Lindsay Wright MD REQ: [id number] RECD: 10/01/18 STATUS: ELIZ SAWYER DR: Manda Rodriguez MD _ SOURCE: URINE SPDESC: ORDERED: Urine Culture Procedure Result Reported Site Urine Culture Final 10/02/18- 1614 ML No Growth (<1,000 CFU/mL) * - Main Lab . END OF REPORT DEPARTMENT OF PATHOLOGY, [address] [place] [address] Leeroy Fraga M.D. Director [facility] # [id number] 27 Standard intensity warfarin therapeutic range: 2.0-3.0 High intensity warfarin therapeutic range: 2.5-3.5 28 SEE RESULT BELOW Name: CECILIA MOSQUERA : [address]: Jax Wright MD Acct: [id number] Unit: [id number] AGE: 83 Location: ED Re10/01/18 SEX: F Status: DEP ER SPEC: [id number] JUAN: 10/01/[address]: Lindsay Wright MD REQ: [id number] RECD: 10/01/18 STATUS: ELIZ SAWYER DR: Manda Rodriguez MD _ SOURCE: BLOOD,VENO SPDESC: ORDERED: Blood Cult Procedure Result Reported Site Aerobic Culture Bottle Final 10/06/18- 1717 ML No Growth Day 5 Anaerobic Culture Bottle Final 10/06/18- 1715 ML No Growth Day 5 * ML - Main Lab . END OF REPORT DEPARTMENT OF PATHOLOGY, [address] [place] [address] Leeroy Fraga M.D. Director [facility] # [id number] 29 Because ethnic data is not always readily available, this report includes an eGFR for both -Americans and non- Americans. The National Kidney Disease Education Program (NKDEP) does not endorse the use of the MDRD equation for patients that are not between the ages of 18 and 70, are , have extremes of body size, muscle mass, or nutritional status, or are non- or non-. According to the National Kidney Foundation, irrespective of diagnosis, the stage of the disease is based on the level of kidney function: Stage Description GFR(mL/min/1.73 m(2)) 1 Kidney damage with normal or decreased GFR 90 2 Kidney damage with mild decrease in GFR 60-89 3 Moderate decrease in GFR 30-59 4 Severe decrease in GFR 15-29 5 Kidney failure <15 (or dialysis) 30 Troponin-I testing on Plasma Separator Tubes (PST) has a known false positive rate of 0.20-0.40%. All positive troponins reflex immediately to secondary confirmatory testing. Using the Graphenea DxI 800 Access Immunoassay systems, the 99th percentile upper reference limit was demonstrated to be < 0.03 ng/mL. 31 [facility] Severe Sepsis and Septic Shock Management Bundle Measure requires all lactic acids initially measuring >2.0 mmol/L be repeated. 32 *Ascorbic acid is present which may interfere with detection of blood. 33 [id number] 34 SEE RESULT BELOW Name: CECILIA MOSQUERA : [address]: Manda Rodriguez MD Acct: [id number] Unit: [id number] AGE: 83 Location: [facility] Re09/28/18 SEX: F Status: REG REF SPEC: [id number] JUAN: 09/28/18-[address]: Manda Rodriguez MD REQ: [id number] RECD: 09/28/18 STATUS: COMP _ SOURCE: URINE SPDESC: ORDERED: Urine Culture COMMENTS: [id number] QUERIES: Urine Source: Random Procedure Result Reported Site Urine Culture Final 09/29/18- 1319 ML Mixed rebeca; possible contamination. Suggest resubmission. * ML - Main Lab . END OF REPORT DEPARTMENT OF PATHOLOGY, [address] [place] [address] Leeroy Fraga M.D. Director [facility] # [id number] 35 Standard intensity warfarin therapeutic range: 2.0-3.0 High intensity warfarin therapeutic range: 2.5-3.5 36 Standard intensity warfarin therapeutic range: 2.0-3.0 High intensity warfarin therapeutic range: 2.5-3.5 Procedures Date Code Description Status 01/29/2019 48744 ECHO Transthorasic Realtime 2D W Doppler & Color Flow Completed Hosp 12/26/2017 [id number] Diabetic Retinal Eye Exam Completed 06/24/2016 [id number] Diabetic Retinal Eye Exam Completed 07/20/2015 [id number] Mammogram Completed 07/20/2015 [id number] Bone Mineral Density Test Completed 06/11/2015 [id number] Diabetic Retinal Eye Exam Completed 06/10/2015 [id number] Diabetic Retinal Eye Exam Completed 07/17/2014 [id number] Mammogram Completed 06/09/2014 [id number] Diabetic Retinal Eye Exam Completed 07/16/2013 [id number] Mammogram Completed 06/04/2013 [id number] Diabetic Retinal Eye Exam Completed 01/09/2012 [id number] Diabetic Retinal Eye Exam Completed 11/03/2011 [id number] Mammogram Completed 09/14/2010 [id number] Bone Mineral Density Test Completed 07/15/2010 [id number] Mammogram Completed 01/11/2010 [id number] Mammogram Completed 07/13/2009 [id number] Mammogram Completed 06/29/2006 [id number] Colonoscopy Completed Medical Devices Description No Information Available Encounters Type Date Location Provider Dx Diagnosis Office Visit 02/11/2019 [facility] R56.9 Unspecified 9:28a Assoc,pc Shawn, [employer] convulsions Hospitalists I48.91 Unspecified atrial fibrillation R21 Rash and other nonspecific skin eruption R79.1 Abnormal coagulation profile Office Visit 02/10/2019 9:27a [facility] R56.9 Unspecified Assoc,[facility] Shawn, convulsions Hospitalists [employer] I48.91 Unspecified atrial fibrillation I10 Essential (primary) hypertension Z86.73 Prsnl hx of TIA (TIA), and cereb infrc w/o resid deficits Office Visit 02/09/2019 9:27a [facility] Karina Lange, R56.9 Unspecified Assoc,pc [employer] convulsions Hospitalists I48.91 Unspecified atrial fibrillation I10 Essential (primary) hypertension E78.5 Hyperlipidemia, unspecified E03.9 Hypothyroidism, unspecified Z86.73 Prsnl hx of TIA (TIA), and cereb infrc w/o resid deficits Office Visit 02/08/2019 9:26a [facility] Karina Lange, R56.9 Unspecified Assoc,pc [employer] convulsions Hospitalists I48.91 Unspecified atrial fibrillation I10 Essential (primary) hypertension E78.5 Hyperlipidemia, unspecified E03.9 Hypothyroidism, unspecified Z86.73 Prsnl hx of TIA (TIA), and cereb infrc w/o resid deficits Office Visit 02/07/2019 [facility] R56.9 Unspecified 9:26a Assocpatricia M.D. convulsions Hospitalists I48.2 Chronic atrial fibrillation I10 Essential (primary) hypertension E78.5 Hyperlipidemia, unspecified E03.9 Hypothyroidism, unspecified Z86.73 Prsnl hx of TIA (TIA), and cereb infrc w/o resid deficits Office Visit 02/06/2019 [facility] R56.9 Unspecified 9:24a patricia Sanon M.D. convulsions Hospitalists I48.91 Unspecified atrial fibrillation E78.5 Hyperlipidemia, unspecified E03.9 Hypothyroidism, unspecified I10 Essential (primary) hypertension Z86.73 Prsnl hx of TIA (TIA), and cereb infrc w/o resid deficits Office Visit 02/05/2019 9:24a [facility] R56.9 Unspecified Assoc,patricia Escobar, convulsions Hospitalists [employer] R21 Rash and other nonspecific skin eruption I48.91 Unspecified atrial fibrillation I10 Essential (primary) hypertension Z86.73 Prsnl hx of TIA (TIA), and cereb infrc w/o resid deficits Office Visit 02/04/2019 9:23a [facility] Reji R56.9 Unspecified Assoc,JUSTINE Cruz convulsions Hospitalists I48.2 Chronic atrial fibrillation R21 Rash and other nonspecific skin eruption Z86.73 Prsnl hx of TIA (TIA), and cereb infrc w/o resid deficits Office Visit 02/03/2019 9:23a [facility] Reji I48.2 Chronic atrial Assoc,JUSTINE Cruz fibrillation Hospitalists R56.9 Unspecified convulsions R21 Rash and other nonspecific skin eruption I10 Essential (primary) hypertension Office Visit 02/02/2019 9:22a [facility] Reji I48.2 Chronic atrial Assoc,JUSTINE Cruz fibrillation Hospitalists R56.9 Unspecified convulsions R21 Rash and other nonspecific skin eruption Z86.73 Prsnl hx of TIA (TIA), and cereb infrc w/o resid deficits Office Visit 02/01/2019 9:22a [facility] Reji I48.2 Chronic atrial Assoc,pc Maria M, PA fibrillation Hospitalists R56.9 Unspecified convulsions R21 Rash and other nonspecific skin eruption I10 Essential (primary) hypertension Office Visit 01/31/2019 1:47p [facility] Pablo Pierce I48.2 Chronic atrial Of [facility] Ishmael Nesbitt, fibrillation FACC, FASNC Office Visit 01/31/2019 9:21a [facility] Reji I48.2 Chronic atrial Assoc,patricia Franz, PA fibrillation Hospitalists R56.9 Unspecified convulsions R21 Rash and other nonspecific skin eruption I10 Essential (primary) hypertension Office Visit 01/30/2019 3:35p [facility] Merna Barillas I48.2 Chronic atrial Of Jo Ann Quiñones fibrillation Z86.73 Prsnl hx of TIA (TIA), and cereb infrc w/o resid deficits Z79.01 detention (current) use of anticoagulants F03.90 Unspecified dementia without behavioral disturbance Office Visit 01/30/2019 [facility] Reji I48.91 Unspecified atrial 9:21a Assoc,patricia Franz, PA fibrillation Hospitalists R21 Rash and other nonspecific skin eruption R79.1 Abnormal coagulation profile R56.9 Unspecified convulsions Office Visit 01/29/2019 [facility] Reji I48.91 Unspecified atrial 9:21a Assoc,patricia Franz, PA fibrillation Hospitalists R79.1 Abnormal coagulation profile R21 Rash and other nonspecific skin eruption Office Visit 01/29/2019 11:21a [facility] Chelsey Saldivar, I48.0 Paroxysmal atrial Of [facility] [employer] fibrillation Z86.73 Prsnl hx of TIA (TIA), and cereb infrc w/o resid deficits Z79.01 detention (current) use of anticoagulants F03.90 Unspecified dementia without behavioral disturbance Office Visit 01/28/2019 9:20a [facility] Reji R41.82 Altered mental Assoc,pc Maria M, PA status, Hospitalists unspecified I48.91 Unspecified atrial fibrillation R21 Rash and other nonspecific skin eruption Office Visit 12/28/2018 11:40a [facility] Internal Manda E11.65 Type 2 diabetes Medicine - Ishmael Rodriguez mellitus with Ccmob hyperglycemia R60.0 Localized edema I48.2 Chronic atrial fibrillation Z91.81 History of falling Assessments Date Code Description Provider 02/11/2019 R56.9 Unspecified convulsions Susanna Escobar, [employer] 02/11/2019 I48.91 Unspecified atrial fibrillation Susanna Escobar, [employer]ER[employer] ADVISOR 02/11/2019 R21 Rash and other nonspecific skin Susanna Escobar, [employer]ER[employer] ADVISOR eruption 02/11/2019 R79.1 Abnormal coagulation profile Susanna Escobar, [employer]ER[employer] ADVISOR 02/10/2019 R56.9 Unspecified convulsions Susanna Escobar, [employer] ENERGY ADVISOR 02/10/2019 I48.91 Unspecified atrial fibrillation Susanna Escobar, [employer]ER[employer] ADVISOR 02/10/2019 I10 Essential (primary) hypertension Susanna Escobar, [employer]ERGY ADVISOR 02/10/2019 Z86.73 Personal history of transient Susanna Escobar, [employer] ADVISOR ischemic attack (TIA), and cerebral infarction without residual deficits 02/09/2019 R56.9 Unspecified convulsions Karina Anisa, [employer] ADVISOR 02/09/2019 I48.91 Unspecified atrial fibrillation Karina Anisa, [employer] ADVISOR 02/09/2019 I10 Essential (primary) hypertension Karina Anisa, [employer]ERGY ADVISOR 02/09/2019 E78.5 Hyperlipidemia, unspecified Karina Anisa, [employer]ER[employer] ADVISOR 02/09/2019 E03.9 Hypothyroidism, unspecified Karina Anisa, [employer]ERGY ADVISOR 02/09/2019 Z86.73 Personal history of transient Karina Anisa, [employer] ADVISOR ischemic attack (TIA), and cerebral infarction without residual deficits 02/08/2019 R56.9 Unspecified convulsions Karina Anisa, [employer] ENERGY ADVISOR 02/08/2019 I48.91 Unspecified atrial fibrillation Karina Anisa, [employer] ENERGY ADVISOR 02/08/2019 I10 Essential (primary) hypertension Karina Anisa, [employer]ERGY ADVISOR 02/08/2019 E78.5 Hyperlipidemia, unspecified Karina Anisa, [employer]ERGY ADVISOR 02/08/2019 E03.9 Hypothyroidism, unspecified Karina Anisa, [employer] ENERGY ADVISOR 02/08/2019 Z86.73 Personal history of transient Karina Anisa, [employer]ER[employer] ADVISOR ischemic attack (TIA), and cerebral infarction without residual deficits 02/07/2019 R56.9 Unspecified convulsions Sonu Morales M.D. 02/07/2019 I48.2 Chronic atrial fibrillation Sonu Morales M.D. 02/07/2019 I10 Essential (primary) hypertension Sonu Morales M.D. 02/07/2019 E78.5 Hyperlipidemia, unspecified Sonu Moussallem, M.D. 02/07/2019 E03.9 Hypothyroidism, unspecified Sonu Moussallem, M.D. 02/07/2019 Z86.73 Personal history of transient Sonu Moussallem, M.D. ischemic attack (TIA), and cerebral infarction without residual deficits 02/06/2019 R56.9 Unspecified convulsions Sonu Montenegroem M.D. 02/06/2019 I48.91 Unspecified atrial fibrillation Sonu Montenegroem M.D. 02/06/2019 E78.5 Hyperlipidemia, unspecified Sonu Moussallem, M.D. 02/06/2019 E03.9 Hypothyroidism, unspecified Sonu Moussallem, M.D. 02/06/2019 I10 Essential (primary) hypertension Sonu Morales M.D. 02/06/2019 Z86.73 Personal history of transient Sonu Moussallem, M.D. ischemic attack (TIA), and cerebral infarction without residual deficits 02/05/2019 R56.9 Unspecified convulsions Susanna Wright Shawn, [employer] ADVISOR 02/05/2019 R21 Rash and other nonspecific skin Susannakev Woofield Escobar, [employer] ENERGY ADVISOR eruption 02/05/2019 I48.91 Unspecified atrial fibrillation Susanna [place], [employer] SAL[employer] ENERGY ADVISOR 02/05/2019 I10 Essential (primary) hypertension Susanna Woofield Escobar, [employer] SAL[employer] ENERGY ADVISOR 02/05/2019 Z86.73 Personal history of transient Susannaraji Escobar, [employer]ER[employer] ADVISOR ischemic attack (TIA), and cerebral infarction without residual deficits 02/04/2019 R56.9 Unspecified convulsions JUSTINE Lujan 02/04/2019 I48.2 Chronic atrial fibrillation JUSTINE Lujan 02/04/2019 R21 Rash and other nonspecific skin JUSTINE Lujan eruption 02/04/2019 Z86.73 Personal history of transient JUSTINE Lujan ischemic attack (TIA), and cerebral infarction without residual deficits 02/03/2019 I48.2 Chronic atrial fibrillation JUSTINE Lujan 02/03/2019 R56.9 Unspecified convulsions JUSTINE Lujan 02/03/2019 R21 Rash and other nonspecific skin Reji [place] eruption 02/03/2019 I10 Essential (primary) hypertension Re[place] 02/02/2019 I48.2 Chronic atrial fibrillation Reji [place] 02/02/2019 R56.9 Unspecified convulsions Reji Maria M, [place] 02/02/2019 R21 Rash and other nonspecific skin Reji [place] eruption 02/02/2019 Z86.73 Personal history of transient Reji Franz PA ischemic attack (TIA), and cerebral infarction without residual deficits 02/01/2019 I48.2 Chronic atrial fibrillation Reji Maria M, [place] 02/01/2019 R56.9 Unspecified convulsions Reji [place] 02/01/2019 R21 Rash and other nonspecific skin Reji Maria M, [place] eruption 02/01/2019 I10 Essential (primary) hypertension Reji [place] 01/31/2019 I48.2 Chronic atrial fibrillation Re[place] 01/31/2019 I48.2 Chronic atrial fibrillation Pablo Nesbitt M.D., [facility] 01/31/2019 R56.9 Unspecified convulsions Reji [place] 01/31/2019 R21 Rash and other nonspecific skin Reji [place] eruption 01/31/2019 I10 Essential (primary) hypertension Re[place] 01/30/2019 I48.2 Chronic atrial fibrillation Merna Barillas M.D. 01/30/2019 I48.91 Unspecified atrial fibrillation Reji Franz, [place] 01/30/2019 Z86.73 Personal history of transient Merna Barillas M.D. 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 anticoagulants 01/30/2019 R79.1 Abnormal coagulation profile Reji Franz PA 01/30/2019 F03.90 Unspecified dementia without Merna Barillas M.D. behavioral disturbance 01/30/2019 R56.9 Unspecified convulsions Reji Franz PA 01/29/2019 I48.0 Paroxysmal atrial fibrillation Chelsey Saldivar NP 01/29/2019 I48.91 Unspecified atrial fibrillation Reji Franz [place] 01/29/2019 Z86.73 Personal history of transient Chelsey Saldivar NP ischemic attack (TIA), and cerebral infarction without residual deficits 01/29/2019 R79.1 Abnormal coagulation profile JUSTINE Lujan 01/29/2019 Z79.01 detention (current) use of Chelsey Saldivar NP anticoagulants 01/29/2019 R21 Rash and other nonspecific skin JUSTINE Lujan eruption 01/29/2019 F03.90 Unspecified dementia without Chelsey Saldivar NP behavioral disturbance 01/29/2019 I50.9 Heart failure, unspecified Yogesh Wilson M.D. 01/28/2019 R41.82 Altered mental status, unspecified JUSTINE Lujan 01/28/2019 I48.91 Unspecified atrial fibrillation JUSTINE Lujan 01/28/2019 R21 Rash and other nonspecific skin JUSTINE Lujan eruption 12/28/2018 E11.65 Type 2 diabetes mellitus with Manda Rodriguez M.D. hyperglycemia 12/28/2018 R60.0 Localized edema Manda Rodriguez M.D. 12/28/2018 I48.2 Chronic atrial fibrillation Manda Rodriguez M.D. 12/28/2018 Z91.81 History of falling Manda Rodriguez M.D. Plan of Treatment 12/28/2018 - Manda Rodriguez M.D.E11.65 Type 2 diabetes mellitus with hyperglycemiaComments:Recheck A1c end of - hold off on any new medication until thenFollow up:please cancel the 01/15 appt, see me in NdewkqfoU09.0 Localized edemaComments:Call Dr. Nesbitt's office about an appointment [phone] Please make sure she has the METOPROLOL SUCCINATE 50 MG - take at dinner time with other medsCheck blood pressure and heart rate once dailyCall me on Monday with BP and heart rateI48.2 Chronic atrial fibrillationComments:Your heart rate is too fast. We need to increase the [id number] History of falling Functional Status Description No Information Available Mental Status Description No Information Available Referrals Description No Information Available
--- NOTE | 2019-04-05 15:57 | ED ---
Complex/Multi-Sys Presentation - HPI Summary HPI Summary: 83 year old F brought in by EMS to [facility] accompanied by complains of elevated INR minutes ago. Patient had blood work done recently and was called today about elevated INR and was referred to ED. states patient has been fatigue, lethargic, drowsy for the past 2-3 weeks. states patient has been sleeping a lot and has had increasing difficulty with eating food and drinking fluids. Mild cough and no diarrhea per . denies fever, chills, erythema of eyes, sore throat, chest pain, shortness of breath, abdominal pain, nausea/vomiting, dysuria, hematuria, myalgia, edema, rash, or dizziness. Symptoms aggravated by nothing. Symptoms alleviated by nothing. notes recent increase in dose for seizure medications. states patient was recently discharged from [place] where she was receiving rehab after having a fall back to [place]. Hx UTI per . - History Of Current Complaint Time Seen by Provider: 04/05/19 15:47 Hx Obtained From: Family/Cork [employer]er - Onset/Duration: Lasting Minutes, Lasting Weeks, Still Present Timing: Constant Aggravating Factor(s): Nothing Alleviating Factor(s): Nothing Associated Signs And Symptoms: Positive: Other - fatigue, lethargic, drowsy, mild cough; NEG: fever, chills, erythema of eyes, sore throat, chest pain, shortness of breath, abdominal pain, nausea/vomiting, diarrhea, dysuria, hematuria, myalgia, edema, rash, or dizziness. - Allergies/Home Medications Allergies/Adverse Reactions: Allergies Allergy/AdvReac Type Severity Reaction Status Date / Time cephalexin Allergy Diarrhea Verified 04/05/19 15:56 lactose Allergy Diarrhea Verified 04/05/19 15:56 ramipril [From Altace] Allergy Unknown Verified 04/05/19 15:56 Reaction Details Home Medications: Home Medications Metoprolol Tartrate TAB* [Lopressor TAB*] 50 mg PO BID 04/05/19 [History Confirmed 04/05/19] Potassium Chlor TAB* [Klor Con ER TAB*] 30 meq PO BID 04/05/19 [History Confirmed 04/05/19] Warfarin TAB(*) [Coumadin TAB(*)] 4 mg PO DAILY 04/05/19 [History Confirmed 01/14] PMH/Surg Hx/FS Hx/Imm Hx Endocrine/Hematology History: Reports: Hx Anticoagulant Therapy, Hx Diabetes - DM II, Hx Thyroid Disease - ON DAILY MEDS Cardiovascular History: Reports: Hx Congestive Heart Failure, Hx Hypercholesterolemia, Hx Hypertension - ON MEDS, Other Cardiovascular Problems/ Disorders - 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, IDDM II Respiratory History: Reports: Hx Chronic Obstructive Pulmonary Disease (COPD) GI History: Reports: Other GI Disorders - gallstones Musculoskeletal History: Reports: Hx Back Problems Sensory History: Reports: Hx Cataracts, Hx Glaucoma Denies: Hx Contacts or Glasses, Hx Eye Injury, Hx Eye Prosthesis, Hx Legally Blind, Hx Macular Degeneration, Hx Vision Problem, Hx Deafness, Hx Hearing Aid, Hx Hearing Problem, Other Sensory Impairments Opthamlomology History: Reports: Hx Cataracts, Hx Glaucoma Denies: Hx Contacts or Glasses, Hx Eye Injury, Hx Eye Prosthesis, Hx Legally Blind, Hx Macular Degeneration, Hx Vision Problem, Other Sensory Impairments Neurological History: Reports: Hx Dementia, Hx Seizures, Hx Transient Ischemic Attacks (TIA) Denies: Hx Developmental Delay, Hx Headaches, Hx Migraine, Hx Nerve Disease, Hx Spinal Cord Injury Psychiatric History: Reports: Hx Anxiety - ON MEDS, Hx Depression - Cancer History Hx Chemotherapy: No Hx Radiation Therapy: No - Surgical History Surgery Procedure, Year, and Place: 1944 TONSILLECTOMY. 1984 HYSTERECTOMY AND APPENDECTOMY. 2011 RETINA SURGERY- RIGHT EYE- [place]. BREAST BIOPSY- [facility]. 12/18/13 RT EYE CATARACT [facility] Hx Anesthesia Reactions: No Infectious Disease History: Denies: Hx Clostridium Difficile, Hx Hepatitis, Hx Human Immunodeficiency Virus (HIV), Hx of Known/Suspected MRSA, Hx Shingles, Hx Tuberculosis, Hx Known/ Suspected VRE, Hx Known/Suspected VRSA, History Other Infectious Disease, Traveled Outside the [place] in Last 30 Days - Family History Known Family History: Positive: Cardiac Disease, Hypertension - Social History Alcohol Use: None Alcohol Amount: REFRAINS NOW BECAUSE OF MEDS Hx Substance Use: No Substance Use Type: Reports: None Hx Tobacco Use: Yes Smoking Status (MU): Former Smoker Type: Cigarettes Amount Used/How Often: LESS THEN 1/2PPD CIGARETTES PER DAY X 60 YEARS Have You Smoked in the Last Year: Yes Review of Systems Positive: Fatigue, Other - lethargy, drowsiness. Negative: Fever, Chills Negative: Erythema Negative: Sore Throat Negative: Chest Pain Positive: Cough. Negative: Shortness Of Breath Negative: Abdominal Pain, Vomiting, Diarrhea, Nausea Negative: dysuria, hematuria Negative: Myalgia, Edema Negative: Rash Neurological: Negative - Dizziness All Other Systems Reviewed And Are Negative: Yes Physical Exam - Summary Physical Exam Summary: Constitutional: Well-developed, Well-nourished, Alert. (-) Distressed Skin: Warm, Dry HENT: Normocephalic; Atraumatic. Dry oral mucosa. Eyes: Conjunctiva normal Neck: Musculoskeletal ROM normal neck. (-) JVD, (-) Stridor, (-) Tracheal deviation Cardio: Rhythm regular, rate normal, Heart sounds normal; Intact distal pulses; The pedal pulses are 2+ and symmetric. Radial pulses are 2+ and symmetric. (-) Murmur Pulmonary/Chest wall: Effort normal. Bibasilar crackles Abd: Soft, (-) tenderness, (-) Distension, (-) Guarding, (-) Rebound Musculoskeletal: Trace edema Lymph: (-) Cervical adenopathy Neuro: Alert, Oriented x3 Psych: Mood and affect Normal Triage Information Reviewed: Yes Vital Signs Reviewed: Yes Procedures - Sedation Patient Received Moderate/Deep Sedation with Procedure: No Diagnostics - Laboratory Result Diagrams: 04/05/19 16:22 04/05/19 16:22 Lab Statement: Any lab studies that have been ordered have been reviewed, and results considered in the medical decision making process. - Radiology CXR Radiology Interpretation Completed By: Radiologist Summary of Radiographic Findings: NO ACUTE CARDIOPULMONARY PROCESS BY RADIOGRAPH. ED physician has reviewed this report. Re-Evaluation - Re-Evaluation First Eval Re-Evaluation Time: 17:13 Change: Unchanged Comment: per nurse, patient was catheterized which revealed 50 mL cloudy urine Complex Multi-Symp Course/Dx Course Of Treatment: 83 year old F brought in by EMS complains of elevated INR minutes ago, and worsening fatigue, lethargic, drowsy, mild cough for the past 2 -3 weeks. Upon exam, the patient has bibasilar crackles, trace edema, and dry oral mucosa. Bloodwork results with no significant abnormalities except for RBC 5.20, RDW 17, platelet count 133, MPV 11.5, INR 9.98, APTT 78.1, creatinine 0.96, BUN/creatinine 24.0, glucose 127. Urinalysis results with no significant abnormalities except for blood 2+, nitrate, leukocyte esterase 3+, WBC 3+, RBC 3 +, squamous epithelial cells, and hyaline casts. CXR shows, per radiologist: NO ACUTE CARDIOPULMONARY PROCESS BY RADIOGRAPH. In the ED course, the patient was given normal saline 1 L IV[address] with [address]. Kimble, hospitalist, who agrees to admit patient. The patient will be admitted to the hospitalist. The patient and her are agreeable with this plan. - Diagnoses Provider Diagnoses: UTI (urinary tract infection), Dehydration - Physician Notifications Discussed Care Of Patient With: Vicky Kimble Time Discussed With Above Provider: 18:53 Instructed by Provider To: Other - Dr. Kimble, hospitalist, agrees to admit patient Discharge ED - Sign-Out/Discharge Documenting (check all that apply): Patient Departure - Admit - Discharge Plan Disposition: ADMITTED TO [facility] Referrals: Manda Rodriguez MD [Primary Care Provider] - Additional Instructions: Hold Coumadin. Recheck blood on Sunday 04/08. - Attestation Statements Document Initiated by Scribe: Yes Documenting Scribe: Yasmeen Joseph Provider For Whom Scribe is Documenting (Include Credential): Jostin Ho MD Scribe Attestation: I, Yasmeen Joseph, scribed for Jostin Ho MD on 04/05/19 at 1932. Status of Scribe Document: Ready
[2019-04-05] MEDS ORDERED: NS 0.9% 1000 ML** 2,000 ML IV ONE (15:58)
[2019-04-05 16:32] LABS: ABS Basophils 0.1 10^3/ul (0-0.2); ABS Eosinophils 0.1 10^3/ul (0-0.6); ABS Lymphocytes 2.1 10^3/ul (1.0-4.8); ABS Monocytes 0.6 10^3/ul (0-0.8); ABS Neutrophils 3.2 10^3/ul (1.5-7.7); Eosinophil % 1.1 %; Hematocrit 45 % (35-47); Hemoglobin 14.5 g/dL (12.0-16.0); Lymphocyte % 34.9 %; Mean Corpuscular HGB Conc 32 g/dL (31-36); Mean Corpuscular Hemoglobin 28 pg (27-31); Mean Corpuscular Volume 86 fL (80-97); Mean Platelet Volume 11.5 fL (7.4-10.4); Nucleated Red Blood Cells % 0.1; Platelet Count 133 10^3/uL (150-450); Red Cell Distribution Width 17 % (10-15); White Blood Count 5.9 10^3/uL (3.5-10.8)
[2019-04-05 16:51] LABS: Troponin I 0.03 ng/mL (<0.04)
[2019-04-05 16:52] LABS: Albumin 3.7 g/dL (3.2-5.2); Albumin/Globulin Ratio 1.1 (1-3); Calcium 9.3 mg/dL (8.6-10.3); EGFR African American 67.5 (>60); EGFR Non-African American 55.8 (>60); Globulin 3.3 g/dL (2-4); Potassium 4.7 mmol/L (3.5-5.0); Total Bilirubin 0.5 mg/dL (0.2-1.0)
[2019-04-05 17:07] LABS: Activated Partial Thrombo Time 78.1 seconds (26.0-38.0)
[2019-04-05 17:08] LABS: INR 9.98 (0.82-1.09)
[2019-04-05 17:28] LABS: Urine Appearance Cloudy; Urine Bacteria Absent (Absent); Urine Bilirubin Negative (Negative); Urine Blood 2+ (Negative); Urine Color Yellow; Urine Glucose Negative (Negative); Urine Ketones Negative (Negative); Urine Nitrite Positive (Negative); Urine Protein Negative (Negative); Urine Red Blood Cell 3+(>10/hpf) (Absent); Urine Specific Gravity 1.013 (1.010-1.030); Urine Squamous Epithelial Cell Present (Absent); Urine Urobilinogen Negative (Negative); Urine White Blood Cell 3+(>20/hpf) (Absent)
[2019-04-05] MEDS ORDERED: Ciprofloxacin 400MG IVPREMIX(* 400 MG/200 ML BAG IVPB ONE (18:34)
[2019-04-05] MEDS ORDERED: Acetaminophen TAB* 325 MG PO PRN (21:41)
[2019-04-05] MEDS ORDERED: Nystatin TOP POWDER* 15 GM BTL TOPICAL PRN (21:41)
[2019-04-05] MEDS: NS 0.9% 1000 ML** 1,000 ML IV SCH (23:11)
[2019-04-05] MEDS: Metoprolol Tartrate TAB* 50 mg PO SCH (23:16)
--- NOTE | 2019-04-05 23:22 | HP ---
CC: Dr. Manda Rodriguez.* ADMISSION HISTORY AND PHYSICAL: DATE OF ADMISSION: 04/05/19 PRIMARY CARE PHYSICIAN: Dr. Manda Rodriguez. MANAGER MOTOR: Dr. Yogesh Wilson. NEUROLOGIST: Dr. Frederick. CHIEF COMPLAINT: Altered mental status and elevated INR. HISTORY OF PRESENT ILLNESS: This is an 83-year-old female with a past medical history of multiple CVAs; AFib, on Coumadin; COPD; dementia; seizures disorder, who was sent from [facility] after her INR was noted to be elevated. The patient was recently discharged from [facility] and at baseline is mostly wheelchair bound and needs assistance with ambulation, and for the last 1 week after she was discharged to [facility] she has had decreased mental status and constantly falling asleep even during her feeding and has much more lethargy, but she was still compliant with her medications including Coumadin and today when level was done, it was elevated to 9. So, the primary care provider sent her to the ER for evaluation. She was noted to have a UTI and the hospitalist service was called for admission. No further history can be obtained from the patient as she does have dementia and mostly sleeps in the ER bed. Rest of the history was obtained by discussing with her who is her primary care health proxy and stepdaughter who is the secondary healthcare proxy. Per them, she did not complain of any pain anywhere else in the body, no diarrhea or vomiting and no seizure like activity. PAST MEDICAL HISTORY: As mentioned COPD; AFib; hypothyroidism; hyperlipidemia; multiple CVAs; dementia; psoriasis; history of seizures; documentation of type 2 diabetes, however, not on any diabetic medication and a history of depression. PAST SURGICAL HISTORY: Includes tonsillectomy, adenoidectomy, hysterectomy, appendectomy and breast surgery. HOME MEDICATIONS: The patient is currently on: 1. Klor-Con 30 mEq oral daily. 2. Loperamide 2 mg daily p.r.n. 3. Tylenol 650 mg q.6 hours p.r.n. 4. Nystatin topical powder p.r.n. for rash. 5. Metoprolol 50 mg p.o. b.i.d. 6. Demadex 5 mg oral daily. 7. Depakote 500 mg p.o. b.i.d. 8. Prednisone 5 mg recently given, but currently off the medications. 9. Zoloft 50 mg oral daily. 10. Synthroid 75 mcg oral daily. 11. Coumadin 4 mg oral daily. 12. Atorvastatin 20 mg oral daily. ALLERGIES: The patient was documented to be allergic to CEPHALEXIN which causes diarrhea, LACTULOSE causes diarrhea and RAMIPRIL causes unknown reactions. FAMILY HISTORY: Father of an ME at age 55. Mother of medical complications at age 91. Sister is alive and has mild dementia. SOCIAL HISTORY: The patient has 70 pack year history of smoking, currently no longer smokes. No documentation of any alcohol or drug use. 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 She is , has 2 children. is the surrogate decision maker and the patient has signed the DNR in the past and a new MOLST form was updated today, which indicates the patient is DNR and DNI according to the , who is the primary healthcare proxy and stepdaughter who was present at bedside agreed, who is the secondary surrogate decision maker. She otherwise was living at [facility] up until a week ago when she was transferred to [facility] in their dementia unit. REVIEW OF SYSTEMS: Unable to obtain due to the patient's dementia and per , the 14-point review of systems was otherwise negative. PHYSICAL EXAMINATION GENERAL: The patient is arousable, but difficult to understand, so orientation is unclear. VITAL SIGNS: In the ER, T-max was recorded at 98 degrees Fahrenheit, heart rate was noted to be elevated at 126 beats per minute, BP was noted to be 144/95 , respiration rate 21, saturating 94% on room air. HEAD AND NECK: Atraumatic, normocephalic. Bilateral pupils are reactive. Oral mucosa was very dry. NECK: Supple. No jugular venous distention. LUNGS: Clear to auscultation bilaterally. No wheezing, rhonchi, rales. HEART: S1, S2. Irregularly irregular tachycardia. ABDOMEN: Soft, nontender, and nondistended. EXTREMITIES: The patient does have some petechial lesions on the lower extremity with minimal erythema. There was no edema noted. DIAGNOSTIC STUDIES/LAB DATA: CBC shows normal white count, hemoglobin, hematocrit were within normal limits. Platelets were minimally decreased at 113. Coagulation profile shows elevated INR at 9.98. Comprehensive metabolic panel was remarkable for minimally elevated creatinine 0.96 compared to her baseline which was around 0.71. Lactic acid initially was 2.0. Secondary lactic acid was noted to be minimally elevated at 2.1. Cardiac enzymes were negative. LFTs were within normal limits. Urinalysis was positive for both leukocyte esterase and nitrite and 2+ positive for blood, valproic acid level was noted to be elevated at 116. Chest x-ray was read as no acute cardiopulmonary process by radiologist. IMPRESSION: This is an 83-year-old female with multiple medical problems, here due to elevated INR, noted to have some urinary tract infection and minimally elevated lactic acid and elevated creatinine suggestive of prerenal azotemia likely secondary to dehydration due to decreased p.o. intake and possibly compliance with diuretics that she was prescribed. ASSESSMENT: 1. Elevated INR. No acute bleeding noted, so we will just hold her Coumadin for now and repeat INR on a daily basis. 2. Urinary tract infection. The patient was given a dose of Cipro but we will change it to doxycycline as her previous urine culture from 11/18/18 was positive for E. coli, which was sensitive to tetracyclines as ciprofloxacin would be cross reacting with Coumadin that she was already scheduled to take especially given her elevated INR. 3. Elevated lactic acid likely secondary to dehydration. Continue hydration and repeat a lactic acid level in the morning. 4. Prerenal azotemia/dehydration likely secondary to decreased p.o. intake which could be from her worsening mental status. We will continue with IV hydration and hold off her diuretics. 5. History of atrial fibrillation. No EKG done at this point. We will order an EKG as on telemetry the patient's rhythm does appear to be in atrial fibrillation with tachycardia. We will restart her metoprolol. The patient is already on anticoagulation with Coumadin. Her previous echocardiogram shows preserved ejection fraction from January 2019. 6. History of seizure disorder, but her last EEG from January 2019 was read as abnormal due to presence of diffuse slowing and triphasic waves over the frontal region suggestive of nonspecific moderate diffuse encephalopathy with superimposed multifocal neural dysfunction consistent with the patient's history of remote stroke. There is no evidence of any epileptiform discharges or electrographic seizures. Based on this and the fact that her valproic acid is elevated, we would decrease the dose of her Depakote, although it is unclear if she even needs it. Depakote itself could also be contributing to her decreased mental status on top of the urinary tract infection. 7. History of hypothyroidism. Continue levothyroxine. 8. History of chronic obstructive pulmonary disease, currently stable. 9. History of dyslipidemia, restart her Lipitor. 10. History of depression, restart her sertraline. 11. DVT prophylaxis: The patient is already on supratherapeutic INR. 12. Code status: The patient's just confirmed DNR and DNI with no feeding tube, but okay with IV fluids and admitting to the hospital and antibiotics for now. MOLST has been updated. [id number]/CPS #: [id number] MTDD
[2019-04-05] MEDS: DOXYcycline IV* 100 MG in NS 0.9% 250 ML* 250 ML IVPB SCH (23:50)
[2019-04-06 04:59] LABS: ABS Basophils 0.1 10^3/ul (0-0.2); ABS Eosinophils 0.1 10^3/ul (0-0.6); ABS Lymphocytes 2.3 10^3/ul (1.0-4.8); ABS Monocytes 0.9 10^3/ul (0-0.8); ABS Neutrophils 4.7 10^3/ul (1.5-7.7); Eosinophil % 1.8 %; Hematocrit 44 % (35-47); Hemoglobin 14.2 g/dL (12.0-16.0); Lymphocyte % 28.6 %; Mean Corpuscular HGB Conc 33 g/dL (31-36); Mean Corpuscular Hemoglobin 28 pg (27-31); Mean Corpuscular Volume 86 fL (80-97); Nucleated Red Blood Cells % 0.1; Platelet Count 125 10^3/uL (150-450); Red Blood Count 5.07 10^6 /uL (3.70-4.87); Red Cell Distribution Width 16 % (10-15); White Blood Count 8.1 10^3/uL (3.5-10.8)
[2019-04-06 05:12] LABS: BUN/Creatinine Ratio 25.9 (8-20); Calcium 8.8 mg/dL (8.6-10.3); EGFR African American 77.7 (>60); EGFR Non-African American 64.2 (>60)
[2019-04-06 05:29] LABS: INR >10.00 (0.82-1.09)
[2019-04-06] MEDS: Levothyroxine TAB* 25 MCG TAB PO SCH (06:03)
[2019-04-06] MEDS ORDERED: Phytonadione Oral Solution* 5 MG/25 ML UDC PO ONE (08:09)
[2019-04-06] MEDS: Divalproex Sprinkle CAP* 125 MG PO SCH ×2 (08:44→20:17)
[2019-04-06] MEDS: DOXYcycline IV* 100 MG in NS 0.9% 250 ML* 250 ML IVPB SCH (08:44)
[2019-04-06] MEDS: Atorvastatin* 20 MG TAB PO SCH (08:45)
[2019-04-06] MEDS: Sertraline* 50 MG TAB PO SCH (08:45)
[2019-04-06] MEDS: Metoprolol Tartrate TAB* 50 mg PO SCH (08:45)
[2019-04-06] MEDS ORDERED: predniSONE TAB* 5 MG PO SCH (09:00)
--- NOTE | 2019-04-06 12:12 | PN ---
Subjective Date of Service: 04/06/19 Interval History: afebrile No acute events overnight. Had a restless night in re: sleep. INR increased to >10 from 9.98. given vitamin K po this AM (enticed with ice cream) Afib mostly 120s on telemetry minimally verbal, eventually follows commands in all extremities, [place] Objective Active Medications: Acetaminophen (Tylenol Tab*) 650 mg PO Q6H PRN PRN Reason: MILD PAIN or TEMP > 100.4 Atorvastatin Calcium (Lipitor*) 20 mg PO DAILY [facility] Last Admin: 04/06/19 08:45 Dose: 20 mg Divalproex Sodium (Depakote Sprinkle Cap*) 250 mg PO BID [facility] Last Admin: 04/06/19 08:44 Dose: 250 mg Sodium Chloride (Ns 0.9% 1000 Ml) 1,000 mls @ 100 mls/hr IV PER RATE [facility] Last Admin: 04/05/19 23:11 Dose: 100 mls/hr Doxycycline Hyclate 100 mg/ (Sodium Chloride) 250 mls @ 250 mls/hr IVPB Q12HR [facility] Last Admin: 04/06/19 08:44 Dose: 250 mls/hr Levothyroxine Sodium (Synthroid Tab*) 25 mcg PO DAILY@0600 [facility] Last Admin: 04/06/19 06:03 Dose: 25 mcg Metoprolol Tartrate (Lopressor Tab*) 50 mg PO BID [facility] Last Admin: 04/06/19 08:45 Dose: 50 mg Nystatin (Nystatin Top Powder*) 1 applic TOPICAL BID PRN PRN Reason: RASH Sertraline HCl (Zoloft*) 50 mg PO DAILY [facility] Last Admin: 04/06/19 08:45 Dose: 50 mg Vital Signs - 8 hr 04/06/19 07:20 Temperature 97 F Pulse Rate 120 Respiratory 20 Rate Blood Pressure 147/95 (mmHg) O2 Sat by Pulse 91 Oximetry Oxygen Devices in Use Now: None Appearance: No acute distress, lying in bed, eyes open Eyes: No Scleral Icterus Ears/Nose/Mouth/Throat: NL Teeth, Lips, Gums Neck: NL Appearance and Movements; NL JVP Respiratory: Symmetrical Chest Expansion and Respiratory Effort, Clear to Auscultation Cardiovascular: - - tachycardic, no m/r/g Extremities: No Edema Skin: No Rash or Ulcers Neurological: - - minimally verbal, mumbles few words. squeezes both hands, wiggles both toes. Result Diagrams: 04/06/19 04:43 04/06/19 04:43 Additional Lab and Data: Laboratory Results - last 24 hr 04/05/19 04/05/19 04/05/19 16:21 16:22 16:22 WBC 5.9 RBC 5.20 H Hgb 14.5 Hct 45 MCV 86 MCH 28 MCHC 32 RDW 17 H Plt Count 133 L MPV 11.5 H Neut % (Auto) 53.7 Lymph % (Auto) 34.9 [place] % (Auto) 9.3 Eos % (Auto) 1.1 Baso % (Auto) 1.0 Absolute Neuts (auto) 3.2 Absolute Lymphs (auto) 2.1 Absolute Monos (auto) 0.6 Absolute Eos (auto) 0.1 Absolute Basos (auto) 0.1 Absolute Nucleated RBC 0.0 Nucleated RBC % 0.1 INR (Anticoag Therapy) 9.98 H* APTT 78.1 H Sodium 145 Potassium 4.7 Chloride 107 Carbon Dioxide 30 Anion Gap 8 BUN 23 Creatinine 0.96 H Est GFR ( Amer) 67.5 Est GFR (Non-Af Amer) 55.8 BUN/Creatinine Ratio 24.0 H Glucose 127 H Lactic Acid Calcium 9.3 Total Bilirubin 0.50 AST 19 ALT 9 Alkaline Phosphatase 59 Troponin I 0.03 Total Protein 7.0 Albumin 3.7 Globulin 3.3 Albumin/Globulin Ratio 1.1 Urine Color Urine Appearance Urine pH Ur Specific [place] Urine Protein Urine Ketones Urine Blood Urine Nitrate Urine Bilirubin Urine Urobilinogen Ur Leukocyte Esterase Urine WBC (Auto) Urine RBC (Auto) Ur Squamous Epith Cells Urine Bacteria Hyaline Casts Urine Glucose Valproic Acid 116.0 H 04/05/19 04/05/19 04/05/19 16:22 17:00 20:10 WBC RBC Hgb Hct MCV MCH MCHC RDW Plt Count MPV Neut % (Auto) Lymph % (Auto) [place] % (Auto) Eos % (Auto) Baso % (Auto) Absolute Neuts (auto) Absolute Lymphs (auto) Absolute Monos (auto) Absolute Eos (auto) Absolute Basos (auto) Absolute Nucleated RBC Nucleated RBC % INR (Anticoag Therapy) APTT Sodium Potassium Chloride Carbon Dioxide Anion Gap BUN Creatinine Est GFR ( Amer) Est GFR (Non-Af Amer) BUN/Creatinine Ratio Glucose Lactic Acid 2.0 2.1 H* Calcium Total Bilirubin AST ALT Alkaline Phosphatase Troponin I Total Protein Albumin Globulin Albumin/Globulin Ratio Urine Color Yellow Urine Appearance Cloudy Urine pH 5.0 Ur Specific [place] 1.013 Urine Protein Negative Urine Ketones Negative Urine Blood 2+ A Urine Nitrate Positive A Urine Bilirubin Negative Urine Urobilinogen Negative Ur Leukocyte Esterase 3+ A Urine WBC (Auto) 3+(>20/hpf) A Urine RBC (Auto) 3+(>10/hpf) A Ur Squamous Epith Cells Present A Urine Bacteria Absent Hyaline Casts Present A Urine Glucose Negative Valproic Acid 04/06/19 04/06/19 04/06/19 04:43 04:43 04:43 WBC 8.1 RBC 5.07 H Hgb 14.2 Hct 44 MCV 86 MCH 28 MCHC 33 RDW 16 H Plt Count 125 L MPV 11.0 H Neut % (Auto) 58.0 Lymph % (Auto) 28.6 [place] % (Auto) 10.8 Eos % (Auto) 1.8 Baso % (Auto) 0.8 Absolute Neuts (auto) 4.7 Absolute Lymphs (auto) 2.3 Absolute Monos (auto) 0.9 H Absolute Eos (auto) 0.1 Absolute Basos (auto) 0.1 Absolute Nucleated RBC 0.0 Nucleated RBC % 0.1 INR (Anticoag Therapy) >10.00 H* APTT Sodium Potassium Chloride Carbon Dioxide Anion Gap BUN Creatinine Est GFR ( Amer) Est GFR (Non-Af Amer) BUN/Creatinine Ratio Glucose Lactic Acid 1.9 Calcium Total Bilirubin AST ALT Alkaline Phosphatase Troponin I Total Protein Albumin Globulin Albumin/Globulin Ratio Urine Color Urine Appearance Urine pH Ur Specific [place] Urine Protein Urine Ketones Urine Blood Urine Nitrate Urine Bilirubin Urine Urobilinogen Ur Leukocyte Esterase Urine WBC (Auto) Urine RBC (Auto) Ur Squamous Epith Cells Urine Bacteria Hyaline Casts Urine Glucose Valproic Acid 04/06/19 04:43 WBC RBC Hgb Hct MCV MCH MCHC RDW Plt Count MPV Neut % (Auto) Lymph % (Auto) [place] % (Auto) Eos % (Auto) Baso % (Auto) Absolute Neuts (auto) Absolute Lymphs (auto) Absolute Monos (auto) Absolute Eos (auto) Absolute Basos (auto) Absolute Nucleated RBC Nucleated RBC % INR (Anticoag Therapy) APTT Sodium 145 Potassium 4.0 Chloride 109 Carbon Dioxide 28 Anion Gap 8 BUN 22 Creatinine 0.85 Est GFR ( Amer) 77.7 Est GFR (Non-Af Amer) 64.2 BUN/Creatinine Ratio 25.9 H Glucose 107 H Lactic Acid Calcium 8.8 Total Bilirubin AST ALT Alkaline Phosphatase Troponin I Total Protein Albumin Globulin Albumin/Globulin Ratio Urine Color Urine Appearance Urine pH Ur Specific [place] Urine Protein Urine Ketones Urine Blood Urine Nitrate Urine Bilirubin Urine Urobilinogen Ur Leukocyte Esterase Urine WBC (Auto) Urine RBC (Auto) Ur Squamous Epith Cells Urine Bacteria Hyaline Casts Urine Glucose Valproic Acid Assess/Plan/Problems-Billing Assessment: 83 yo female PMH multiple CVAs, dementia, wheelchair bound, chronic Afib ( Coumadin, formerly tikosyn and digoxin), suspected seizure disorder (depakote) presenting with elevated INR(9.9), fallling asleep more and e/o UTI. - Patient Problems (1) Elevated INR Current Visit: No Status: Acute Code(s): R79.1 - ABNORMAL COAGULATION PROFILE SNOMED Code(s): 442164272 Comment: INR 9.9 -> 10. No e/o bleeding. her baseline mentation is reportedly very poor, barely verbal, using a wheelchair and needing 2 person assist. Will get a CTH given elevated INR and some worse lethargy. po vitamin K 5mg today. (2) AMS (altered mental status) Current Visit: Yes Status: Acute Code(s): R41.82 - ALTERED MENTAL STATUS, UNSPECIFIED SNOMED Code(s): 133141170 Comment: poor baseline given extensive strokes bilaterally, seizure hx?, dementia reportedly more sleepy the last week. Will get CTH given INR>10. UTI could also explain check ammonia levels given relatively new depakote. reported COPD in past, could consider ABG to rule out hypercapnia. bicarb normal. (3) Atrial fibrillation Current Visit: No Status: Chronic Code(s): I48.91 - UNSPECIFIED ATRIAL FIBRILLATION SNOMED Code(s): 88081501 Comment: - RVR mostly 120s but as high as 140s. - continue tele - check Magnesium level - hx of pauses when was on higher metoprolol + digoxin(since stopped in Jan). has previously failed therapy on amiodarone and Tikosyn; - Continue metoprolol 50mg BID. Add prn lopressor IV for sustained HR >120 for 5 minutes. - supratherapeutic on coumadin, currently held. INR goal 2-3. INR daily. (4) HTN (hypertension) Current Visit: No Status: Chronic Code(s): I10 - ESSENTIAL (PRIMARY) HYPERTENSION SNOMED Code(s): 60383417 Comment: - SBP 110-150s - Continue metoprolol 50mg BID. adding lopressor IV prn. (5) History of CVA (cerebrovascular accident) Current Visit: No Status: Chronic Code(s): Z86.73 - PRSNL HX OF TIA (TIA), AND CEREB INFRC W/O RESID DEFICITS SNOMED Code(s): 472978221 Comment: - With severe encephalomalacia, dementia and seizures disorder - Continue atorvastatin - supratherapeutic INR currently. (6) Seizures Current Visit: No Status: Chronic Code(s): R56.9 - UNSPECIFIED CONVULSIONS SNOMED Code(s): 76176938 Comment: - formerly trialed on keppra but aggressive. - Depakote level at 6hr (so not true trough was 116). - will add ammonia level - currently on depakote 250po BID. get an AM trough. (7) UTI (urinary tract infection) Current Visit: Yes Status: Acute Comment: Will switch from doxy to ceftriaxone. Ua 3+ LE, 3+ wbc, nitrates. SIRS + Sepsis: AMS and tachycardia, no leukocytosis, resolved lactic acidosis( max 2.1) (8) HLD (hyperlipidemia) Current Visit: No Status: Chronic Code(s): E78.5 - HYPERLIPIDEMIA, UNSPECIFIED SNOMED Code(s): 95462503 Comment: - Continue atorvastatin (9) Hypothyroidism Current Visit: No Status: Chronic Code(s): E03.9 - HYPOTHYROIDISM, UNSPECIFIED SNOMED Code(s): 49003410 Comment: - Continue levothyroxine (10) Type II diabetes mellitus Current Visit: No Status: Chronic Comment: - Not on outpatient medication - Last A1c 8.2% in Jan 2019 - not really eating much, hold on SSI unless worsened hyperglycemia (11) DVT prophylaxis Current Visit: No Status: Acute Code(s): RUO9772 - SNOMED Code(s): 267273404 Comment: supratherapeutic INR (on home coumadin). Status and Disposition: medicine inpatient came from [place]
[2019-04-06] MEDS: cefTRIAXone(*) 1 GM in NS 0.9% 50 ML* 50 ML IVPB SCH (13:39)
[2019-04-06] MEDS: Metoprolol Tartrate IV* 1 MG/ML 5 ML VIAL IV PRN ×2 (13:41→16:40)
[2019-04-06] MEDS: NS 0.9% 1000 ML** 1,000 ML IV SCH ×2 (13:51→22:37)
[2019-04-06] MEDS ORDERED: Metoprolol Tartrate TAB* 50 mg PO ONE (18:00)
[2019-04-06] MEDS ORDERED: Diltiazem IV push/loading dose 5 MG/ML 5 ML vial (25 mg) IV SLOW PU ONE ×2 (19:09→23:58)
[2019-04-06] MEDS ORDERED: Metoprolol Tartrate TAB* 50 mg PO SCH (21:00)
[2019-04-06] MEDS ORDERED: Diltiazem TAB* 30 MG PO ONE (23:57)
[2019-04-07] MEDS: Levothyroxine TAB* 25 MCG TAB PO SCH (05:01)
[2019-04-07 05:43] LABS: ABS Basophils 0.1 10^3/ul (0-0.2); ABS Eosinophils 0.1 10^3/ul (0-0.6); ABS Lymphocytes 2.2 10^3/ul (1.0-4.8); ABS Monocytes 1.1 10^3/ul (0-0.8); ABS Neutrophils 5.7 10^3/ul (1.5-7.7); Eosinophil % 1.5 %; Hematocrit 46 % (35-47); Hemoglobin 14.7 g/dL (12.0-16.0); Lymphocyte % 23.9 %; Mean Corpuscular HGB Conc 32 g/dL (31-36); Mean Corpuscular Hemoglobin 28 pg (27-31); Mean Corpuscular Volume 87 fL (80-97); Mean Platelet Volume 11.1 fL (7.4-10.4); Nucleated Red Blood Cells % 0.1; Platelet Count 109 10^3/uL (150-450); Red Blood Count 5.26 10^6 /uL (3.70-4.87); Red Cell Distribution Width 17 % (10-15); White Blood Count 9.3 10^3/uL (3.5-10.8)
[2019-04-07 05:49] LABS: INR 2.57 (0.82-1.09)
[2019-04-07 06:13] LABS: BUN/Creatinine Ratio 23.3 (8-20); EGFR African American 92.6 (>60); EGFR Non-African American 76.5 (>60); Potassium 3.9 mmol/L (3.5-5.0)
[2019-04-07 06:26] LABS: Magnesium 1.9 mg/dL (1.9-2.7)
[2019-04-07 10:07] LABS: TSH (Thyroid Stimulating Horm) 3.81 mcIU/mL (0.34-5.60)
[2019-04-07] MEDS: Metoprolol Tartrate TAB* 100 MG TAB PO SCH ×2 (10:54→20:24)
[2019-04-07] MEDS: Divalproex Sprinkle CAP* 125 MG PO SCH ×2 (10:54→20:25)
[2019-04-07] MEDS: Atorvastatin* 20 MG TAB PO SCH (10:54)
[2019-04-07] MEDS: Sertraline* 50 MG TAB PO SCH (10:55)
[2019-04-07] MEDS ORDERED: Diltiazem IV BAG* D5W Premix 125 MG/125 ML BAG IV SCH (13:00)
[2019-04-07] MEDS: cefTRIAXone(*) 1 GM in NS 0.9% 50 ML* 50 ML IVPB SCH (13:49)
[2019-04-07] MEDS: Diltiazem IV BAG* D5W Premix 125 MG/125 ML BAG IV SCH (16:09)
--- NOTE | 2019-04-07 18:46 | PN ---
Subjective Date of Service: 04/07/19 Interval History: Patient is nonverbal at baseline and is nonverbal during exam. Reportedly she was attempting to climb out of bed earlier this morning but has since been less agitated. Objective Active Medications: Acetaminophen (Tylenol Tab*) 650 mg PO Q6H PRN PRN Reason: MILD PAIN or TEMP > 100.4 Atorvastatin Calcium (Lipitor*) 20 mg PO DAILY [facility] Last Admin: 04/07/19 10:54 Dose: 20 mg Divalproex Sodium (Depakote Sprinkle Cap*) 250 mg PO BID [facility] Last Admin: 04/07/19 10:54 Dose: 250 mg Ceftriaxone Sodium 1 gm/ (Sodium Chloride) 50 mls @ 100 mls/hr IVPB Q24H [facility] Last Admin: 04/07/19 13:49 Dose: 100 mls/hr Diltiazem/Dextrose (Cardizem Iv D5w Bag* Premix) 125 mg in 125 mls @ 10 mls/hr IV .PER PROTOCOL [facility]; Protocol Levothyroxine Sodium (Synthroid Tab*) 25 mcg PO DAILY@0600 [facility] Last Admin: 04/07/19 05:01 Dose: 25 mcg Metoprolol Tartrate (Lopressor Iv*) 5 mg IV Q5M PRN PRN Reason: BLOOD PRESSURE Last Admin: 04/06/19 16:40 Dose: 5 mg Metoprolol Tartrate (Lopressor Tab*) 100 mg PO BID [facility] Last Admin: 04/07/19 10:54 Dose: 100 mg Nystatin (Nystatin Top Powder*) 1 applic TOPICAL BID PRN PRN Reason: RASH Sertraline HCl (Zoloft*) 50 mg PO DAILY [facility] Last Admin: 04/07/19 10:55 Dose: 50 mg Vital Signs - 8 hr 04/07/19 04/07/19 04/07/19 11:15 12:50 13:29 Temperature Pulse Rate 128 Respiratory Rate Blood Pressure 144/106 120/90 180/116 (mmHg) O2 Sat by Pulse 94 Oximetry 04/07/19 04/07/19 04/07/19 13:31 13:33 13:38 Temperature Pulse Rate Respiratory Rate Blood Pressure 185/118 168/112 171/124 (mmHg) O2 Sat by Pulse Oximetry 04/07/19 04/07/19 04/07/19 13:43 13:48 14:04 Temperature Pulse Rate Respiratory Rate Blood Pressure 174/112 177/119 165/95 (mmHg) O2 Sat by Pulse Oximetry 04/07/19 04/07/19 04/07/19 14:18 14:33 14:48 Temperature Pulse Rate Respiratory Rate Blood Pressure 176/123 159/107 151/108 (mmHg) O2 Sat by Pulse Oximetry 04/07/19 04/07/19 04/07/19 15:04 15:05 15:18 Temperature 97.4 F Pulse Rate Respiratory 20 Rate Blood Pressure 159/112 154/109 (mmHg) O2 Sat by Pulse Oximetry 04/07/19 04/07/19 04/07/19 15:33 15:48 16:03 Temperature Pulse Rate Respiratory Rate Blood Pressure 167/117 172/161 161/127 (mmHg) O2 Sat by Pulse Oximetry 04/07/19 04/07/19 04/07/19 16:04 16:08 16:13 Temperature Pulse Rate Respiratory Rate Blood Pressure 142/96 143/104 151/136 (mmHg) O2 Sat by Pulse Oximetry 04/07/19 04/07/19 04/07/19 16:18 16:23 16:27 Temperature Pulse Rate Respiratory Rate Blood Pressure 158/94 174/117 165/110 (mmHg) O2 Sat by Pulse Oximetry 04/07/19 04/07/19 04/07/19 16:38 16:53 17:02 Temperature Pulse Rate Respiratory Rate Blood Pressure 125/109 93/69 154/116 (mmHg) O2 Sat by Pulse Oximetry 04/07/19 17:04 Temperature Pulse Rate Respiratory Rate Blood Pressure 142/86 (mmHg) O2 Sat by Pulse Oximetry Oxygen Devices in Use Now: None Appearance: Elderly white female, laying in bed, appearing comfortable and in NAD; does not have overt signs of discomfort Eyes: No Scleral Icterus, PERRLA Ears/Nose/Mouth/Throat: Mucous Membranes Moist Respiratory: Symmetrical Chest Expansion and Respiratory Effort, Clear to Auscultation Cardiovascular: - - tachycardic, unable to discern rhythm given tachycardia, no appreciable murmurs Abdominal: - - abd soft, nontender, nondistended Extremities: No Edema, No Clubbing, Cyanosis Skin: No Rash or Ulcers Neurological: - - alert, unable to participate in exam Result Diagrams: 04/07/19 05:18 04/07/19 05:18 Additional Lab and Data: Laboratory Results - last 24 hr 04/05/19 04/05/19 04/05/19 16:21 16:22 16:22 WBC 5.9 RBC 5.20 H Hgb 14.5 Hct 45 MCV 86 MCH 28 MCHC 32 RDW 17 H Plt Count 133 L MPV 11.5 H Neut % (Auto) 53.7 Lymph % (Auto) 34.9 [place] % (Auto) 9.3 Eos % (Auto) 1.1 Baso % (Auto) 1.0 Absolute Neuts (auto) 3.2 Absolute Lymphs (auto) 2.1 Absolute Monos (auto) 0.6 Absolute Eos (auto) 0.1 Absolute Basos (auto) 0.1 Absolute Nucleated RBC 0.0 Nucleated RBC % 0.1 INR (Anticoag Therapy) 9.98 H* APTT 78.1 H Sodium 145 Potassium 4.7 Chloride 107 Carbon Dioxide 30 Anion Gap 8 BUN 23 Creatinine 0.96 H Est GFR ( Amer) 67.5 Est GFR (Non-Af Amer) 55.8 BUN/Creatinine Ratio 24.0 H Glucose 127 H Lactic Acid Calcium 9.3 Total Bilirubin 0.50 AST 19 ALT 9 Alkaline Phosphatase 59 Troponin I 0.03 Total Protein 7.0 Albumin 3.7 Globulin 3.3 Albumin/Globulin Ratio 1.1 Urine Color Urine Appearance Urine pH Ur Specific [place] Urine Protein Urine Ketones Urine Blood Urine Nitrate Urine Bilirubin Urine Urobilinogen Ur Leukocyte Esterase Urine WBC (Auto) Urine RBC (Auto) Ur Squamous Epith Cells Urine Bacteria Hyaline Casts Urine Glucose Valproic Acid 116.0 H 04/05/19 04/05/19 04/05/19 16:22 17:00 20:10 WBC RBC Hgb Hct MCV MCH MCHC RDW Plt Count MPV Neut % (Auto) Lymph % (Auto) [place] % (Auto) Eos % (Auto) Baso % (Auto) Absolute Neuts (auto) Absolute Lymphs (auto) Absolute Monos (auto) Absolute Eos (auto) Absolute Basos (auto) Absolute Nucleated RBC Nucleated RBC % INR (Anticoag Therapy) APTT Sodium Potassium Chloride Carbon Dioxide Anion Gap BUN Creatinine Est GFR ( Amer) Est GFR (Non-Af Amer) BUN/Creatinine Ratio Glucose Lactic Acid 2.0 2.1 H* Calcium Total Bilirubin AST ALT Alkaline Phosphatase Troponin I Total Protein Albumin Globulin Albumin/Globulin Ratio Urine Color Yellow Urine Appearance Cloudy Urine pH 5.0 Ur Specific [place] 1.013 Urine Protein Negative Urine Ketones Negative Urine Blood 2+ A Urine Nitrate Positive A Urine Bilirubin Negative Urine Urobilinogen Negative Ur Leukocyte Esterase 3+ A Urine WBC (Auto) 3+(>20/hpf) A Urine RBC (Auto) 3+(>10/hpf) A Ur Squamous Epith Cells Present A Urine Bacteria Absent Hyaline Casts Present A Urine Glucose Negative Valproic Acid 04/06/19 04/06/19 04/06/19 04:43 04:43 04:43 WBC 8.1 RBC 5.07 H Hgb 14.2 Hct 44 MCV 86 MCH 28 MCHC 33 RDW 16 H Plt Count 125 L MPV 11.0 H Neut % (Auto) 58.0 Lymph % (Auto) 28.6 [place] % (Auto) 10.8 Eos % (Auto) 1.8 Baso % (Auto) 0.8 Absolute Neuts (auto) 4.7 Absolute Lymphs (auto) 2.3 Absolute Monos (auto) 0.9 H Absolute Eos (auto) 0.1 Absolute Basos (auto) 0.1 Absolute Nucleated RBC 0.0 Nucleated RBC % 0.1 INR (Anticoag Therapy) >10.00 H* APTT Sodium Potassium Chloride Carbon Dioxide Anion Gap BUN Creatinine Est GFR ( Amer) Est GFR (Non-Af Amer) BUN/Creatinine Ratio Glucose Lactic Acid 1.9 Calcium Total Bilirubin AST ALT Alkaline Phosphatase Troponin I Total Protein Albumin Globulin Albumin/Globulin Ratio Urine Color Urine Appearance Urine pH Ur Specific [place] Urine Protein Urine Ketones Urine Blood Urine Nitrate Urine Bilirubin Urine Urobilinogen Ur Leukocyte Esterase Urine WBC (Auto) Urine RBC (Auto) Ur Squamous Epith Cells Urine Bacteria Hyaline Casts Urine Glucose Valproic Acid 04/06/19 04:43 WBC RBC Hgb Hct MCV MCH MCHC RDW Plt Count MPV Neut % (Auto) Lymph % (Auto) [place] % (Auto) Eos % (Auto) Baso % (Auto) Absolute Neuts (auto) Absolute Lymphs (auto) Absolute Monos (auto) Absolute Eos (auto) Absolute Basos (auto) Absolute Nucleated RBC Nucleated RBC % INR (Anticoag Therapy) APTT Sodium 145 Potassium 4.0 Chloride 109 Carbon Dioxide 28 Anion Gap 8 BUN 22 Creatinine 0.85 Est GFR ( Amer) 77.7 Est GFR (Non-Af Amer) 64.2 BUN/Creatinine Ratio 25.9 H Glucose 107 H Lactic Acid Calcium 8.8 Total Bilirubin AST ALT Alkaline Phosphatase Troponin I Total Protein Albumin Globulin Albumin/Globulin Ratio Urine Color Urine Appearance Urine pH Ur Specific [place] Urine Protein Urine Ketones Urine Blood Urine Nitrate Urine Bilirubin Urine Urobilinogen Ur Leukocyte Esterase Urine WBC (Auto) Urine RBC (Auto) Ur Squamous Epith Cells Urine Bacteria Hyaline Casts Urine Glucose Valproic Acid Microbiology and Other Data: Microbiology 04/05/19 16:21 Blood Culture - Preliminary Blood Venous No Growth Day 2 04/05/19 16:21 Blood Culture - Preliminary Blood Venous No Growth Day 2 04/05/19 17:00 Urine Culture - Preliminary Urine Escherichia Coli Assess/Plan/Problems-Billing Assessment: 83 yo female PMH multiple CVAs, dementia, wheelchair bound, chronic Afib ( Coumadin, formerly tikosyn and digoxin), suspected seizure disorder (depakote) presenting with elevated INR(9.9), fallling asleep more and e/o UTI. - Patient Problems (1) AMS (altered mental status) Current Visit: Yes Status: Acute Code(s): R41.82 - ALTERED MENTAL STATUS, UNSPECIFIED SNOMED Code(s): 771955958 Comment: -poor baseline given extensive strokes bilaterally, seizure hx?, dementia -reportedly more sleepy the last week. -CT brain negative, ammonia wnl -possibly metabolic encephalopathy related to UTI -appears improving today (2) Atrial fibrillation with RVR Current Visit: Yes Status: Acute Code(s): I48.91 - UNSPECIFIED ATRIAL FIBRILLATION SNOMED Code(s): 180277913383397 Comment: -patient with rates to 130s today despite increase of metoprolol yesterday -frequent pauses on digoxin and metoprolol during prior hospitalization in Jan 2019, thus digoxin was continued -failed amiodarone (LFTs adverse effect) and tikosyn (danger due to noncompliance) in the past -starting cardizem -continue metoprolol succinate 100 mg BID -unable to assess if patient symptomatic of this b/c she is nonverbal (3) UTI (urinary tract infection) Current Visit: Yes Status: Acute Comment: -urine culture positive for E. coli, S&S pending -continue ceftriaxone -afebrile and no leukocytosis (4) Elevated INR Current Visit: No Status: Acute Code(s): R79.1 - ABNORMAL COAGULATION PROFILE SNOMED Code(s): 328003030 Comment: -INR 9.9 -> 10. -no prior evidence of bleeding, CT brain negative -therapeutic today as reversed with K yesterday -will restart warfarin at home dose 4mg -perhaps should be on different DOAC or no AC at all given fall risk with advanced dementia, will discuss with healthcare proxy (5) Hypothyroidism Current Visit: No Status: Chronic Code(s): E03.9 - HYPOTHYROIDISM, UNSPECIFIED SNOMED Code(s): 18331741 Comment: - Continue levothyroxine - TSH wnl (6) Seizures Current Visit: No Status: Chronic Code(s): R56.9 - UNSPECIFIED CONVULSIONS SNOMED Code(s): 01671046 Comment: - formerly trialed on keppra but aggressive. - Depakote level at 6hr (level was 116, but was not a trough). - ammonia wnl - currently on depakote 250po BID. Recommend trough outpatient f/u in one week. Trough today wnl (7) COPD (chronic obstructive pulmonary disease) Current Visit: Yes Status: Acute Code(s): J44.9 - CHRONIC OBSTRUCTIVE PULMONARY DISEASE, UNSPECIFIED SNOMED Code(s): 49513775 Comment: -does not appear to be in acute exacerbation -no home medications for therapy (8) History of CVA (cerebrovascular accident) Current Visit: No Status: Chronic Code(s): Z86.73 - PRSNL HX OF TIA (TIA), AND CEREB INFRC W/O RESID DEFICITS SNOMED Code(s): 471910508 Comment: - With severe encephalomalacia, dementia and seizures disorder - Continue atorvastatin (9) Type II diabetes mellitus Current Visit: No Status: Chronic Comment: - Not on outpatient medication, likely diet-controlled - A1c 7.7% indicating good control - BGs overall good range, no SSI needed (10) DNR (do not resuscitate) Current Visit: Yes Status: Acute (11) DVT prophylaxis Current Visit: No Status: Acute Code(s): SNG1427 - SNOMED Code(s): 953837397 Comment: -on coumadin Status and Disposition: medicine inpatient came from [place]
[2019-04-07] MEDS: Warfarin TAB(*) 4 MG PO SCH (19:39)
[2019-04-08] MEDS: Diltiazem IV BAG* D5W Premix 125 MG/125 ML BAG IV SCH ×2 (02:37→03:06)
[2019-04-08] MEDS: Levothyroxine TAB* 25 MCG TAB PO SCH (06:12)
[2019-04-08 07:00] LABS: ABS Basophils 0.1 10^3/ul (0-0.2); ABS Eosinophils 0.1 10^3/ul (0-0.6); ABS Lymphocytes 1.5 10^3/ul (1.0-4.8); ABS Monocytes 0.8 10^3/ul (0-0.8); ABS Neutrophils 4.7 10^3/ul (1.5-7.7); Eosinophil % 1.3 %; Hematocrit 43 % (35-47); Hemoglobin 13.9 g/dL (12.0-16.0); Lymphocyte % 20.4 %; Mean Corpuscular HGB Conc 33 g/dL (31-36); Mean Corpuscular Hemoglobin 28 pg (27-31); Mean Corpuscular Volume 86 fL (80-97); Mean Platelet Volume 11.1 fL (7.4-10.4); Nucleated Red Blood Cells % 0.3; Platelet Count 106 10^3/uL (150-450); Red Blood Count 4.98 10^6 /uL (3.70-4.87); Red Cell Distribution Width 16 % (10-15); White Blood Count 7.2 10^3/uL (3.5-10.8)
[2019-04-08 07:11] LABS: INR 1.62 (0.82-1.09)
[2019-04-08 07:14] LABS: Calcium 8.7 mg/dL (8.6-10.3); EGFR African American 118.4 (>60); EGFR Non-African American 97.8 (>60); Potassium 3.4 mmol/L (3.5-5.0)
[2019-04-08] MEDS ORDERED: Potassium Chlor TAB* 20 MEQ TAB.ER PO ONE (08:45)
--- NOTE | 2019-04-08 10:05 | PN ---
Subjective Date of Service: 04/08/19 Interval History: Patient is nonverbal at baseline and nonverbal during exam today. She is asleep and awakens easily to voice, regards face. Spoke with who expresses concerns about her lower dentures being missing , nursing aware. tells me that since she has returned to [facility] after completing subacute rehab, she has been ambulating with assistance and is no longer wheelchair bound. Objective Active Medications: Acetaminophen (Tylenol Tab*) 650 mg PO Q6H PRN PRN Reason: MILD PAIN or TEMP > 100.4 Albuterol/Ipratropium (Duoneb (Albuterol 2.5 Mg/Ipratropium 0.5 Mg)) 1 neb INH Q4H PRN PRN Reason: SOB/WHEEZING Atorvastatin Calcium (Lipitor*) 20 mg PO DAILY [facility] Last Admin: 04/07/19 10:54 Dose: 20 mg Divalproex Sodium (Depakote Sprinkle Cap*) 250 mg PO BID [facility] Last Admin: 04/07/19 20:25 Dose: 250 mg Enoxaparin Sodium (Lovenox(*)) 80 mg SUBCUT Q12H [facility] Ceftriaxone Sodium 1 gm/ (Sodium Chloride) 50 mls @ 100 mls/hr IVPB Q24H [facility] Last Admin: 04/07/19 13:49 Dose: 100 mls/hr Diltiazem/Dextrose (Cardizem Iv D5w Bag* Premix) 125 mg in 125 mls @ 7 mls/hr IV .PER PROTOCOL [facility]; Protocol Stop: 04/08/19 13:00 Last Admin: 04/08/19 03:06 Dose: 7 mls/hr Levothyroxine Sodium (Synthroid Tab*) 25 mcg PO DAILY@0600 [facility] Last Admin: 04/08/19 06:12 Dose: 25 mcg Metoprolol Tartrate (Lopressor Iv*) 5 mg IV Q5M PRN PRN Reason: BLOOD PRESSURE Last Admin: 04/06/19 16:40 Dose: 5 mg Metoprolol Tartrate (Lopressor Tab*) 100 mg PO BID [facility] Last Admin: 04/07/19 20:24 Dose: 100 mg Nystatin (Nystatin Top Powder*) 1 applic TOPICAL BID PRN PRN Reason: RASH Pharmacy Profile Note (Coumadin Daily Reminder*) 1 note FOLLOW UP 1700 [facility] Sertraline HCl (Zoloft*) 50 mg PO DAILY [facility] Last Admin: 04/07/19 10:55 Dose: 50 mg Warfarin Sodium (Coumadin Tab(*)) 4 mg PO DAILY@1700 [facility]; Protocol Last Admin: 04/07/19 19:39 Dose: 4 mg Vital Signs - 8 hr 04/08/19 04/08/19 04/08/19 02:28 02:31 03:08 Temperature Pulse Rate Respiratory Rate Blood Pressure 119/57 127/66 123/73 (mmHg) O2 Sat by Pulse Oximetry 04/08/19 04/08/19 04/08/19 03:13 03:15 03:18 Temperature 97.6 F Pulse Rate 91 Respiratory 20 Rate Blood Pressure 133/71 114/66 144/92 (mmHg) O2 Sat by Pulse 99 Oximetry 04/08/19 04/08/19 03:38 07:15 Temperature 97.1 F Pulse Rate Respiratory 20 Rate Blood Pressure 149/90 (mmHg) O2 Sat by Pulse 98 Oximetry Oxygen Devices in Use Now: Nasal Cannula Appearance: Elderly white female, laying in hospital bed, appearing comfortable and in NAD Eyes: No Scleral Icterus, - - PERRL Ears/Nose/Mouth/Throat: Mucous Membranes Moist Neck: Trachea Midline Respiratory: Symmetrical Chest Expansion and Respiratory Effort, - - difficult to auscultate due to poor patient effort, but no adventitious lung sounds appreciated Cardiovascular: NL Sounds; No Murmurs; No JVD, - - irregularly irregular rhythm , regular rate Abdominal: - - abd soft, nontender, nondistended Extremities: No Edema, No Clubbing, Cyanosis Skin: No Rash or Ulcers Neurological: - - alert, awakens easily to voice and regards face, unable to assess further due to patient's nonverbal state Result Diagrams: 04/08/19 06:35 04/08/19 06:35 Additional Lab and Data: Laboratory Results - last 24 hr 04/05/19 04/05/19 04/05/19 16:21 16:22 16:22 WBC 5.9 RBC 5.20 H Hgb 14.5 Hct 45 MCV 86 MCH 28 MCHC 32 RDW 17 H Plt Count 133 L MPV 11.5 H Neut % (Auto) 53.7 Lymph % (Auto) 34.9 [place] % (Auto) 9.3 Eos % (Auto) 1.1 Baso % (Auto) 1.0 Absolute Neuts (auto) 3.2 Absolute Lymphs (auto) 2.1 Absolute Monos (auto) 0.6 Absolute Eos (auto) 0.1 Absolute Basos (auto) 0.1 Absolute Nucleated RBC 0.0 Nucleated RBC % 0.1 INR (Anticoag Therapy) 9.98 H* APTT 78.1 H Sodium 145 Potassium 4.7 Chloride 107 Carbon Dioxide 30 Anion Gap 8 BUN 23 Creatinine 0.96 H Est GFR ( Amer) 67.5 Est GFR (Non-Af Amer) 55.8 BUN/Creatinine Ratio 24.0 H Glucose 127 H Lactic Acid Calcium 9.3 Total Bilirubin 0.50 AST 19 ALT 9 Alkaline Phosphatase 59 Troponin I 0.03 Total Protein 7.0 Albumin 3.7 Globulin 3.3 Albumin/Globulin Ratio 1.1 Urine Color Urine Appearance Urine pH Ur Specific [place] Urine Protein Urine Ketones Urine Blood Urine Nitrate Urine Bilirubin Urine Urobilinogen Ur Leukocyte Esterase Urine WBC (Auto) Urine RBC (Auto) Ur Squamous Epith Cells Urine Bacteria Hyaline Casts Urine Glucose Valproic Acid 116.0 H 04/05/19 04/05/19 04/05/19 16:22 17:00 20:10 WBC RBC Hgb Hct MCV MCH MCHC RDW Plt Count MPV Neut % (Auto) Lymph % (Auto) [place] % (Auto) Eos % (Auto) Baso % (Auto) Absolute Neuts (auto) Absolute Lymphs (auto) Absolute Monos (auto) Absolute Eos (auto) Absolute Basos (auto) Absolute Nucleated RBC Nucleated RBC % INR (Anticoag Therapy) APTT Sodium Potassium Chloride Carbon Dioxide Anion Gap BUN Creatinine Est GFR ( Amer) Est GFR (Non-Af Amer) BUN/Creatinine Ratio Glucose Lactic Acid 2.0 2.1 H* Calcium Total Bilirubin AST ALT Alkaline Phosphatase Troponin I Total Protein Albumin Globulin Albumin/Globulin Ratio Urine Color Yellow Urine Appearance Cloudy Urine pH 5.0 Ur Specific [place] 1.013 Urine Protein Negative Urine Ketones Negative Urine Blood 2+ A Urine Nitrate Positive A Urine Bilirubin Negative Urine Urobilinogen Negative Ur Leukocyte Esterase 3+ A Urine WBC (Auto) 3+(>20/hpf) A Urine RBC (Auto) 3+(>10/hpf) A Ur Squamous Epith Cells Present A Urine Bacteria Absent Hyaline Casts Present A Urine Glucose Negative Valproic Acid 1104/06/19 04/06/19 04:43 04:43 04:43 WBC 8.1 RBC 5.07 H Hgb 14.2 Hct 44 MCV 86 MCH 28 MCHC 33 RDW 16 H Plt Count 125 L MPV 11.0 H Neut % (Auto) 58.0 Lymph % (Auto) 28.6 [place] % (Auto) 10.8 Eos % (Auto) 1.8 Baso % (Auto) 0.8 Absolute Neuts (auto) 4.7 Absolute Lymphs (auto) 2.3 Absolute Monos (auto) 0.9 H Absolute Eos (auto) 0.1 Absolute Basos (auto) 0.1 Absolute Nucleated RBC 0.0 Nucleated RBC % 0.1 INR (Anticoag Therapy) >10.00 H* APTT Sodium Potassium Chloride Carbon Dioxide Anion Gap BUN Creatinine Est GFR ( Amer) Est GFR (Non-Af Amer) BUN/Creatinine Ratio Glucose Lactic Acid 1.9 Calcium Total Bilirubin AST ALT Alkaline Phosphatase Troponin I Total Protein Albumin Globulin Albumin/Globulin Ratio Urine Color Urine Appearance Urine pH Ur Specific [place] Urine Protein Urine Ketones Urine Blood Urine Nitrate Urine Bilirubin Urine Urobilinogen Ur Leukocyte Esterase Urine WBC (Auto) Urine RBC (Auto) Ur Squamous Epith Cells Urine Bacteria Hyaline Casts Urine Glucose Valproic Acid 04/06/19 04:43 WBC RBC Hgb Hct MCV MCH MCHC RDW Plt Count MPV Neut % (Auto) Lymph % (Auto) [place] % (Auto) Eos % (Auto) Baso % (Auto) Absolute Neuts (auto) Absolute Lymphs (auto) Absolute Monos (auto) Absolute Eos (auto) Absolute Basos (auto) Absolute Nucleated RBC Nucleated RBC % INR (Anticoag Therapy) APTT Sodium 145 Potassium 4.0 Chloride 109 Carbon Dioxide 28 Anion Gap 8 BUN 22 Creatinine 0.85 Est GFR ( Amer) 77.7 Est GFR (Non-Af Amer) 64.2 BUN/Creatinine Ratio 25.9 H Glucose 107 H Lactic Acid Calcium 8.8 Total Bilirubin AST ALT Alkaline Phosphatase Troponin I Total Protein Albumin Globulin Albumin/Globulin Ratio Urine Color Urine Appearance Urine pH Ur Specific [place] Urine Protein Urine Ketones Urine Blood Urine Nitrate Urine Bilirubin Urine Urobilinogen Ur Leukocyte Esterase Urine WBC (Auto) Urine RBC (Auto) Ur Squamous Epith Cells Urine Bacteria Hyaline Casts Urine Glucose Valproic Acid Microbiology and Other Data: Microbiology 04/05/19 16:21 Blood Culture - Preliminary Blood Venous No Growth Day 2 04/05/19 16:21 Blood Culture - Preliminary Blood Venous No Growth Day 2 04/05/19 17:00 Urine Culture - Preliminary Urine Escherichia Coli Assess/Plan/Problems-Billing Assessment: 83 yo female PMH multiple CVAs, dementia, wheelchair bound, chronic Afib ( Coumadin, formerly tikosyn and digoxin), suspected seizure disorder (depakote) presenting with elevated INR(9.9), fallling asleep more and e/o UTI. - Patient Problems (1) Hypoxia Current Visit: Yes Status: Acute Code(s): R09.02 - HYPOXEMIA SNOMED Code(s ): 987333821 Comment: -hypoxia overnight requiring oxygen, weaned to 1L today but was 85% on room air -CXR at admission looks like there is pulmonary edema compared to CXR in Jan 2019 -home torsemide was on hold since admission due to likely dehydration. This appears resolved and now restarting 5mg torsemide -the most recent echo in Jan 2019 showed normal EF but diastolic function was indeterminant. She perhaps has diastolic CHF, though unclear (2) AMS (altered mental status) Current Visit: Yes Status: Acute Code(s): R41.82 - ALTERED MENTAL STATUS, UNSPECIFIED SNOMED Code(s): 139027232 Comment: -poor baseline given extensive strokes bilaterally, seizure hx?, dementia -reportedly more sleepy the last week at admission -CT brain negative, ammonia wnl -possibly metabolic encephalopathy related to UTI -appears improved (3) Atrial fibrillation with RVR Current Visit: Yes Status: Acute Code(s): I48.91 - UNSPECIFIED ATRIAL FIBRILLATION SNOMED Code(s): 169198646779750 Comment: -patient with rates to 130s on 04/07/19 despite increase of metoprolol -frequent pauses on digoxin and metoprolol during prior hospitalization in Jan 2019, thus digoxin was discontinued -failed amiodarone (LFTs adverse effect) and tikosyn (danger due to noncompliance) in the past -cardizem drip 7mg/hour well tolerated overnight, rates overall 70s-90s with good BPs -transitioning cardizem to 60mg po q6hr and will continue to monitor. There were frequent pauses which ultimately resolved, longest pauce 2.4 seconds. Decreasing metoprolol tartrate back to 50 mg BID (4) UTI (urinary tract infection) Current Visit: Yes Status: Acute Comment: -urine culture positive for E. coli, pansensitive -continue ceftriaxone -afebrile and no leukocytosis (5) Elevated INR Current Visit: No Status: Acute Code(s): R79.1 - ABNORMAL COAGULATION PROFILE SNOMED Code(s): 495707917 Comment: -INR 9.9 -> 10. -no prior evidence of bleeding, CT brain negative -therapeutic today as reversed with K on 04/06/19 -will restart warfarin at home dose 4mg -bridging with lovenox now as INR is subtherapeutic today -perhaps should be on different DOAC due to labile INRs or no AC at all given fall risk with advanced dementia. HAS-BLED score is 4, indicating 8.9% major bleeding risk. Discussed with , patient's healthcare proxy, who would like to consider further before deciding. (6) Hypothyroidism Current Visit: No Status: Chronic Code(s): E03.9 - HYPOTHYROIDISM, UNSPECIFIED SNOMED Code(s): 12249083 Comment: - Continue levothyroxine - TSH wnl (7) Seizures Current Visit: No Status: Chronic Code(s): R56.9 - UNSPECIFIED CONVULSIONS SNOMED Code(s): 91106244 Comment: - formerly trialed on keppra but aggressive. - Depakote level at 6hr (level was 116, but was not a trough). - ammonia wnl - currently on depakote 250po BID. Recommend trough outpatient f/u in one week. Trough today wnl (8) COPD (chronic obstructive pulmonary disease) Current Visit: Yes Status: Acute Code(s): J44.9 - CHRONIC OBSTRUCTIVE PULMONARY DISEASE, UNSPECIFIED SNOMED Code(s): 45549201 Comment: -does not appear to be in acute exacerbation -no home medications for therapy -difficult to examine lungs, on 3L oxygen [place] today and will attempt to wean and assess further (9) History of CVA (cerebrovascular accident) Current Visit: No Status: Chronic Code(s): Z86.73 - PRSNL HX OF TIA (TIA), AND CEREB INFRC W/O RESID DEFICITS SNOMED Code(s): 164527351 Comment: - With severe encephalomalacia, dementia and seizures disorder - Continue atorvastatin (10) Type II diabetes mellitus Current Visit: No Status: Chronic Comment: - Not on outpatient medication, likely diet-controlled - A1c 7.7% indicating good control - BGs overall good range, no SSI needed (11) DNR (do not resuscitate) Current Visit: Yes Status: Acute (12) DVT prophylaxis Current Visit: No Status: Acute Code(s): UGF4806 - SNOMED Code(s): 396977844 Comment: -BID lovenox bridge to coumadin Status and Disposition: medicine inpatient came from [place]
[2019-04-08] MEDS: Atorvastatin* 20 MG TAB PO SCH (10:59)
[2019-04-08] MEDS: Divalproex Sprinkle CAP* 125 MG PO SCH ×2 (10:59→21:36)
[2019-04-08] MEDS: Enoxaparin(*) 80 MG/0.8 ML SYR SUBCUT SCH ×2 (10:59→21:39)
[2019-04-08] MEDS: Metoprolol Tartrate TAB* 100 MG TAB PO SCH (11:00)
[2019-04-08] MEDS: Sertraline* 50 MG TAB PO SCH (11:00)
[2019-04-08] MEDS: Diltiazem TAB* 30 MG PO SCH ×2 (11:56→18:21)
[2019-04-08] MEDS ORDERED: Diltiazem TAB* 30 MG PO SCH (12:00)
[2019-04-08] MEDS: cefTRIAXone(*) 1 GM in NS 0.9% 50 ML* 50 ML IVPB SCH (13:33)
[2019-04-08] MEDS: Torsemide TAB 10 MG PO SCH (15:20)
[2019-04-08] MEDS: Warfarin TAB(*) 4 MG PO SCH (17:23)
[2019-04-08] MEDS: Metoprolol Tartrate TAB* 50 mg PO SCH (21:36)
[2019-04-09] MEDS: Diltiazem TAB* 30 MG PO SCH ×2 (00:54→05:46)
[2019-04-09] MEDS: Levothyroxine TAB* 25 MCG TAB PO SCH (05:46)
[2019-04-09 05:53] LABS: ABS Basophils 0.1 10^3/ul (0-0.2); ABS Eosinophils 0.2 10^3/ul (0-0.6); ABS Lymphocytes 2.2 10^3/ul (1.0-4.8); ABS Neutrophils 6.2 10^3/ul (1.5-7.7); Eosinophil % 1.8 %; Hematocrit 41 % (35-47); Hemoglobin 13.6 g/dL (12.0-16.0); Lymphocyte % 23.2 %; Mean Corpuscular HGB Conc 34 g/dL (31-36); Mean Corpuscular Hemoglobin 29 pg (27-31); Mean Corpuscular Volume 85 fL (80-97); Mean Platelet Volume 9.9 fL (7.4-10.4); Platelet Count 109 10^3/uL (150-450); Red Blood Count 4.76 10^6 /uL (3.70-4.87); Red Cell Distribution Width 16 % (10-15); White Blood Count 9.7 10^3/uL (3.5-10.8)
[2019-04-09 06:13] LABS: Calcium 8.6 mg/dL (8.6-10.3); EGFR African American 109.7 (>60); EGFR Non-African American 90.7 (>60); Magnesium 1.8 mg/dL (1.9-2.7); Potassium 3.1 mmol/L (3.5-5.0)
[2019-04-09] MEDS ORDERED: Potassium Chlor TAB* 20 MEQ TAB.ER PO ONE (08:52)
[2019-04-09] MEDS ORDERED: Magnesium Oxide TAB* 400 MG PO ONE (08:53)
[2019-04-09] MEDS: KCL 20 MEQ/100 ML IVPREMIX* 20 MEQ/100 ML BAG IV SCH ×2 (09:38→12:54)
[2019-04-09] MEDS: Atorvastatin* 20 MG TAB PO SCH (09:50)
[2019-04-09] MEDS: Torsemide TAB 10 MG PO SCH (09:50)
[2019-04-09] MEDS: Metoprolol Tartrate TAB* 50 mg PO SCH ×2 (09:56→21:11)
[2019-04-09] MEDS: Sertraline* 50 MG TAB PO SCH (09:57)
[2019-04-09] MEDS: predniSONE TAB* 5 MG PO SCH (09:58)
[2019-04-09] MEDS: Divalproex Sprinkle CAP* 125 MG PO SCH ×2 (10:00→21:11)
[2019-04-09] MEDS: Enoxaparin(*) 80 MG/0.8 ML SYR SUBCUT SCH (10:04)
[2019-04-09 10:05] LABS: INR 2.49 (0.82-1.09)
--- NOTE | 2019-04-09 10:56 | PN ---
Subjective Date of Service: 04/09/19 Interval History: Patient is far more interactive today. Patient answers "hi" when greeted and says "no" when asked if she has chest pain. Otherwise unable to answer further questions. Nursing agrees that she is more interactive this morning. interested in keeping oral anticoagulation. He says he would rather continue AC because if he decided to stop it and she had a stroke 2 weeks later he "wouldn't be able to live with myself." Agreeable to xarelto change considering issues with labile INRs. Objective Active Medications: Acetaminophen (Tylenol Tab*) 650 mg PO Q6H PRN PRN Reason: MILD PAIN or TEMP > 100.4 Albuterol/Ipratropium (Duoneb (Albuterol 2.5 Mg/Ipratropium 0.5 Mg)) 1 neb INH Q4H PRN PRN Reason: SOB/WHEEZING Atorvastatin Calcium (Lipitor*) 20 mg PO DAILY [facility] Last Admin: 04/09/19 09:50 Dose: 20 mg Diltiazem HCl (Cardizem Cd Cap*) 240 mg PO DAILY [facility] Divalproex Sodium (Depakote Sprinkle Cap*) 250 mg PO BID [facility] Last Admin: 04/09/19 10:00 Dose: 250 mg Enoxaparin Sodium (Lovenox(*)) 80 mg SUBCUT Q12H [facility] Last Admin: 04/09/19 10:04 Dose: 80 mg Ceftriaxone Sodium 1 gm/ (Sodium Chloride) 50 mls @ 100 mls/hr IVPB Q24H [facility] Last Admin: 04/08/19 13:33 Dose: 100 mls/hr Potassium Chloride (Potassium Chloride 20 Meq/100 Ml Ivpremix*) 20 meq in 100 mls @ 50 mls/hr IV Q2H [facility] Stop: 04/09/19 12:59 Last Admin: 04/09/19 09:38 Dose: 50 mls/hr Levothyroxine Sodium (Synthroid Tab*) 25 mcg PO DAILY@0600 [facility] Last Admin: 04/09/19 05:46 Dose: 25 mcg Metoprolol Tartrate (Lopressor Tab*) 50 mg PO BID [facility] Last Admin: 04/09/19 09:56 Dose: 50 mg Nystatin (Nystatin Top Powder*) 1 applic TOPICAL BID PRN PRN Reason: RASH Pharmacy Profile Note (Coumadin Daily Reminder*) 1 note FOLLOW UP 1700 [facility] Last Admin: 04/08/19 17:23 Dose: 1 note Prednisone (Deltasone Tab*) 5 mg PO DAILY [facility] Last Admin: 04/09/19 09:58 Dose: 5 mg Sertraline HCl (Zoloft*) 50 mg PO DAILY [facility] Last Admin: 04/09/19 09:57 Dose: 50 mg Torsemide (Torsemide) 5 mg PO DAILY [facility] Last Admin: 04/09/19 09:50 Dose: 5 mg Warfarin Sodium (Coumadin Tab(*)) 4 mg PO DAILY@1700 [facility]; Protocol Last Admin: 04/08/19 17:23 Dose: 4 mg Vital Signs - 8 hr 04/09/19 03:49 Temperature 97.7 F Pulse Rate 101 Respiratory 18 Rate Blood Pressure 117/69 (mmHg) O2 Sat by Pulse 95 Oximetry Oxygen Devices in Use Now: Nasal Cannula Appearance: Elderly white female, laying upright in hospital bed, appearing comfortable and in NAD Eyes: No Scleral Icterus, - - PERRL Ears/Nose/Mouth/Throat: Mucous Membranes Moist Neck: Trachea Midline Respiratory: Symmetrical Chest Expansion and Respiratory Effort, - - crackles in bilateral lung bases Cardiovascular: NL Sounds; No Murmurs; No JVD, - - irregularly irregular rhythm Abdominal: - - abd soft, nontender, nondistended Extremities: No Edema, No Clubbing, Cyanosis Skin: No Rash or Ulcers Neurological: - - speech dysarthric but does answer some questions appropriately ; alert Result Diagrams: 04/09/19 05:38 04/09/19 05:38 Additional Lab and Data: Laboratory Results - last 24 hr 04/05/19 04/05/19 04/05/19 16:21 16:22 16:22 WBC 5.9 RBC 5.20 H Hgb 14.5 Hct 45 MCV 86 MCH 28 MCHC 32 RDW 17 H Plt Count 133 L MPV 11.5 H Neut % (Auto) 53.7 Lymph % (Auto) 34.9 [place] % (Auto) 9.3 Eos % (Auto) 1.1 Baso % (Auto) 1.0 Absolute Neuts (auto) 3.2 Absolute Lymphs (auto) 2.1 Absolute Monos (auto) 0.6 Absolute Eos (auto) 0.1 Absolute Basos (auto) 0.1 Absolute Nucleated RBC 0.0 Nucleated RBC % 0.1 INR (Anticoag Therapy) 9.98 H* APTT 78.1 H Sodium 145 Potassium 4.7 Chloride 107 Carbon Dioxide 30 Anion Gap 8 BUN 23 Creatinine 0.96 H Est GFR ( Amer) 67.5 Est GFR (Non-Af Amer) 55.8 BUN/Creatinine Ratio 24.0 H Glucose 127 H Lactic Acid Calcium 9.3 Total Bilirubin 0.50 AST 19 ALT 9 Alkaline Phosphatase 59 Troponin I 0.03 Total Protein 7.0 Albumin 3.7 Globulin 3.3 Albumin/Globulin Ratio 1.1 Urine Color Urine Appearance Urine pH Ur Specific [place] Urine Protein Urine Ketones Urine Blood Urine Nitrate Urine Bilirubin Urine Urobilinogen Ur Leukocyte Esterase Urine WBC (Auto) Urine RBC (Auto) Ur Squamous Epith Cells Urine Bacteria Hyaline Casts Urine Glucose Valproic Acid 116.0 H 04/05/19 04/05/19 04/05/19 16:22 17:00 20:10 WBC RBC Hgb Hct MCV MCH MCHC RDW Plt Count MPV Neut % (Auto) Lymph % (Auto) [place] % (Auto) Eos % (Auto) Baso % (Auto) Absolute Neuts (auto) Absolute Lymphs (auto) Absolute Monos (auto) Absolute Eos (auto) Absolute Basos (auto) Absolute Nucleated RBC Nucleated RBC % INR (Anticoag Therapy) APTT Sodium Potassium Chloride Carbon Dioxide Anion Gap BUN Creatinine Est GFR ( Amer) Est GFR (Non-Af Amer) BUN/Creatinine Ratio Glucose Lactic Acid 2.0 2.1 H* Calcium Total Bilirubin AST ALT Alkaline Phosphatase Troponin I Total Protein Albumin Globulin Albumin/Globulin Ratio Urine Color Yellow Urine Appearance Cloudy Urine pH 5.0 Ur Specific [place] 1.013 Urine Protein Negative Urine Ketones Negative Urine Blood 2+ A Urine Nitrate Positive A Urine Bilirubin Negative Urine Urobilinogen Negative Ur Leukocyte Esterase 3+ A Urine WBC (Auto) 3+(>20/hpf) A Urine RBC (Auto) 3+(>10/hpf) A Ur Squamous Epith Cells Present A Urine Bacteria Absent Hyaline Casts Present A Urine Glucose Negative Valproic Acid 04/06/19 04/06/19 04/06/19 04:43 04:43 04:43 WBC 8.1 RBC 5.07 H Hgb 14.2 Hct 44 MCV 86 MCH 28 MCHC 33 RDW 16 H Plt Count 125 L MPV 11.0 H Neut % (Auto) 58.0 Lymph % (Auto) 28.6 [place] % (Auto) 10.8 Eos % (Auto) 1.8 Baso % (Auto) 0.8 Absolute Neuts (auto) 4.7 Absolute Lymphs (auto) 2.3 Absolute Monos (auto) 0.9 H Absolute Eos (auto) 0.1 Absolute Basos (auto) 0.1 Absolute Nucleated RBC 0.0 Nucleated RBC % 0.1 INR (Anticoag Therapy) >10.00 H* APTT Sodium Potassium Chloride Carbon Dioxide Anion Gap BUN Creatinine Est GFR ( Amer) Est GFR (Non-Af Amer) BUN/Creatinine Ratio Glucose Lactic Acid 1.9 Calcium Total Bilirubin AST ALT Alkaline Phosphatase Troponin I Total Protein Albumin Globulin Albumin/Globulin Ratio Urine Color Urine Appearance Urine pH Ur Specific [place] Urine Protein Urine Ketones Urine Blood Urine Nitrate Urine Bilirubin Urine Urobilinogen Ur Leukocyte Esterase Urine WBC (Auto) Urine RBC (Auto) Ur Squamous Epith Cells Urine Bacteria Hyaline Casts Urine Glucose Valproic Acid 04/06/19 04:43 WBC RBC Hgb Hct MCV MCH MCHC RDW Plt Count MPV Neut % (Auto) Lymph % (Auto) [place] % (Auto) Eos % (Auto) Baso % (Auto) Absolute Neuts (auto) Absolute Lymphs (auto) Absolute Monos (auto) Absolute Eos (auto) Absolute Basos (auto) Absolute Nucleated RBC Nucleated RBC % INR (Anticoag Therapy) APTT Sodium 145 Potassium 4.0 Chloride 109 Carbon Dioxide 28 Anion Gap 8 BUN 22 Creatinine 0.85 Est GFR ( Amer) 77.7 Est GFR (Non-Af Amer) 64.2 BUN/Creatinine Ratio 25.9 H Glucose 107 H Lactic Acid Calcium 8.8 Total Bilirubin AST ALT Alkaline Phosphatase Troponin I Total Protein Albumin Globulin Albumin/Globulin Ratio Urine Color Urine Appearance Urine pH Ur Specific [place] Urine Protein Urine Ketones Urine Blood Urine Nitrate Urine Bilirubin Urine Urobilinogen Ur Leukocyte Esterase Urine WBC (Auto) Urine RBC (Auto) Ur Squamous Epith Cells Urine Bacteria Hyaline Casts Urine Glucose Valproic Acid Microbiology and Other Data: Microbiology 04/05/19 16:21 Blood Culture - Preliminary Blood Venous No Growth Day 2 04/05/19 16:21 Blood Culture - Preliminary Blood Venous No Growth Day 2 04/05/19 17:00 Urine Culture - Preliminary Urine Escherichia Coli Assess/Plan/Problems-Billing Assessment: 83 yo female PMH multiple CVAs, dementia, wheelchair bound, chronic Afib ( Coumadin, formerly tikosyn and digoxin), suspected seizure disorder (depakote) presenting with elevated INR(9.9), fallling asleep more and e/o UTI. - Patient Problems (1) Hypoxia Current Visit: Yes Status: Acute Code(s): R09.02 - HYPOXEMIA SNOMED Code(s ): 746129884 Comment: -hypoxia requiring oxygen, previously. On RA today with good O2 sats -CXR at admission looks like there is pulmonary edema compared to CXR in Jan 2019 -home torsemide was on hold since admission due to likely dehydration. Has since been restarted at home dose 5mg -the most recent echo in Jan 2019 showed normal EF but diastolic function was indeterminant. She perhaps has diastolic CHF, though unclear -there are some crackles today. Unfortunately, patient less likely to be able to perform incentive spirometry (2) AMS (altered mental status) Current Visit: Yes Status: Acute Code(s): R41.82 - ALTERED MENTAL STATUS, UNSPECIFIED SNOMED Code(s): 171549682 Comment: -poor baseline given extensive strokes bilaterally, seizure hx?, dementia -reportedly more sleepy the last week at admission -CT brain negative, ammonia wnl -likely metabolic encephalopathy related to UTI -appears further improved today (3) Atrial fibrillation with RVR Current Visit: Yes Status: Acute Code(s): I48.91 - UNSPECIFIED ATRIAL FIBRILLATION SNOMED Code(s): 970652762497170 Comment: -patient with rates to 130s on 04/07/19 despite increase of metoprolol -frequent pauses on digoxin and metoprolol during prior hospitalization in Jan 2019, thus digoxin was discontinued -failed amiodarone (LFTs adverse effect) and tikosyn (danger due to noncompliance) in the past -cardizem drip 7mg/hour well tolerated, rates overall 70s-90s with good BPs -transitioned to cardizem to 60mg po q6hr. There were frequent pauses which ultimately resolved, longest pauce 2.4 seconds -continue metoprolol tartrate 50 mg BID -only one pause this AM, to 2.5 sec -transitioning to 240 mg long acting diltiazem and will continue to monitor on tele and BPs -changed coumadin to xarelto (4) UTI (urinary tract infection) Current Visit: Yes Status: Acute Comment: -urine culture positive for E. coli, pansensitive -continue ceftriaxone, tomorrow will be last dose -afebrile and no leukocytosis (5) Elevated INR Current Visit: No Status: Acute Code(s): R79.1 - ABNORMAL COAGULATION PROFILE SNOMED Code(s): 196170782 Comment: -INR 9.9 -> 10. Reversed with K on 04/06/19 -no prior evidence of bleeding, CT brain negative -warfarin now discontinued and AC changed to xarelto (6) Hypothyroidism Current Visit: No Status: Chronic Code(s): E03.9 - HYPOTHYROIDISM, UNSPECIFIED SNOMED Code(s): 14741106 Comment: - Continue levothyroxine - TSH wnl (7) Seizures Current Visit: No Status: Chronic Code(s): R56.9 - UNSPECIFIED CONVULSIONS SNOMED Code(s): 80948541 Comment: - formerly trialed on keppra but aggressive. - Depakote level at 6hr (level was 116, but was not a trough). - ammonia wnl - currently on depakote 250po BID. Recommend trough outpatient f/u in one week. Trough today wnl (8) COPD (chronic obstructive pulmonary disease) Current Visit: Yes Status: Acute Code(s): J44.9 - CHRONIC OBSTRUCTIVE PULMONARY DISEASE, UNSPECIFIED SNOMED Code(s): 49867644 Comment: -does not appear to be in acute exacerbation -no home medications for therapy (9) History of CVA (cerebrovascular accident) Current Visit: No Status: Chronic Code(s): Z86.73 - PRSNL HX OF TIA (TIA), AND CEREB INFRC W/O RESID DEFICITS SNOMED Code(s): 120568322 Comment: - With severe encephalomalacia, dementia and seizures disorder - Continue atorvastatin (10) Type II diabetes mellitus Current Visit: No Status: Chronic Comment: - Not on outpatient medication, likely diet-controlled - A1c 7.7% indicating good control - BGs overall good range, no SSI needed (11) DNR (do not resuscitate) Current Visit: Yes Status: Acute (12) DVT prophylaxis Current Visit: No Status: Acute Code(s): WFQ5062 - SNOMED Code(s): 138514680 Comment: - xarelto Status and Disposition: medicine inpatient came from [place]
[2019-04-09] MEDS: Diltiazem CD CAP* 240 MG PO SCH (10:59)
[2019-04-09] MEDS: cefTRIAXone(*) 1 GM in NS 0.9% 50 ML* 50 ML IVPB SCH (14:53)
[2019-04-09] MEDS: Rivaroxaban TAB(*) 20 MG TAB PO SCH (17:33)
[2019-04-10] MEDS: Levothyroxine TAB* 25 MCG TAB PO SCH (06:21)
[2019-04-10 08:14] LABS: BUN/Creatinine Ratio 19.4 (8-20); Calcium 8.8 mg/dL (8.6-10.3); EGFR African American 102.2 (>60); EGFR Non-African American 84.5 (>60); Potassium 3.7 mmol/L (3.5-5.0)
[2019-04-10] MEDS: Sertraline* 50 MG TAB PO SCH (08:52)
[2019-04-10] MEDS: Metoprolol Tartrate TAB* 50 mg PO SCH ×2 (08:52→22:41)
[2019-04-10] MEDS: Diltiazem CD CAP* 240 MG PO SCH (08:52)
[2019-04-10] MEDS: Divalproex Sprinkle CAP* 125 MG PO SCH ×2 (08:52→22:39)
[2019-04-10] MEDS: Torsemide TAB 10 MG PO SCH (08:53)
[2019-04-10] MEDS: predniSONE TAB* 5 MG PO SCH (08:53)
[2019-04-10] MEDS: Atorvastatin* 20 MG TAB PO SCH (08:53)
[2019-04-10] MEDS: cefTRIAXone(*) 1 GM in NS 0.9% 50 ML* 50 ML IVPB SCH (09:22)
[2019-04-10] MEDS: Diltiazem TAB* 60 MG PO SCH ×4 (11:19→23:03)
--- NOTE | 2019-04-10 16:51 | PN ---
Subjective Date of Service: 04/10/19 Interval History: Patient is only slightly verbal today. Patient unable to engage in ROS. Patient smiles when you talk to her. Family History: Unchanged from Admission Social History: Unchanged from Admission Past Medical History: Unchanged from Admission Objective Active Medications: Acetaminophen (Tylenol Tab*) 650 mg PO Q6H PRN PRN Reason: MILD PAIN or TEMP > 100.4 Albuterol/Ipratropium (Duoneb (Albuterol 2.5 Mg/Ipratropium 0.5 Mg)) 1 neb INH Q4H PRN PRN Reason: SOB/WHEEZING Atorvastatin Calcium (Lipitor*) 20 mg PO DAILY [facility] Last Admin: 04/10/19 08:53 Dose: 20 mg Diltiazem HCl (Cardizem Tab*) 60 mg PO Q6HR [facility] Last Admin: 04/10/19 11:19 Dose: 60 mg Divalproex Sodium (Depakote Sprinkle Cap*) 250 mg PO BID [facility] Last Admin: 04/10/19 08:52 Dose: 250 mg Ceftriaxone Sodium 1 gm/ (Sodium Chloride) 50 mls @ 100 mls/hr IVPB Q24H [facility] Stop: 04/10/19 18:00 Last Admin: 04/10/19 09:22 Dose: 100 mls/hr Levothyroxine Sodium (Synthroid Tab*) 25 mcg PO DAILY@0600 [facility] Last Admin: 04/10/19 06:21 Dose: 25 mcg Metoprolol Tartrate (Lopressor Tab*) 50 mg PO BID [facility] Last Admin: 04/10/19 08:52 Dose: 50 mg Nystatin (Nystatin Top Powder*) 1 applic TOPICAL BID PRN PRN Reason: RASH Rivaroxaban (Xarelto(*)) 20 mg PO QPM [facility] Last Admin: 04/09/19 17:33 Dose: 20 mg Sertraline HCl (Zoloft*) 50 mg PO DAILY [facility] Last Admin: 04/10/19 08:52 Dose: 50 mg Torsemide (Torsemide) 10 mg PO DAILY [facility] Vital Signs - 8 hr 04/10/19 04/10/19 11:47 15:15 Temperature 97.3 F 97.5 F Pulse Rate 100 106 Respiratory 20 20 Rate Blood Pressure 131/65 140/56 (mmHg) O2 Sat by Pulse 93 96 Oximetry Oxygen Devices in Use Now: None Appearance: Patient is an 83yo female who appears stated age and is sitting in the bed in NAD. Eyes: No Scleral Icterus, PERRLA Ears/Nose/Mouth/Throat: NL Teeth, Lips, Gums, Clear Oropharnyx, Mucous Membranes Moist Neck: NL Appearance and Movements; NL JVP, Trachea Midline Respiratory: Symmetrical Chest Expansion and Respiratory Effort, Clear to Auscultation Cardiovascular: NL Sounds; No Murmurs; No JVD, RRR, No Edema Abdominal: NL Sounds; No Tenderness; No Distention, No Hepatosplenomegaly Lymphatic: No Cervical Adenopathy Extremities: No Edema, No Clubbing, Cyanosis Skin: No Rash or Ulcers, No Nodules or Sclerosis Neurological: - - Alert, not oriented. Result Diagrams: 04/09/19 05:38 04/10/19 07:26 Additional Lab and Data: Laboratory Results - last 24 hr Microbiology and Other Data: Microbiology 04/05/19 16:21 Blood Culture - Preliminary Blood Venous No Growth Day 2 04/05/19 16:21 Blood Culture - Preliminary Blood Venous No Growth Day 2 04/05/19 17:00 Urine Culture - Preliminary Urine Escherichia Coli Assess/Plan/Problems-Billing Assessment: 83 yo female PMH multiple CVAs, dementia, wheelchair bound, chronic Afib ( Coumadin, formerly tikosyn and digoxin), suspected seizure disorder (depakote) presenting with elevated INR(9.9), fallling asleep more and e/o UTI. Now improving, but significantly deconditioned. - Patient Problems (1) AMS (altered mental status) Current Visit: Yes Status: Acute Code(s): R41.82 - ALTERED MENTAL STATUS, UNSPECIFIED SNOMED Code(s): 749873037 Comment: - Severe Vascular Dementia - Increased Lethargy on admission - CT brain negative, ammonia WNL - Likely metabolic encephalopathy related to UTI -appears further improved today (2) Hypoxia Current Visit: Yes Status: Acute Code(s): R09.02 - HYPOXEMIA SNOMED Code(s ): 970972710 Comment: - Hypoxia requiring oxygen, previously. On RA today with good O2 sats - CXR at admission looks like there is pulmonary edema compared to CXR in Jan 2019 - Increase home Torsemide - Likely due to HFpEF exacerbation (3) Atrial fibrillation with RVR Current Visit: Yes Status: Acute Code(s): I48.91 - UNSPECIFIED ATRIAL FIBRILLATION SNOMED Code(s): 054536949048011 Comment: - Patient with rates to 130s on 04/07/19 despite increase of metoprolol - Failed amiodarone (LFTs adverse effect) and tikosyn (danger due to noncompliance) in the past - Cardizem drip 7mg/hour well tolerated, rates overall 70s-90s with good BPs - Transitioned to cardizem to 60mg po q6hr. - Continue metoprolol tartrate 50 mg BID - Changed coumadin to xarelto (4) COPD (chronic obstructive pulmonary disease) Current Visit: Yes Status: Acute Code(s): J44.9 - CHRONIC OBSTRUCTIVE PULMONARY DISEASE, UNSPECIFIED SNOMED Code(s): 90968425 Comment: - No acute Exacerbation - No home medications for therapy (5) UTI (urinary tract infection) Current Visit: Yes Status: Acute Comment: - Urine culture positive for E. coli, pansensitive - Continue ceftriaxone, Stop after today - Afebrile and no leukocytosis (6) Elevated INR Current Visit: No Status: Acute Code(s): R79.1 - ABNORMAL COAGULATION PROFILE SNOMED Code(s): 624192520 Comment: - INR 9.9 -> 10. Reversed with K on 04/06/19 - No prior evidence of bleeding, CT brain negative - Warfarin now discontinued and AC changed to xarelto (7) Seizures Current Visit: No Status: Chronic Code(s): R56.9 - UNSPECIFIED CONVULSIONS SNOMED Code(s): 38099888 Comment: - Formerly trialed on keppra but aggressive. - Depakote level at 6hr (level was 116, but was not a trough). - Ammonia WNL - Currently on depakote 250po BID. Recommend trough outpatient f/u.Trough today wnl (8) DNR (do not resuscitate) Current Visit: Yes Status: Acute (9) DVT prophylaxis Current Visit: No Status: Acute Code(s): ZAB5249 - SNOMED Code(s): 009168602 Comment: - Xarelto Status and Disposition: Medicine inpatient, Will likely need ALAINA.
[2019-04-10] MEDS: Rivaroxaban TAB(*) 20 MG TAB PO SCH (18:00)
[2019-04-11] MEDS: Levothyroxine TAB* 25 MCG TAB PO SCH (05:18)
[2019-04-11] MEDS: Diltiazem TAB* 60 MG PO SCH ×4 (05:18→23:24)
[2019-04-11 06:00] LABS: ABS Eosinophils 0.3 10^3/ul (0-0.6); ABS Lymphocytes 2.1 10^3/ul (1.0-4.8); ABS Monocytes 1.1 10^3/ul (0-0.8); ABS Neutrophils 6.8 10^3/ul (1.5-7.7); Eosinophil % 2.6 %; Hematocrit 40 % (35-47); Hemoglobin 13.2 g/dL (12.0-16.0); Lymphocyte % 20.2 %; Mean Corpuscular HGB Conc 33 g/dL (31-36); Mean Corpuscular Hemoglobin 28 pg (27-31); Mean Corpuscular Volume 85 fL (80-97); Nucleated Red Blood Cells % 0.1; Platelet Count 152 10^3/uL (150-450); Red Blood Count 4.66 10^6 /uL (3.70-4.87); Red Cell Distribution Width 16 % (10-15); White Blood Count 10.4 10^3/uL (3.5-10.8)
[2019-04-11 06:10] LABS: BUN/Creatinine Ratio 19.7 (8-20); Calcium 8.7 mg/dL (8.6-10.3); EGFR African American 113.9 (>60); EGFR Non-African American 94.1 (>60); Magnesium 1.9 mg/dL (1.9-2.7); Potassium 3.3 mmol/L (3.5-5.0)
[2019-04-11] MEDS ORDERED: Potassium Chloride* LIQUID 20 MEQ/15 ML UDC PO ONE (08:04)
[2019-04-11] MEDS: Metoprolol Tartrate TAB* 50 mg PO SCH ×2 (09:03→20:43)
[2019-04-11] MEDS: Atorvastatin* 20 MG TAB PO SCH (09:04)
[2019-04-11] MEDS: Torsemide TAB 10 MG PO SCH (09:05)
[2019-04-11] MEDS: Sertraline* 50 MG TAB PO SCH (09:06)
[2019-04-11] MEDS: Divalproex Sprinkle CAP* 125 MG PO SCH ×2 (09:09→20:43)
--- NOTE | 2019-04-11 15:09 | PN ---
Subjective Date of Service: 04/11/19 Interval History: Patient states she feels "good." Patient otherwise unable to engage in ROS. Family History: Unchanged from Admission Social History: Unchanged from Admission Past Medical History: Unchanged from Admission Objective Active Medications: Acetaminophen (Tylenol Tab*) 650 mg PO Q6H PRN PRN Reason: MILD PAIN or TEMP > 100.4 Albuterol/Ipratropium (Duoneb (Albuterol 2.5 Mg/Ipratropium 0.5 Mg)) 1 neb INH Q4H PRN PRN Reason: SOB/WHEEZING Atorvastatin Calcium (Lipitor*) 20 mg PO DAILY [facility] Last Admin: 04/11/19 09:04 Dose: 20 mg Diltiazem HCl (Cardizem Tab*) 60 mg PO Q6HR [facility] Last Admin: 04/11/19 12:31 Dose: 60 mg Divalproex Sodium (Depakote Sprinkle Cap*) 250 mg PO BID [facility] Last Admin: 04/11/19 09:09 Dose: 250 mg Levothyroxine Sodium (Synthroid Tab*) 25 mcg PO DAILY@0600 [facility] Last Admin: 04/11/19 05:18 Dose: 25 mcg Metoprolol Tartrate (Lopressor Tab*) 50 mg PO BID [facility] Last Admin: 04/11/19 09:03 Dose: 50 mg Nystatin (Nystatin Top Powder*) 1 applic TOPICAL BID PRN PRN Reason: RASH Rivaroxaban (Xarelto(*)) 20 mg PO QPM [facility] Last Admin: 04/10/19 18:00 Dose: 20 mg Sertraline HCl (Zoloft*) 50 mg PO DAILY [facility] Last Admin: 04/11/19 09:06 Dose: 50 mg Torsemide (Torsemide) 10 mg PO DAILY [facility] Last Admin: 04/11/19 09:05 Dose: 10 mg Vital Signs - 8 hr 04/11/19 04/11/19 07:15 08:00 Temperature 97 F Pulse Rate 62 Respiratory 20 Rate Blood Pressure 122/67 (mmHg) O2 Sat by Pulse 92 92 Oximetry Oxygen Devices in Use Now: None Appearance: Patient is an 83yo female who appears stated age and is sitting in the bed in NAD. Eyes: No Scleral Icterus, PERRLA Ears/Nose/Mouth/Throat: NL Teeth, Lips, Gums, Clear Oropharnyx, Mucous Membranes Moist Neck: NL Appearance and Movements; NL JVP, Trachea Midline Respiratory: Symmetrical Chest Expansion and Respiratory Effort, Clear to Auscultation Cardiovascular: NL Sounds; No Murmurs; No JVD, RRR, - - Irregularly irregular rhythm. Abdominal: NL Sounds; No Tenderness; No Distention, No Hepatosplenomegaly Lymphatic: No Cervical Adenopathy Extremities: No Edema, No Clubbing, Cyanosis Skin: No Rash or Ulcers, No Nodules or Sclerosis Neurological: - - Alert, Not oriented. Result Diagrams: 04/11/19 05:33 04/11/19 05:33 Additional Lab and Data: Laboratory Results - last 24 hr Microbiology and Other Data: Microbiology 04/05/19 16:21 Blood Culture - Preliminary Blood Venous No Growth Day 2 04/05/19 16:21 Blood Culture - Preliminary Blood Venous No Growth Day 2 04/05/19 17:00 Urine Culture - Preliminary Urine Escherichia Coli Assess/Plan/Problems-Billing Assessment: 83 yo female PMH multiple CVAs, dementia, wheelchair bound, chronic Afib ( Coumadin, formerly tikosyn and digoxin), suspected seizure disorder (depakote) presenting with elevated INR(9.9), fallling asleep more and e/o UTI. Now improving, but significantly deconditioned. - Patient Problems (1) AMS (altered mental status) Current Visit: Yes Status: Acute Code(s): R41.82 - ALTERED MENTAL STATUS, UNSPECIFIED SNOMED Code(s): 637867440 Comment: - Severe Vascular Dementia - Increased Lethargy on admission - CT brain negative, ammonia WNL - Likely metabolic encephalopathy related to UTI - Appears Stable today (2) Hypoxia Current Visit: Yes Status: Acute Code(s): R09.02 - HYPOXEMIA SNOMED Code(s ): 983418053 Comment: - Hypoxia requiring oxygen previously. On RA today with good O2 sats - Infiltrate without signs of PNA - CXRs show pulmonary edema compared to CXR in Jan 2019 - Increase home Torsemide, monitor renal function - Likely due to HFpEF exacerbation - Does not need Antibiotics (3) Atrial fibrillation with RVR Current Visit: Yes Status: Acute Code(s): I48.91 - UNSPECIFIED ATRIAL FIBRILLATION SNOMED Code(s): 533968556267302 Comment: - Patient with rates to 130s on 11/10/19 despite increase of metoprolol - Failed amiodarone (LFTs adverse effect) and tikosyn (danger due to noncompliance) in the past - Cardizem drip 7mg/hour well tolerated, rates overall 70s-90s with good BPs - Transitioned to cardizem to 60mg po q6hr. Cannot take ER formulations due to inability to crush pills. - Continue metoprolol tartrate 50 mg BID - Changed coumadin to xarelto (4) COPD (chronic obstructive pulmonary disease) Current Visit: Yes Status: Acute Code(s): J44.9 - CHRONIC OBSTRUCTIVE PULMONARY DISEASE, UNSPECIFIED SNOMED Code(s): 24759488 Comment: - No acute Exacerbation - No home medications for therapy (5) UTI (urinary tract infection) Current Visit: Yes Status: Acute Comment: - Urine culture positive for E. coli, pansensitive - Completed ceftriaxone - Afebrile and no leukocytosis (6) Elevated INR Current Visit: No Status: Acute Code(s): R79.1 - ABNORMAL COAGULATION PROFILE SNOMED Code(s): 162944649 Comment: - INR 9.9 -> 10. Reversed with K on 04/06/19 - No prior evidence of bleeding, CT brain negative - Warfarin now discontinued and AC changed to xarelto (7) Seizures Current Visit: No Status: Chronic Code(s): R56.9 - UNSPECIFIED CONVULSIONS SNOMED Code(s): 53186795 Comment: - Formerly trialed on keppra but aggressive. - Depakote level at 6hr (level was 116, but was not a trough). - Ammonia WNL - Currently on depakote 250po BID. Recommend trough outpatient f/u.Trough today wnl (8) DNR (do not resuscitate) Current Visit: Yes Status: Acute (9) DVT prophylaxis Current Visit: No Status: Acute Code(s): MSP6081 - SNOMED Code(s): 609647606 Comment: - Xarelto Status and Disposition: Medicine inpatient, Will likely need ALAINA.
[2019-04-11] MEDS: Rivaroxaban TAB(*) 20 MG TAB PO SCH (18:30)
[2019-04-12] MEDS: Levothyroxine TAB* 25 MCG TAB PO SCH (05:26)
[2019-04-12] MEDS: Diltiazem TAB* 60 MG PO SCH ×3 (05:26→17:03)
[2019-04-12] MEDS: Albuterol/Ipratropium NEB.SOL* Albuterol 2.5 MG/Ipratropium 0.5 MG 3 ML INH PRN (05:51)
[2019-04-12] MEDS: Metoprolol Tartrate TAB* 50 mg PO SCH ×2 (08:47→20:13)
[2019-04-12] MEDS: Atorvastatin* 20 MG TAB PO SCH (08:47)
[2019-04-12] MEDS: Divalproex Sprinkle CAP* 125 MG PO SCH ×2 (08:47→20:12)
[2019-04-12] MEDS: Torsemide TAB 10 MG PO SCH (08:47)
[2019-04-12] MEDS: Sertraline* 50 MG TAB PO SCH (08:47)
--- NOTE | 2019-04-12 13:38 | PN ---
Subjective Date of Service: 04/12/19 Interval History: Patient smiles to voice this AM. Patient denies pain. When asked if she would stand up with this author she laughed and stated "I don't think I can do that." Otherwise rather non-communicative and unable to engage in ROS. Family History: Unchanged from Admission Social History: Unchanged from Admission Past Medical History: Unchanged from Admission Objective Active Medications: Acetaminophen (Tylenol Tab*) 650 mg PO Q6H PRN PRN Reason: MILD PAIN or TEMP > 100.4 Albuterol/Ipratropium (Duoneb (Albuterol 2.5 Mg/Ipratropium 0.5 Mg)) 1 neb INH Q4H PRN PRN Reason: SOB/WHEEZING Last Admin: 04/12/19 05:51 Dose: 1 neb Atorvastatin Calcium (Lipitor*) 20 mg PO DAILY [facility] Last Admin: 04/12/19 08:47 Dose: 20 mg Diltiazem HCl (Cardizem Tab*) 60 mg PO Q6HR [facility] Last Admin: 04/12/19 11:34 Dose: 60 mg Divalproex Sodium (Depakote Sprinkle Cap*) 250 mg PO BID [facility] Last Admin: 04/12/19 08:47 Dose: 250 mg Levothyroxine Sodium (Synthroid Tab*) 25 mcg PO DAILY@0600 [facility] Last Admin: 04/12/19 05:26 Dose: 25 mcg Metoprolol Tartrate (Lopressor Tab*) 50 mg PO BID [facility] Last Admin: 04/12/19 08:47 Dose: 50 mg Nystatin (Nystatin Top Powder*) 1 applic TOPICAL BID PRN PRN Reason: RASH Rivaroxaban (Xarelto(*)) 20 mg PO QPM [facility] Last Admin: 04/11/19 18:30 Dose: 20 mg Sertraline HCl (Zoloft*) 50 mg PO DAILY [facility] Last Admin: 04/12/19 08:47 Dose: 50 mg Torsemide (Torsemide) 10 mg PO DAILY [facility] Last Admin: 04/12/19 08:47 Dose: 10 mg Vital Signs - 8 hr 04/12/19 04/12/19 04/12/19 06:01 07:15 08:00 Temperature 97.0 F Pulse Rate 62 69 Respiratory 14 18 18 Rate Blood Pressure 123/59 (mmHg) O2 Sat by Pulse 93 95 95 Oximetry 04/12/19 04/12/19 11:15 11:20 Temperature 97.0 F Pulse Rate 68 Respiratory 18 Rate Blood Pressure 122/56 (mmHg) O2 Sat by Pulse 89 94 Oximetry Oxygen Devices in Use Now: None Appearance: Patient is an 83yo female who appears stated age and is sitting in the bed in NAD. Eyes: No Scleral Icterus, PERRLA Ears/Nose/Mouth/Throat: NL Teeth, Lips, Gums, Clear Oropharnyx, Mucous Membranes Moist Neck: NL Appearance and Movements; NL JVP, Trachea Midline Respiratory: Symmetrical Chest Expansion and Respiratory Effort, Clear to Auscultation Cardiovascular: NL Sounds; No Murmurs; No JVD, No Edema, - - Irregularly irregular rhythm. Abdominal: NL Sounds; No Tenderness; No Distention, No Hepatosplenomegaly Lymphatic: No Cervical Adenopathy Extremities: No Edema, No Clubbing, Cyanosis Skin: No Rash or Ulcers, No Nodules or Sclerosis Neurological: - - Alert, oriented only to self. limited exam. Result Diagrams: 04/11/19 05:33 04/11/19 05:33 Additional Lab and Data: Laboratory Results - last 24 hr Microbiology and Other Data: Microbiology 04/05/19 16:21 Blood Culture - Preliminary Blood Venous No Growth Day 2 04/05/19 16:21 Blood Culture - Preliminary Blood Venous No Growth Day 2 04/05/19 17:00 Urine Culture - Preliminary Urine Escherichia Coli Assess/Plan/Problems-Billing Assessment: 83 yo female PMH multiple CVAs, dementia, wheelchair bound, chronic Afib ( Coumadin, formerly tikosyn and digoxin), suspected seizure disorder (depakote) presenting with elevated INR(9.9), fallling asleep more and e/o UTI. Now improving, but significantly deconditioned. - Patient Problems (1) AMS (altered mental status) Current Visit: Yes Status: Acute Code(s): R41.82 - ALTERED MENTAL STATUS, UNSPECIFIED SNOMED Code(s): 159008128 Comment: - Severe Vascular Dementia - Increased Lethargy on admission - CT brain negative, ammonia WNL - Likely metabolic encephalopathy related to UTI - Appears Stable today, downward decline in mental state over last couple months. (2) Hypoxia Current Visit: Yes Status: Acute Code(s): R09.02 - HYPOXEMIA SNOMED Code(s ): 608073618 Comment: - Intermittent slight hypoxia - Infiltrate without signs of PNA - CXRs show pulmonary edema compared to CXR in Jan 2019 - Increase home Torsemide, monitor renal function - Likely due to HFpEF exacerbation - Does not need Antibiotics - Poor respiratory effort, atalectasis likely contributing. (3) Atrial fibrillation with RVR Current Visit: Yes Status: Acute Code(s): I48.91 - UNSPECIFIED ATRIAL FIBRILLATION SNOMED Code(s): 390822168639494 Comment: - Patient with rates to 130s on 04/07/19 despite increase of metoprolol - Failed amiodarone (LFTs adverse effect) and tikosyn (danger due to noncompliance) in the past - Cardizem drip 7mg/hour well tolerated, rates overall 70s-90s with good BPs - Transitioned to cardizem to 60mg po q6hr. Cannot take ER formulations due to inability to crush pills. - Continue metoprolol tartrate 50 mg BID - Changed coumadin to xarelto (4) Weight loss Current Visit: Yes Status: Acute Comment: - Weight loss over last several months with poor oral intake. - Encourage High Calorie Foods - Nutrition Consult. (5) COPD (chronic obstructive pulmonary disease) Current Visit: Yes Status: Acute Code(s): J44.9 - CHRONIC OBSTRUCTIVE PULMONARY DISEASE, UNSPECIFIED SNOMED Code(s): 20060202 Comment: - No acute Exacerbation - No home medications for therapy (6) UTI (urinary tract infection) Current Visit: Yes Status: Acute Comment: - Urine culture positive for E. coli, pansensitive - Completed ceftriaxone - Afebrile and no leukocytosis (7) Elevated INR Current Visit: No Status: Acute Code(s): R79.1 - ABNORMAL COAGULATION PROFILE SNOMED Code(s): 917732187 Comment: - INR 9.9 -> 10. Reversed with K on 04/06/19 - No prior evidence of bleeding, CT brain negative - Warfarin now discontinued and AC changed to xarelto (8) Seizures Current Visit: No Status: Chronic Code(s): R56.9 - UNSPECIFIED CONVULSIONS SNOMED Code(s): 57204481 Comment: - Formerly trialed on keppra, but stopped due to psychiatric AE. - Ammonia WNL - Currently on depakote 250po BID. - Repeat Trough tomorrow. (9) DNR (do not resuscitate) Current Visit: Yes Status: Acute (10) DVT prophylaxis Current Visit: No Status: Acute Code(s): SER3215 - SNOMED Code(s): 964060140 Comment: - Xarelto Status and Disposition: Medicine inpatient, Will likely need ALAINA, likely Monday.
[2019-04-12] MEDS: Rivaroxaban TAB(*) 20 MG TAB PO SCH (17:04)
[2019-04-13] MEDS: Diltiazem TAB* 60 MG PO SCH ×5 (00:18→18:10)
[2019-04-13] MEDS: Levothyroxine TAB* 25 MCG TAB PO SCH (05:49)
[2019-04-13 06:52] LABS: ABS Eosinophils 0.3 10^3/ul (0-0.6); ABS Monocytes 1.4 10^3/ul (0-0.8); ABS Neutrophils 4.2 10^3/ul (1.5-7.7); Eosinophil % 3.3 %; Hematocrit 40 % (35-47); Hemoglobin 13.5 g/dL (12.0-16.0); Lymphocyte % 25.3 %; Mean Corpuscular HGB Conc 34 g/dL (31-36); Mean Corpuscular Hemoglobin 29 pg (27-31); Mean Corpuscular Volume 85 fL (80-97); Mean Platelet Volume 8.4 fL (7.4-10.4); Platelet Count 170 10^3/uL (150-450); Red Blood Count 4.71 10^6 /uL (3.70-4.87); Red Cell Distribution Width 16 % (10-15)
[2019-04-13 07:05] LABS: Calcium 8.4 mg/dL (8.6-10.3); EGFR African American 116.1 (>60); EGFR Non-African American 95.9 (>60); Magnesium 1.8 mg/dL (1.9-2.7); Potassium 3.2 mmol/L (3.5-5.0)
[2019-04-13] MEDS ORDERED: Magnesium Sulfate 2 GM IV* 2 GM/50 ML BAG IVPB ONE (08:06)
[2019-04-13] MEDS: KCL 20 MEQ/100 ML IVPREMIX* 20 MEQ/100 ML BAG IV SCH ×2 (10:12→13:07)
[2019-04-13] MEDS: Metoprolol Tartrate TAB* 50 mg PO SCH ×2 (10:23→20:47)
[2019-04-13] MEDS: Sertraline* 50 MG TAB PO SCH (10:25)
[2019-04-13] MEDS: Divalproex Sprinkle CAP* 125 MG PO SCH ×2 (10:26→20:46)
[2019-04-13] MEDS: Atorvastatin* 20 MG TAB PO SCH (10:27)
[2019-04-13] MEDS: Torsemide TAB 10 MG PO SCH (10:29)
--- NOTE | 2019-04-13 12:43 | PN ---
Subjective Date of Service: 04/13/19 Interval History: Patient is more alert today than previous days, but still mainly stares out the window. Patient denies pain and SOB, but unable to further engage in ROS. Family History: Unchanged from Admission Social History: Unchanged from Admission Past Medical History: Unchanged from Admission Objective Active Medications: Acetaminophen (Tylenol Tab*) 650 mg PO Q6H PRN PRN Reason: MILD PAIN or TEMP > 100.4 Albuterol/Ipratropium (Duoneb (Albuterol 2.5 Mg/Ipratropium 0.5 Mg)) 1 neb INH Q4H PRN PRN Reason: SOB/WHEEZING Last Admin: 04/12/19 05:51 Dose: 1 neb Atorvastatin Calcium (Lipitor*) 20 mg PO DAILY [facility] Last Admin: 04/13/19 10:27 Dose: 20 mg Diltiazem HCl (Cardizem Tab*) 60 mg PO Q6HR [facility] Last Admin: 04/13/19 06:53 Dose: Not Given Divalproex Sodium (Depakote Sprinkle Cap*) 250 mg PO BID [facility] Last Admin: 04/13/19 10:26 Dose: 250 mg Potassium Chloride (Potassium Chloride 20 Meq/100 Ml Ivpremix*) 20 meq in 100 mls @ 50 mls/hr IV Q2H [facility] Stop: 04/13/19 12:59 Last Admin: 04/13/19 10:12 Dose: 50 mls/hr Levothyroxine Sodium (Synthroid Tab*) 25 mcg PO DAILY@0600 [facility] Last Admin: 04/13/19 05:49 Dose: 25 mcg Metoprolol Tartrate (Lopressor Tab*) 50 mg PO BID [facility] Last Admin: 04/13/19 10:23 Dose: 50 mg Nystatin (Nystatin Top Powder*) 1 applic TOPICAL BID PRN PRN Reason: RASH Rivaroxaban (Xarelto(*)) 20 mg PO QPM [facility] Last Admin: 04/12/19 17:04 Dose: 20 mg Sertraline HCl (Zoloft*) 50 mg PO DAILY [facility] Last Admin: 04/13/19 10:25 Dose: 50 mg Torsemide (Torsemide) 5 mg PO DAILY [facility] Last Admin: 04/13/19 10:29 Dose: 5 mg Vital Signs - 8 hr 11/16/19 11/16/19 07:15 11:15 Temperature 98 F 97.2 F Pulse Rate 90 74 Respiratory 16 16 Rate Blood Pressure 109/62 90/51 (mmHg) O2 Sat by Pulse 96 86 Oximetry Oxygen Devices in Use Now: Nasal Cannula Appearance: Patient is an 83yo female who appears stated age and is sitting in the bed in NAD. Eyes: No Scleral Icterus, PERRLA Ears/Nose/Mouth/Throat: NL Teeth, Lips, Gums, Clear Oropharnyx, Mucous Membranes Moist Neck: NL Appearance and Movements; NL JVP, Trachea Midline Respiratory: Symmetrical Chest Expansion and Respiratory Effort, Clear to Auscultation Cardiovascular: NL Sounds; No Murmurs; No JVD, No Edema, - - Irregularly irregular rhythm. Abdominal: NL Sounds; No Tenderness; No Distention, No Hepatosplenomegaly Lymphatic: No Cervical Adenopathy Extremities: No Edema, No Clubbing, Cyanosis Skin: No Rash or Ulcers, No Nodules or Sclerosis Neurological: - - Alert, minimally verbal. Result Diagrams: 04/13/19 06:29 04/13/19 06:29 Additional Lab and Data: Laboratory Results - last 24 hr Microbiology and Other Data: Microbiology 04/05/19 16:21 Blood Culture - Preliminary Blood Venous No Growth Day 2 04/05/19 16:21 Blood Culture - Preliminary Blood Venous No Growth Day 2 04/05/19 17:00 Urine Culture - Preliminary Urine Escherichia Coli Assess/Plan/Problems-Billing Assessment: 83 yo female PMH multiple CVAs, dementia, wheelchair bound, chronic Afib ( Coumadin, formerly tikosyn and digoxin), suspected seizure disorder (depakote) presenting with elevated INR(9.9), fallling asleep more and e/o UTI. Now improving, but significantly deconditioned. - Patient Problems (1) AMS (altered mental status) Current Visit: Yes Status: Acute Code(s): R41.82 - ALTERED MENTAL STATUS, UNSPECIFIED SNOMED Code(s): 551928347 Comment: - Severe Vascular Dementia - Increased Lethargy on admission - CT brain negative, ammonia WNL - Likely metabolic encephalopathy related to UTI - Appears Improved today, Fluctuating course with general downward decline in mental state over last couple months. (2) Hypoxia Current Visit: Yes Status: Acute Code(s): R09.02 - HYPOXEMIA SNOMED Code(s ): 916591403 Comment: - Intermittent slight hypoxia, likely related to atalectasis - Infiltrate without signs of PNA, likely atalectasis - CXRs show pulmonary edema compared to CXR in Jan 2019 - Resume home Torsemide, monitor renal function - Likely due to HFpEF exacerbation - Does not need Antibiotics - Poor respiratory effort, atalectasis likely contributing. Unable to participate in Incentive spirometry. (3) Atrial fibrillation with RVR Current Visit: Yes Status: Acute Code(s): I48.91 - UNSPECIFIED ATRIAL FIBRILLATION SNOMED Code(s): 742048972779560 Comment: - RVR earlier this admission - Failed amiodarone (LFTs adverse effect) and tikosyn (danger due to noncompliance) in the past - Continue metoprolol tartrate 50 mg BID and Diltiazem 60mg Q6HR - Changed coumadin to xarelto - Generally good control (4) Weight loss Current Visit: Yes Status: Acute Comment: - Weight loss over last several months with poor oral intake. - Encourage High Calorie Foods - Nutrition Consult. (5) COPD (chronic obstructive pulmonary disease) Current Visit: Yes Status: Acute Code(s): J44.9 - CHRONIC OBSTRUCTIVE PULMONARY DISEASE, UNSPECIFIED SNOMED Code(s): 03973698 Comment: - No acute Exacerbation - No home medications for therapy (6) UTI (urinary tract infection) Current Visit: Yes Status: Acute Comment: - Urine culture positive for E. coli, pansensitive - Completed ceftriaxone - Afebrile and no leukocytosis (7) Elevated INR Current Visit: No Status: Acute Code(s): R79.1 - ABNORMAL COAGULATION PROFILE SNOMED Code(s): 936105497 Comment: - INR 9.9 -> 10. Reversed with K on 04/06/19 - No prior evidence of bleeding, CT brain negative - Warfarin now discontinued and AC changed to xarelto (8) Seizures Current Visit: No Status: Chronic Code(s): R56.9 - UNSPECIFIED CONVULSIONS SNOMED Code(s): 36441306 Comment: - Formerly trialed on keppra, but stopped due to psychiatric AE. - Ammonia WNL - Currently on depakote 250po BID. - Trough level therapeutic. (9) DNR (do not resuscitate) Current Visit: Yes Status: Acute (10) DVT prophylaxis Current Visit: No Status: Acute Code(s): ZGQ3188 - SNOMED Code(s): 889203633 Comment: - Xarelto Status and Disposition: Medicine inpatient, Will likely need ALAINA, likely Monday.
[2019-04-13] MEDS: Rivaroxaban TAB(*) 20 MG TAB PO SCH (18:17)
[2019-04-14] MEDS: Metoprolol Tartrate TAB* 50 mg PO SCH ×2 (04:41→04:51)
[2019-04-14] MEDS: Levothyroxine TAB* 25 MCG TAB PO SCH (05:07)
[2019-04-14] MEDS: Torsemide TAB 10 MG PO SCH (10:03)
[2019-04-14] MEDS: Sertraline* 50 MG TAB PO SCH (10:07)
[2019-04-14] MEDS: Atorvastatin* 20 MG TAB PO SCH (10:08)
[2019-04-14] MEDS: Divalproex Sprinkle CAP* 125 MG PO SCH ×2 (10:10→20:11)
[2019-04-14 10:22] LABS: BUN/Creatinine Ratio 20.7 (8-20); Calcium 8.4 mg/dL (8.6-10.3); EGFR African American 120.4 (>60); EGFR Non-African American 99.5 (>60); Magnesium 2.2 mg/dL (1.9-2.7); Potassium 3.8 mmol/L (3.5-5.0)
--- NOTE | 2019-04-14 15:03 | PN ---
Subjective Date of Service: 04/14/19 Interval History: Pt denies any palpatations, cp. Reports no SOB. Pleasantly confused Family History: Unchanged from Admission Social History: Unchanged from Admission Past Medical History: Unchanged from Admission Objective Active Medications: Acetaminophen (Tylenol Tab*) 650 mg PO Q6H PRN PRN Reason: MILD PAIN or TEMP > 100.4 Albuterol/Ipratropium (Duoneb (Albuterol 2.5 Mg/Ipratropium 0.5 Mg)) 1 neb INH Q4H PRN PRN Reason: SOB/WHEEZING Last Admin: 04/12/19 05:51 Dose: 1 neb Atorvastatin Calcium (Lipitor*) 20 mg PO DAILY [facility] Last Admin: 04/14/19 10:08 Dose: 20 mg Divalproex Sodium (Depakote Sprinkle Cap*) 250 mg PO BID [facility] Last Admin: 04/14/19 10:10 Dose: 250 mg Levothyroxine Sodium (Synthroid Tab*) 25 mcg PO DAILY@0600 [facility] Last Admin: 04/14/19 05:07 Dose: 25 mcg Metoprolol Succinate (Toprol Xl Tab*) 50 mg PO BID [facility] Nystatin (Nystatin Top Powder*) 1 applic TOPICAL BID PRN PRN Reason: RASH Rivaroxaban (Xarelto(*)) 20 mg PO QPM [facility] Last Admin: 04/13/19 18:17 Dose: 20 mg Sertraline HCl (Zoloft*) 50 mg PO DAILY [facility] Last Admin: 04/14/19 10:07 Dose: 50 mg Torsemide (Torsemide) 5 mg PO DAILY [facility] Last Admin: 04/14/19 10:03 Dose: 5 mg Vital Signs - 8 hr 04/14/19 04/14/19 04/14/19 07:15 08:00 11:15 Temperature 97.3 F 97.7 F Pulse Rate 105 98 Respiratory 20 20 24 Rate Blood Pressure 114/59 107/49 (mmHg) O2 Sat by Pulse 94 93 Oximetry Oxygen Devices in Use Now: None Eyes: No Scleral Icterus Ears/Nose/Mouth/Throat: NL Teeth, Lips, Gums Neck: NL Appearance and Movements; NL JVP Respiratory: Symmetrical Chest Expansion and Respiratory Effort, Clear to Auscultation Cardiovascular: NL Sounds; No Murmurs; No JVD, - - irregularly irregular Abdominal: NL Sounds; No Tenderness; No Distention Extremities: No Edema Neurological: Alert and Oriented x 3, - - alert,oriented,able to answer some questions Result Diagrams: 04/13/19 06:29 04/14/19 09:50 Additional Lab and Data: Laboratory Results - last 24 hr Microbiology and Other Data: Microbiology 04/05/19 16:21 Blood Culture - Preliminary Blood Venous No Growth Day 2 04/05/19 16:21 Blood Culture - Preliminary Blood Venous No Growth Day 2 04/05/19 17:00 Urine Culture - Preliminary Urine Escherichia Coli Assess/Plan/Problems-Billing Assessment: 83 yo female PMH multiple CVAs, dementia, wheelchair bound, chronic Afib ( Coumadin, formerly tikosyn and digoxin), suspected seizure disorder (depakote) presenting with elevated INR(9.9), fallling asleep more and e/o UTI. Now improving, but significantly deconditioned. - Patient Problems (1) AMS (altered mental status) Current Visit: Yes Status: Acute Code(s): R41.82 - ALTERED MENTAL STATUS, UNSPECIFIED SNOMED Code(s): 774101071 Comment: - Severe Vascular Dementia - Increased Lethargy on admission - CT brain negative, ammonia WNL - Likely metabolic encephalopathy related to UTI - Fluctuating course with general downward decline in mental state over last couple months. (2) Atrial fibrillation with RVR Current Visit: Yes Status: Acute Code(s): I48.91 - UNSPECIFIED ATRIAL FIBRILLATION SNOMED Code(s): 953058459964354 Comment: - RVR earlier this admission - Failed amiodarone (LFTs adverse effect) and tikosyn (danger due to noncompliance) in the past - HR elevated today -Her diltiazem was held yesterday as BP had been soft. ?h/o some pauses -Will change the Metoprolol to Toprol XL 50 mg bid instead of tartarate before adding Cardizem again in low dose if warranted. HR improving - Changed coumadin to xarelto - Generally good control (3) COPD (chronic obstructive pulmonary disease) Current Visit: Yes Status: Acute Code(s): J44.9 - CHRONIC OBSTRUCTIVE PULMONARY DISEASE, UNSPECIFIED SNOMED Code(s): 50841819 Comment: - No acute Exacerbation - No home medications for therapy (4) Hypoxia Current Visit: Yes Status: Acute Code(s): R09.02 - HYPOXEMIA SNOMED Code(s ): 823664045 Comment: - Intermittent slight hypoxia, likely related to atalectasis - Infiltrate without signs of PNA, likely atalectasis - CXRs show pulmonary edema compared to CXR in Jan 2019 - Resume home Torsemide, monitor renal function - Likely due to HFpEF exacerbation - Does not need Antibiotics - Poor respiratory effort, atalectasis likely contributing. Unable to participate in Incentive spirometry. -Breathing comfortable today -Reassess with CXR if warranted (5) Elevated INR Current Visit: No Status: Acute Code(s): R79.1 - ABNORMAL COAGULATION PROFILE SNOMED Code(s): 050495470 Comment: - INR 9.9 -> 10. Reversed with K on 04/06/19 - No prior evidence of bleeding, CT brain negative - Warfarin now discontinued and AC changed to xarelto (6) UTI (urinary tract infection) Current Visit: Yes Status: Acute Comment: - Urine culture positive for E. coli, pansensitive - Completed ceftriaxone - Afebrile and no leukocytosis (7) Weight loss Current Visit: Yes Status: Acute Comment: - Weight loss over last several months with poor oral intake. - Encourage High Calorie Foods - Nutrition Consult. (8) DVT prophylaxis Current Visit: No Status: Acute Code(s): QMP7594 - SNOMED Code(s): 689236369 Comment: - Xarelto (9) DNR (do not resuscitate) Current Visit: Yes Status: Acute Status and Disposition: Medicine inpatient, Will likely need ALAINA, likely Monday.
[2019-04-14] MEDS: Metoprolol Succinate XL TAB* 50 MG PO SCH ×2 (15:55→22:12)
[2019-04-14] MEDS: Rivaroxaban TAB(*) 20 MG TAB PO SCH (17:31)
[2019-04-14] MEDS ORDERED: Diltiazem TAB* 60 MG PO ONE (18:35)
[2019-04-14] MEDS: Albuterol/Ipratropium NEB.SOL* Albuterol 2.5 MG/Ipratropium 0.5 MG 3 ML INH PRN (22:52)
[2019-04-15 05:26] LABS: Hematocrit 36 % (35-47); Hemoglobin 12.2 g/dL (12.0-16.0); Mean Corpuscular HGB Conc 34 g/dL (31-36); Mean Corpuscular Hemoglobin 29 pg (27-31); Mean Corpuscular Volume 85 fL (80-97); Platelet Count 183 10^3/uL (150-450); Red Blood Count 4.26 10^6 /uL (3.70-4.87); Red Cell Distribution Width 16 % (10-15); White Blood Count 10.3 10^3/uL (3.5-10.8)
[2019-04-15 05:31] LABS: ABS Eosinophils 0.3 10^3/ul (0-0.6); ABS Monocytes 1.8 10^3/ul (0-0.8); ABS Neutrophils 5.1 10^3/ul (1.5-7.7); Eosinophil % 2.7 %; Lymphocyte % 29.3 %; Nucleated Red Blood Cells % 0.1
[2019-04-15 05:43] LABS: BUN/Creatinine Ratio 20.3 (8-20); Calcium 8.1 mg/dL (8.6-10.3); EGFR African American 118.1 (>60); EGFR Non-African American 97.6 (>60); Potassium 3.7 mmol/L (3.5-5.0)
[2019-04-15] MEDS: Diltiazem TAB* 30 MG PO SCH ×4 (05:48→23:50)
[2019-04-15] MEDS: Levothyroxine TAB* 25 MCG TAB PO SCH (05:48)
[2019-04-15] MEDS: Sertraline* 50 MG TAB PO SCH (09:12)
[2019-04-15] MEDS: Divalproex Sprinkle CAP* 125 MG PO SCH ×2 (09:12→21:06)
[2019-04-15] MEDS: Atorvastatin* 20 MG TAB PO SCH (09:12)
[2019-04-15] MEDS: Metoprolol Succinate XL TAB* 50 MG PO SCH ×2 (09:12→21:06)
[2019-04-15] MEDS: Torsemide TAB 10 MG PO SCH (09:12)
--- NOTE | 2019-04-15 16:26 | PN ---
Subjective Date of Service: 04/15/19 Interval History: Cannot relay needs meaningfully Asleep, wakes easily Family History: Unchanged from Admission Social History: Unchanged from Admission Past Medical History: Unchanged from Admission Objective Active Medications: Acetaminophen (Tylenol Tab*) 650 mg PO Q6H PRN PRN Reason: MILD PAIN or TEMP > 100.4 Albuterol/Ipratropium (Duoneb (Albuterol 2.5 Mg/Ipratropium 0.5 Mg)) 1 neb INH Q4H PRN PRN Reason: SOB/WHEEZING Last Admin: 04/14/19 22:52 Dose: 1 neb Atorvastatin Calcium (Lipitor*) 20 mg PO DAILY [facility] Last Admin: 04/15/19 09:12 Dose: 20 mg Diltiazem HCl (Cardizem Tab*) 30 mg PO Q6HR [facility] Last Admin: 04/15/19 11:51 Dose: 30 mg Divalproex Sodium (Depakote Sprinkle Cap*) 250 mg PO BID [facility] Last Admin: 04/15/19 09:12 Dose: 250 mg Levothyroxine Sodium (Synthroid Tab*) 25 mcg PO DAILY@0600 [facility] Last Admin: 04/15/19 05:48 Dose: 25 mcg Metoprolol Succinate (Toprol Xl Tab*) 50 mg PO BID [facility] Last Admin: 04/15/19 09:12 Dose: 50 mg Nystatin (Nystatin Top Powder*) 1 applic TOPICAL BID PRN PRN Reason: RASH Rivaroxaban (Xarelto(*)) 20 mg PO QPM [facility] Last Admin: 04/14/19 17:31 Dose: 20 mg Sertraline HCl (Zoloft*) 50 mg PO DAILY [facility] Last Admin: 04/15/19 09:12 Dose: 50 mg Torsemide (Torsemide) 5 mg PO DAILY [facility] Last Admin: 04/15/19 09:12 Dose: 5 mg Vital Signs - 8 hr 04/15/19 04/15/19 11:15 15:15 Temperature 97.9 F 97.5 F Pulse Rate 93 109 Respiratory 16 17 Rate Blood Pressure 107/60 119/80 (mmHg) O2 Sat by Pulse 98 95 Oximetry Oxygen Devices in Use Now: Nasal Cannula Appearance: NAD Eyes: No Scleral Icterus, PERRLA Ears/Nose/Mouth/Throat: NL Teeth, Lips, Gums, Clear Oropharnyx, Mucous Membranes Moist Respiratory: Symmetrical Chest Expansion and Respiratory Effort, Clear to Auscultation Cardiovascular: - - IRIR Abdominal: NL Sounds; No Tenderness; No Distention, No Hepatosplenomegaly Neurological: - - AOx1 intermittently Result Diagrams: 04/15/19 04:59 04/15/19 04:59 Additional Lab and Data: Laboratory Results - last 24 hr Microbiology and Other Data: Microbiology 04/05/19 16:21 Blood Culture - Preliminary Blood Venous No Growth Day 2 04/05/19 16:21 Blood Culture - Preliminary Blood Venous No Growth Day 2 04/05/19 17:00 Urine Culture - Preliminary Urine Escherichia Coli Assess/Plan/Problems-Billing Assessment: 83 yo female PMH multiple CVAs, dementia, wheelchair bound, chronic Afib ( Coumadin, formerly tikosyn and digoxin), suspected seizure disorder presenting with elevated INR(9.9), and lethargy found with e/o UTI. Now improving, but significantly deconditioned. - Patient Problems (1) AMS (altered mental status) Comment: - Severe Vascular Dementia - Increased Lethargy on admission in setting of UTI - CT brain negative - Fluctuating course with general downward decline in mental state over last couple months. (2) Atrial fibrillation with RVR Comment: - RVR earlier this admission - Failed amiodarone (LFTs adverse effect) and tikosyn (danger due to noncompliance) in the past -Her diltiazem was held yesterday as BP had been soft. ?h/o some pauses -Will change the Metoprolol to Toprol XL 50 mg bid instead of tartarate before adding Cardizem again in low dose if warranted. HR improving - Changed coumadin to xarelto - Generally good control (3) COPD (chronic obstructive pulmonary disease) Comment: - Not in acute exacerbation - No home medications for therapy (4) Elevated INR Comment: - INR 9.9 -> 10. Reversed with K on 04/06/19 - No prior evidence of bleeding, CT brain negative - Warfarin now discontinued and AC changed to xarelto (5) Hypoxia Comment: - suspect related to atalectasis - Infiltrate without signs of PNA - CXRs show pulmonary edema compared to CXR in Jan 2019 - Resume home Torsemide, monitor renal function (6) Weight loss Comment: - Weight loss over last several months with poor oral intake. - Encourage High Calorie Foods - Nutrition Consult. (7) DNR (do not resuscitate) (8) DVT prophylaxis Comment: - Xarelto Status and Disposition: Medicine inpatient. CM working on placement
[2019-04-15] MEDS: Rivaroxaban TAB(*) 20 MG TAB PO SCH (18:01)
[2019-04-16] MEDS: Diltiazem TAB* 30 MG PO SCH ×2 (05:25→12:07)
[2019-04-16] MEDS: Levothyroxine TAB* 25 MCG TAB PO SCH (05:25)
[2019-04-16] MEDS: Sertraline* 50 MG TAB PO SCH (09:47)
[2019-04-16] MEDS: Atorvastatin* 20 MG TAB PO SCH (09:47)
[2019-04-16] MEDS: Divalproex Sprinkle CAP* 125 MG PO SCH ×2 (09:47→22:00)
[2019-04-16] MEDS: Torsemide TAB 10 MG PO SCH (09:47)
[2019-04-16] MEDS: Metoprolol Succinate XL TAB* 50 MG PO SCH ×2 (09:47→22:00)
--- NOTE | 2019-04-16 15:45 | PN ---
Subjective Date of Service: 04/16/19 Interval History: sitting in chair, no distress. non verbal. no events overnight. nursing staff report that she is the most awake today. Past Medical History: Unchanged from Admission Objective Active Medications: Acetaminophen (Tylenol Tab*) 650 mg PO Q6H PRN PRN Reason: MILD PAIN or TEMP > 100.4 Albuterol/Ipratropium (Duoneb (Albuterol 2.5 Mg/Ipratropium 0.5 Mg)) 1 neb INH Q4H PRN PRN Reason: SOB/WHEEZING Last Admin: 04/14/19 22:52 Dose: 1 neb Atorvastatin Calcium (Lipitor*) 20 mg PO DAILY [facility] Last Admin: 04/16/19 09:47 Dose: 20 mg Diltiazem HCl (Cardizem Tab*) 30 mg PO Q6HR [facility] Last Admin: 04/16/19 12:07 Dose: 30 mg Divalproex Sodium (Depakote Sprinkle Cap*) 250 mg PO BID [facility] Last Admin: 04/16/19 09:47 Dose: 250 mg Levothyroxine Sodium (Synthroid Tab*) 25 mcg PO DAILY@0600 [facility] Last Admin: 04/16/19 05:25 Dose: 25 mcg Metoprolol Succinate (Toprol Xl Tab*) 50 mg PO BID [facility] Last Admin: 04/16/19 09:47 Dose: 50 mg Nystatin (Nystatin Top Powder*) 1 applic TOPICAL BID PRN PRN Reason: RASH Rivaroxaban (Xarelto(*)) 20 mg PO QPM [facility] Last Admin: 04/15/19 18:01 Dose: 20 mg Sertraline HCl (Zoloft*) 50 mg PO DAILY [facility] Last Admin: 04/16/19 09:47 Dose: 50 mg Torsemide (Torsemide) 5 mg PO DAILY [facility] Last Admin: 04/16/19 09:47 Dose: 5 mg Vital Signs - 8 hr 04/16/19 08:00 Respiratory 16 Rate O2 Sat by Pulse 93 Oximetry Oxygen Devices in Use Now: None Appearance: awake, in chair, non verbal. pleasant no event overnight Eyes: No Scleral Icterus, - - EOMI Ears/Nose/Mouth/Throat: NL Teeth, Lips, Gums, Clear Oropharnyx, Mucous Membranes Moist Neck: NL Appearance and Movements; NL JVP, Trachea Midline Respiratory: Symmetrical Chest Expansion and Respiratory Effort, Clear to Auscultation Cardiovascular: NL Sounds; No Murmurs; No JVD, No Edema Abdominal: NL Sounds; No Tenderness; No Distention Extremities: No Edema Result Diagrams: 04/15/19 04:59 04/15/19 04:59 Additional Lab and Data: Laboratory Results - last 24 hr Microbiology and Other Data: Microbiology 04/05/19 16:21 Blood Culture - Preliminary Blood Venous No Growth Day 2 04/05/19 16:21 Blood Culture - Preliminary Blood Venous No Growth Day 2 04/05/19 17:00 Urine Culture - Preliminary Urine Escherichia Coli Assess/Plan/Problems-Billing Assessment: 83 yo female PMH multiple CVAs, dementia, wheelchair bound, chronic Afib ( Coumadin, formerly tikosyn and digoxin), suspected seizure disorder presenting with elevated INR(9.9), and lethargy found with e/o UTI. Now improving, but significantly deconditioned. - Patient Problems (1) AMS (altered mental status) Current Visit: Yes Status: Acute Code(s): R41.82 - ALTERED MENTAL STATUS, UNSPECIFIED SNOMED Code(s): 857341985 Comment: - Severe Vascular Dementia with increased Lethargy on admission in setting of UTI any may have had lethargy due to increase depakote level - CT brain negative - as per nurse staff she is more awake today. will conitnue to observe. (2) Atrial fibrillation with RVR Current Visit: Yes Status: Acute Code(s): I48.91 - UNSPECIFIED ATRIAL FIBRILLATION SNOMED Code(s): 069494894964591 Comment: - RVR earlier this admission - Failed amiodarone (LFTs adverse effect) and tikosyn (danger due to noncompliance) in the past - on diltiazem 30 mg PO Q6hrs. Will increase to cardizem CD 180 mg daily. Will monitor for pauses and hypotensions - continue Metoprolol 50 mg bid - Changed coumadin to xarelto - currently tachycardic in 107's no pause today (3) Elevated INR Current Visit: Yes Status: Acute Code(s): R79.1 - ABNORMAL COAGULATION PROFILE SNOMED Code(s): 030643176 Comment: - INR 9.9 -> 10. Reversed with K on 04/06/19 - No prior evidence of bleeding, CT brain negative - Warfarin now discontinued and AC changed to xarelto (4) UTI (urinary tract infection) Current Visit: Yes Status: Acute Comment: - Urine culture positive for E. coli, pansensitive - Completed ceftriaxone - Afebrile and no leukocytosis (5) HLD (hyperlipidemia) Current Visit: No Status: Chronic Code(s): E78.5 - HYPERLIPIDEMIA, UNSPECIFIED SNOMED Code(s): 25140101 Comment: - Continue atorvastatin (6) HTN (hypertension) Current Visit: No Status: Chronic Code(s): I10 - ESSENTIAL (PRIMARY) HYPERTENSION SNOMED Code(s): 68571048 Comment: - SBP 110-150s - Continue metoprolol 50mg BID. change her diltiazem 30 mg Q6hr to diltiazem CD 180 mg daily (7) History of CVA (cerebrovascular accident) Current Visit: No Status: Chronic Code(s): Z86.73 - PRSNL HX OF TIA (TIA), AND CEREB INFRC W/O RESID DEFICITS SNOMED Code(s): 818298514 Comment: - With severe encephalomalacia, dementia and seizures disorder - Continue atorvastatin and depakote 250 mg bid (8) Hypothyroidism Current Visit: No Status: Chronic Code(s): E03.9 - HYPOTHYROIDISM, UNSPECIFIED SNOMED Code(s): 57378124 Comment: - Continue levothyroxine 25 mcg daily (9) Seizures Current Visit: No Status: Chronic Code(s): R56.9 - UNSPECIFIED CONVULSIONS SNOMED Code(s): 33563961 Comment: - Formerly trialed on keppra, but stopped due to psychiatric AE. - Ammonia WNL - Currently on depakote 250po BID. - Trough level therapeutic. (10) Type II diabetes mellitus Current Visit: No Status: Chronic Comment: - Not on outpatient medication, likely diet-controlled - A1c 7.7% indicating good control - BGs overall good range, no SSI needed (11) DVT prophylaxis Current Visit: Yes Status: Acute Code(s): NMX5026 - SNOMED Code(s): 859542619 Comment: - Xarelto Status and Disposition: Medicine inpatient. CM working on placement
[2019-04-16] MEDS: Diltiazem CD CAP* 180 MG PO SCH (16:15)
[2019-04-16] MEDS: Rivaroxaban TAB(*) 20 MG TAB PO SCH (18:15)
[2019-04-17] MEDS: Levothyroxine TAB* 25 MCG TAB PO SCH (06:02)
[2019-04-17] MEDS: Atorvastatin* 20 MG TAB PO SCH (10:47)
[2019-04-17] MEDS: Diltiazem CD CAP* 180 MG PO SCH (10:47)
[2019-04-17] MEDS: Metoprolol Succinate XL TAB* 50 MG PO SCH ×2 (10:47→21:18)
[2019-04-17] MEDS: Torsemide TAB 10 MG PO SCH (10:47)
[2019-04-17] MEDS: Sertraline* 50 MG TAB PO SCH (10:48)
[2019-04-17] MEDS: Divalproex Sprinkle CAP* 125 MG PO SCH ×2 (10:49→21:19)
--- NOTE | 2019-04-17 14:13 | PN ---
Subjective Date of Service: 04/17/19 Interval History: Patient seen today, in bed, respond to verbal and tactile stimuli, but non verbal. no acute events overnight. Past Medical History: Unchanged from Admission Objective Active Medications: Acetaminophen (Tylenol Tab*) 650 mg PO Q6H PRN PRN Reason: MILD PAIN or TEMP > 100.4 Albuterol/Ipratropium (Duoneb (Albuterol 2.5 Mg/Ipratropium 0.5 Mg)) 1 neb INH Q4H PRN PRN Reason: SOB/WHEEZING Last Admin: 04/14/19 22:52 Dose: 1 neb Atorvastatin Calcium (Lipitor*) 20 mg PO DAILY [facility] Last Admin: 04/17/19 10:47 Dose: 20 mg Diltiazem HCl (Cardizem Cd Cap*) 180 mg PO DAILY [facility] Last Admin: 04/17/19 10:47 Dose: 180 mg Divalproex Sodium (Depakote Sprinkle Cap*) 250 mg PO BID [facility] Last Admin: 04/17/19 10:49 Dose: 250 mg Levothyroxine Sodium (Synthroid Tab*) 25 mcg PO DAILY@0600 [facility] Last Admin: 04/17/19 06:02 Dose: 25 mcg Metoprolol Succinate (Toprol Xl Tab*) 50 mg PO BID [facility] Last Admin: 04/17/19 10:47 Dose: 50 mg Nystatin (Nystatin Top Powder*) 1 applic TOPICAL BID PRN PRN Reason: RASH Rivaroxaban (Xarelto(*)) 20 mg PO QPM [facility] Last Admin: 04/16/19 18:15 Dose: 20 mg Sertraline HCl (Zoloft*) 50 mg PO DAILY [facility] Last Admin: 04/17/19 10:48 Dose: 50 mg Torsemide (Torsemide) 5 mg PO DAILY [facility] Last Admin: 04/17/19 10:47 Dose: 5 mg Vital Signs - 8 hr 04/17/19 04/17/19 04/17/19 07:15 08:00 11:15 Temperature 98.2 F 97.6 F Pulse Rate 95 84 Respiratory 20 18 20 Rate Blood Pressure 122/55 113/76 (mmHg) O2 Sat by Pulse 94 94 94 Oximetry Oxygen Devices in Use Now: None Appearance: awake, non verbal. no distress Eyes: - Ears/Nose/Mouth/Throat: Mucous Membranes Moist Neck: NL Appearance and Movements; NL JVP, Trachea Midline Respiratory: Symmetrical Chest Expansion and Respiratory Effort, Clear to Auscultation Cardiovascular: NL Sounds; No Murmurs; No JVD Abdominal: NL Sounds; No Tenderness; No Distention Result Diagrams: 04/15/19 04:59 04/15/19 04:59 Additional Lab and Data: Laboratory Results - last 24 hr Microbiology and Other Data: Microbiology 04/05/19 16:21 Blood Culture - Preliminary Blood Venous No Growth Day 2 04/05/19 16:21 Blood Culture - Preliminary Blood Venous No Growth Day 2 04/05/19 17:00 Urine Culture - Preliminary Urine Escherichia Coli Assess/Plan/Problems-Billing Assessment: 83 yo female PMH multiple CVAs, dementia, wheelchair bound, chronic Afib ( Coumadin, formerly tikosyn and digoxin), suspected seizure disorder presenting with elevated INR(9.9), and lethargy found with e/o UTI. Now improving, but significantly deconditioned. - Patient Problems (1) AMS (altered mental status) Current Visit: Yes Status: Acute Code(s): R41.82 - ALTERED MENTAL STATUS, UNSPECIFIED SNOMED Code(s): 343049406 Comment: - Severe Vascular Dementia with increased Lethargy on admission in setting of UTI any may have had lethargy due to increase depakote level - CT brain negative - Will conitnue to observe. Discharge as per discharge placement. Awaiting placement (2) Atrial fibrillation with RVR Current Visit: Yes Status: Acute Code(s): I48.91 - UNSPECIFIED ATRIAL FIBRILLATION SNOMED Code(s): 437995989553809 Comment: - RVR earlier this admission - Failed amiodarone (LFTs adverse effect) and tikosyn (danger due to noncompliance) in the past - on diltiazem 30 mg PO Q6hrs. I changed her to cardizem CD 180 mg daily. Will monitor for pauses and hypotensions - continue Metoprolol 50 mg bid - Changed coumadin to xarelto - currently pulse in mid 80's (3) Elevated INR Current Visit: Yes Status: Acute Code(s): R79.1 - ABNORMAL COAGULATION PROFILE SNOMED Code(s): 825899701 Comment: - INR 9.9 -> 10. Reversed with K on 04/06/19 - No prior evidence of bleeding, CT brain negative - Warfarin now discontinued and AC changed to xarelto (4) UTI (urinary tract infection) Current Visit: Yes Status: Acute Comment: - Urine culture positive for E. coli, pansensitive - Completed ceftriaxone - Afebrile and no leukocytosis (5) HLD (hyperlipidemia) Current Visit: No Status: Chronic Code(s): E78.5 - HYPERLIPIDEMIA, UNSPECIFIED SNOMED Code(s): 02306060 Comment: - Continue atorvastatin (6) HTN (hypertension) Current Visit: No Status: Chronic Code(s): I10 - ESSENTIAL (PRIMARY) HYPERTENSION SNOMED Code(s): 19320014 Comment: - SBP 110-150s - Continue metoprolol 50mg BID. changed her diltiazem 30 mg Q6hr to diltiazem CD 180 mg daily (7) History of CVA (cerebrovascular accident) Current Visit: No Status: Chronic Code(s): Z86.73 - PRSNL HX OF TIA (TIA), AND CEREB INFRC W/O RESID DEFICITS SNOMED Code(s): 945470012 Comment: - With severe encephalomalacia, dementia and seizures disorder - Continue atorvastatin and depakote 250 mg bid (8) Hypothyroidism Current Visit: No Status: Chronic Code(s): E03.9 - HYPOTHYROIDISM, UNSPECIFIED SNOMED Code(s): 02863721 Comment: - Continue levothyroxine 25 mcg daily (9) Seizures Current Visit: No Status: Chronic Code(s): R56.9 - UNSPECIFIED CONVULSIONS SNOMED Code(s): 64527236 Comment: - Formerly trialed on keppra, but stopped due to psychiatric AE. - Ammonia WNL - Currently on depakote 250po BID. - Trough level therapeutic. (10) Type II diabetes mellitus Current Visit: No Status: Chronic Comment: - Not on outpatient medication, likely diet-controlled - A1c 7.7% indicating good control - BGs overall good range, no SSI needed (11) DVT prophylaxis Current Visit: Yes Status: Acute Code(s): LJJ3571 - SNOMED Code(s): 741744738 Comment: - Xarelto Status and Disposition: Medicine inpatient. CM working on placement
[2019-04-17] MEDS: Rivaroxaban TAB(*) 20 MG TAB PO SCH (17:45)
[2019-04-18] MEDS: Levothyroxine TAB* 25 MCG TAB PO SCH (06:02)
[2019-04-18] MEDS: Sertraline* 50 MG TAB PO SCH (08:55)
[2019-04-18] MEDS: Metoprolol Succinate XL TAB* 50 MG PO SCH (08:55)
[2019-04-18] MEDS: Atorvastatin* 20 MG TAB PO SCH (08:55)
[2019-04-18] MEDS: Divalproex Sprinkle CAP* 125 MG PO SCH (08:55)
[2019-04-18] MEDS: Torsemide TAB 10 MG PO SCH (08:56)
[2019-04-18] MEDS: Diltiazem CD CAP* 180 MG PO SCH (08:56)
[2019-04-18 12:30] VITALS: BP 114/71
--- NOTE | 2019-04-18 13:18 | DS ---
CC: Dr. Manda Rodriguez; Dr. Catrachita Frederick DATE OF ADMISSION: 04/05/2019. DATE OF DISCHARGE: 04/17/2019. FINAL DISCHARGE DIAGNOSES: 1. Altered mental status at 74. 2. Depakote toxicity. 3. Coumadin toxicity with elevated INR. 4. A-fib with RVR. 5. UTI, status post Ceftriaxone. 6. Hypertension. 7. Hyperlipidemia. 8. History of CVA. 9. History of seizure. 10. Diabetes mellitus. HOSPITAL COURSE: The patient presented to [facility] on 04/05/2019 for altered mental sta tus with elevated INR. She does have a known history of multiple CVA's. She is currently on Coumadi n for her A-fib and she has an underlying history of seizures and could not tolerate Keppra. She was on Depakote. She was sent from [facility]'s dementia unit after her INR was noted to be elevated. T he patient was recently in [facility] prior to her discharge to [facility]. On presentation t o the emergency room, it was documented that the patient has been having decreased mental status, inc reased lethargy and sleep during feed. Outpatient labs were done and revealed an elevated INR, so the y referred her to the emergency room. There was no seizure documented. The patient was admitted to the Medical Service. Her Coumadin was held. The patient was also noted to have a UTI and was treated with a full course of antibiotics, including Ceftriaxone. Lactic acid was slightly elevated which she was hydrated. Her cardiac status was noted to be in rapid A-fib. Hi s Metoprolol was resumed and was placed on Cardizem 30 mg p.o. q.6 hours. The patient was remained o n the Medical Service while her medications were being adjusted and monitored. Over the hospital course, her INR finally stabilized and her INR was down to 1.6 on April 08. A t that time, it was felt that it would be safer for the patient to be on Xarelto versus Coumadin due to drug interaction and more steady therapeutic effect. Her INR was stable was 2.4. Therefore, she was started on Xarelto and her CBC remained stable without any evidence of anemia. Regarding her atrial fibrillation, Metoprolol was resumed 50 b.i.d., but her pulse still had variable rapid conduction of 8. She was started on Cardizem 30 and I placed her on Cardizem CD 180 mg on the which she tolerated well between blood pressure and pulse and this has been maintained. Regarding her UTI, the patient completed the course of Ceftriaxone and her microbiology did go E. col i bruce sensitive. Regarding her altered mental status, it was presumed mostly secondary to her UTI exacerbated by Depak ote toxicity. CT brain did not show any acute pathology or CVA; therefore, her Depakote was decrease d from 500 mg b.i.d. down to 250 mg b.i.d. Repeat toxicology level reveals a level drop from 116 down to 59 between April 05 and April 07. It was rechecked again on April 13 and remained therapeutic, but at the lower range of 53. The patient continued to wax and wane in terms of mentati on and no seizure activity; therefore, I would recommend to recheck her Depakote level in about a wee k to ensure it does not drop below therapeutic level and the goal to titrate it probably to maintain a level on the high end of normal, between 80 and 90. This can be accomplished by instead of being 1 ,000 mg/24 hour like she previously was and currently she is only 500, anywhere in between such at 75 0 in 24 hour divided between 500 mg in the morning and 250 mg at night or vice versa. Again, that ca n be monitored and adjusted on an outpatient basis. With that plan, the patient finally was accepted at [facility] today. She has been monitored for the past 24 hours awaiting placement. She does require assistance with feeds, but otherwise she has been asymptomatic, no acute event. It should be noted that the patient does have periods of somnolence, resolved spontaneously and unless there is a ny obvious worsening or declined mentation, that should not be a long period. PHYSICAL EXAMINATION: General: Today, she was out of bed, sitting in a recliner. She is nonverbal. She has difficulty expressing aphagia. Smiles. No distress on room air. Earlier yesterday, she wa s somnolent, was arouse with verbal and tactic stimuli, but she falls asleep easily. Therefore, this has been wax and waning and she has been doing this without any evidence of any progression or decli joaquin neurologically. Vital Signs: Temperature 97.8, pulse 76, respiratory rate 16, satting 96 perce nt on room air, blood pressure 150/61. HEENT: Head and neck normocephalic, atraumatic. Lungs: Bola ar to auscultation. Cardiovascular: S1, S2, irregularly irregular. Abdomen: Obese. Positive herbert l sounds, soft, nontender. Extremities: She has chronic right lower extremity swelling. Left lower extremity no edema. DIAGNOSTIC STUDIES: 1. Multiple CBC fairly unremarkable without any evidence of anemia or leukocytosis. 2. INR was 9.98 on admission and Coumadin was held, and currently April 09 was as low as 2.4. 3. Chemistry significant for electrolyte disturbance with hypomagnesium and hypokalemia which have b een corrected. 4. Urine analysis was positive for white cell leukocyte and blood and nitrate. Microbiology was posi tive for E. coli. 5. Toxicology, Valproic acid on admission was 116, down to 53 on April 13. DISCHARGE MEDICATIONS: 1. Lipitor 20 daily. 2. Albuterol nebulizer prn. 3. New medication: Cardizem CD 180 mg daily. 4. Depakote was decreased down to 250 mg twice a day. 5. Xarelto 20 mg daily to replace Coumadin. 6. Nystatin powder. 7. Levothyroxine 25 mcg daily. 8. Atorvastatin 20 daily. 9. Zoloft 50 daily. 10. Torsemide 5 mg every day. 11. Tylenol prn. 12. Potassium 30 mEq twice a day. Please monitor electrolyte carefully. 13. Metoprolol 50 b.i.d. Her medication Loperamide, Depakote 500 b.i.d., Prednisone 5 daily, and Coumadin were discontinued. DISCHARGE RECOMMENDATIONS: Please follow-up CBC and BMP routinely to ensure no anemia now that she i s on Xarelto. Electrolyte replacement has been corrected and also Depakote level in about two weeks to make sure that the level does not go below subtherapeutic level. CONDITION ON DISCHARGE: Stable. DISCHARGE DISPOSITION: To Ted [facility] [id number]/[facility] #: [id number]
== END 2019-04-18 14:20 | DRG 690 ==
LOC: ED 15:44 → MEDTELE 21:35
PROVIDERS: ADMIT Internal Medicine; ATTEND Internal Medicine
DX: N39.0 Urinary tract infection, site not specified (principal); E87.2 Acidosis; I50.32 Chronic diastolic (congestive) heart failure; I48.20 Chronic atrial fibrillation, unspecified; J98.11 Atelectasis; E78.00 Pure hypercholesterolemia, unspecified; I11.0 Hypertensive heart disease with heart failure; J44.9 Chronic obstructive pulmonary disease, unspecified; E11.39 Type 2 diabetes mellitus with other diabetic ophthalmic complication; H42 Glaucoma in diseases classified elsewhere; E11.36 Type 2 diabetes mellitus with diabetic cataract; F41.9 Anxiety disorder, unspecified; F32.9 Major depressive disorder, single episode, unspecified; E86.0 Dehydration; G40.909 Epilepsy, unspecified, not intractable, without status epilepticus; E03.9 Hypothyroidism, unspecified; E78.5 Hyperlipidemia, unspecified; L40.9 Psoriasis, unspecified; Z66 Do not resuscitate; B96.20 Unspecified Escherichia coli [E. coli] as the cause of diseases classified elsewhere; R09.02 Hypoxemia; F01.50 Vascular dementia, unspecified severity, without behavioral disturbance, psychotic disturbance, mood disturbance, and anxiety; R63.4 Abnormal weight loss; T42.6X5A Adverse effect of other antiepileptic and sedative-hypnotic drugs, initial encounter; R41.82 Altered mental status, unspecified; T45.515A Adverse effect of anticoagulants, initial encounter; Z79.899 Other long term (current) drug therapy; Z79.890 Hormone replacement therapy; Z88.8 Allergy status to other drugs, medicaments and biological substances; Z88.1 Allergy status to other antibiotic agents; Z91.011 Allergy to milk products; Z68.26 Body mass index [BMI] 26.0-26.9, adult; Z86.73 Personal history of transient ischemic attack (TIA), and cerebral infarction without residual deficits; Z98.41 Cataract extraction status, right eye; Z87.891 Personal history of nicotine dependence; Z99.3 Dependence on wheelchair
CPT/HCPCS: 36415; 70450; 71045; 80048; 80053; 80164; 81003; 81015; 82140; 83036; 83605; 83735; 84443; 84484; 85025; 85610; 85730; 87040; 87077; 87086; 87186; 93005; 94640; 96365; 96366; 99284; A9270-GY; G8978-GP-CM; G8979-GP-CK; J0696; J0744; J1650; J3475; J3480; J3490; J7512

== ENCOUNTER 2019-06-04 17:21 | Emergency (ER) | payer MEDICARE ==
--- OUTSIDE RECORDS SUMMARY | 2019-06-04 17:29 | XMS REPORT ---
:1935 Author Organization [facility] Care Team Providers Name Role Phone Unavailable Unavailable Unavailable Problems This patient has no known problems. Allergies, Adverse Reactions, Alerts Allergy Name Allergy Status Severity Reaction(s) Onset Inactive Treating Comments Type Date Date Clinician cephalexin Base Active Unknown Reaction Interface Ingredient Unknown 02-05 lactose Base Active Unknown Reaction Interface Ingredient Unknown -10 ramipril Base Active Unknown Reaction Unknown Ingredient Unknown 02-05 Medications Ordered Filled Start Stop Current Ordering Indication Dosage Frequency Signature Comments Components Medication Medication Date Date Medication? Clinician (SIG) Name Name potassium potassium No Unknown Unknown Unknown chloride ER chloride ER -16 20 mEq 20 mEq tablet,exte tablet,exte nded nded release release atorvastati atorvastati No Unknown Unknown Unknown n 20 mg n 20 mg 6-16 tablet tablet levothyroxi levothyroxi No Unknown Unknown Unknown ne 25 mcg ne 25 mcg 6-16 tablet tablet sertraline sertraline 2016-05 No Unknown Unknown Unknown 25 mg 25 mg 1-15 tablet tablet Nystatin Nystatin 2016-05 No Unknown Unknown Unknown Top Powder* Top Powder* 1-15 torsemide torsemide No Unknown Unknown Unknown 20 mg 20 mg 3-31 tablet tablet Warfarin Warfarin No Unknown Unknown Unknown Tab(*) Tab(*) 814 Warfarin Warfarin No Unknown Unknown Unknown Tab(*) Tab(*) 814 Loperamide Loperamide No Unknown Unknown Unknown Hcl Hcl 01-27 digoxin 250 digoxin 250 No Unknown Unknown Unknown mcg (0.25 mcg (0.25 9-05 mg) tablet mg) tablet predniSONE predniSONE No Unknown Unknown Unknown 20 mg 20 mg 9-05 tablet tablet levETIRAcet levETIRAcet No Unknown Unknown Unknown am 500 mg/5 am 500 mg/5 9-05 mL (5 mL) mL (5 mL) oral oral solution solution metoprolol metoprolol No Unknown Unknown Unknown succinate succinate 01-31 ER 100 mg ER 100 mg tablet,exte tablet,exte nded nded release release Acetaminoph Acetaminoph No Unknown Unknown Unknown en Tab* en Tab* 01-31 Vital Signs Vital Name Observation Time Observation Value Comments SYSTOLIC mm[Hg] 2019-02-05 18:07:46 133 mm[Hg] mm[Hg] Method: Sit DIASTOLIC mm[Hg] 2019-02-05 18:07:46 67 mm[Hg] mm[Hg] Method: Sit PULSE 2019-02-05 18:07:46 67 /min /min RESP RATE 2019-02-05 18:07:46 18 /min /min TEMP 2019-02-05 18:07:46 97.4 [degF] Procedures This patient has no known procedures. Results Test Description Test Time Test Comments Text Results Atomic Results Result Comments Serum or plasma calcium 2019-02-01 05:46:00 Identifier [id number] Result Unknown measurement (mass/volume) Time 2019-02-01 05:46:00 Test Item Value Reference Range Comments Serum or plasma calcium measurement (mass/volume) (test 9.2 mg/dL Unknown Unknown F code = 21979-2) Ordering Physician UnknownSerum or plasma magnesium measurement (mass/volume) 2019-02-01 05:46:00Identifier 95105-2 Result Time 2019-02-01 05:46:00Unknown Test Item Value Reference Range Comments Serum or plasma magnesium measurement 2.0 mg/dL Unknown Unknown F (mass/volume) (test code = 02045-7) Ordering Physician UnknownSerum or plasma carbon dioxide, total measurement ( moles/volume)2019-02-01 05:46:00Identifier 2027- Result Time 2019-02-01 05:46: 00Unknown Test Item Value Reference Range Comments Serum or plasma carbon dioxide, total 30 mmol/L Unknown Unknown F measurement (moles/volume) (test code = 2028-9) Ordering Physician UnknownSerum or plasma chloride measurement (moles/volume) 2019-02-01 05:46:00Identifier 2074-0 Result Time 2019-02-01 05:46:00Unknown Test Item Value Reference Range Comments Serum or plasma chloride measurement 103 mmol/L Unknown Unknown F (moles/volume) (test code = 2075-0) Ordering Physician UnknownSerum or plasma creatinine measurement (mass/volume) 2019-02-01 05:46:00Identifier 2160-0 Result Time 2019-02-01 05:46:00Unknown Test Item Value Reference Range Comments Serum or plasma creatinine measurement 0.70 mg/dL Unknown Unknown F (mass/volume) (test code = 2160-0) Ordering Physician UnknownSerum glucose measurement (mass/volume)2019-02-01 05: 46:00Identifier 2345-7 Result Time 2019-02-01 05:46:00Unknown Test Item Value Reference Range Comments Serum glucose measurement (mass/volume) 158 mg/dL Unknown Unknown F (test code = 2345-7) Ordering Physician UnknownSerum or plasma potassium measurement (moles/volume) 2019-02-01 05:46:00Identifier 2823-3 Result Time 2019-02-01 05:46:00Unknown Test Item Value Reference Range Comments Serum or plasma potassium measurement 3.9 mmol/L Unknown Unknown F (moles/volume) (test code = 2823-3) Ordering Physician UnknownSerum or plasma sodium measurement (moles/volume)02-01 05:46:00Identifier 2951-2 Result Time 2019-02-01 05:46:00Unknown Test Item Value Reference Range Comments Serum or plasma sodium measurement 138 mmol/L Unknown Unknown F (moles/volume) (test code = 2951-2) Ordering Physician UnknownSerum or plasma urea nitrogen measurement (mass/volume )2019-02-01 05:46:00Identifier 3094-0 Result Time 2019-02-01 05:46:00Unknown Test Item Value Reference Range Comments Serum or plasma urea nitrogen measurement 15 mg/dL Unknown Unknown F (mass/volume) (test code = 3094-0) Ordering Physician UnknownSerum or plasma urea nitrogen/creatinine [id number]- 06 05:46:00Identifier 3097-3 Result Time 2019-02-01 05:46:00Unknown Test Item Value Reference Range Comments Serum or plasma urea nitrogen/creatinine 21.4 Unknown Unknown F ratio (test code = 3097-3) Ordering Physician UnknownAutomated blood platelet mean volume gjheecbybqx2320- 09-06 05:46:00Identifier 33702-8 Result Time 2019-02-01 05:46:00Unknown Test Item Value Reference Range Comments Automated blood platelet mean volume 9.6 fL Unknown Unknown F measurement (test code = 90921-0) Ordering Physician UnknownSerum or plasma anion [id number] 05:46: 00Identifier 35662-8 Result Time 2019-02-01 05:46:00Unknown Test Item Value Reference Range Comments Serum or plasma anion gap (test code = 5 mmol/L Unknown Unknown F 48066-0) Ordering Physician UnknownAutomated blood leukocytes count corrected for nucleated erythrocytes (number/volume)2019-02-01 05:46:00Identifier 47751-0 Result Time 2019-02-01 05:46:00Unknown Test Item Value Reference Range Comments Automated blood leukocytes count 9.9 10^3/uL Unknown Unknown F corrected for nucleated erythrocytes (number/volume) (test code = 96030-5) Ordering Physician UnknownAutomated blood nucleated erythrocytes dhgoswhxy8687- 09-06 05:46:00Identifier 87394-7 Result Time 2019-02-01 05:46:00Unknown Test Item Value Reference Range Comments Automated blood nucleated erythrocytes 0.0 Unknown Unknown F detection (test code = 54792-6) Ordering Physician UnknownWhole blood international normalized ratio (INR)02-01 05:46:00Identifier 81500-7 Result Time 2019-02-01 05:46:00Unknown Test Item Value Reference Range Comments Whole blood international normalized ratio 1.40 Unknown Unknown F (INR) (test code = 65751-5) Ordering Physician UnknownAutomated blood hematocrit (percentage)2019-02-01 05: 46:00Identifier 4544-3 Result Time 2019-02-01 05:46:00Unknown Test Item Value Reference Range Comments Automated blood hematocrit (percentage) (test 39 % Unknown Unknown F code = 4544-3) Ordering Physician UnknownEstimated glomerular filtration rate (GFR) non- Pkvcuavs8788-97-96 05:46:00Identifier 74771-3 Result Time 2019-02-01 05: 46:00Unknown Test Item Value Reference Range Comments Estimated glomerular filtration rate (GFR) 80.3 Unknown Unknown F non- (test code = 77572-2) Ordering Physician UnknownAutomated blood monocytes/100 fiywtpggsl9339-30-37 05: 46:00Identifier 5905-5 Result Time 2019-02-01 05:46:00Unknown Test Item Value Reference Range Comments Automated blood monocytes/100 leukocytes 8.6 % Unknown Unknown F (test code = 5905-5) Ordering Physician UnknownAutomated blood basophil count (number/volume) 05:46:00Identifier 704-7 Result Time 2019-02-01 05:46:00Unknown Test Item Value Reference Range Comments Automated blood basophil count 0.1 10^3/ul Unknown Unknown F (number/volume) (test code = 704-7) Ordering Physician UnknownAutomated blood basophils/100 plqydyisdm8326-44-46 05: 46:00Identifier 706-2 Result Time 2019-02-01 05:46:00Unknown Test Item Value Reference Range Comments Automated blood basophils/100 leukocytes 0.6 % Unknown Unknown F (test code = 706-2) Ordering Physician UnknownAutomated blood eosinophil count (number/volume)02-01 05:46:00Identifier 711-2 Result Time 2019-02-01 05:46:00Unknown Test Item Value Reference Range Comments Automated blood eosinophil count 1.3 10^3/ul Unknown Unknown F (number/volume) (test code = 711-2) Ordering Physician UnknownAutomated blood eosinophils/100 hikesyfxat3133-11-80 05:46:00Identifier 713-8 Result Time 2019-02-01 05:46:00Unknown Test Item Value Reference Range Comments Automated blood eosinophils/100 leukocytes 13.4 % Unknown Unknown F (test code = 713-8) Ordering Physician UnknownBlood hemoglobin measurement (mass/volume)2019-02-01 05:46:00Identifier 718-7 Result Time 2019-02-01 05:46:00Unknown Test Item Value Reference Range Comments Blood hemoglobin measurement 13.2 g/dL Unknown Unknown F (mass/volume) (test code = 718-7) Ordering Physician UnknownBlood lymphocytes automated count (number/volume)02-01 05:46:00Identifier 731-0 Result Time 2019-02-01 05:46:00Unknown Test Item Value Reference Range Comments Blood lymphocytes automated count 2.9 10^3/ul Unknown Unknown F (number/volume) (test code = 731-0) Ordering Physician UnknownAutomated blood lymphocytes/100 ujrwhtfugu1992-50-71 05:46:00Identifier 736-9 Result Time 2019-02-01 05:46:00Unknown Test Item Value Reference Range Comments Automated blood lymphocytes/100 leukocytes 28.7 % Unknown Unknown F (test code = 736-9) Ordering Physician UnknownBlood monocytes automated count (number/volume)2019-01 05:46:00Identifier 742-7 Result Time 2019-02-01 05:46:00Unknown Test Item Value Reference Range Comments Blood monocytes automated count 0.9 10^3/ul Unknown Unknown F (number/volume) (test code = 742-7) Ordering Physician UnknownAutomated blood neutrophils/100 hfyqzzirsk3772-67-90 05:46:00Identifier 770-8 Result Time 2019-02-01 05:46:00Unknown Test Item Value Reference Range Comments Automated blood neutrophils/100 leukocytes 48.7 % Unknown Unknown F (test code = 770-8) Ordering Physician UnknownBlood nucleated erythrocytes automated count (number/ volume)2019-02-01 05:46:00Identifier 771-6 Result Time 2019-02-01 05:46: 00Unknown Test Item Value Reference Range Comments Blood nucleated erythrocytes automated 0.0 10^3/ul Unknown Unknown F count (number/volume) (test code = 771-6) Ordering Physician UnknownAutomated blood platelet count (number/volume) 05:46:00Identifier 777-3 Result Time 2019-02-01 05:46:00Unknown Test Item Value Reference Range Comments Automated blood platelet count 248 10^3/uL Unknown Unknown F (number/volume) (test code = 777-3) Ordering Physician UnknownAutomated erythrocyte mean corpuscular hemoglobin ( mass per erythrocyte)2019-02-01 05:46:00Identifier 785-6 Result Time 2019-02-01 05:46:00Unknown Test Item Value Reference Range Comments Automated erythrocyte mean corpuscular 29 pg Unknown Unknown F hemoglobin (mass per erythrocyte) (test code = 785-6) Ordering Physician UnknownAutomated erythrocyte mean corpuscular hemoglobin concentration measurement (mass/zzc2552-57-22 05:46:00Identifier 786-4 Result Time 2019-02-01 05:46:00Unknown Test Item Value Reference Range Comments Automated erythrocyte mean corpuscular 34 g/dL Unknown Unknown F hemoglobin concentration measurement (mass/vol (test code = 786-4) Ordering Physician UnknownAutomated erythrocyte mean corpuscular sllsfo8091-96- 06 05:46:00Identifier 787-2 Result Time 2019-02-01 05:46:00Unknown Test Item Value Reference Range Comments Automated erythrocyte mean corpuscular volume 85 fL Unknown Unknown F (test code = 787-2) Ordering Physician UnknownAutomated erythrocyte distribution width rwdvm3870-33- 06 05:46:00Identifier 788-0 Result Time 2019-02-01 05:46:00Unknown Test Item Value Reference Range Comments Automated erythrocyte distribution width ratio 14 % Unknown Unknown F (test code = 788-0) Ordering Physician UnknownAutomated blood erythrocyte count (number/volume)02-01 05:46:00Identifier 789-8 Result Time 2019-02-01 05:46:00Unknown Test Item Value Reference Range Comments Automated blood erythrocyte count 4.60 10^6 /uL Unknown Unknown F (number/volume) (test code = 789-8) Ordering Physician UnknownCT biopsy [id number] 05:46:00Identifier [id number] Result Time 2019-02-01 05:46:00Unknown Test Item Value Reference Range Comments CT biopsy liver (test code = DCR6721) 4.8 10^3/ul Unknown Unknown F Ordering Physician UnknownSerum or plasma digoxin measurement (mass/volume)01-31 05:41:00Identifier 37486-4 Result Time 2019-01-31 05:41:00Unknown Test Item Value Reference Range Comments Serum or plasma digoxin measurement 1.3 ng/ml Unknown Unknown F (mass/volume) (test code = 24003-7) Ordering Physician UnknownStool Plesiomonas shigelloides DNA detection by non- probe and target amplification hm2184-11-60 12:40:00Identifier 97741-6 Result Time 2019-01-28 12:40:00Unknown Test Item Value Reference Range Comments Nasal Screen MRSA (PCR) (test Mrsa Not Detected Unknown Unknown F code = Nasal Screen MRSA (PCR)) Ordering Physician UnknownUrine ascorbic acid lqmkmwaqh7472-51-25 12:25: 00Identifier 1904-2 Result Time 2019-01-28 12:25:00Unknown Test Item Value Reference Range Comments Urine ascorbic acid detection (test code = * Unknown Unknown F 1904-2) Ordering Physician UnknownUrine urobilinogen measurement (units/volume) by test akttq4175-14-21 12:25:00Identifier 19777-9 Result Time 2019-01-28 12:25: 00Unknown Test Item Value Reference Range Comments Urine urobilinogen measurement Negative Unknown Unknown F (units/volume) by test strip (test code = 16994-5) Ordering Physician UnknownUrine total bilirubin detection by automated test ympmy3465-26-98 12:25:00Identifier 01037-4 Result Time 2019-01-28 12:25: 00Unknown Test Item Value Reference Range Comments Urine total bilirubin detection by Negative Unknown Unknown F automated test strip (test code = 84589-3) Ordering Physician UnknownUrine clarity by refractometry jfshdjvyr5714-00-09 12: 25:00Identifier 52796-3 Result Time 2019-01-28 12:25:00Unknown Test Item Value Reference Range Comments Urine clarity by refractometry automated Cloudy Unknown Unknown F (test code = 68247-9) Ordering Physician UnknownColor of Urine by Rpfc1744-48-47 12:25:00Identifier 19302-3 Result Time 2019-01-28 12:25:00Unknown Test Item Value Reference Range Comments Color of Urine by Auto (test code = Yellow Unknown Unknown F 68714-6) Ordering Physician UnknownUrine glucose detection by automated test sdxvl6924-87 -02 12:25:00Identifier 80806-3 Result Time 2019-01-28 12:25:00Unknown Test Item Value Reference Range Comments Urine glucose detection by automated 1+(50 mg/dl) Unknown Unknown F test strip (test code = 23264-1) Ordering Physician UnknownKetones [Mass/volume] in Urine by Automated test kfccq9130-82-22 12:25:00Identifier 74261-1 Result Time 2019-01-28 12:25: 00Unknown Test Item Value Reference Range Comments Ketones [Mass/volume] in Urine by Negative Unknown Unknown F Automated test strip (test code = 63787-2) Ordering Physician UnknownUrine nitrite detection by automated test szwiy3035-41 -02 12:25:00Identifier 01300-9 Result Time 2019-01-28 12:25:00Unknown Test Item Value Reference Range Comments Urine nitrite detection by automated test Negative Unknown Unknown F strip (test code = 84633-0) Ordering Physician UnknownProtein [Mass/volume] in Urine by Automated test ogxuy2885-39-92 12:25:00Identifier 03695-9 Result Time 2019-01-28 12:25: 00Unknown Test Item Value Reference Range Comments Protein [Mass/volume] in Urine by Negative Unknown Unknown F Automated test strip (test code = 45099-8) Ordering Physician UnknownSpecific gravity of Urine by Refractometry iyommtefo1867-35-06 12:25:00Identifier 03060-3 Result Time 2019-01-28 12:25: 00Unknown Test Item Value Reference Range Comments Specific gravity of Urine by Refractometry 1.018 Unknown Unknown F automated (test code = 23253-8) Ordering Physician UnknownUrine hemoglobin detection by test puhzv0155-40-74 12: 25:00Identifier 5794-3 Result Time 2019-01-28 12:25:00Unknown Test Item Value Reference Range Comments Urine hemoglobin detection by test strip Negative Unknown Unknown F (test code = 5794-3) Ordering Physician UnknownUrine leukocyte esterase detection by automated test khipt6409-76-18 12:25:00Identifier 42687-8 Result Time 2019-01-28 12:25: 00Unknown Test Item Value Reference Range Comments Urine leukocyte esterase detection by Negative Unknown Unknown F automated test strip (test code = 25065-2) Ordering Physician UnknownSerum or plasma troponin i.cardiac measurement (mass/ volume)2019-01-28 11:57:00Identifier 30806-5 Result Time 2019-01-28 11:57: 00Unknown Test Item Value Reference Range Comments Serum or plasma troponin i.cardiac 0.02 ng/mL Unknown Unknown F measurement (mass/volume) (test code = 89223-6) Ordering Physician UnknownSerum or plasma alanine aminotransferase measurement ( enzymatic activity/volume)2019-01-28 11:57:00Identifier 1742-6 Result Time 01-28 11:57:00Unknown Test Item Value Reference Range Comments Serum or plasma alanine aminotransferase 10 U/L Unknown Unknown F measurement (enzymatic activity/volume) (test code = 1742-6) Ordering Physician UnknownSerum or plasma albumin/globulin mass beaaz7964-31-67 11:57:00Identifier 1759-0 Result Time 2019-01-28 11:57:00Unknown Test Item Value Reference Range Comments Serum or plasma albumin/globulin mass ratio 1.2 Unknown Unknown F (test code = 1759-0) Ordering Physician UnknownSerum or plasma aspartate aminotransferase measurement (enzymatic activity/volume)2019-01-28 11:57:00Identifier 1920-8 Result Time 2019-01-28 11:57:00Unknown Test Item Value Reference Range Comments Serum or plasma aspartate aminotransferase 16 U/L Unknown Unknown F measurement (enzymatic activity/volume) (test code = 1920-8) Ordering Physician UnknownSerum or plasma total bilirubin measurement (mass/ volume)2019-01-28 11:57:00Identifier 1974-2 Result Time 2019-01-28 11:57: 00Unknown Test Item Value Reference Range Comments Serum or plasma total bilirubin 0.90 mg/dL Unknown Unknown F measurement (mass/volume) (test code = 1974-) Ordering Physician UnknownSerum or plasma C reactive protein measurement (mass/ volume)2019-01-28 11:57:00Identifier 1987-5 Result Time 2019-01-28 11:57: 00Unknown Test Item Value Reference Range Comments Serum or plasma C reactive protein 12.17 mg/L Unknown Unknown F measurement (mass/volume) (test code = 1987-) Ordering Physician UnknownSerum or plasma lactate measurement (moles/volume)2018 11:57:00Identifier 2524-7 Result Time 2019-01-28 11:57:00Unknown Test Item Value Reference Range Comments Serum or plasma lactate measurement 1.2 mmol/L Unknown Unknown F (moles/volume) (test code = 2524-7) Ordering Physician UnknownSerum total protein measurement (mass/volume) 11:57:00Identifier 2885-2 Result Time 2019-01-28 11:57:00Unknown Test Item Value Reference Range Comments Serum total protein measurement 6.9 g/dL Unknown Unknown F (mass/volume) (test code = 2885-2) Ordering Physician UnknownSerum or plasma thyroid stimulating hormone (TSH) measurement (units/volume)2019-01-28 11:57:00Identifier 3016-3 Result Time 01-28 11:57:00Unknown Test Item Value Reference Range Comments Serum or plasma thyroid stimulating 2.25 mcIU/mL Unknown Unknown F hormone (TSH) measurement (units/volume) (test code = 3016-3) Ordering Physician UnknownSerum or plasma natriuretic peptide B measurement ( mass/volume)2019-01-28 11:57:00Identifier 22737-2 Result Time 2019-01-28 11:57: 00Unknown Test Item Value Reference Range Comments Serum or plasma natriuretic peptide B 523 pg/mL Unknown Unknown F measurement (mass/volume) (test code = 58096-0) Ordering Physician UnknownErythrocyte sedimentation rate by Westergren [id number] 11:57:00Identifier 4537-7 Result Time 2019-01-28 11:57: 00Unknown Test Item Value Reference Range Comments Erythrocyte sedimentation rate by 48 mm/Hr Unknown Unknown F Westergren method (test code = 4537-7) Ordering Physician UnknownSerum or plasma albumin measurement by bromocresol green (BCG) dye binding method ([id number] 11:57:00Identifier 03103-7 Result Time 2019-01-28 11:57:00Unknown Test Item Value Reference Range Comments Serum or plasma albumin measurement by 3.7 g/dL Unknown Unknown F bromocresol green (BCG) dye binding method (ma (test code = 70786-2) Ordering Physician UnknownSerum or plasma alkaline phosphatase measurement ( enzymatic activity/volume)2019-01-28 11:57:00Identifier 6768-6 Result Time 01-28 11:57:00Unknown Test Item Value Reference Range Comments Serum or plasma alkaline phosphatase 98 U/L Unknown Unknown F measurement (enzymatic activity/volume) (test code = 6768-6) Ordering Physician Unknown
--- OUTSIDE RECORDS SUMMARY | 2019-06-04 17:29 | XMS REPORT ---
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 Clinician (SIG) Name Name No Known No Known No None None None Medications Medications For This For This Patient Patient Procedures This patient has no known procedures. Results This patient has no known results.
--- OUTSIDE RECORDS SUMMARY | 2019-06-04 17:29 | XMS REPORT ---
:1935 Author Organization [facility] Care Team Providers Name Role Phone Unavailable [...] Serum or plasma calcium 2019-02-01 05:46:00 Identifier 25580-1 Result Unknown measurement (mass/volume) Time 2019-02-01 05:46:00 Test Item Value Reference Range Comments Serum or plasma calcium measurement (mass/volume) (test 9.2 mg/dL Unknown Unknown F code = 20930-7) Ordering Physician UnknownSerum or plasma magnesium measurement (mass/volume) 2019-02-01 05:46:00Identifier 30492-8 Result Time 2019-02-01 05:46:00Unknown Test Item Value Reference Range Comments Serum or plasma magnesium measurement 2.0 mg/dL Unknown Unknown F (mass/volume) (test code = 99830-1) Ordering Physician UnknownSerum or plasma carbon dioxide, [...] Ordering Physician UnknownSerum or plasma urea nitrogen/creatinine hlokv3578-38- 06 05:46:00Identifier 3097-3 Result Time 2019-02-01 05:46:00Unknown Test Item Value Reference Range Comments Serum or plasma urea nitrogen/creatinine 21.4 Unknown Unknown F ratio (test code = 3097-3) Ordering Physician UnknownAutomated blood platelet mean volume qzjjmsxxntx7429- 09-06 05:46:00Identifier 54978-3 Result Time 2019-02-01 05:46:00Unknown Test Item Value Reference Range Comments Automated blood platelet mean volume 9.6 fL Unknown Unknown F measurement (test code = 61418-4) Ordering Physician UnknownSerum or plasma anion tqk1213-67-28 05:46: 00Identifier 11100-8 Result Time 2019-02-01 05:46:00Unknown Test Item Value Reference Range Comments Serum or plasma anion gap (test code = 5 mmol/L Unknown Unknown F 69378-7) Ordering Physician UnknownAutomated blood leukocytes count corrected for nucleated erythrocytes (number/volume)2019-02-01 05:46:00Identifier 43946-2 Result Time 2019-02-01 05:46:00Unknown Test Item Value Reference Range Comments Automated blood leukocytes count 9.9 10^3/uL Unknown Unknown F corrected for nucleated erythrocytes (number/volume) (test code = 72969-6) Ordering Physician UnknownAutomated blood nucleated erythrocytes hemqrhilk6595- 09-06 05:46:00Identifier 88443-4 Result Time 2019-02-01 05:46:00Unknown Test Item Value Reference Range Comments Automated blood nucleated erythrocytes 0.0 Unknown Unknown F detection (test code = 66484-1) Ordering Physician UnknownWhole blood international normalized ratio (INR)02-01 05:46:00Identifier 25092-7 Result Time 2019-02-01 05:46:00Unknown Test Item Value Reference Range Comments Whole blood international normalized ratio 1.40 Unknown Unknown F (INR) (test code = 14116-3) Ordering Physician UnknownAutomated blood hematocrit (percentage)2019-02-01 05: 46:00Identifier 4544-3 Result Time 2019-02-01 05:46:00Unknown Test Item Value Reference Range Comments Automated blood hematocrit (percentage) (test 39 % Unknown Unknown F code = 4544-3) Ordering Physician UnknownEstimated glomerular filtration rate (GFR) non- Wnbtqbom3347-21-52 05:46:00Identifier 27355-5 Result Time 2019-02-01 05: 46:00Unknown Test Item Value Reference Range Comments Estimated glomerular filtration rate (GFR) 80.3 Unknown Unknown F non- (test code = 62667-4) Ordering Physician UnknownAutomated blood monocytes/100 qkuocqemwb6826-68-99 05: 46:00Identifier 5905-5 Result Time 2019-02-01 05:46:00Unknown [...] = 704-7) Ordering Physician UnknownAutomated blood basophils/100 swzhvmtmji5251-59-33 05: 46:00Identifier 706-2 Result Time 2019-02-01 05:46:00Unknown [...] = 711-2) Ordering Physician UnknownAutomated blood eosinophils/100 ffkwpblieq7399-77-03 05:46:00Identifier 713-8 Result Time 2019-02-01 05:46:00Unknown Test [...] = 731-0) Ordering Physician UnknownAutomated blood lymphocytes/100 zcmspbzxlb2066-59-02 05:46:00Identifier 736-9 Result Time 2019-02-01 05:46:00Unknown Test Item Value Reference Range Comments Automated blood lymphocytes/100 leukocytes 28.7 % Unknown Unknown F (test code = 736-9) Ordering Physician UnknownBlood monocytes automated count (number/volume)2019-01 05:46:00Identifier 742-7 Result Time 2019-02-01 05:46:00Unknown Test Item Value Reference Range Comments Blood monocytes automated count 0.9 10^3/ul Unknown Unknown F (number/volume) (test code = 742-7) Ordering Physician UnknownAutomated blood neutrophils/100 ztpbpbcjbk8821-20-57 05:46:00Identifier 770-8 Result Time 2019-02-01 05:46:00Unknown Test [...] UnknownAutomated erythrocyte mean corpuscular hemoglobin concentration measurement (mass/kuv2674-31-18 05:46:00Identifier 786-4 Result Time 2019-02-01 05:46:00Unknown Test Item Value Reference Range Comments Automated erythrocyte mean corpuscular 34 g/dL Unknown Unknown F hemoglobin concentration measurement (mass/vol (test code = 786-4) Ordering Physician UnknownAutomated erythrocyte mean corpuscular peqsxv0362-19- 06 05:46:00Identifier 787-2 Result Time 2019-02-01 05:46:00Unknown Test Item Value Reference Range Comments Automated erythrocyte mean corpuscular volume 85 fL Unknown Unknown F (test code = 787-2) Ordering Physician UnknownAutomated erythrocyte distribution width gflcl1269-18- 06 05:46:00Identifier 788-0 Result Time 2019-02-01 05:46:00Unknown [...] code = 789-8) Ordering Physician UnknownCT biopsy zakfv0261-24-63 05:46:00Identifier [id number] Result Time 2019-02-01 05:46:00Unknown Test Item Value Reference Range Comments CT biopsy liver (test code = RVW1141) 4.8 10^3/ul Unknown Unknown F Ordering Physician UnknownSerum or plasma digoxin measurement (mass/volume)01-31 05:41:00Identifier 14336-5 Result Time 2019-01-31 05:41:00Unknown Test Item Value Reference Range Comments Serum or plasma digoxin measurement 1.3 ng/ml Unknown Unknown F (mass/volume) (test code = 23939-2) Ordering Physician UnknownStool Plesiomonas shigelloides DNA detection by non- probe and target amplification bz7903-55-31 12:40:00Identifier 57165-6 Result Time 2019-01-28 12:40:00Unknown Test Item Value Reference Range Comments Nasal Screen MRSA (PCR) (test Mrsa Not Detected Unknown Unknown F code = Nasal Screen MRSA (PCR)) Ordering Physician UnknownUrine ascorbic acid uyadfennf1815-42-26 12:25: 00Identifier 1904-2 Result Time 2019-01-28 12:25:00Unknown Test Item Value Reference Range Comments Urine ascorbic acid detection (test code = * Unknown Unknown F 1904-2) Ordering Physician UnknownUrine urobilinogen measurement (units/volume) by test mkywt2073-28-56 12:25:00Identifier 07493-0 Result Time 2019-01-28 12:25: 00Unknown Test Item Value Reference Range Comments Urine urobilinogen measurement Negative Unknown Unknown F (units/volume) by test strip (test code = 35817-8) Ordering Physician UnknownUrine total bilirubin detection by automated test bknql3101-14-04 12:25:00Identifier 84982-8 Result Time 2019-01-28 12:25: 00Unknown Test Item Value Reference Range Comments Urine total bilirubin detection by Negative Unknown Unknown F automated test strip (test code = 65477-1) Ordering Physician UnknownUrine clarity by refractometry uzubyraza3757-08-82 12: 25:00Identifier 56389-3 Result Time 2019-01-28 12:25:00Unknown Test Item Value Reference Range Comments Urine clarity by refractometry automated Cloudy Unknown Unknown F (test code = 99733-2) Ordering Physician UnknownColor of Urine by Iskq0389-70-67 12:25:00Identifier 22073-7 Result Time 2019-01-28 12:25:00Unknown Test Item Value Reference Range Comments Color of Urine by Auto (test code = Yellow Unknown Unknown F 67880-9) Ordering Physician UnknownUrine glucose detection by automated test hvzwk6995-46 -02 12:25:00Identifier 86304-2 Result Time 2019-01-28 12:25:00Unknown Test Item Value Reference Range Comments Urine glucose detection by automated 1+(50 mg/dl) Unknown Unknown F test strip (test code = 21079-7) Ordering Physician UnknownKetones [Mass/volume] in Urine by Automated test xeyub9341-63-83 12:25:00Identifier 25275-9 Result Time 2019-01-28 12:25: 00Unknown Test Item Value Reference Range Comments Ketones [Mass/volume] in Urine by Negative Unknown Unknown F Automated test strip (test code = 66705-6) Ordering Physician UnknownUrine nitrite detection by automated test ymxqb3036-37 -02 12:25:00Identifier 29675-1 Result Time 2019-01-28 12:25:00Unknown Test Item Value Reference Range Comments Urine nitrite detection by automated test Negative Unknown Unknown F strip (test code = 67728-4) Ordering Physician UnknownProtein [Mass/volume] in Urine by Automated test tflsz1587-25-20 12:25:00Identifier 67865-9 Result Time 2019-01-28 12:25: 00Unknown Test Item Value Reference Range Comments Protein [Mass/volume] in Urine by Negative Unknown Unknown F Automated test strip (test code = 90509-2) Ordering Physician UnknownSpecific gravity of Urine by Refractometry zsgyuchdj2077-78-67 12:25:00Identifier 16440-0 Result Time 2019-01-28 12:25: 00Unknown Test Item Value Reference Range Comments Specific gravity of Urine by Refractometry 1.018 Unknown Unknown F automated (test code = 66628-9) Ordering Physician UnknownUrine hemoglobin detection by test fznxz9826-81-23 12: 25:00Identifier 5794-3 Result Time 2019-01-28 12:25:00Unknown Test Item Value Reference Range Comments Urine hemoglobin detection by test strip Negative Unknown Unknown F (test code = 5794-3) Ordering Physician UnknownUrine leukocyte esterase detection by automated test rilje3571-30-39 12:25:00Identifier 04526-9 Result Time 2019-01-28 12:25: 00Unknown Test Item Value Reference Range Comments Urine leukocyte esterase detection by Negative Unknown Unknown F automated test strip (test code = 25774-8) Ordering Physician UnknownSerum or plasma troponin i.cardiac measurement (mass/ volume)2019-01-28 11:57:00Identifier 25324-6 Result Time 2019-01-28 11:57: 00Unknown Test Item Value Reference Range Comments Serum or plasma troponin i.cardiac 0.02 ng/mL Unknown Unknown F measurement (mass/volume) (test code = 23642-5) Ordering Physician UnknownSerum or plasma alanine aminotransferase measurement ( enzymatic activity/volume)2019-01-28 11:57:00Identifier 1742-6 Result Time 01-28 11:57:00Unknown Test Item Value Reference Range Comments Serum or plasma alanine aminotransferase 10 U/L Unknown Unknown F measurement (enzymatic activity/volume) (test code = 1742-6) Ordering Physician UnknownSerum or plasma albumin/globulin mass etbqa7036-26-08 11:57:00Identifier 1759-0 Result Time 2019-01-28 11:57:00Unknown Test [...] natriuretic peptide B measurement ( mass/volume)2019-01-28 11:57:00Identifier 32208-4 Result Time 2019-01-28 11:57: 00Unknown Test Item Value Reference Range Comments Serum or plasma natriuretic peptide B 523 pg/mL Unknown Unknown F measurement (mass/volume) (test code = 53764-0) Ordering Physician UnknownErythrocyte sedimentation rate by Westergren igpxpc6891-79-61 11:57:00Identifier 4537-7 Result Time 2019-01-28 11:57: 00Unknown Test Item Value Reference Range Comments Erythrocyte sedimentation rate by 48 mm/Hr Unknown Unknown F Westergren method (test code = 4537-7) Ordering Physician UnknownSerum or plasma albumin measurement by bromocresol green (BCG) dye binding method (er1928-21-14 11:57:00Identifier 72493-5 Result Time 2019-01-28 11:57:00Unknown Test Item Value Reference Range Comments Serum or plasma albumin measurement by 3.7 g/dL Unknown Unknown F bromocresol green (BCG) dye binding method (ma (test code = 43069-8) Ordering Physician UnknownSerum or plasma alkaline phosphatase measurement ( enzymatic activity/volume)2019-01-28 11:57:00Identifier 6768-6 Result Time 01-28 11:57:00Unknown Test Item Value Reference Range Comments Serum or plasma alkaline phosphatase 98 U/L Unknown Unknown F measurement (enzymatic activity/volume) (test code = 6768-6) Ordering Physician Unknown
--- OUTSIDE RECORDS SUMMARY | 2019-06-04 17:29 | XMS REPORT ---
:1935 Author Organization [facility] Care Team Providers Name Role Phone Unavailable [...] Serum or plasma calcium 2019-02-01 05:46:00 Identifier 63833-0 Result Unknown measurement (mass/volume) Time 2019-02-01 05:46:00 Test Item Value Reference Range Comments Serum or plasma calcium measurement (mass/volume) (test 9.2 mg/dL Unknown Unknown F code = 75586-3) Ordering Physician UnknownSerum or plasma magnesium measurement (mass/volume) 2019-02-01 05:46:00Identifier 58311-1 Result Time 2019-02-01 05:46:00Unknown Test Item Value Reference Range Comments Serum or plasma magnesium measurement 2.0 mg/dL Unknown Unknown F (mass/volume) (test code = 94268-9) Ordering Physician UnknownSerum or plasma carbon dioxide, [...] Ordering Physician UnknownSerum or plasma urea nitrogen/creatinine zzhkh3686-94- 06 05:46:00Identifier 3097-3 Result Time 2019-02-01 05:46:00Unknown Test Item Value Reference Range Comments Serum or plasma urea nitrogen/creatinine 21.4 Unknown Unknown F ratio (test code = 3097-3) Ordering Physician UnknownAutomated blood platelet mean volume fikyqjwlrfo9659- 09-06 05:46:00Identifier 15347-0 Result Time 2019-02-01 05:46:00Unknown Test Item Value Reference Range Comments Automated blood platelet mean volume 9.6 fL Unknown Unknown F measurement (test code = 79133-9) Ordering Physician UnknownSerum or plasma anion zhq0176-60-59 05:46: 00Identifier 50577-8 Result Time 2019-02-01 05:46:00Unknown Test Item Value Reference Range Comments Serum or plasma anion gap (test code = 5 mmol/L Unknown Unknown F 05335-0) Ordering Physician UnknownAutomated blood leukocytes count corrected for nucleated erythrocytes (number/volume)2019-02-01 05:46:00Identifier 31979-9 Result Time 2019-02-01 05:46:00Unknown Test Item Value Reference Range Comments Automated blood leukocytes count 9.9 10^3/uL Unknown Unknown F corrected for nucleated erythrocytes (number/volume) (test code = 89659-8) Ordering Physician UnknownAutomated blood nucleated erythrocytes nrihpiegb8765- 09-06 05:46:00Identifier 97823-7 Result Time 2019-02-01 05:46:00Unknown Test Item Value Reference Range Comments Automated blood nucleated erythrocytes 0.0 Unknown Unknown F detection (test code = 54329-1) Ordering Physician UnknownWhole blood international normalized ratio (INR)02-01 05:46:00Identifier 87922-5 Result Time 2019-02-01 05:46:00Unknown Test Item Value Reference Range Comments Whole blood international normalized ratio 1.40 Unknown Unknown F (INR) (test code = 44294-9) Ordering Physician UnknownAutomated blood hematocrit (percentage)2019-02-01 05: 46:00Identifier 4544-3 Result Time 2019-02-01 05:46:00Unknown Test Item Value Reference Range Comments Automated blood hematocrit (percentage) (test 39 % Unknown Unknown F code = 4544-3) Ordering Physician UnknownEstimated glomerular filtration rate (GFR) non- Cnvqzsnk6062-19-52 05:46:00Identifier 18238-8 Result Time 2019-02-01 05: 46:00Unknown Test Item Value Reference Range Comments Estimated glomerular filtration rate (GFR) 80.3 Unknown Unknown F non- (test code = 43134-8) Ordering Physician UnknownAutomated blood monocytes/100 ngtjphelnm5965-75-89 05: 46:00Identifier 5905-5 Result Time 2019-02-01 05:46:00Unknown [...] = 704-7) Ordering Physician UnknownAutomated blood basophils/100 ujuscghnea1050-81-64 05: 46:00Identifier 706-2 Result Time 2019-02-01 05:46:00Unknown [...] = 711-2) Ordering Physician UnknownAutomated blood eosinophils/100 zlzbjosmxa1080-99-32 05:46:00Identifier 713-8 Result Time 2019-02-01 05:46:00Unknown Test [...] = 731-0) Ordering Physician UnknownAutomated blood lymphocytes/100 osafzwiols2548-82-46 05:46:00Identifier 736-9 Result Time 2019-02-01 05:46:00Unknown Test Item Value Reference Range Comments Automated blood lymphocytes/100 leukocytes 28.7 % Unknown Unknown F (test code = 736-9) Ordering Physician UnknownBlood monocytes automated count (number/volume)2019-01 05:46:00Identifier 742-7 Result Time 2019-02-01 05:46:00Unknown Test Item Value Reference Range Comments Blood monocytes automated count 0.9 10^3/ul Unknown Unknown F (number/volume) (test code = 742-7) Ordering Physician UnknownAutomated blood neutrophils/100 pzptsgdxzf1405-98-18 05:46:00Identifier 770-8 Result Time 2019-02-01 05:46:00Unknown Test [...] UnknownAutomated erythrocyte mean corpuscular hemoglobin concentration measurement (mass/znl6021-60-71 05:46:00Identifier 786-4 Result Time 2019-02-01 05:46:00Unknown Test Item Value Reference Range Comments Automated erythrocyte mean corpuscular 34 g/dL Unknown Unknown F hemoglobin concentration measurement (mass/vol (test code = 786-4) Ordering Physician UnknownAutomated erythrocyte mean corpuscular ghohsk0020-81- 06 05:46:00Identifier 787-2 Result Time 2019-02-01 05:46:00Unknown Test Item Value Reference Range Comments Automated erythrocyte mean corpuscular volume 85 fL Unknown Unknown F (test code = 787-2) Ordering Physician UnknownAutomated erythrocyte distribution width bzkwg6216-13- 06 05:46:00Identifier 788-0 Result Time 2019-02-01 05:46:00Unknown [...] code = 789-8) Ordering Physician UnknownCT biopsy egolq9870-30-74 05:46:00Identifier [id number] Result Time 2019-02-01 05:46:00Unknown Test Item Value Reference Range Comments CT biopsy liver (test code = GDA1917) 4.8 10^3/ul Unknown Unknown F Ordering Physician UnknownSerum or plasma digoxin measurement (mass/volume)01-31 05:41:00Identifier 93699-5 Result Time 2019-01-31 05:41:00Unknown Test Item Value Reference Range Comments Serum or plasma digoxin measurement 1.3 ng/ml Unknown Unknown F (mass/volume) (test code = 12763-8) Ordering Physician UnknownStool Plesiomonas shigelloides DNA detection by non- probe and target amplification rh4772-73-80 12:40:00Identifier 56452-7 Result Time 2019-01-28 12:40:00Unknown Test Item Value Reference Range Comments Nasal Screen MRSA (PCR) (test Mrsa Not Detected Unknown Unknown F code = Nasal Screen MRSA (PCR)) Ordering Physician UnknownUrine ascorbic acid omfxmqrmq9883-82-78 12:25: 00Identifier 1904-2 Result Time 2019-01-28 12:25:00Unknown Test Item Value Reference Range Comments Urine ascorbic acid detection (test code = * Unknown Unknown F 1904-2) Ordering Physician UnknownUrine urobilinogen measurement (units/volume) by test wxffo8211-35-30 12:25:00Identifier 77814-2 Result Time 2019-01-28 12:25: 00Unknown Test Item Value Reference Range Comments Urine urobilinogen measurement Negative Unknown Unknown F (units/volume) by test strip (test code = 32222-2) Ordering Physician UnknownUrine total bilirubin detection by automated test kratu6634-20-30 12:25:00Identifier 82316-9 Result Time 2019-01-28 12:25: 00Unknown Test Item Value Reference Range Comments Urine total bilirubin detection by Negative Unknown Unknown F automated test strip (test code = 74826-2) Ordering Physician UnknownUrine clarity by refractometry rczpqxwhh2953-63-80 12: 25:00Identifier 13084-8 Result Time 2019-01-28 12:25:00Unknown Test Item Value Reference Range Comments Urine clarity by refractometry automated Cloudy Unknown Unknown F (test code = 58785-4) Ordering Physician UnknownColor of Urine by Frsx6116-55-14 12:25:00Identifier 75958-8 Result Time 2019-01-28 12:25:00Unknown Test Item Value Reference Range Comments Color of Urine by Auto (test code = Yellow Unknown Unknown F 17176-1) Ordering Physician UnknownUrine glucose detection by automated test yyoiz7869-06 -02 12:25:00Identifier 05559-1 Result Time 2019-01-28 12:25:00Unknown Test Item Value Reference Range Comments Urine glucose detection by automated 1+(50 mg/dl) Unknown Unknown F test strip (test code = 34654-4) Ordering Physician UnknownKetones [Mass/volume] in Urine by Automated test uekvz5080-82-25 12:25:00Identifier 63543-7 Result Time 2019-01-28 12:25: 00Unknown Test Item Value Reference Range Comments Ketones [Mass/volume] in Urine by Negative Unknown Unknown F Automated test strip (test code = 38512-8) Ordering Physician UnknownUrine nitrite detection by automated test ycebv8791-59 -02 12:25:00Identifier 66688-7 Result Time 2019-01-28 12:25:00Unknown Test Item Value Reference Range Comments Urine nitrite detection by automated test Negative Unknown Unknown F strip (test code = 18361-4) Ordering Physician UnknownProtein [Mass/volume] in Urine by Automated test zdfbs9833-30-95 12:25:00Identifier 27258-7 Result Time 2019-01-28 12:25: 00Unknown Test Item Value Reference Range Comments Protein [Mass/volume] in Urine by Negative Unknown Unknown F Automated test strip (test code = 20679-0) Ordering Physician UnknownSpecific gravity of Urine by Refractometry kllkxkdyl7363-95-74 12:25:00Identifier 02838-5 Result Time 2019-01-28 12:25: 00Unknown Test Item Value Reference Range Comments Specific gravity of Urine by Refractometry 1.018 Unknown Unknown F automated (test code = 33433-1) Ordering Physician UnknownUrine hemoglobin detection by test jpqln2281-24-97 12: 25:00Identifier 5794-3 Result Time 2019-01-28 12:25:00Unknown Test Item Value Reference Range Comments Urine hemoglobin detection by test strip Negative Unknown Unknown F (test code = 5794-3) Ordering Physician UnknownUrine leukocyte esterase detection by automated test xdijj9971-84-31 12:25:00Identifier 12198-0 Result Time 2019-01-28 12:25: 00Unknown Test Item Value Reference Range Comments Urine leukocyte esterase detection by Negative Unknown Unknown F automated test strip (test code = 22740-0) Ordering Physician UnknownSerum or plasma troponin i.cardiac measurement (mass/ volume)2019-01-28 11:57:00Identifier 75533-1 Result Time 2019-01-28 11:57: 00Unknown Test Item Value Reference Range Comments Serum or plasma troponin i.cardiac 0.02 ng/mL Unknown Unknown F measurement (mass/volume) (test code = 12941-4) Ordering Physician UnknownSerum or plasma alanine aminotransferase measurement ( enzymatic activity/volume)2019-01-28 11:57:00Identifier 1742-6 Result Time 01-28 11:57:00Unknown Test Item Value Reference Range Comments Serum or plasma alanine aminotransferase 10 U/L Unknown Unknown F measurement (enzymatic activity/volume) (test code = 1742-6) Ordering Physician UnknownSerum or plasma albumin/globulin mass myhsm2017-13-65 11:57:00Identifier 1759-0 Result Time 2019-01-28 11:57:00Unknown Test [...] natriuretic peptide B measurement ( mass/volume)2019-01-28 11:57:00Identifier 57053-6 Result Time 2019-01-28 11:57: 00Unknown Test Item Value Reference Range Comments Serum or plasma natriuretic peptide B 523 pg/mL Unknown Unknown F measurement (mass/volume) (test code = 69080-5) Ordering Physician UnknownErythrocyte sedimentation rate by Westergren kgtfuc5564-02-22 11:57:00Identifier 4537-7 Result Time 2019-01-28 11:57: 00Unknown Test Item Value Reference Range Comments Erythrocyte sedimentation rate by 48 mm/Hr Unknown Unknown F Westergren method (test code = 4537-7) Ordering Physician UnknownSerum or plasma albumin measurement by bromocresol green (BCG) dye binding method (dl9516-56-48 11:57:00Identifier 90092-7 Result Time 2019-01-28 11:57:00Unknown Test Item Value Reference Range Comments Serum or plasma albumin measurement by 3.7 g/dL Unknown Unknown F bromocresol green (BCG) dye binding method (ma (test code = 35274-2) Ordering Physician UnknownSerum or plasma alkaline phosphatase measurement ( enzymatic activity/volume)2019-01-28 11:57:00Identifier 6768-6 Result Time 01-28 11:57:00Unknown Test Item Value Reference Range Comments Serum or plasma alkaline phosphatase 98 U/L Unknown Unknown F measurement (enzymatic activity/volume) (test code = 6768-6) Ordering Physician Unknown
--- OUTSIDE RECORDS SUMMARY | 2019-06-04 17:29 | XMS REPORT ---
:1935 Author Organization [facility] Care Team Providers Name Role Phone Unavailable [...]
--- OUTSIDE RECORDS SUMMARY | 2019-06-04 17:29 | XMS REPORT ---
:1935 Author Organization [facility] Care Team Providers Name Role Phone Unavailable [...] Serum or plasma calcium 2019-02-01 05:46:00 Identifier [id number] Result Unknown measurement (mass/volume) Time 2019-02-01 05:46:00 Test Item Value Reference Range Comments Serum or plasma calcium measurement (mass/volume) (test 9.2 mg/dL Unknown Unknown F code = 94278-3) Ordering Physician UnknownSerum or plasma magnesium measurement (mass/volume) 2019-02-01 05:46:00Identifier 93879-8 Result Time 2019-02-01 05:46:00Unknown Test Item Value Reference Range Comments Serum or plasma magnesium measurement 2.0 mg/dL Unknown Unknown F (mass/volume) (test code = 33461-3) Ordering Physician UnknownSerum or plasma carbon dioxide, [...] Ordering Physician UnknownSerum or plasma urea nitrogen/creatinine djnmp3440-05- 06 05:46:00Identifier 3097-3 Result Time 2019-02-01 05:46:00Unknown Test Item Value Reference Range Comments Serum or plasma urea nitrogen/creatinine 21.4 Unknown Unknown F ratio (test code = 3097-3) Ordering Physician UnknownAutomated blood platelet mean volume liysfqrujtr6255- 09-06 05:46:00Identifier 70128-3 Result Time 2019-02-01 05:46:00Unknown Test Item Value Reference Range Comments Automated blood platelet mean volume 9.6 fL Unknown Unknown F measurement (test code = 58738-5) Ordering Physician UnknownSerum or plasma anion iqm4608-93-25 05:46: 00Identifier 47310-4 Result Time 2019-02-01 05:46:00Unknown Test Item Value Reference Range Comments Serum or plasma anion gap (test code = 5 mmol/L Unknown Unknown F 63739-6) Ordering Physician UnknownAutomated blood leukocytes count corrected for nucleated erythrocytes (number/volume)2019-02-01 05:46:00Identifier 56698-6 Result Time 2019-02-01 05:46:00Unknown Test Item Value Reference Range Comments Automated blood leukocytes count 9.9 10^3/uL Unknown Unknown F corrected for nucleated erythrocytes (number/volume) (test code = 66385-1) Ordering Physician UnknownAutomated blood nucleated erythrocytes oeywtxcpp0414- 09-06 05:46:00Identifier 70231-3 Result Time 2019-02-01 05:46:00Unknown Test Item Value Reference Range Comments Automated blood nucleated erythrocytes 0.0 Unknown Unknown F detection (test code = 65437-2) Ordering Physician UnknownWhole blood international normalized ratio (INR)02-01 05:46:00Identifier 37725-7 Result Time 2019-02-01 05:46:00Unknown Test Item Value Reference Range Comments Whole blood international normalized ratio 1.40 Unknown Unknown F (INR) (test code = 96298-3) Ordering Physician UnknownAutomated blood hematocrit (percentage)2019-02-01 05: 46:00Identifier 4544-3 Result Time 2019-02-01 05:46:00Unknown Test Item Value Reference Range Comments Automated blood hematocrit (percentage) (test 39 % Unknown Unknown F code = 4544-3) Ordering Physician UnknownEstimated glomerular filtration rate (GFR) non- Supeiwrz9142-49-29 05:46:00Identifier 01304-9 Result Time 2019-02-01 05: 46:00Unknown Test Item Value Reference Range Comments Estimated glomerular filtration rate (GFR) 80.3 Unknown Unknown F non- (test code = 60459-4) Ordering Physician UnknownAutomated blood monocytes/100 pfxtbvpdzi1486-35-65 05: 46:00Identifier 5905-5 Result Time 2019-02-01 05:46:00Unknown [...] = 704-7) Ordering Physician UnknownAutomated blood basophils/100 wmumijdogi7950-57-86 05: 46:00Identifier 706-2 Result Time 2019-02-01 05:46:00Unknown [...] = 711-2) Ordering Physician UnknownAutomated blood eosinophils/100 rfjmenmvig1098-92-07 05:46:00Identifier 713-8 Result Time 2019-02-01 05:46:00Unknown Test [...] = 731-0) Ordering Physician UnknownAutomated blood lymphocytes/100 liipervexb7112-40-97 05:46:00Identifier 736-9 Result Time 2019-02-01 05:46:00Unknown Test Item Value Reference Range Comments Automated blood lymphocytes/100 leukocytes 28.7 % Unknown Unknown F (test code = 736-9) Ordering Physician UnknownBlood monocytes automated count (number/volume)2019-01 05:46:00Identifier 742-7 Result Time 2019-02-01 05:46:00Unknown Test Item Value Reference Range Comments Blood monocytes automated count 0.9 10^3/ul Unknown Unknown F (number/volume) (test code = 742-7) Ordering Physician UnknownAutomated blood neutrophils/100 kbnwjvaofv4334-19-36 05:46:00Identifier 770-8 Result Time 2019-02-01 05:46:00Unknown Test [...] UnknownAutomated erythrocyte mean corpuscular hemoglobin concentration measurement (mass/rdn4601-01-05 05:46:00Identifier 786-4 Result Time 2019-02-01 05:46:00Unknown Test Item Value Reference Range Comments Automated erythrocyte mean corpuscular 34 g/dL Unknown Unknown F hemoglobin concentration measurement (mass/vol (test code = 786-4) Ordering Physician UnknownAutomated erythrocyte mean corpuscular oggfoo0926-81- 06 05:46:00Identifier 787-2 Result Time 2019-02-01 05:46:00Unknown Test Item Value Reference Range Comments Automated erythrocyte mean corpuscular volume 85 fL Unknown Unknown F (test code = 787-2) Ordering Physician UnknownAutomated erythrocyte distribution width pjwov5962-10- 06 05:46:00Identifier 788-0 Result Time 2019-02-01 05:46:00Unknown [...] code = 789-8) Ordering Physician UnknownCT biopsy iatdm8789-07-52 05:46:00Identifier [id number] Result Time 2019-02-01 05:46:00Unknown Test Item Value Reference Range Comments CT biopsy liver (test code = THZ2207) 4.8 10^3/ul Unknown Unknown F Ordering Physician UnknownSerum or plasma digoxin measurement (mass/volume)01-31 05:41:00Identifier 43053-6 Result Time 2019-01-31 05:41:00Unknown Test Item Value Reference Range Comments Serum or plasma digoxin measurement 1.3 ng/ml Unknown Unknown F (mass/volume) (test code = 54397-1) Ordering Physician UnknownStool Plesiomonas shigelloides DNA detection by non- probe and target amplification tz6100-37-88 12:40:00Identifier 17242-4 Result Time 2019-01-28 12:40:00Unknown Test Item Value Reference Range Comments Nasal Screen MRSA (PCR) (test Mrsa Not Detected Unknown Unknown F code = Nasal Screen MRSA (PCR)) Ordering Physician UnknownUrine ascorbic acid kvcouwdis7711-75-18 12:25: 00Identifier 1904-2 Result Time 2019-01-28 12:25:00Unknown Test Item Value Reference Range Comments Urine ascorbic acid detection (test code = * Unknown Unknown F 1904-2) Ordering Physician UnknownUrine urobilinogen measurement (units/volume) by test vbbvl9957-70-61 12:25:00Identifier 25939-2 Result Time 2019-01-28 12:25: 00Unknown Test Item Value Reference Range Comments Urine urobilinogen measurement Negative Unknown Unknown F (units/volume) by test strip (test code = 94306-1) Ordering Physician UnknownUrine total bilirubin detection by automated test ivzbh4529-86-27 12:25:00Identifier 83776-2 Result Time 2019-01-28 12:25: 00Unknown Test Item Value Reference Range Comments Urine total bilirubin detection by Negative Unknown Unknown F automated test strip (test code = 11128-5) Ordering Physician UnknownUrine clarity by refractometry iipisjzzi5598-85-04 12: 25:00Identifier 84021-4 Result Time 2019-01-28 12:25:00Unknown Test Item Value Reference Range Comments Urine clarity by refractometry automated Cloudy Unknown Unknown F (test code = 06320-4) Ordering Physician UnknownColor of Urine by Mfyb3254-58-46 12:25:00Identifier 05345-6 Result Time 2019-01-28 12:25:00Unknown Test Item Value Reference Range Comments Color of Urine by Auto (test code = Yellow Unknown Unknown F 92123-5) Ordering Physician UnknownUrine glucose detection by automated test pmjgy7114-04 -02 12:25:00Identifier 42914-0 Result Time 2019-01-28 12:25:00Unknown Test Item Value Reference Range Comments Urine glucose detection by automated 1+(50 mg/dl) Unknown Unknown F test strip (test code = 60880-3) Ordering Physician UnknownKetones [Mass/volume] in Urine by Automated test lhmgd2276-78-22 12:25:00Identifier 54403-9 Result Time 2019-01-28 12:25: 00Unknown Test Item Value Reference Range Comments Ketones [Mass/volume] in Urine by Negative Unknown Unknown F Automated test strip (test code = 17222-8) Ordering Physician UnknownUrine nitrite detection by automated test hqguc3642-22 -02 12:25:00Identifier 87830-1 Result Time 2019-01-28 12:25:00Unknown Test Item Value Reference Range Comments Urine nitrite detection by automated test Negative Unknown Unknown F strip (test code = 21706-5) Ordering Physician UnknownProtein [Mass/volume] in Urine by Automated test doqpf2945-72-26 12:25:00Identifier 27445-2 Result Time 2019-01-28 12:25: 00Unknown Test Item Value Reference Range Comments Protein [Mass/volume] in Urine by Negative Unknown Unknown F Automated test strip (test code = 68168-6) Ordering Physician UnknownSpecific gravity of Urine by Refractometry vctdhdcli2343-62-47 12:25:00Identifier 97568-1 Result Time 2019-01-28 12:25: 00Unknown Test Item Value Reference Range Comments Specific gravity of Urine by Refractometry 1.018 Unknown Unknown F automated (test code = 22915-9) Ordering Physician UnknownUrine hemoglobin detection by test pxnln6486-95-25 12: 25:00Identifier 5794-3 Result Time 2019-01-28 12:25:00Unknown Test Item Value Reference Range Comments Urine hemoglobin detection by test strip Negative Unknown Unknown F (test code = 5794-3) Ordering Physician UnknownUrine leukocyte esterase detection by automated test yoqea3963-52-96 12:25:00Identifier 95251-4 Result Time 2019-01-28 12:25: 00Unknown Test Item Value Reference Range Comments Urine leukocyte esterase detection by Negative Unknown Unknown F automated test strip (test code = 96039-0) Ordering Physician UnknownSerum or plasma troponin i.cardiac measurement (mass/ volume)2019-01-28 11:57:00Identifier 32424-4 Result Time 2019-01-28 11:57: 00Unknown Test Item Value Reference Range Comments Serum or plasma troponin i.cardiac 0.02 ng/mL Unknown Unknown F measurement (mass/volume) (test code = 22821-0) Ordering Physician UnknownSerum or plasma alanine aminotransferase measurement ( enzymatic activity/volume)2019-01-28 11:57:00Identifier 1742-6 Result Time 01-28 11:57:00Unknown Test Item Value Reference Range Comments Serum or plasma alanine aminotransferase 10 U/L Unknown Unknown F measurement (enzymatic activity/volume) (test code = 1742-6) Ordering Physician UnknownSerum or plasma albumin/globulin mass atnbo8686-47-61 11:57:00Identifier 1759-0 Result Time 2019-01-28 11:57:00Unknown Test [...] natriuretic peptide B measurement ( mass/volume)2019-01-28 11:57:00Identifier 23412-9 Result Time 2019-01-28 11:57: 00Unknown Test Item Value Reference Range Comments Serum or plasma natriuretic peptide B 523 pg/mL Unknown Unknown F measurement (mass/volume) (test code = 71117-3) Ordering Physician UnknownErythrocyte sedimentation rate by Westergren znjyuv4405-28-53 11:57:00Identifier 4537-7 Result Time 2019-01-28 11:57: 00Unknown Test Item Value Reference Range Comments Erythrocyte sedimentation rate by 48 mm/Hr Unknown Unknown F Westergren method (test code = 4537-7) Ordering Physician UnknownSerum or plasma albumin measurement by bromocresol green (BCG) dye binding method (bo6153-02-55 11:57:00Identifier 10462-3 Result Time 2019-01-28 11:57:00Unknown Test Item Value Reference Range Comments Serum or plasma albumin measurement by 3.7 g/dL Unknown Unknown F bromocresol green (BCG) dye binding method (ma (test code = 31835-3) Ordering Physician UnknownSerum or plasma alkaline phosphatase measurement ( enzymatic activity/volume)2019-01-28 11:57:00Identifier 6768-6 Result Time 01-28 11:57:00Unknown Test Item Value Reference Range Comments Serum or plasma alkaline phosphatase 98 U/L Unknown Unknown F measurement (enzymatic activity/volume) (test code = 6768-6) Ordering Physician Unknown
--- OUTSIDE RECORDS SUMMARY | 2019-06-04 17:29 | XMS REPORT ---
:1935 Author Organization [facility] Care Team Providers Name Role Phone Unavailable Unavailable Unavailable Problems This patient has no known problems. Allergies, Adverse Reactions, Alerts Allergy Name Allergy Status Severity Reaction(s) Onset Inactive Treating Comments Type Date Date Clinician cephalexin Base Active Unknown Reaction Interface Ingredient Unknown - lactose Base Active Unknown Reaction Interface Ingredient Unknown -10 ramipril Base Active Unknown Reaction Unknown Ingredient Unknown 02-05 Medications Ordered Filled Start Stop Current Ordering Indication Dosage Frequency Signature Comments Components Medication Medication Date Date Medication? Clinician (SIG) Name Name potassium potassium No Unknown Unknown Unknown chloride ER chloride ER 6-16 20 mEq 20 mEq tablet,exte tablet,exte nded [...] Serum or plasma calcium 2019-02-01 05:46:00 Identifier 63905-4 Result Unknown measurement (mass/volume) Time 2019-02-01 05:46:00 Test Item Value Reference Range Comments Serum or plasma calcium measurement (mass/volume) (test 9.2 mg/dL Unknown Unknown F code = 87562-7) Ordering Physician UnknownSerum or plasma magnesium measurement (mass/volume) 2019-02-01 05:46:00Identifier 59115-2 Result Time 2019-02-01 05:46:00Unknown Test Item Value Reference Range Comments Serum or plasma magnesium measurement 2.0 mg/dL Unknown Unknown F (mass/volume) (test code = 72600-5) Ordering Physician UnknownSerum or plasma carbon dioxide, [...] Ordering Physician UnknownSerum or plasma urea nitrogen/creatinine neray3200-22- 06 05:46:00Identifier 3097-3 Result Time 2019-02-01 05:46:00Unknown Test Item Value Reference Range Comments Serum or plasma urea nitrogen/creatinine 21.4 Unknown Unknown F ratio (test code = 3097-3) Ordering Physician UnknownAutomated blood platelet mean volume obcfquzokwh2766- 09-06 05:46:00Identifier 78969-7 Result Time 2019-02-01 05:46:00Unknown Test Item Value Reference Range Comments Automated blood platelet mean volume 9.6 fL Unknown Unknown F measurement (test code = 37708-7) Ordering Physician UnknownSerum or plasma anion oes0957-29-89 05:46: 00Identifier 18680-7 Result Time 2019-02-01 05:46:00Unknown Test Item Value Reference Range Comments Serum or plasma anion gap (test code = 5 mmol/L Unknown Unknown F 22018-7) Ordering Physician UnknownAutomated blood leukocytes count corrected for nucleated erythrocytes (number/volume)2019-02-01 05:46:00Identifier 17034-2 Result Time 2019-02-01 05:46:00Unknown Test Item Value Reference Range Comments Automated blood leukocytes count 9.9 10^3/uL Unknown Unknown F corrected for nucleated erythrocytes (number/volume) (test code = 99271-8) Ordering Physician UnknownAutomated blood nucleated erythrocytes hjqsydeia7446- 09-06 05:46:00Identifier 44052-9 Result Time 2019-02-01 05:46:00Unknown Test Item Value Reference Range Comments Automated blood nucleated erythrocytes 0.0 Unknown Unknown F detection (test code = 38086-3) Ordering Physician UnknownWhole blood international normalized ratio (INR)02-01 05:46:00Identifier 10068-7 Result Time 2019-02-01 05:46:00Unknown Test Item Value Reference Range Comments Whole blood international normalized ratio 1.40 Unknown Unknown F (INR) (test code = 60912-7) Ordering Physician UnknownAutomated blood hematocrit (percentage)2019-02-01 05: 46:00Identifier 4544-3 Result Time 2019-02-01 05:46:00Unknown Test Item Value Reference Range Comments Automated blood hematocrit (percentage) (test 39 % Unknown Unknown F code = 4544-3) Ordering Physician UnknownEstimated glomerular filtration rate (GFR) non- Hyxtignf9748-18-03 05:46:00Identifier 12674-0 Result Time 2019-02-01 05: 46:00Unknown Test Item Value Reference Range Comments Estimated glomerular filtration rate (GFR) 80.3 Unknown Unknown F non- (test code = 02782-3) Ordering Physician UnknownAutomated blood monocytes/100 bxqqhvrfcr3091-03-44 05: 46:00Identifier 5905-5 Result Time 2019-02-01 05:46:00Unknown [...] = 704-7) Ordering Physician UnknownAutomated blood basophils/100 jewjujquzg4897-52-85 05: 46:00Identifier 706-2 Result Time 2019-02-01 05:46:00Unknown [...] = 711-2) Ordering Physician UnknownAutomated blood eosinophils/100 dcbfibrvyb1153-06-94 05:46:00Identifier 713-8 Result Time 2019-02-01 05:46:00Unknown Test [...] = 731-0) Ordering Physician UnknownAutomated blood lymphocytes/100 pnlmgatfbe9503-53-24 05:46:00Identifier 736-9 Result Time 2019-02-01 05:46:00Unknown Test Item Value Reference Range Comments Automated blood lymphocytes/100 leukocytes 28.7 % Unknown Unknown F (test code = 736-9) Ordering Physician UnknownBlood monocytes automated count (number/volume)2019-01 05:46:00Identifier 742-7 Result Time 2019-02-01 05:46:00Unknown Test Item Value Reference Range Comments Blood monocytes automated count 0.9 10^3/ul Unknown Unknown F (number/volume) (test code = 742-7) Ordering Physician UnknownAutomated blood neutrophils/100 adjtqhwvam7026-47-66 05:46:00Identifier 770-8 Result Time 2019-02-01 05:46:00Unknown Test [...] UnknownAutomated erythrocyte mean corpuscular hemoglobin concentration measurement (mass/ysl2876-08-51 05:46:00Identifier 786-4 Result Time 2019-02-01 05:46:00Unknown Test Item Value Reference Range Comments Automated erythrocyte mean corpuscular 34 g/dL Unknown Unknown F hemoglobin concentration measurement (mass/vol (test code = 786-4) Ordering Physician UnknownAutomated erythrocyte mean corpuscular abkaci6502-25- 06 05:46:00Identifier 787-2 Result Time 2019-02-01 05:46:00Unknown Test Item Value Reference Range Comments Automated erythrocyte mean corpuscular volume 85 fL Unknown Unknown F (test code = 787-2) Ordering Physician UnknownAutomated erythrocyte distribution width jjnau5577-19- 06 05:46:00Identifier 788-0 Result Time 2019-02-01 05:46:00Unknown [...] code = 789-8) Ordering Physician UnknownCT biopsy nmoww5602-71-92 05:46:00Identifier JHZ3690 Result Time 2019-02-01 05:46:00Unknown Test Item Value Reference Range Comments CT biopsy liver (test code = MFP8011) 4.8 10^3/ul Unknown Unknown F Ordering Physician UnknownSerum or plasma digoxin measurement (mass/volume)01-31 05:41:00Identifier 45713-1 Result Time 2019-01-31 05:41:00Unknown Test Item Value Reference Range Comments Serum or plasma digoxin measurement 1.3 ng/ml Unknown Unknown F (mass/volume) (test code = 99831-9) Ordering Physician UnknownStool Plesiomonas shigelloides DNA detection by non- probe and target amplification nm0558-51-56 12:40:00Identifier 22881-4 Result Time 2019-01-28 12:40:00Unknown Test Item Value Reference Range Comments Nasal Screen MRSA (PCR) (test Mrsa Not Detected Unknown Unknown F code = Nasal Screen MRSA (PCR)) Ordering Physician UnknownUrine ascorbic acid rigncqyqq1085-11-30 12:25: 00Identifier 1904-2 Result Time 2019-01-28 12:25:00Unknown Test Item Value Reference Range Comments Urine ascorbic acid detection (test code = * Unknown Unknown F 1904-2) Ordering Physician UnknownUrine urobilinogen measurement (units/volume) by test bzdxi8231-79-88 12:25:00Identifier 73833-0 Result Time 2019-01-28 12:25: 00Unknown Test Item Value Reference Range Comments Urine urobilinogen measurement Negative Unknown Unknown F (units/volume) by test strip (test code = 47342-5) Ordering Physician UnknownUrine total bilirubin detection by automated test ucqtw6692-24-23 12:25:00Identifier 89971-9 Result Time 2019-01-28 12:25: 00Unknown Test Item Value Reference Range Comments Urine total bilirubin detection by Negative Unknown Unknown F automated test strip (test code = 33437-2) Ordering Physician UnknownUrine clarity by refractometry uaftdcrxm5890-63-13 12: 25:00Identifier 09825-8 Result Time 2019-01-28 12:25:00Unknown Test Item Value Reference Range Comments Urine clarity by refractometry automated Cloudy Unknown Unknown F (test code = 95422-1) Ordering Physician UnknownColor of Urine by Citi6659-86-55 12:25:00Identifier 87073-5 Result Time 2019-01-28 12:25:00Unknown Test Item Value Reference Range Comments Color of Urine by Auto (test code = Yellow Unknown Unknown F 39602-3) Ordering Physician UnknownUrine glucose detection by automated test dcgcm8814-78 -02 12:25:00Identifier 05218-5 Result Time 2019-01-28 12:25:00Unknown Test Item Value Reference Range Comments Urine glucose detection by automated 1+(50 mg/dl) Unknown Unknown F test strip (test code = 70934-8) Ordering Physician UnknownKetones [Mass/volume] in Urine by Automated test pfffn5406-58-48 12:25:00Identifier 35272-6 Result Time 2019-01-28 12:25: 00Unknown Test Item Value Reference Range Comments Ketones [Mass/volume] in Urine by Negative Unknown Unknown F Automated test strip (test code = 89773-9) Ordering Physician UnknownUrine nitrite detection by automated test ovfzd8764-71 -02 12:25:00Identifier 69298-0 Result Time 2019-01-28 12:25:00Unknown Test Item Value Reference Range Comments Urine nitrite detection by automated test Negative Unknown Unknown F strip (test code = 97748-5) Ordering Physician UnknownProtein [Mass/volume] in Urine by Automated test iogyj7044-15-29 12:25:00Identifier 56210-5 Result Time 2019-01-28 12:25: 00Unknown Test Item Value Reference Range Comments Protein [Mass/volume] in Urine by Negative Unknown Unknown F Automated test strip (test code = 62100-8) Ordering Physician UnknownSpecific gravity of Urine by Refractometry meidvlazy0137-38-13 12:25:00Identifier 13091-5 Result Time 2019-01-28 12:25: 00Unknown Test Item Value Reference Range Comments Specific gravity of Urine by Refractometry 1.018 Unknown Unknown F automated (test code = 84029-8) Ordering Physician UnknownUrine hemoglobin detection by test tiizw7298-82-44 12: 25:00Identifier 5794-3 Result Time 2019-01-28 12:25:00Unknown Test Item Value Reference Range Comments Urine hemoglobin detection by test strip Negative Unknown Unknown F (test code = 5794-3) Ordering Physician UnknownUrine leukocyte esterase detection by automated test nsziv7802-86-70 12:25:00Identifier 97884-1 Result Time 2019-01-28 12:25: 00Unknown Test Item Value Reference Range Comments Urine leukocyte esterase detection by Negative Unknown Unknown F automated test strip (test code = 12418-1) Ordering Physician UnknownSerum or plasma troponin i.cardiac measurement (mass/ volume)2019-01-28 11:57:00Identifier 18982-6 Result Time 2019-01-28 11:57: 00Unknown Test Item Value Reference Range Comments Serum or plasma troponin i.cardiac 0.02 ng/mL Unknown Unknown F measurement (mass/volume) (test code = 37447-4) Ordering Physician UnknownSerum or plasma alanine aminotransferase measurement ( enzymatic activity/volume)2019-01-28 11:57:00Identifier 1742-6 Result Time 01-28 11:57:00Unknown Test Item Value Reference Range Comments Serum or plasma alanine aminotransferase 10 U/L Unknown Unknown F measurement (enzymatic activity/volume) (test code = 1742-6) Ordering Physician UnknownSerum or plasma albumin/globulin mass ngfhf7849-22-16 11:57:00Identifier 1759-0 Result Time 2019-01-28 11:57:00Unknown Test [...] natriuretic peptide B measurement ( mass/volume)2019-01-28 11:57:00Identifier 09347-8 Result Time 2019-01-28 11:57: 00Unknown Test Item Value Reference Range Comments Serum or plasma natriuretic peptide B 523 pg/mL Unknown Unknown F measurement (mass/volume) (test code = 90367-2) Ordering Physician UnknownErythrocyte sedimentation rate by Westergren qcjzbc4963-35-79 11:57:00Identifier 4537-7 Result Time 2019-01-28 11:57: 00Unknown Test Item Value Reference Range Comments Erythrocyte sedimentation rate by 48 mm/Hr Unknown Unknown F Westergren method (test code = 4537-7) Ordering Physician UnknownSerum or plasma albumin measurement by bromocresol green (BCG) dye binding method (iz4750-64-60 11:57:00Identifier 31515-3 Result Time 2019-01-28 11:57:00Unknown Test Item Value Reference Range Comments Serum or plasma albumin measurement by 3.7 g/dL Unknown Unknown F bromocresol green (BCG) dye binding method (ma (test code = 86806-4) Ordering Physician UnknownSerum or plasma alkaline phosphatase measurement ( enzymatic activity/volume)2019-01-28 11:57:00Identifier 6768-6 Result Time 01-28 11:57:00Unknown Test Item Value Reference Range Comments Serum or plasma alkaline phosphatase 98 U/L Unknown Unknown F measurement (enzymatic activity/volume) (test code = 6768-6) Ordering Physician Unknown
--- OUTSIDE RECORDS SUMMARY | 2019-06-04 17:29 | XMS REPORT ---
:1935 Author Organization [facility] Care Team Providers Name Role Phone Unavailable [...] Serum or plasma calcium 2019-02-01 05:46:00 Identifier [id number] Result Unknown measurement (mass/volume) Time 2019-02-01 05:46:00 Test Item Value Reference Range Comments Serum or plasma calcium measurement (mass/volume) (test 9.2 mg/dL Unknown Unknown F code = 83392-8) Ordering Physician UnknownSerum or plasma magnesium measurement (mass/volume) 2019-02-01 05:46:00Identifier 51627-4 Result Time 2019-02-01 05:46:00Unknown Test Item Value Reference Range Comments Serum or plasma magnesium measurement 2.0 mg/dL Unknown Unknown F (mass/volume) (test code = 79278-6) Ordering Physician UnknownSerum or plasma carbon dioxide, [...] Ordering Physician UnknownSerum or plasma urea nitrogen/creatinine skdwt4185-53- 06 05:46:00Identifier 3097-3 Result Time 2019-02-01 05:46:00Unknown Test Item Value Reference Range Comments Serum or plasma urea nitrogen/creatinine 21.4 Unknown Unknown F ratio (test code = 3097-3) Ordering Physician UnknownAutomated blood platelet mean volume xweqpehuort2397- 09-06 05:46:00Identifier 10808-8 Result Time 2019-02-01 05:46:00Unknown Test Item Value Reference Range Comments Automated blood platelet mean volume 9.6 fL Unknown Unknown F measurement (test code = 33460-5) Ordering Physician UnknownSerum or plasma anion gpg6873-52-94 05:46: 00Identifier 22357-4 Result Time 2019-02-01 05:46:00Unknown Test Item Value Reference Range Comments Serum or plasma anion gap (test code = 5 mmol/L Unknown Unknown F 16378-9) Ordering Physician UnknownAutomated blood leukocytes count corrected for nucleated erythrocytes (number/volume)2019-02-01 05:46:00Identifier 02251-5 Result Time 2019-02-01 05:46:00Unknown Test Item Value Reference Range Comments Automated blood leukocytes count 9.9 10^3/uL Unknown Unknown F corrected for nucleated erythrocytes (number/volume) (test code = 53637-6) Ordering Physician UnknownAutomated blood nucleated erythrocytes cpkrabeyv8862- 09-06 05:46:00Identifier 37367-2 Result Time 2019-02-01 05:46:00Unknown Test Item Value Reference Range Comments Automated blood nucleated erythrocytes 0.0 Unknown Unknown F detection (test code = 31008-1) Ordering Physician UnknownWhole blood international normalized ratio (INR)02-01 05:46:00Identifier 57580-1 Result Time 2019-02-01 05:46:00Unknown Test Item Value Reference Range Comments Whole blood international normalized ratio 1.40 Unknown Unknown F (INR) (test code = 39495-8) Ordering Physician UnknownAutomated blood hematocrit (percentage)2019-02-01 05: 46:00Identifier 4544-3 Result Time 2019-02-01 05:46:00Unknown Test Item Value Reference Range Comments Automated blood hematocrit (percentage) (test 39 % Unknown Unknown F code = 4544-3) Ordering Physician UnknownEstimated glomerular filtration rate (GFR) non- Waktwomi5401-10-05 05:46:00Identifier 39533-2 Result Time 2019-02-01 05: 46:00Unknown Test Item Value Reference Range Comments Estimated glomerular filtration rate (GFR) 80.3 Unknown Unknown F non- (test code = 14360-3) Ordering Physician UnknownAutomated blood monocytes/100 mtaefrvqxk5459-11-70 05: 46:00Identifier 5905-5 Result Time 2019-02-01 05:46:00Unknown [...] = 704-7) Ordering Physician UnknownAutomated blood basophils/100 svfrszhoxb3484-80-92 05: 46:00Identifier 706-2 Result Time 2019-02-01 05:46:00Unknown [...] = 711-2) Ordering Physician UnknownAutomated blood eosinophils/100 mjrzbtzvpb5665-85-48 05:46:00Identifier 713-8 Result Time 2019-02-01 05:46:00Unknown Test [...] = 731-0) Ordering Physician UnknownAutomated blood lymphocytes/100 ypzrvuynbo3252-61-49 05:46:00Identifier 736-9 Result Time 2019-02-01 05:46:00Unknown Test Item Value Reference Range Comments Automated blood lymphocytes/100 leukocytes 28.7 % Unknown Unknown F (test code = 736-9) Ordering Physician UnknownBlood monocytes automated count (number/volume)2019-01 05:46:00Identifier 742-7 Result Time 2019-02-01 05:46:00Unknown Test Item Value Reference Range Comments Blood monocytes automated count 0.9 10^3/ul Unknown Unknown F (number/volume) (test code = 742-7) Ordering Physician UnknownAutomated blood neutrophils/100 rnjbhiyioy7508-75-97 05:46:00Identifier 770-8 Result Time 2019-02-01 05:46:00Unknown Test [...] UnknownAutomated erythrocyte mean corpuscular hemoglobin concentration measurement (mass/qey0545-62-42 05:46:00Identifier 786-4 Result Time 2019-02-01 05:46:00Unknown Test Item Value Reference Range Comments Automated erythrocyte mean corpuscular 34 g/dL Unknown Unknown F hemoglobin concentration measurement (mass/vol (test code = 786-4) Ordering Physician UnknownAutomated erythrocyte mean corpuscular kewzkh0226-00- 06 05:46:00Identifier 787-2 Result Time 2019-02-01 05:46:00Unknown Test Item Value Reference Range Comments Automated erythrocyte mean corpuscular volume 85 fL Unknown Unknown F (test code = 787-2) Ordering Physician UnknownAutomated erythrocyte distribution width ydxdp3381-23- 06 05:46:00Identifier 788-0 Result Time 2019-02-01 05:46:00Unknown [...] code = 789-8) Ordering Physician UnknownCT biopsy jzfrp2715-19-30 05:46:00Identifier [id number] Result Time 2019-02-01 05:46:00Unknown Test Item Value Reference Range Comments CT biopsy liver (test code = BPO3923) 4.8 10^3/ul Unknown Unknown F Ordering Physician UnknownSerum or plasma digoxin measurement (mass/volume)01-31 05:41:00Identifier 05571-6 Result Time 2019-01-31 05:41:00Unknown Test Item Value Reference Range Comments Serum or plasma digoxin measurement 1.3 ng/ml Unknown Unknown F (mass/volume) (test code = 33255-9) Ordering Physician UnknownStool Plesiomonas shigelloides DNA detection by non- probe and target amplification uz5470-75-69 12:40:00Identifier 62366-4 Result Time 2019-01-28 12:40:00Unknown Test Item Value Reference Range Comments Nasal Screen MRSA (PCR) (test Mrsa Not Detected Unknown Unknown F code = Nasal Screen MRSA (PCR)) Ordering Physician UnknownUrine ascorbic acid atdmimfdh8920-24-12 12:25: 00Identifier 1904-2 Result Time 2019-01-28 12:25:00Unknown Test Item Value Reference Range Comments Urine ascorbic acid detection (test code = * Unknown Unknown F 1904-2) Ordering Physician UnknownUrine urobilinogen measurement (units/volume) by test bmfdu2804-00-92 12:25:00Identifier 84428-5 Result Time 2019-01-28 12:25: 00Unknown Test Item Value Reference Range Comments Urine urobilinogen measurement Negative Unknown Unknown F (units/volume) by test strip (test code = 09341-3) Ordering Physician UnknownUrine total bilirubin detection by automated test olbuo2508-03-55 12:25:00Identifier 09544-9 Result Time 2019-01-28 12:25: 00Unknown Test Item Value Reference Range Comments Urine total bilirubin detection by Negative Unknown Unknown F automated test strip (test code = 60791-9) Ordering Physician UnknownUrine clarity by refractometry locbctjrx5716-78-35 12: 25:00Identifier 68647-6 Result Time 2019-01-28 12:25:00Unknown Test Item Value Reference Range Comments Urine clarity by refractometry automated Cloudy Unknown Unknown F (test code = 72082-2) Ordering Physician UnknownColor of Urine by Ntuz4867-76-24 12:25:00Identifier 28167-3 Result Time 2019-01-28 12:25:00Unknown Test Item Value Reference Range Comments Color of Urine by Auto (test code = Yellow Unknown Unknown F 95723-4) Ordering Physician UnknownUrine glucose detection by automated test yhbda0921-75 -02 12:25:00Identifier 46848-6 Result Time 2019-01-28 12:25:00Unknown Test Item Value Reference Range Comments Urine glucose detection by automated 1+(50 mg/dl) Unknown Unknown F test strip (test code = 66526-5) Ordering Physician UnknownKetones [Mass/volume] in Urine by Automated test flncy7537-94-52 12:25:00Identifier 27575-3 Result Time 2019-01-28 12:25: 00Unknown Test Item Value Reference Range Comments Ketones [Mass/volume] in Urine by Negative Unknown Unknown F Automated test strip (test code = 12010-1) Ordering Physician UnknownUrine nitrite detection by automated test hgdtd4373-02 -02 12:25:00Identifier 70071-8 Result Time 2019-01-28 12:25:00Unknown Test Item Value Reference Range Comments Urine nitrite detection by automated test Negative Unknown Unknown F strip (test code = 73254-5) Ordering Physician UnknownProtein [Mass/volume] in Urine by Automated test djiuu0740-61-74 12:25:00Identifier 82945-3 Result Time 2019-01-28 12:25: 00Unknown Test Item Value Reference Range Comments Protein [Mass/volume] in Urine by Negative Unknown Unknown F Automated test strip (test code = 20535-3) Ordering Physician UnknownSpecific gravity of Urine by Refractometry xdtlbvqen3452-29-24 12:25:00Identifier 77383-7 Result Time 2019-01-28 12:25: 00Unknown Test Item Value Reference Range Comments Specific gravity of Urine by Refractometry 1.018 Unknown Unknown F automated (test code = 91000-2) Ordering Physician UnknownUrine hemoglobin detection by test fthzc5423-06-48 12: 25:00Identifier 5794-3 Result Time 2019-01-28 12:25:00Unknown Test Item Value Reference Range Comments Urine hemoglobin detection by test strip Negative Unknown Unknown F (test code = 5794-3) Ordering Physician UnknownUrine leukocyte esterase detection by automated test blgkn1050-50-59 12:25:00Identifier 17607-8 Result Time 2019-01-28 12:25: 00Unknown Test Item Value Reference Range Comments Urine leukocyte esterase detection by Negative Unknown Unknown F automated test strip (test code = 00210-3) Ordering Physician UnknownSerum or plasma troponin i.cardiac measurement (mass/ volume)2019-01-28 11:57:00Identifier 58339-7 Result Time 2019-01-28 11:57: 00Unknown Test Item Value Reference Range Comments Serum or plasma troponin i.cardiac 0.02 ng/mL Unknown Unknown F measurement (mass/volume) (test code = 76034-6) Ordering Physician UnknownSerum or plasma alanine aminotransferase measurement ( enzymatic activity/volume)2019-01-28 11:57:00Identifier 1742-6 Result Time 01-28 11:57:00Unknown Test Item Value Reference Range Comments Serum or plasma alanine aminotransferase 10 U/L Unknown Unknown F measurement (enzymatic activity/volume) (test code = 1742-6) Ordering Physician UnknownSerum or plasma albumin/globulin mass qlfbo0977-79-84 11:57:00Identifier 1759-0 Result Time 2019-01-28 11:57:00Unknown Test [...] natriuretic peptide B measurement ( mass/volume)2019-01-28 11:57:00Identifier 08425-7 Result Time 2019-01-28 11:57: 00Unknown Test Item Value Reference Range Comments Serum or plasma natriuretic peptide B 523 pg/mL Unknown Unknown F measurement (mass/volume) (test code = 52165-1) Ordering Physician UnknownErythrocyte sedimentation rate by Westergren eotajr6976-55-94 11:57:00Identifier 4537-7 Result Time 2019-01-28 11:57: 00Unknown Test Item Value Reference Range Comments Erythrocyte sedimentation rate by 48 mm/Hr Unknown Unknown F Westergren method (test code = 4537-7) Ordering Physician UnknownSerum or plasma albumin measurement by bromocresol green (BCG) dye binding method (gq5110-72-69 11:57:00Identifier 44984-1 Result Time 2019-01-28 11:57:00Unknown Test Item Value Reference Range Comments Serum or plasma albumin measurement by 3.7 g/dL Unknown Unknown F bromocresol green (BCG) dye binding method (ma (test code = 10268-8) Ordering Physician UnknownSerum or plasma alkaline phosphatase measurement ( enzymatic activity/volume)2019-01-28 11:57:00Identifier 6768-6 Result Time 01-28 11:57:00Unknown Test Item Value Reference Range Comments Serum or plasma alkaline phosphatase 98 U/L Unknown Unknown F measurement (enzymatic activity/volume) (test code = 6768-6) Ordering Physician Unknown
--- OUTSIDE RECORDS SUMMARY | 2019-06-04 17:29 | XMS REPORT ---
:1935 Author Organization [facility] Care Team Providers Name Role Phone Unavailable [...]
--- OUTSIDE RECORDS SUMMARY | 2019-06-04 17:29 | XMS REPORT ---
:1935 Author Organization [facility] Care Team Providers Name Role Phone Unavailable [...]
--- OUTSIDE RECORDS SUMMARY | 2019-06-04 17:29 | XMS REPORT ---
:1935 Author Organization [facility] Care Team Providers Name Role Phone Unavailable [...] Serum or plasma calcium 2019-02-01 05:46:00 Identifier 48770-6 Result Unknown measurement (mass/volume) Time 2019-02-01 05:46:00 Test Item Value Reference Range Comments Serum or plasma calcium measurement (mass/volume) (test 9.2 mg/dL Unknown Unknown F code = 66221-3) Ordering Physician UnknownSerum or plasma magnesium measurement (mass/volume) 2019-02-01 05:46:00Identifier 15539-5 Result Time 2019-02-01 05:46:00Unknown Test Item Value Reference Range Comments Serum or plasma magnesium measurement 2.0 mg/dL Unknown Unknown F (mass/volume) (test code = 73433-9) Ordering Physician UnknownSerum or plasma carbon dioxide, [...] Ordering Physician UnknownSerum or plasma urea nitrogen/creatinine tdqqh0895-17- 06 05:46:00Identifier 3097-3 Result Time 2019-02-01 05:46:00Unknown Test Item Value Reference Range Comments Serum or plasma urea nitrogen/creatinine 21.4 Unknown Unknown F ratio (test code = 3097-3) Ordering Physician UnknownAutomated blood platelet mean volume qjmphhxxagv8686- 09-06 05:46:00Identifier 22177-9 Result Time 2019-02-01 05:46:00Unknown Test Item Value Reference Range Comments Automated blood platelet mean volume 9.6 fL Unknown Unknown F measurement (test code = 86208-8) Ordering Physician UnknownSerum or plasma anion xtw6813-24-87 05:46: 00Identifier 78889-2 Result Time 2019-02-01 05:46:00Unknown Test Item Value Reference Range Comments Serum or plasma anion gap (test code = 5 mmol/L Unknown Unknown F 36320-4) Ordering Physician UnknownAutomated blood leukocytes count corrected for nucleated erythrocytes (number/volume)2019-02-01 05:46:00Identifier 28437-9 Result Time 2019-02-01 05:46:00Unknown Test Item Value Reference Range Comments Automated blood leukocytes count 9.9 10^3/uL Unknown Unknown F corrected for nucleated erythrocytes (number/volume) (test code = 98005-1) Ordering Physician UnknownAutomated blood nucleated erythrocytes euiplditg2953- 09-06 05:46:00Identifier 77164-5 Result Time 2019-02-01 05:46:00Unknown Test Item Value Reference Range Comments Automated blood nucleated erythrocytes 0.0 Unknown Unknown F detection (test code = 26427-8) Ordering Physician UnknownWhole blood international normalized ratio (INR)02-01 05:46:00Identifier 58808-6 Result Time 2019-02-01 05:46:00Unknown Test Item Value Reference Range Comments Whole blood international normalized ratio 1.40 Unknown Unknown F (INR) (test code = 57943-1) Ordering Physician UnknownAutomated blood hematocrit (percentage)2019-02-01 05: 46:00Identifier 4544-3 Result Time 2019-02-01 05:46:00Unknown Test Item Value Reference Range Comments Automated blood hematocrit (percentage) (test 39 % Unknown Unknown F code = 4544-3) Ordering Physician UnknownEstimated glomerular filtration rate (GFR) non- Uhevppfc5113-97-60 05:46:00Identifier 47616-9 Result Time 2019-02-01 05: 46:00Unknown Test Item Value Reference Range Comments Estimated glomerular filtration rate (GFR) 80.3 Unknown Unknown F non- (test code = 52940-8) Ordering Physician UnknownAutomated blood monocytes/100 surexfygwk2610-25-78 05: 46:00Identifier 5905-5 Result Time 2019-02-01 05:46:00Unknown [...] = 704-7) Ordering Physician UnknownAutomated blood basophils/100 zyqejxdprv5462-07-14 05: 46:00Identifier 706-2 Result Time 2019-02-01 05:46:00Unknown [...] = 711-2) Ordering Physician UnknownAutomated blood eosinophils/100 ypdhjxcdhp7658-97-05 05:46:00Identifier 713-8 Result Time 2019-02-01 05:46:00Unknown Test [...] = 731-0) Ordering Physician UnknownAutomated blood lymphocytes/100 hpxjfgkfmp8718-05-31 05:46:00Identifier 736-9 Result Time 2019-02-01 05:46:00Unknown Test Item Value Reference Range Comments Automated blood lymphocytes/100 leukocytes 28.7 % Unknown Unknown F (test code = 736-9) Ordering Physician UnknownBlood monocytes automated count (number/volume)2019-01 05:46:00Identifier 742-7 Result Time 2019-02-01 05:46:00Unknown Test Item Value Reference Range Comments Blood monocytes automated count 0.9 10^3/ul Unknown Unknown F (number/volume) (test code = 742-7) Ordering Physician UnknownAutomated blood neutrophils/100 viqadzqxre9196-91-45 05:46:00Identifier 770-8 Result Time 2019-02-01 05:46:00Unknown Test [...] UnknownAutomated erythrocyte mean corpuscular hemoglobin concentration measurement (mass/epb1889-14-40 05:46:00Identifier 786-4 Result Time 2019-02-01 05:46:00Unknown Test Item Value Reference Range Comments Automated erythrocyte mean corpuscular 34 g/dL Unknown Unknown F hemoglobin concentration measurement (mass/vol (test code = 786-4) Ordering Physician UnknownAutomated erythrocyte mean corpuscular zormcb0051-41- 06 05:46:00Identifier 787-2 Result Time 2019-02-01 05:46:00Unknown Test Item Value Reference Range Comments Automated erythrocyte mean corpuscular volume 85 fL Unknown Unknown F (test code = 787-2) Ordering Physician UnknownAutomated erythrocyte distribution width vnwfb3281-39- 06 05:46:00Identifier 788-0 Result Time 2019-02-01 05:46:00Unknown [...] code = 789-8) Ordering Physician UnknownCT biopsy xmpkf6137-61-57 05:46:00Identifier VCZ4193 Result Time 2019-02-01 05:46:00Unknown Test Item Value Reference Range Comments CT biopsy liver (test code = KGU3310) 4.8 10^3/ul Unknown Unknown F Ordering Physician UnknownSerum or plasma digoxin measurement (mass/volume)01-31 05:41:00Identifier 75557-5 Result Time 2019-01-31 05:41:00Unknown Test Item Value Reference Range Comments Serum or plasma digoxin measurement 1.3 ng/ml Unknown Unknown F (mass/volume) (test code = 99465-7) Ordering Physician UnknownStool Plesiomonas shigelloides DNA detection by non- probe and target amplification ef2336-29-80 12:40:00Identifier 39769-1 Result Time 2019-01-28 12:40:00Unknown Test Item Value Reference Range Comments Nasal Screen MRSA (PCR) (test Mrsa Not Detected Unknown Unknown F code = Nasal Screen MRSA (PCR)) Ordering Physician UnknownUrine ascorbic acid gzqronyuc9716-56-17 12:25: 00Identifier 1904-2 Result Time 2019-01-28 12:25:00Unknown Test Item Value Reference Range Comments Urine ascorbic acid detection (test code = * Unknown Unknown F 1904-2) Ordering Physician UnknownUrine urobilinogen measurement (units/volume) by test wzgou7304-95-49 12:25:00Identifier 94912-5 Result Time 2019-01-28 12:25: 00Unknown Test Item Value Reference Range Comments Urine urobilinogen measurement Negative Unknown Unknown F (units/volume) by test strip (test code = 91831-4) Ordering Physician UnknownUrine total bilirubin detection by automated test nsyqm1683-60-74 12:25:00Identifier 62014-9 Result Time 2019-01-28 12:25: 00Unknown Test Item Value Reference Range Comments Urine total bilirubin detection by Negative Unknown Unknown F automated test strip (test code = 65310-6) Ordering Physician UnknownUrine clarity by refractometry cydztwsvh8509-04-44 12: 25:00Identifier 63822-5 Result Time 2019-01-28 12:25:00Unknown Test Item Value Reference Range Comments Urine clarity by refractometry automated Cloudy Unknown Unknown F (test code = 77558-7) Ordering Physician UnknownColor of Urine by Cmsg7811-59-18 12:25:00Identifier 84374-7 Result Time 2019-01-28 12:25:00Unknown Test Item Value Reference Range Comments Color of Urine by Auto (test code = Yellow Unknown Unknown F 96877-7) Ordering Physician UnknownUrine glucose detection by automated test fwzol1226-07 -02 12:25:00Identifier 58810-9 Result Time 2019-01-28 12:25:00Unknown Test Item Value Reference Range Comments Urine glucose detection by automated 1+(50 mg/dl) Unknown Unknown F test strip (test code = 20309-3) Ordering Physician UnknownKetones [Mass/volume] in Urine by Automated test idlqx7550-20-13 12:25:00Identifier 25474-9 Result Time 2019-01-28 12:25: 00Unknown Test Item Value Reference Range Comments Ketones [Mass/volume] in Urine by Negative Unknown Unknown F Automated test strip (test code = 93434-4) Ordering Physician UnknownUrine nitrite detection by automated test mqhgs3074-64 -02 12:25:00Identifier 12448-7 Result Time 2019-01-28 12:25:00Unknown Test Item Value Reference Range Comments Urine nitrite detection by automated test Negative Unknown Unknown F strip (test code = 67776-3) Ordering Physician UnknownProtein [Mass/volume] in Urine by Automated test gprtg3110-21-12 12:25:00Identifier 78613-1 Result Time 2019-01-28 12:25: 00Unknown Test Item Value Reference Range Comments Protein [Mass/volume] in Urine by Negative Unknown Unknown F Automated test strip (test code = 47586-1) Ordering Physician UnknownSpecific gravity of Urine by Refractometry umuugpqbp2390-63-77 12:25:00Identifier 19777-6 Result Time 2019-01-28 12:25: 00Unknown Test Item Value Reference Range Comments Specific gravity of Urine by Refractometry 1.018 Unknown Unknown F automated (test code = 59584-1) Ordering Physician UnknownUrine hemoglobin detection by test lebwv9685-55-87 12: 25:00Identifier 5794-3 Result Time 2019-01-28 12:25:00Unknown Test Item Value Reference Range Comments Urine hemoglobin detection by test strip Negative Unknown Unknown F (test code = 5794-3) Ordering Physician UnknownUrine leukocyte esterase detection by automated test ovtmd4765-87-10 12:25:00Identifier 18615-1 Result Time 2019-01-28 12:25: 00Unknown Test Item Value Reference Range Comments Urine leukocyte esterase detection by Negative Unknown Unknown F automated test strip (test code = 37794-6) Ordering Physician UnknownSerum or plasma troponin i.cardiac measurement (mass/ volume)2019-01-28 11:57:00Identifier 49184-6 Result Time 2019-01-28 11:57: 00Unknown Test Item Value Reference Range Comments Serum or plasma troponin i.cardiac 0.02 ng/mL Unknown Unknown F measurement (mass/volume) (test code = 68797-2) Ordering Physician UnknownSerum or plasma alanine aminotransferase measurement ( enzymatic activity/volume)2019-01-28 11:57:00Identifier 1742-6 Result Time 01-28 11:57:00Unknown Test Item Value Reference Range Comments Serum or plasma alanine aminotransferase 10 U/L Unknown Unknown F measurement (enzymatic activity/volume) (test code = 1742-6) Ordering Physician UnknownSerum or plasma albumin/globulin mass mreit2739-49-22 11:57:00Identifier 1759-0 Result Time 2019-01-28 11:57:00Unknown Test [...] natriuretic peptide B measurement ( mass/volume)2019-01-28 11:57:00Identifier 78422-5 Result Time 2019-01-28 11:57: 00Unknown Test Item Value Reference Range Comments Serum or plasma natriuretic peptide B 523 pg/mL Unknown Unknown F measurement (mass/volume) (test code = 90078-7) Ordering Physician UnknownErythrocyte sedimentation rate by Westergren mkbxcg7457-59-68 11:57:00Identifier 4537-7 Result Time 2019-01-28 11:57: 00Unknown Test Item Value Reference Range Comments Erythrocyte sedimentation rate by 48 mm/Hr Unknown Unknown F Westergren method (test code = 4537-7) Ordering Physician UnknownSerum or plasma albumin measurement by bromocresol green (BCG) dye binding method (yz5094-39-78 11:57:00Identifier 90966-3 Result Time 2019-01-28 11:57:00Unknown Test Item Value Reference Range Comments Serum or plasma albumin measurement by 3.7 g/dL Unknown Unknown F bromocresol green (BCG) dye binding method (ma (test code = 57857-9) Ordering Physician UnknownSerum or plasma alkaline phosphatase measurement ( enzymatic activity/volume)2019-01-28 11:57:00Identifier 6768-6 Result Time 01-28 11:57:00Unknown Test Item Value Reference Range Comments Serum or plasma alkaline phosphatase 98 U/L Unknown Unknown F measurement (enzymatic activity/volume) (test code = 6768-6) Ordering Physician Unknown
--- OUTSIDE RECORDS SUMMARY | 2019-06-04 17:29 | XMS REPORT ---
:1935 Author Organization [facility] Care Team Providers Name Role Phone Unavailable [...] Unknown 02-04 ramipril Base Active Unknown Reaction Fatih Beam Ingredient Unknown 02-04 Medications Ordered Filled Start Stop Current Ordering Indication Dosage Frequency Signature Comments Components Medication Medication Date Date Medication? Clinician (SIG) Name Name No Known No Known No None None None Medications Medications For This For This Patient Patient Procedures This patient has no known procedures. Results This patient has no known results.
--- OUTSIDE RECORDS SUMMARY | 2019-06-04 17:29 | XMS REPORT ---
:1935 Author Organization [facility] Care Team Providers Name Role Phone Unavailable [...]
--- OUTSIDE RECORDS SUMMARY | 2019-06-04 17:29 | XMS REPORT ---
:1935 Author Organization [facility] Care Team Providers Name Role Phone Unavailable Unavailable Unavailable Problems This patient has no known problems. Allergies, Adverse Reactions, Alerts Allergy Name Allergy Status Severity Reaction(s) Onset Inactive Treating Comments Type Date Date Clinician cephalexin Base Active Unknown Reaction Interface Ingredient Unknown - lactose Base Active Unknown Reaction Interface Ingredient Unknown -10 ramipril Base Active Unknown Reaction Unknown Ingredient Unknown - Medications Ordered Filled Start Stop Current Ordering [...] Serum or plasma calcium 2019-02-01 05:46:00 Identifier 37696-5 Result Unknown measurement (mass/volume) Time 2019-02-01 05:46:00 Test Item Value Reference Range Comments Serum or plasma calcium measurement (mass/volume) (test 9.2 mg/dL Unknown Unknown F code = 06622-8) Ordering Physician UnknownSerum or plasma magnesium measurement (mass/volume) 2019-02-01 05:46:00Identifier 71821-7 Result Time 2019-02-01 05:46:00Unknown Test Item Value Reference Range Comments Serum or plasma magnesium measurement 2.0 mg/dL Unknown Unknown F (mass/volume) (test code = 32592-7) Ordering Physician UnknownSerum or plasma carbon dioxide, [...] Ordering Physician UnknownSerum or plasma urea nitrogen/creatinine yafal9149-18- 06 05:46:00Identifier 3097-3 Result Time 2019-02-01 05:46:00Unknown Test Item Value Reference Range Comments Serum or plasma urea nitrogen/creatinine 21.4 Unknown Unknown F ratio (test code = 3097-3) Ordering Physician UnknownAutomated blood platelet mean volume cpmwrovjprr1667- 09-06 05:46:00Identifier 11871-1 Result Time 2019-02-01 05:46:00Unknown Test Item Value Reference Range Comments Automated blood platelet mean volume 9.6 fL Unknown Unknown F measurement (test code = 64862-3) Ordering Physician UnknownSerum or plasma anion hrf4120-96-42 05:46: 00Identifier 53631-1 Result Time 2019-02-01 05:46:00Unknown Test Item Value Reference Range Comments Serum or plasma anion gap (test code = 5 mmol/L Unknown Unknown F 82029-7) Ordering Physician UnknownAutomated blood leukocytes count corrected for nucleated erythrocytes (number/volume)2019-02-01 05:46:00Identifier 33724-1 Result Time 2019-02-01 05:46:00Unknown Test Item Value Reference Range Comments Automated blood leukocytes count 9.9 10^3/uL Unknown Unknown F corrected for nucleated erythrocytes (number/volume) (test code = 94673-5) Ordering Physician UnknownAutomated blood nucleated erythrocytes elupjmsgj8634- 09-06 05:46:00Identifier 17071-7 Result Time 2019-02-01 05:46:00Unknown Test Item Value Reference Range Comments Automated blood nucleated erythrocytes 0.0 Unknown Unknown F detection (test code = 53074-3) Ordering Physician UnknownWhole blood international normalized ratio (INR)02-01 05:46:00Identifier 49725-7 Result Time 2019-02-01 05:46:00Unknown Test Item Value Reference Range Comments Whole blood international normalized ratio 1.40 Unknown Unknown F (INR) (test code = 21831-6) Ordering Physician UnknownAutomated blood hematocrit (percentage)2019-02-01 05: 46:00Identifier 4544-3 Result Time 2019-02-01 05:46:00Unknown Test Item Value Reference Range Comments Automated blood hematocrit (percentage) (test 39 % Unknown Unknown F code = 4544-3) Ordering Physician UnknownEstimated glomerular filtration rate (GFR) non- Lnnwuzzh3024-88-07 05:46:00Identifier 96517-8 Result Time 2019-02-01 05: 46:00Unknown Test Item Value Reference Range Comments Estimated glomerular filtration rate (GFR) 80.3 Unknown Unknown F non- (test code = 70552-2) Ordering Physician UnknownAutomated blood monocytes/100 qzgabblxsz9126-08-63 05: 46:00Identifier 5905-5 Result Time 2019-02-01 05:46:00Unknown [...] = 704-7) Ordering Physician UnknownAutomated blood basophils/100 pwrkfqpblj8604-93-48 05: 46:00Identifier 706-2 Result Time 2019-02-01 05:46:00Unknown [...] = 711-2) Ordering Physician UnknownAutomated blood eosinophils/100 olefxdvqvz3328-71-89 05:46:00Identifier 713-8 Result Time 2019-02-01 05:46:00Unknown Test [...] = 731-0) Ordering Physician UnknownAutomated blood lymphocytes/100 cbcqnalmhs2816-49-27 05:46:00Identifier 736-9 Result Time 2019-02-01 05:46:00Unknown Test Item Value Reference Range Comments Automated blood lymphocytes/100 leukocytes 28.7 % Unknown Unknown F (test code = 736-9) Ordering Physician UnknownBlood monocytes automated count (number/volume)2019-01 05:46:00Identifier 742-7 Result Time 2019-02-01 05:46:00Unknown Test Item Value Reference Range Comments Blood monocytes automated count 0.9 10^3/ul Unknown Unknown F (number/volume) (test code = 742-7) Ordering Physician UnknownAutomated blood neutrophils/100 skrbknetzt4565-98-87 05:46:00Identifier 770-8 Result Time 2019-02-01 05:46:00Unknown Test [...] UnknownAutomated erythrocyte mean corpuscular hemoglobin concentration measurement (mass/awe7226-36-75 05:46:00Identifier 786-4 Result Time 2019-02-01 05:46:00Unknown Test Item Value Reference Range Comments Automated erythrocyte mean corpuscular 34 g/dL Unknown Unknown F hemoglobin concentration measurement (mass/vol (test code = 786-4) Ordering Physician UnknownAutomated erythrocyte mean corpuscular kixjef2975-73- 06 05:46:00Identifier 787-2 Result Time 2019-02-01 05:46:00Unknown Test Item Value Reference Range Comments Automated erythrocyte mean corpuscular volume 85 fL Unknown Unknown F (test code = 787-2) Ordering Physician UnknownAutomated erythrocyte distribution width zctrf1854-77- 06 05:46:00Identifier 788-0 Result Time 2019-02-01 05:46:00Unknown [...] code = 789-8) Ordering Physician UnknownCT biopsy ivygb3397-74-95 05:46:00Identifier [id number] Result Time 2019-02-01 05:46:00Unknown Test Item Value Reference Range Comments CT biopsy liver (test code = KXV0271) 4.8 10^3/ul Unknown Unknown F Ordering Physician UnknownSerum or plasma digoxin measurement (mass/volume)01-31 05:41:00Identifier 21114-7 Result Time 2019-01-31 05:41:00Unknown Test Item Value Reference Range Comments Serum or plasma digoxin measurement 1.3 ng/ml Unknown Unknown F (mass/volume) (test code = 15310-5) Ordering Physician UnknownStool Plesiomonas shigelloides DNA detection by non- probe and target amplification fs1851-80-29 12:40:00Identifier 59161-3 Result Time 2019-01-28 12:40:00Unknown Test Item Value Reference Range Comments Nasal Screen MRSA (PCR) (test Mrsa Not Detected Unknown Unknown F code = Nasal Screen MRSA (PCR)) Ordering Physician UnknownUrine ascorbic acid wqyfsongg7196-90-53 12:25: 00Identifier 1904-2 Result Time 2019-01-28 12:25:00Unknown Test Item Value Reference Range Comments Urine ascorbic acid detection (test code = * Unknown Unknown F 1904-2) Ordering Physician UnknownUrine urobilinogen measurement (units/volume) by test uvvzi5847-46-48 12:25:00Identifier 53612-5 Result Time 2019-01-28 12:25: 00Unknown Test Item Value Reference Range Comments Urine urobilinogen measurement Negative Unknown Unknown F (units/volume) by test strip (test code = 32037-6) Ordering Physician UnknownUrine total bilirubin detection by automated test oqxlm3291-76-82 12:25:00Identifier 02302-2 Result Time 2019-01-28 12:25: 00Unknown Test Item Value Reference Range Comments Urine total bilirubin detection by Negative Unknown Unknown F automated test strip (test code = 53281-8) Ordering Physician UnknownUrine clarity by refractometry bndwuoyza8614-70-89 12: 25:00Identifier 14622-5 Result Time 2019-01-28 12:25:00Unknown Test Item Value Reference Range Comments Urine clarity by refractometry automated Cloudy Unknown Unknown F (test code = 66211-7) Ordering Physician UnknownColor of Urine by Ljbc0394-89-72 12:25:00Identifier 64590-1 Result Time 2019-01-28 12:25:00Unknown Test Item Value Reference Range Comments Color of Urine by Auto (test code = Yellow Unknown Unknown F 77427-5) Ordering Physician UnknownUrine glucose detection by automated test rzvbt5587-15 -02 12:25:00Identifier 86002-8 Result Time 2019-01-28 12:25:00Unknown Test Item Value Reference Range Comments Urine glucose detection by automated 1+(50 mg/dl) Unknown Unknown F test strip (test code = 57834-6) Ordering Physician UnknownKetones [Mass/volume] in Urine by Automated test ibabd1242-51-16 12:25:00Identifier 20816-3 Result Time 2019-01-28 12:25: 00Unknown Test Item Value Reference Range Comments Ketones [Mass/volume] in Urine by Negative Unknown Unknown F Automated test strip (test code = 03256-9) Ordering Physician UnknownUrine nitrite detection by automated test hhuha8298-91 -02 12:25:00Identifier 93300-9 Result Time 2019-01-28 12:25:00Unknown Test Item Value Reference Range Comments Urine nitrite detection by automated test Negative Unknown Unknown F strip (test code = 95809-9) Ordering Physician UnknownProtein [Mass/volume] in Urine by Automated test ohyuc5220-26-72 12:25:00Identifier 52504-7 Result Time 2019-01-28 12:25: 00Unknown Test Item Value Reference Range Comments Protein [Mass/volume] in Urine by Negative Unknown Unknown F Automated test strip (test code = 97332-9) Ordering Physician UnknownSpecific gravity of Urine by Refractometry iogxrkrpn8975-26-79 12:25:00Identifier 53077-4 Result Time 2019-01-28 12:25: 00Unknown Test Item Value Reference Range Comments Specific gravity of Urine by Refractometry 1.018 Unknown Unknown F automated (test code = 50344-7) Ordering Physician UnknownUrine hemoglobin detection by test eucdi6828-67-27 12: 25:00Identifier 5794-3 Result Time 2019-01-28 12:25:00Unknown Test Item Value Reference Range Comments Urine hemoglobin detection by test strip Negative Unknown Unknown F (test code = 5794-3) Ordering Physician UnknownUrine leukocyte esterase detection by automated test gvdxq2323-62-10 12:25:00Identifier 31667-7 Result Time 2019-01-28 12:25: 00Unknown Test Item Value Reference Range Comments Urine leukocyte esterase detection by Negative Unknown Unknown F automated test strip (test code = 36937-0) Ordering Physician UnknownSerum or plasma troponin i.cardiac measurement (mass/ volume)2019-01-28 11:57:00Identifier 59737-4 Result Time 2019-01-28 11:57: 00Unknown Test Item Value Reference Range Comments Serum or plasma troponin i.cardiac 0.02 ng/mL Unknown Unknown F measurement (mass/volume) (test code = 11042-8) Ordering Physician UnknownSerum or plasma alanine aminotransferase measurement ( enzymatic activity/volume)2019-01-28 11:57:00Identifier 1742-6 Result Time 01-28 11:57:00Unknown Test Item Value Reference Range Comments Serum or plasma alanine aminotransferase 10 U/L Unknown Unknown F measurement (enzymatic activity/volume) (test code = 1742-6) Ordering Physician UnknownSerum or plasma albumin/globulin mass mvait5248-32-70 11:57:00Identifier 1759-0 Result Time 2019-01-28 11:57:00Unknown Test [...] natriuretic peptide B measurement ( mass/volume)2019-01-28 11:57:00Identifier 89795-8 Result Time 2019-01-28 11:57: 00Unknown Test Item Value Reference Range Comments Serum or plasma natriuretic peptide B 523 pg/mL Unknown Unknown F measurement (mass/volume) (test code = 62582-7) Ordering Physician UnknownErythrocyte sedimentation rate by Westergren eksbyz1193-09-81 11:57:00Identifier 4537-7 Result Time 2019-01-28 11:57: 00Unknown Test Item Value Reference Range Comments Erythrocyte sedimentation rate by 48 mm/Hr Unknown Unknown F Westergren method (test code = 4537-7) Ordering Physician UnknownSerum or plasma albumin measurement by bromocresol green (BCG) dye binding method ([id number] 11:57:00Identifier 74448-0 Result Time 2019-01-28 11:57:00Unknown Test Item Value Reference Range Comments Serum or plasma albumin measurement by 3.7 g/dL Unknown Unknown F bromocresol green (BCG) dye binding method (ma (test code = 93576-2) Ordering Physician UnknownSerum or plasma alkaline phosphatase measurement ( enzymatic activity/volume)2019-01-28 11:57:00Identifier 6768-6 Result Time 01-28 11:57:00Unknown Test Item Value Reference Range Comments Serum or plasma alkaline phosphatase 98 U/L Unknown Unknown F measurement (enzymatic activity/volume) (test code = 6768-6) Ordering Physician Unknown
--- OUTSIDE RECORDS SUMMARY | 2019-06-04 17:29 | XMS REPORT ---
:1935 Author Organization [facility] Care Team Providers Name Role Phone Unavailable [...] Serum or plasma calcium 2019-02-01 05:46:00 Identifier [id number] Result Unknown measurement (mass/volume) Time 2019-02-01 05:46:00 Test Item Value Reference Range Comments Serum or plasma calcium measurement (mass/volume) (test 9.2 mg/dL Unknown Unknown F code = 48621-5) Ordering Physician UnknownSerum or plasma magnesium measurement (mass/volume) 2019-02-01 05:46:00Identifier 32500-9 Result Time 2019-02-01 05:46:00Unknown Test Item Value Reference Range Comments Serum or plasma magnesium measurement 2.0 mg/dL Unknown Unknown F (mass/volume) (test code = 70020-9) Ordering Physician UnknownSerum or plasma carbon dioxide, [...] Ordering Physician UnknownSerum or plasma urea nitrogen/creatinine mckkp3767-88- 06 05:46:00Identifier 3097-3 Result Time 2019-02-01 05:46:00Unknown Test Item Value Reference Range Comments Serum or plasma urea nitrogen/creatinine 21.4 Unknown Unknown F ratio (test code = 3097-3) Ordering Physician UnknownAutomated blood platelet mean volume swimvfcdnki1550- 09-06 05:46:00Identifier 24486-9 Result Time 2019-02-01 05:46:00Unknown Test Item Value Reference Range Comments Automated blood platelet mean volume 9.6 fL Unknown Unknown F measurement (test code = 19408-5) Ordering Physician UnknownSerum or plasma anion mkk7508-09-10 05:46: 00Identifier 19116-9 Result Time 2019-02-01 05:46:00Unknown Test Item Value Reference Range Comments Serum or plasma anion gap (test code = 5 mmol/L Unknown Unknown F 57311-9) Ordering Physician UnknownAutomated blood leukocytes count corrected for nucleated erythrocytes (number/volume)2019-02-01 05:46:00Identifier 27512-6 Result Time 2019-02-01 05:46:00Unknown Test Item Value Reference Range Comments Automated blood leukocytes count 9.9 10^3/uL Unknown Unknown F corrected for nucleated erythrocytes (number/volume) (test code = 00535-5) Ordering Physician UnknownAutomated blood nucleated erythrocytes qvjnnvjqj3997- 09-06 05:46:00Identifier 69428-8 Result Time 2019-02-01 05:46:00Unknown Test Item Value Reference Range Comments Automated blood nucleated erythrocytes 0.0 Unknown Unknown F detection (test code = 25148-5) Ordering Physician UnknownWhole blood international normalized ratio (INR)02-01 05:46:00Identifier 48834-1 Result Time 2019-02-01 05:46:00Unknown Test Item Value Reference Range Comments Whole blood international normalized ratio 1.40 Unknown Unknown F (INR) (test code = 47060-7) Ordering Physician UnknownAutomated blood hematocrit (percentage)2019-02-01 05: 46:00Identifier 4544-3 Result Time 2019-02-01 05:46:00Unknown Test Item Value Reference Range Comments Automated blood hematocrit (percentage) (test 39 % Unknown Unknown F code = 4544-3) Ordering Physician UnknownEstimated glomerular filtration rate (GFR) non- Tiumdjvy8503-62-49 05:46:00Identifier 05414-6 Result Time 2019-02-01 05: 46:00Unknown Test Item Value Reference Range Comments Estimated glomerular filtration rate (GFR) 80.3 Unknown Unknown F non- (test code = 89896-8) Ordering Physician UnknownAutomated blood monocytes/100 pozbfykdnh1457-80-11 05: 46:00Identifier 5905-5 Result Time 2019-02-01 05:46:00Unknown [...] = 704-7) Ordering Physician UnknownAutomated blood basophils/100 qxpqgenzho9294-88-20 05: 46:00Identifier 706-2 Result Time 2019-02-01 05:46:00Unknown [...] = 711-2) Ordering Physician UnknownAutomated blood eosinophils/100 emmmsgxdpi8276-62-50 05:46:00Identifier 713-8 Result Time 2019-02-01 05:46:00Unknown Test [...] = 731-0) Ordering Physician UnknownAutomated blood lymphocytes/100 kpjndyttdm2124-67-33 05:46:00Identifier 736-9 Result Time 2019-02-01 05:46:00Unknown Test Item Value Reference Range Comments Automated blood lymphocytes/100 leukocytes 28.7 % Unknown Unknown F (test code = 736-9) Ordering Physician UnknownBlood monocytes automated count (number/volume)2019-01 05:46:00Identifier 742-7 Result Time 2019-02-01 05:46:00Unknown Test Item Value Reference Range Comments Blood monocytes automated count 0.9 10^3/ul Unknown Unknown F (number/volume) (test code = 742-7) Ordering Physician UnknownAutomated blood neutrophils/100 jyrauliord4559-96-54 05:46:00Identifier 770-8 Result Time 2019-02-01 05:46:00Unknown Test [...] UnknownAutomated erythrocyte mean corpuscular hemoglobin concentration measurement (mass/uhy1173-05-52 05:46:00Identifier 786-4 Result Time 2019-02-01 05:46:00Unknown Test Item Value Reference Range Comments Automated erythrocyte mean corpuscular 34 g/dL Unknown Unknown F hemoglobin concentration measurement (mass/vol (test code = 786-4) Ordering Physician UnknownAutomated erythrocyte mean corpuscular ffyeeb7460-03- 06 05:46:00Identifier 787-2 Result Time 2019-02-01 05:46:00Unknown Test Item Value Reference Range Comments Automated erythrocyte mean corpuscular volume 85 fL Unknown Unknown F (test code = 787-2) Ordering Physician UnknownAutomated erythrocyte distribution width xrdpi7927-49- 06 05:46:00Identifier 788-0 Result Time 2019-02-01 05:46:00Unknown [...] code = 789-8) Ordering Physician UnknownCT biopsy pnmbq8508-72-56 05:46:00Identifier [id number] Result Time 2019-02-01 05:46:00Unknown Test Item Value Reference Range Comments CT biopsy liver (test code = MHR1139) 4.8 10^3/ul Unknown Unknown F Ordering Physician UnknownSerum or plasma digoxin measurement (mass/volume)01-31 05:41:00Identifier 60383-8 Result Time 2019-01-31 05:41:00Unknown Test Item Value Reference Range Comments Serum or plasma digoxin measurement 1.3 ng/ml Unknown Unknown F (mass/volume) (test code = 09813-2) Ordering Physician UnknownStool Plesiomonas shigelloides DNA detection by non- probe and target amplification zs4168-68-58 12:40:00Identifier 32719-5 Result Time 2019-01-28 12:40:00Unknown Test Item Value Reference Range Comments Nasal Screen MRSA (PCR) (test Mrsa Not Detected Unknown Unknown F code = Nasal Screen MRSA (PCR)) Ordering Physician UnknownUrine ascorbic acid oodegszlz3407-93-36 12:25: 00Identifier 1904-2 Result Time 2019-01-28 12:25:00Unknown Test Item Value Reference Range Comments Urine ascorbic acid detection (test code = * Unknown Unknown F 1904-2) Ordering Physician UnknownUrine urobilinogen measurement (units/volume) by test cfetu9761-07-49 12:25:00Identifier 37766-6 Result Time 2019-01-28 12:25: 00Unknown Test Item Value Reference Range Comments Urine urobilinogen measurement Negative Unknown Unknown F (units/volume) by test strip (test code = 08225-0) Ordering Physician UnknownUrine total bilirubin detection by automated test vfdtd1077-98-98 12:25:00Identifier 48319-7 Result Time 2019-01-28 12:25: 00Unknown Test Item Value Reference Range Comments Urine total bilirubin detection by Negative Unknown Unknown F automated test strip (test code = 59553-5) Ordering Physician UnknownUrine clarity by refractometry pjwafoxim8561-69-04 12: 25:00Identifier 91112-4 Result Time 2019-01-28 12:25:00Unknown Test Item Value Reference Range Comments Urine clarity by refractometry automated Cloudy Unknown Unknown F (test code = 08074-6) Ordering Physician UnknownColor of Urine by Ttxj4139-51-49 12:25:00Identifier 78678-5 Result Time 2019-01-28 12:25:00Unknown Test Item Value Reference Range Comments Color of Urine by Auto (test code = Yellow Unknown Unknown F 63916-6) Ordering Physician UnknownUrine glucose detection by automated test swgqf0140-64 -02 12:25:00Identifier 75468-5 Result Time 2019-01-28 12:25:00Unknown Test Item Value Reference Range Comments Urine glucose detection by automated 1+(50 mg/dl) Unknown Unknown F test strip (test code = 11853-9) Ordering Physician UnknownKetones [Mass/volume] in Urine by Automated test qnkxf8577-45-46 12:25:00Identifier 68822-7 Result Time 2019-01-28 12:25: 00Unknown Test Item Value Reference Range Comments Ketones [Mass/volume] in Urine by Negative Unknown Unknown F Automated test strip (test code = 88018-7) Ordering Physician UnknownUrine nitrite detection by automated test cmimn7759-13 -02 12:25:00Identifier 36641-2 Result Time 2019-01-28 12:25:00Unknown Test Item Value Reference Range Comments Urine nitrite detection by automated test Negative Unknown Unknown F strip (test code = 74413-6) Ordering Physician UnknownProtein [Mass/volume] in Urine by Automated test swlvj1237-04-13 12:25:00Identifier 68485-4 Result Time 2019-01-28 12:25: 00Unknown Test Item Value Reference Range Comments Protein [Mass/volume] in Urine by Negative Unknown Unknown F Automated test strip (test code = 59723-5) Ordering Physician UnknownSpecific gravity of Urine by Refractometry libqrnstp8145-61-09 12:25:00Identifier 94509-8 Result Time 2019-01-28 12:25: 00Unknown Test Item Value Reference Range Comments Specific gravity of Urine by Refractometry 1.018 Unknown Unknown F automated (test code = 02432-4) Ordering Physician UnknownUrine hemoglobin detection by test eebnk0111-53-23 12: 25:00Identifier 5794-3 Result Time 2019-01-28 12:25:00Unknown Test Item Value Reference Range Comments Urine hemoglobin detection by test strip Negative Unknown Unknown F (test code = 5794-3) Ordering Physician UnknownUrine leukocyte esterase detection by automated test qxafl1861-78-22 12:25:00Identifier 45914-2 Result Time 2019-01-28 12:25: 00Unknown Test Item Value Reference Range Comments Urine leukocyte esterase detection by Negative Unknown Unknown F automated test strip (test code = 72059-9) Ordering Physician UnknownSerum or plasma troponin i.cardiac measurement (mass/ volume)2019-01-28 11:57:00Identifier 71092-6 Result Time 2019-01-28 11:57: 00Unknown Test Item Value Reference Range Comments Serum or plasma troponin i.cardiac 0.02 ng/mL Unknown Unknown F measurement (mass/volume) (test code = 77985-6) Ordering Physician UnknownSerum or plasma alanine aminotransferase measurement ( enzymatic activity/volume)2019-01-28 11:57:00Identifier 1742-6 Result Time 01-28 11:57:00Unknown Test Item Value Reference Range Comments Serum or plasma alanine aminotransferase 10 U/L Unknown Unknown F measurement (enzymatic activity/volume) (test code = 1742-6) Ordering Physician UnknownSerum or plasma albumin/globulin mass xwpvk6884-50-09 11:57:00Identifier 1759-0 Result Time 2019-01-28 11:57:00Unknown Test [...] natriuretic peptide B measurement ( mass/volume)2019-01-28 11:57:00Identifier 51061-7 Result Time 2019-01-28 11:57: 00Unknown Test Item Value Reference Range Comments Serum or plasma natriuretic peptide B 523 pg/mL Unknown Unknown F measurement (mass/volume) (test code = 60541-9) Ordering Physician UnknownErythrocyte sedimentation rate by Westergren suufql9330-52-29 11:57:00Identifier 4537-7 Result Time 2019-01-28 11:57: 00Unknown Test Item Value Reference Range Comments Erythrocyte sedimentation rate by 48 mm/Hr Unknown Unknown F Westergren method (test code = 4537-7) Ordering Physician UnknownSerum or plasma albumin measurement by bromocresol green (BCG) dye binding method (di7356-03-47 11:57:00Identifier 02807-7 Result Time 2019-01-28 11:57:00Unknown Test Item Value Reference Range Comments Serum or plasma albumin measurement by 3.7 g/dL Unknown Unknown F bromocresol green (BCG) dye binding method (ma (test code = 30985-5) Ordering Physician UnknownSerum or plasma alkaline phosphatase measurement ( enzymatic activity/volume)2019-01-28 11:57:00Identifier 6768-6 Result Time 01-28 11:57:00Unknown Test Item Value Reference Range Comments Serum or plasma alkaline phosphatase 98 U/L Unknown Unknown F measurement (enzymatic activity/volume) (test code = 6768-6) Ordering Physician Unknown
--- OUTSIDE RECORDS SUMMARY | 2019-06-04 17:29 | XMS REPORT ---
:1935 Author Organization [facility] Care Team Providers Name Role Phone Unavailable [...]
--- OUTSIDE RECORDS SUMMARY | 2019-06-04 17:29 | XMS REPORT ---
:1935 Author Organization [facility] Care Team Providers Name Role Phone Unavailable [...]
--- OUTSIDE RECORDS SUMMARY | 2019-06-04 17:29 | XMS REPORT ---
:1935 Author Organization [facility] Care Team Providers Name Role Phone Unavailable [...]
--- OUTSIDE RECORDS SUMMARY | 2019-06-04 17:29 | XMS REPORT ---
:1935 Author Organization [facility] Care Team Providers Name Role Phone Unavailable [...] Serum or plasma calcium 2019-02-01 05:46:00 Identifier 79202-6 Result Unknown measurement (mass/volume) Time 2019-02-01 05:46:00 Test Item Value Reference Range Comments Serum or plasma calcium measurement (mass/volume) (test 9.2 mg/dL Unknown Unknown F code = 29935-9) Ordering Physician UnknownSerum or plasma magnesium measurement (mass/volume) 2019-02-01 05:46:00Identifier 20056-7 Result Time 2019-02-01 05:46:00Unknown Test Item Value Reference Range Comments Serum or plasma magnesium measurement 2.0 mg/dL Unknown Unknown F (mass/volume) (test code = 70537-7) Ordering Physician UnknownSerum or plasma carbon dioxide, [...] Ordering Physician UnknownSerum or plasma urea nitrogen/creatinine pzvya9510-56- 06 05:46:00Identifier 3097-3 Result Time 2019-02-01 05:46:00Unknown Test Item Value Reference Range Comments Serum or plasma urea nitrogen/creatinine 21.4 Unknown Unknown F ratio (test code = 3097-3) Ordering Physician UnknownAutomated blood platelet mean volume izrglvwofgr4165- 09-06 05:46:00Identifier 28722-0 Result Time 2019-02-01 05:46:00Unknown Test Item Value Reference Range Comments Automated blood platelet mean volume 9.6 fL Unknown Unknown F measurement (test code = 42856-9) Ordering Physician UnknownSerum or plasma anion rfl3989-74-66 05:46: 00Identifier 87522-8 Result Time 2019-02-01 05:46:00Unknown Test Item Value Reference Range Comments Serum or plasma anion gap (test code = 5 mmol/L Unknown Unknown F 56146-4) Ordering Physician UnknownAutomated blood leukocytes count corrected for nucleated erythrocytes (number/volume)2019-02-01 05:46:00Identifier 74609-0 Result Time 2019-02-01 05:46:00Unknown Test Item Value Reference Range Comments Automated blood leukocytes count 9.9 10^3/uL Unknown Unknown F corrected for nucleated erythrocytes (number/volume) (test code = 78488-9) Ordering Physician UnknownAutomated blood nucleated erythrocytes bbidypimf1505- 09-06 05:46:00Identifier 33106-7 Result Time 2019-02-01 05:46:00Unknown Test Item Value Reference Range Comments Automated blood nucleated erythrocytes 0.0 Unknown Unknown F detection (test code = 54198-9) Ordering Physician UnknownWhole blood international normalized ratio (INR)02-01 05:46:00Identifier 30037-8 Result Time 2019-02-01 05:46:00Unknown Test Item Value Reference Range Comments Whole blood international normalized ratio 1.40 Unknown Unknown F (INR) (test code = 58062-8) Ordering Physician UnknownAutomated blood hematocrit (percentage)2019-02-01 05: 46:00Identifier 4544-3 Result Time 2019-02-01 05:46:00Unknown Test Item Value Reference Range Comments Automated blood hematocrit (percentage) (test 39 % Unknown Unknown F code = 4544-3) Ordering Physician UnknownEstimated glomerular filtration rate (GFR) non- Eoeuplhk0793-95-43 05:46:00Identifier 40662-5 Result Time 2019-02-01 05: 46:00Unknown Test Item Value Reference Range Comments Estimated glomerular filtration rate (GFR) 80.3 Unknown Unknown F non- (test code = 04012-5) Ordering Physician UnknownAutomated blood monocytes/100 ejltxckdzt8036-51-05 05: 46:00Identifier 5905-5 Result Time 2019-02-01 05:46:00Unknown [...] = 704-7) Ordering Physician UnknownAutomated blood basophils/100 ctxuwehehk2276-63-55 05: 46:00Identifier 706-2 Result Time 2019-02-01 05:46:00Unknown [...] = 711-2) Ordering Physician UnknownAutomated blood eosinophils/100 myybcwwqcm5681-29-24 05:46:00Identifier 713-8 Result Time 2019-02-01 05:46:00Unknown Test [...] = 731-0) Ordering Physician UnknownAutomated blood lymphocytes/100 frqhvsimqd8875-42-62 05:46:00Identifier 736-9 Result Time 2019-02-01 05:46:00Unknown Test Item Value Reference Range Comments Automated blood lymphocytes/100 leukocytes 28.7 % Unknown Unknown F (test code = 736-9) Ordering Physician UnknownBlood monocytes automated count (number/volume)2019-01 05:46:00Identifier 742-7 Result Time 2019-02-01 05:46:00Unknown Test Item Value Reference Range Comments Blood monocytes automated count 0.9 10^3/ul Unknown Unknown F (number/volume) (test code = 742-7) Ordering Physician UnknownAutomated blood neutrophils/100 kxbexnvcsl0789-39-70 05:46:00Identifier 770-8 Result Time 2019-02-01 05:46:00Unknown Test [...] UnknownAutomated erythrocyte mean corpuscular hemoglobin concentration measurement (mass/yev2622-32-64 05:46:00Identifier 786-4 Result Time 2019-02-01 05:46:00Unknown Test Item Value Reference Range Comments Automated erythrocyte mean corpuscular 34 g/dL Unknown Unknown F hemoglobin concentration measurement (mass/vol (test code = 786-4) Ordering Physician UnknownAutomated erythrocyte mean corpuscular yfvndx9890-65- 06 05:46:00Identifier 787-2 Result Time 2019-02-01 05:46:00Unknown Test Item Value Reference Range Comments Automated erythrocyte mean corpuscular volume 85 fL Unknown Unknown F (test code = 787-2) Ordering Physician UnknownAutomated erythrocyte distribution width ewkuy8006-16- 06 05:46:00Identifier 788-0 Result Time 2019-02-01 05:46:00Unknown [...] code = 789-8) Ordering Physician UnknownCT biopsy ohtbp4918-13-10 05:46:00Identifier [id number] Result Time 2019-02-01 05:46:00Unknown Test Item Value Reference Range Comments CT biopsy liver (test code = EKD6441) 4.8 10^3/ul Unknown Unknown F Ordering Physician UnknownSerum or plasma digoxin measurement (mass/volume)01-31 05:41:00Identifier 76289-1 Result Time 2019-01-31 05:41:00Unknown Test Item Value Reference Range Comments Serum or plasma digoxin measurement 1.3 ng/ml Unknown Unknown F (mass/volume) (test code = 71456-0) Ordering Physician UnknownStool Plesiomonas shigelloides DNA detection by non- probe and target amplification [id number] 12:40:00Identifier 03891-7 Result Time 2019-01-28 12:40:00Unknown Test Item Value Reference Range Comments Nasal Screen MRSA (PCR) (test Mrsa Not Detected Unknown Unknown F code = Nasal Screen MRSA (PCR)) Ordering Physician UnknownUrine ascorbic acid uhsbbrnxv0942-90-44 12:25: 00Identifier 1904-2 Result Time 2019-01-28 12:25:00Unknown Test Item Value Reference Range Comments Urine ascorbic acid detection (test code = * Unknown Unknown F 1904-2) Ordering Physician UnknownUrine urobilinogen measurement (units/volume) by test dwvkb1505-83-56 12:25:00Identifier 14430-9 Result Time 2019-01-28 12:25: 00Unknown Test Item Value Reference Range Comments Urine urobilinogen measurement Negative Unknown Unknown F (units/volume) by test strip (test code = 16291-4) Ordering Physician UnknownUrine total bilirubin detection by automated test csagg5186-19-37 12:25:00Identifier 49138-5 Result Time 2019-01-28 12:25: 00Unknown Test Item Value Reference Range Comments Urine total bilirubin detection by Negative Unknown Unknown F automated test strip (test code = 97376-7) Ordering Physician UnknownUrine clarity by refractometry jmwadrnat6940-75-02 12: 25:00Identifier 66354-2 Result Time 2019-01-28 12:25:00Unknown Test Item Value Reference Range Comments Urine clarity by refractometry automated Cloudy Unknown Unknown F (test code = 57509-1) Ordering Physician UnknownColor of Urine by Wlug6183-44-83 12:25:00Identifier 58320-5 Result Time 2019-01-28 12:25:00Unknown Test Item Value Reference Range Comments Color of Urine by Auto (test code = Yellow Unknown Unknown F 08650-3) Ordering Physician UnknownUrine glucose detection by automated test wluaf4183-76 -02 12:25:00Identifier 77442-6 Result Time 2019-01-28 12:25:00Unknown Test Item Value Reference Range Comments Urine glucose detection by automated 1+(50 mg/dl) Unknown Unknown F test strip (test code = 41069-3) Ordering Physician UnknownKetones [Mass/volume] in Urine by Automated test uyoio8062-61-85 12:25:00Identifier 73450-5 Result Time 2019-01-28 12:25: 00Unknown Test Item Value Reference Range Comments Ketones [Mass/volume] in Urine by Negative Unknown Unknown F Automated test strip (test code = 20154-8) Ordering Physician UnknownUrine nitrite detection by automated test wjpwt2238-75 -02 12:25:00Identifier 96586-6 Result Time 2019-01-28 12:25:00Unknown Test Item Value Reference Range Comments Urine nitrite detection by automated test Negative Unknown Unknown F strip (test code = 02786-0) Ordering Physician UnknownProtein [Mass/volume] in Urine by Automated test jqotg7594-37-45 12:25:00Identifier 88799-5 Result Time 2019-01-28 12:25: 00Unknown Test Item Value Reference Range Comments Protein [Mass/volume] in Urine by Negative Unknown Unknown F Automated test strip (test code = 45735-0) Ordering Physician UnknownSpecific gravity of Urine by Refractometry wcvjayput1863-57-32 12:25:00Identifier 54070-1 Result Time 2019-01-28 12:25: 00Unknown Test Item Value Reference Range Comments Specific gravity of Urine by Refractometry 1.018 Unknown Unknown F automated (test code = 67110-7) Ordering Physician UnknownUrine hemoglobin detection by test ewxpa7285-49-06 12: 25:00Identifier 5794-3 Result Time 2019-01-28 12:25:00Unknown Test Item Value Reference Range Comments Urine hemoglobin detection by test strip Negative Unknown Unknown F (test code = 5794-3) Ordering Physician UnknownUrine leukocyte esterase detection by automated test lztfu5025-15-16 12:25:00Identifier 06924-6 Result Time 2019-01-28 12:25: 00Unknown Test Item Value Reference Range Comments Urine leukocyte esterase detection by Negative Unknown Unknown F automated test strip (test code = 06974-4) Ordering Physician UnknownSerum or plasma troponin i.cardiac measurement (mass/ volume)2019-01-28 11:57:00Identifier 37247-1 Result Time 2019-01-28 11:57: 00Unknown Test Item Value Reference Range Comments Serum or plasma troponin i.cardiac 0.02 ng/mL Unknown Unknown F measurement (mass/volume) (test code = 10797-3) Ordering Physician UnknownSerum or plasma alanine aminotransferase measurement ( enzymatic activity/volume)2019-01-28 11:57:00Identifier 1742-6 Result Time 01-28 11:57:00Unknown Test Item Value Reference Range Comments Serum or plasma alanine aminotransferase 10 U/L Unknown Unknown F measurement (enzymatic activity/volume) (test code = 1742-6) Ordering Physician UnknownSerum or plasma albumin/globulin mass jdjeq9691-03-03 11:57:00Identifier 1759-0 Result Time 2019-01-28 11:57:00Unknown Test [...] natriuretic peptide B measurement ( mass/volume)2019-01-28 11:57:00Identifier 14667-5 Result Time 2019-01-28 11:57: 00Unknown Test Item Value Reference Range Comments Serum or plasma natriuretic peptide B 523 pg/mL Unknown Unknown F measurement (mass/volume) (test code = 41125-4) Ordering Physician UnknownErythrocyte sedimentation rate by Westergren kgxvff7680-61-34 11:57:00Identifier 4537-7 Result Time 2019-01-28 11:57: 00Unknown Test Item Value Reference Range Comments Erythrocyte sedimentation rate by 48 mm/Hr Unknown Unknown F Westergren method (test code = 4537-7) Ordering Physician UnknownSerum or plasma albumin measurement by bromocresol green (BCG) dye binding method (us9194-83-50 11:57:00Identifier 07534-4 Result Time 2019-01-28 11:57:00Unknown Test Item Value Reference Range Comments Serum or plasma albumin measurement by 3.7 g/dL Unknown Unknown F bromocresol green (BCG) dye binding method (ma (test code = 59304-0) Ordering Physician UnknownSerum or plasma alkaline phosphatase measurement ( enzymatic activity/volume)2019-01-28 11:57:00Identifier 6768-6 Result Time 01-28 11:57:00Unknown Test Item Value Reference Range Comments Serum or plasma alkaline phosphatase 98 U/L Unknown Unknown F measurement (enzymatic activity/volume) (test code = 6768-6) Ordering Physician Unknown
--- OUTSIDE RECORDS SUMMARY | 2019-06-04 17:30 | XMS REPORT ---
:1935 Author Organization [facility] Care Team Providers Name Role Phone Unavailable [...] Serum or plasma calcium 2019-02-01 05:46:00 Identifier [id number] Result Unknown measurement (mass/volume) Time 2019-02-01 05:46:00 Test Item Value Reference Range Comments Serum or plasma calcium measurement (mass/volume) (test 9.2 mg/dL Unknown Unknown F code = 04880-7) Ordering Physician UnknownSerum or plasma magnesium measurement (mass/volume) 2019-02-01 05:46:00Identifier 77264-5 Result Time 2019-02-01 05:46:00Unknown Test Item Value Reference Range Comments Serum or plasma magnesium measurement 2.0 mg/dL Unknown Unknown F (mass/volume) (test code = 29664-0) Ordering Physician UnknownSerum or plasma carbon dioxide, [...] Ordering Physician UnknownSerum or plasma urea nitrogen/creatinine wskit3381-79- 06 05:46:00Identifier 3097-3 Result Time 2019-02-01 05:46:00Unknown Test Item Value Reference Range Comments Serum or plasma urea nitrogen/creatinine 21.4 Unknown Unknown F ratio (test code = 3097-3) Ordering Physician UnknownAutomated blood platelet mean volume ajychllcdln6690- 09-06 05:46:00Identifier 14473-4 Result Time 2019-02-01 05:46:00Unknown Test Item Value Reference Range Comments Automated blood platelet mean volume 9.6 fL Unknown Unknown F measurement (test code = 97778-3) Ordering Physician UnknownSerum or plasma anion nut3888-01-20 05:46: 00Identifier 72913-6 Result Time 2019-02-01 05:46:00Unknown Test Item Value Reference Range Comments Serum or plasma anion gap (test code = 5 mmol/L Unknown Unknown F 24863-8) Ordering Physician UnknownAutomated blood leukocytes count corrected for nucleated erythrocytes (number/volume)2019-02-01 05:46:00Identifier 26583-5 Result Time 2019-02-01 05:46:00Unknown Test Item Value Reference Range Comments Automated blood leukocytes count 9.9 10^3/uL Unknown Unknown F corrected for nucleated erythrocytes (number/volume) (test code = 02681-7) Ordering Physician UnknownAutomated blood nucleated erythrocytes wmdlhhhmb9600- 09-06 05:46:00Identifier 86476-8 Result Time 2019-02-01 05:46:00Unknown Test Item Value Reference Range Comments Automated blood nucleated erythrocytes 0.0 Unknown Unknown F detection (test code = 93204-7) Ordering Physician UnknownWhole blood international normalized ratio (INR)02-01 05:46:00Identifier 45429-0 Result Time 2019-02-01 05:46:00Unknown Test Item Value Reference Range Comments Whole blood international normalized ratio 1.40 Unknown Unknown F (INR) (test code = 14294-1) Ordering Physician UnknownAutomated blood hematocrit (percentage)2019-02-01 05: 46:00Identifier 4544-3 Result Time 2019-02-01 05:46:00Unknown Test Item Value Reference Range Comments Automated blood hematocrit (percentage) (test 39 % Unknown Unknown F code = 4544-3) Ordering Physician UnknownEstimated glomerular filtration rate (GFR) non- Tmpjkixz9176-82-18 05:46:00Identifier 11844-6 Result Time 2019-02-01 05: 46:00Unknown Test Item Value Reference Range Comments Estimated glomerular filtration rate (GFR) 80.3 Unknown Unknown F non- (test code = 26247-1) Ordering Physician UnknownAutomated blood monocytes/100 unjrhfuyqa4824-55-96 05: 46:00Identifier 5905-5 Result Time 2019-02-01 05:46:00Unknown [...] = 704-7) Ordering Physician UnknownAutomated blood basophils/100 mianxlcdxh0136-87-92 05: 46:00Identifier 706-2 Result Time 2019-02-01 05:46:00Unknown [...] = 711-2) Ordering Physician UnknownAutomated blood eosinophils/100 bzvrhhbjxl4893-58-88 05:46:00Identifier 713-8 Result Time 2019-02-01 05:46:00Unknown Test [...] = 731-0) Ordering Physician UnknownAutomated blood lymphocytes/100 wjhgrmeacd8790-46-82 05:46:00Identifier 736-9 Result Time 2019-02-01 05:46:00Unknown Test Item Value Reference Range Comments Automated blood lymphocytes/100 leukocytes 28.7 % Unknown Unknown F (test code = 736-9) Ordering Physician UnknownBlood monocytes automated count (number/volume)2019-01 05:46:00Identifier 742-7 Result Time 2019-02-01 05:46:00Unknown Test Item Value Reference Range Comments Blood monocytes automated count 0.9 10^3/ul Unknown Unknown F (number/volume) (test code = 742-7) Ordering Physician UnknownAutomated blood neutrophils/100 hkzfrhnpid9720-93-60 05:46:00Identifier 770-8 Result Time 2019-02-01 05:46:00Unknown Test [...] UnknownAutomated erythrocyte mean corpuscular hemoglobin concentration measurement (mass/rbf4807-44-68 05:46:00Identifier 786-4 Result Time 2019-02-01 05:46:00Unknown Test Item Value Reference Range Comments Automated erythrocyte mean corpuscular 34 g/dL Unknown Unknown F hemoglobin concentration measurement (mass/vol (test code = 786-4) Ordering Physician UnknownAutomated erythrocyte mean corpuscular ddqwlm1248-04- 06 05:46:00Identifier 787-2 Result Time 2019-02-01 05:46:00Unknown Test Item Value Reference Range Comments Automated erythrocyte mean corpuscular volume 85 fL Unknown Unknown F (test code = 787-2) Ordering Physician UnknownAutomated erythrocyte distribution width osarj2088-18- 06 05:46:00Identifier 788-0 Result Time 2019-02-01 05:46:00Unknown [...] code = 789-8) Ordering Physician UnknownCT biopsy ltxra7273-00-39 05:46:00Identifier PRI4587 Result Time 2019-02-01 05:46:00Unknown Test Item Value Reference Range Comments CT biopsy liver (test code = SHE7733) 4.8 10^3/ul Unknown Unknown F Ordering Physician UnknownSerum or plasma digoxin measurement (mass/volume)01-31 05:41:00Identifier 70745-6 Result Time 2019-01-31 05:41:00Unknown Test Item Value Reference Range Comments Serum or plasma digoxin measurement 1.3 ng/ml Unknown Unknown F (mass/volume) (test code = 50376-7) Ordering Physician UnknownStool Plesiomonas shigelloides DNA detection by non- probe and target amplification dd7330-26-30 12:40:00Identifier 53817-0 Result Time 2019-01-28 12:40:00Unknown Test Item Value Reference Range Comments Nasal Screen MRSA (PCR) (test Mrsa Not Detected Unknown Unknown F code = Nasal Screen MRSA (PCR)) Ordering Physician UnknownUrine ascorbic acid kzzdldcwr6081-71-62 12:25: 00Identifier 1904-2 Result Time 2019-01-28 12:25:00Unknown Test Item Value Reference Range Comments Urine ascorbic acid detection (test code = * Unknown Unknown F 1904-2) Ordering Physician UnknownUrine urobilinogen measurement (units/volume) by test ryszv3661-16-58 12:25:00Identifier 67634-7 Result Time 2019-01-28 12:25: 00Unknown Test Item Value Reference Range Comments Urine urobilinogen measurement Negative Unknown Unknown F (units/volume) by test strip (test code = 64509-5) Ordering Physician UnknownUrine total bilirubin detection by automated test ohwhc6481-15-57 12:25:00Identifier 01547-5 Result Time 2019-01-28 12:25: 00Unknown Test Item Value Reference Range Comments Urine total bilirubin detection by Negative Unknown Unknown F automated test strip (test code = 00993-7) Ordering Physician UnknownUrine clarity by refractometry nalvzgdus6178-48-25 12: 25:00Identifier 73415-7 Result Time 2019-01-28 12:25:00Unknown Test Item Value Reference Range Comments Urine clarity by refractometry automated Cloudy Unknown Unknown F (test code = 95446-7) Ordering Physician UnknownColor of Urine by Xoyv0546-59-46 12:25:00Identifier 29301-3 Result Time 2019-01-28 12:25:00Unknown Test Item Value Reference Range Comments Color of Urine by Auto (test code = Yellow Unknown Unknown F 50960-4) Ordering Physician UnknownUrine glucose detection by automated test hcfax9899-61 -02 12:25:00Identifier 80726-0 Result Time 2019-01-28 12:25:00Unknown Test Item Value Reference Range Comments Urine glucose detection by automated 1+(50 mg/dl) Unknown Unknown F test strip (test code = 14216-8) Ordering Physician UnknownKetones [Mass/volume] in Urine by Automated test jysjo4413-12-93 12:25:00Identifier 65699-4 Result Time 2019-01-28 12:25: 00Unknown Test Item Value Reference Range Comments Ketones [Mass/volume] in Urine by Negative Unknown Unknown F Automated test strip (test code = 01790-4) Ordering Physician UnknownUrine nitrite detection by automated test ubzwr4126-08 -02 12:25:00Identifier 29636-7 Result Time 2019-01-28 12:25:00Unknown Test Item Value Reference Range Comments Urine nitrite detection by automated test Negative Unknown Unknown F strip (test code = 29113-9) Ordering Physician UnknownProtein [Mass/volume] in Urine by Automated test jpuad9097-15-98 12:25:00Identifier 28734-6 Result Time 2019-01-28 12:25: 00Unknown Test Item Value Reference Range Comments Protein [Mass/volume] in Urine by Negative Unknown Unknown F Automated test strip (test code = 20445-2) Ordering Physician UnknownSpecific gravity of Urine by Refractometry zeksgtmwg8567-90-38 12:25:00Identifier 51995-6 Result Time 2019-01-28 12:25: 00Unknown Test Item Value Reference Range Comments Specific gravity of Urine by Refractometry 1.018 Unknown Unknown F automated (test code = 87973-8) Ordering Physician UnknownUrine hemoglobin detection by test gwjof1588-71-68 12: 25:00Identifier 5794-3 Result Time 2019-01-28 12:25:00Unknown Test Item Value Reference Range Comments Urine hemoglobin detection by test strip Negative Unknown Unknown F (test code = 5794-3) Ordering Physician UnknownUrine leukocyte esterase detection by automated test ejcqd3838-84-68 12:25:00Identifier 20423-3 Result Time 2019-01-28 12:25: 00Unknown Test Item Value Reference Range Comments Urine leukocyte esterase detection by Negative Unknown Unknown F automated test strip (test code = 09434-9) Ordering Physician UnknownSerum or plasma troponin i.cardiac measurement (mass/ volume)2019-01-28 11:57:00Identifier 01159-1 Result Time 2019-01-28 11:57: 00Unknown Test Item Value Reference Range Comments Serum or plasma troponin i.cardiac 0.02 ng/mL Unknown Unknown F measurement (mass/volume) (test code = 66977-7) Ordering Physician UnknownSerum or plasma alanine aminotransferase measurement ( enzymatic activity/volume)2019-01-28 11:57:00Identifier 1742-6 Result Time 01-28 11:57:00Unknown Test Item Value Reference Range Comments Serum or plasma alanine aminotransferase 10 U/L Unknown Unknown F measurement (enzymatic activity/volume) (test code = 1742-6) Ordering Physician UnknownSerum or plasma albumin/globulin mass rjwcb0887-06-53 11:57:00Identifier 1759-0 Result Time 2019-01-28 11:57:00Unknown Test [...] natriuretic peptide B measurement ( mass/volume)2019-01-28 11:57:00Identifier 41137-8 Result Time 2019-01-28 11:57: 00Unknown Test Item Value Reference Range Comments Serum or plasma natriuretic peptide B 523 pg/mL Unknown Unknown F measurement (mass/volume) (test code = 54513-6) Ordering Physician UnknownErythrocyte sedimentation rate by Westergren xmwuuv9187-16-01 11:57:00Identifier 4537-7 Result Time 2019-01-28 11:57: 00Unknown Test Item Value Reference Range Comments Erythrocyte sedimentation rate by 48 mm/Hr Unknown Unknown F Westergren method (test code = 4537-7) Ordering Physician UnknownSerum or plasma albumin measurement by bromocresol green (BCG) dye binding method (wv6207-76-08 11:57:00Identifier 71990-7 Result Time 2019-01-28 11:57:00Unknown Test Item Value Reference Range Comments Serum or plasma albumin measurement by 3.7 g/dL Unknown Unknown F bromocresol green (BCG) dye binding method (ma (test code = 28595-0) Ordering Physician UnknownSerum or plasma alkaline phosphatase measurement ( enzymatic activity/volume)2019-01-28 11:57:00Identifier 6768-6 Result Time 01-28 11:57:00Unknown Test Item Value Reference Range Comments Serum or plasma alkaline phosphatase 98 U/L Unknown Unknown F measurement (enzymatic activity/volume) (test code = 6768-6) Ordering Physician Unknown
--- OUTSIDE RECORDS SUMMARY | 2019-06-04 17:30 | XMS REPORT ---
:1935 Author Organization [facility] Care Team Providers Name Role Phone Unavailable [...]
--- OUTSIDE RECORDS SUMMARY | 2019-06-04 17:30 | XMS REPORT ---
:1935 Author Organization [facility] Care Team Providers Name Role Phone Unavailable [...]
--- OUTSIDE RECORDS SUMMARY | 2019-06-04 17:30 | XMS REPORT ---
:1935 Author Organization [facility] Care Team Providers Name Role Phone Unavailable [...] Serum or plasma calcium 2019-02-01 05:46:00 Identifier 18941-2 Result Unknown measurement (mass/volume) Time 2019-02-01 05:46:00 Test Item Value Reference Range Comments Serum or plasma calcium measurement (mass/volume) (test 9.2 mg/dL Unknown Unknown F code = 22059-4) Ordering Physician UnknownSerum or plasma magnesium measurement (mass/volume) 2019-02-01 05:46:00Identifier 87655-0 Result Time 2019-02-01 05:46:00Unknown Test Item Value Reference Range Comments Serum or plasma magnesium measurement 2.0 mg/dL Unknown Unknown F (mass/volume) (test code = 94507-6) Ordering Physician UnknownSerum or plasma carbon dioxide, [...] Ordering Physician UnknownSerum or plasma urea nitrogen/creatinine qndyt0180-93- 06 05:46:00Identifier 3097-3 Result Time 2019-02-01 05:46:00Unknown Test Item Value Reference Range Comments Serum or plasma urea nitrogen/creatinine 21.4 Unknown Unknown F ratio (test code = 3097-3) Ordering Physician UnknownAutomated blood platelet mean volume xylpcahrgna8139- 09-06 05:46:00Identifier 86224-0 Result Time 2019-02-01 05:46:00Unknown Test Item Value Reference Range Comments Automated blood platelet mean volume 9.6 fL Unknown Unknown F measurement (test code = 44477-1) Ordering Physician UnknownSerum or plasma anion umn0433-76-17 05:46: 00Identifier 00706-4 Result Time 2019-02-01 05:46:00Unknown Test Item Value Reference Range Comments Serum or plasma anion gap (test code = 5 mmol/L Unknown Unknown F 69268-4) Ordering Physician UnknownAutomated blood leukocytes count corrected for nucleated erythrocytes (number/volume)2019-02-01 05:46:00Identifier 95167-3 Result Time 2019-02-01 05:46:00Unknown Test Item Value Reference Range Comments Automated blood leukocytes count 9.9 10^3/uL Unknown Unknown F corrected for nucleated erythrocytes (number/volume) (test code = 64016-9) Ordering Physician UnknownAutomated blood nucleated erythrocytes fwajynjyk8227- 09-06 05:46:00Identifier 85587-8 Result Time 2019-02-01 05:46:00Unknown Test Item Value Reference Range Comments Automated blood nucleated erythrocytes 0.0 Unknown Unknown F detection (test code = 16730-8) Ordering Physician UnknownWhole blood international normalized ratio (INR)02-01 05:46:00Identifier 35040-0 Result Time 2019-02-01 05:46:00Unknown Test Item Value Reference Range Comments Whole blood international normalized ratio 1.40 Unknown Unknown F (INR) (test code = 03071-3) Ordering Physician UnknownAutomated blood hematocrit (percentage)2019-02-01 05: 46:00Identifier 4544-3 Result Time 2019-02-01 05:46:00Unknown Test Item Value Reference Range Comments Automated blood hematocrit (percentage) (test 39 % Unknown Unknown F code = 4544-3) Ordering Physician UnknownEstimated glomerular filtration rate (GFR) non- Kliiaqbb4317-19-86 05:46:00Identifier 47546-6 Result Time 2019-02-01 05: 46:00Unknown Test Item Value Reference Range Comments Estimated glomerular filtration rate (GFR) 80.3 Unknown Unknown F non- (test code = 49860-6) Ordering Physician UnknownAutomated blood monocytes/100 luiejllofq8998-45-27 05: 46:00Identifier 5905-5 Result Time 2019-02-01 05:46:00Unknown [...] = 704-7) Ordering Physician UnknownAutomated blood basophils/100 jiquwhqveg8522-95-77 05: 46:00Identifier 706-2 Result Time 2019-02-01 05:46:00Unknown [...] = 711-2) Ordering Physician UnknownAutomated blood eosinophils/100 ntyeilmviv7868-09-46 05:46:00Identifier 713-8 Result Time 2019-02-01 05:46:00Unknown Test [...] = 731-0) Ordering Physician UnknownAutomated blood lymphocytes/100 nyecpcbaxs7026-01-95 05:46:00Identifier 736-9 Result Time 2019-02-01 05:46:00Unknown Test Item Value Reference Range Comments Automated blood lymphocytes/100 leukocytes 28.7 % Unknown Unknown F (test code = 736-9) Ordering Physician UnknownBlood monocytes automated count (number/volume)2019-01 05:46:00Identifier 742-7 Result Time 2019-02-01 05:46:00Unknown Test Item Value Reference Range Comments Blood monocytes automated count 0.9 10^3/ul Unknown Unknown F (number/volume) (test code = 742-7) Ordering Physician UnknownAutomated blood neutrophils/100 zszmghszkw4004-81-97 05:46:00Identifier 770-8 Result Time 2019-02-01 05:46:00Unknown Test [...] UnknownAutomated erythrocyte mean corpuscular hemoglobin concentration measurement (mass/fcu4338-83-41 05:46:00Identifier 786-4 Result Time 2019-02-01 05:46:00Unknown Test Item Value Reference Range Comments Automated erythrocyte mean corpuscular 34 g/dL Unknown Unknown F hemoglobin concentration measurement (mass/vol (test code = 786-4) Ordering Physician UnknownAutomated erythrocyte mean corpuscular fcpumv1101-78- 06 05:46:00Identifier 787-2 Result Time 2019-02-01 05:46:00Unknown Test Item Value Reference Range Comments Automated erythrocyte mean corpuscular volume 85 fL Unknown Unknown F (test code = 787-2) Ordering Physician UnknownAutomated erythrocyte distribution width uusdp8158-44- 06 05:46:00Identifier 788-0 Result Time 2019-02-01 05:46:00Unknown [...] code = 789-8) Ordering Physician UnknownCT biopsy yhltl0210-15-68 05:46:00Identifier NVY4562 Result Time 2019-02-01 05:46:00Unknown Test Item Value Reference Range Comments CT biopsy liver (test code = KQU5737) 4.8 10^3/ul Unknown Unknown F Ordering Physician UnknownSerum or plasma digoxin measurement (mass/volume)01-31 05:41:00Identifier 90993-0 Result Time 2019-01-31 05:41:00Unknown Test Item Value Reference Range Comments Serum or plasma digoxin measurement 1.3 ng/ml Unknown Unknown F (mass/volume) (test code = 24506-2) Ordering Physician UnknownStool Plesiomonas shigelloides DNA detection by non- probe and target amplification sv6902-26-47 12:40:00Identifier 50503-6 Result Time 2019-01-28 12:40:00Unknown Test Item Value Reference Range Comments Nasal Screen MRSA (PCR) (test Mrsa Not Detected Unknown Unknown F code = Nasal Screen MRSA (PCR)) Ordering Physician UnknownUrine ascorbic acid hbbqyfvsw6537-21-24 12:25: 00Identifier 1904-2 Result Time 2019-01-28 12:25:00Unknown Test Item Value Reference Range Comments Urine ascorbic acid detection (test code = * Unknown Unknown F 1904-2) Ordering Physician UnknownUrine urobilinogen measurement (units/volume) by test ptcez5213-12-04 12:25:00Identifier 36857-8 Result Time 2019-01-28 12:25: 00Unknown Test Item Value Reference Range Comments Urine urobilinogen measurement Negative Unknown Unknown F (units/volume) by test strip (test code = 29554-3) Ordering Physician UnknownUrine total bilirubin detection by automated test wwauv9176-37-63 12:25:00Identifier 92185-2 Result Time 2019-01-28 12:25: 00Unknown Test Item Value Reference Range Comments Urine total bilirubin detection by Negative Unknown Unknown F automated test strip (test code = 09128-9) Ordering Physician UnknownUrine clarity by refractometry ggylxejsk5593-28-94 12: 25:00Identifier 70988-9 Result Time 2019-01-28 12:25:00Unknown Test Item Value Reference Range Comments Urine clarity by refractometry automated Cloudy Unknown Unknown F (test code = 92684-8) Ordering Physician UnknownColor of Urine by Qdkm2296-38-09 12:25:00Identifier 65203-1 Result Time 2019-01-28 12:25:00Unknown Test Item Value Reference Range Comments Color of Urine by Auto (test code = Yellow Unknown Unknown F 07139-2) Ordering Physician UnknownUrine glucose detection by automated test badgj1592-24 -02 12:25:00Identifier 14769-3 Result Time 2019-01-28 12:25:00Unknown Test Item Value Reference Range Comments Urine glucose detection by automated 1+(50 mg/dl) Unknown Unknown F test strip (test code = 52157-7) Ordering Physician UnknownKetones [Mass/volume] in Urine by Automated test xxeho2680-03-68 12:25:00Identifier 94290-5 Result Time 2019-01-28 12:25: 00Unknown Test Item Value Reference Range Comments Ketones [Mass/volume] in Urine by Negative Unknown Unknown F Automated test strip (test code = 20807-2) Ordering Physician UnknownUrine nitrite detection by automated test meywp3110-72 -02 12:25:00Identifier 04549-1 Result Time 2019-01-28 12:25:00Unknown Test Item Value Reference Range Comments Urine nitrite detection by automated test Negative Unknown Unknown F strip (test code = 18923-5) Ordering Physician UnknownProtein [Mass/volume] in Urine by Automated test eucyx3708-86-02 12:25:00Identifier 53075-9 Result Time 2019-01-28 12:25: 00Unknown Test Item Value Reference Range Comments Protein [Mass/volume] in Urine by Negative Unknown Unknown F Automated test strip (test code = 74909-0) Ordering Physician UnknownSpecific gravity of Urine by Refractometry lowhpcnxc2775-22-71 12:25:00Identifier 26984-1 Result Time 2019-01-28 12:25: 00Unknown Test Item Value Reference Range Comments Specific gravity of Urine by Refractometry 1.018 Unknown Unknown F automated (test code = 62392-8) Ordering Physician UnknownUrine hemoglobin detection by test xemjy5330-80-73 12: 25:00Identifier 5794-3 Result Time 2019-01-28 12:25:00Unknown Test Item Value Reference Range Comments Urine hemoglobin detection by test strip Negative Unknown Unknown F (test code = 5794-3) Ordering Physician UnknownUrine leukocyte esterase detection by automated test wlemr2445-12-92 12:25:00Identifier 68881-3 Result Time 2019-01-28 12:25: 00Unknown Test Item Value Reference Range Comments Urine leukocyte esterase detection by Negative Unknown Unknown F automated test strip (test code = 91906-8) Ordering Physician UnknownSerum or plasma troponin i.cardiac measurement (mass/ volume)2019-01-28 11:57:00Identifier 75070-0 Result Time 2019-01-28 11:57: 00Unknown Test Item Value Reference Range Comments Serum or plasma troponin i.cardiac 0.02 ng/mL Unknown Unknown F measurement (mass/volume) (test code = 03656-7) Ordering Physician UnknownSerum or plasma alanine aminotransferase measurement ( enzymatic activity/volume)2019-01-28 11:57:00Identifier 1742-6 Result Time 01-28 11:57:00Unknown Test Item Value Reference Range Comments Serum or plasma alanine aminotransferase 10 U/L Unknown Unknown F measurement (enzymatic activity/volume) (test code = 1742-6) Ordering Physician UnknownSerum or plasma albumin/globulin mass tnrhe2914-99-96 11:57:00Identifier 1759-0 Result Time 2019-01-28 11:57:00Unknown Test [...] natriuretic peptide B measurement ( mass/volume)2019-01-28 11:57:00Identifier 44523-1 Result Time 2019-01-28 11:57: 00Unknown Test Item Value Reference Range Comments Serum or plasma natriuretic peptide B 523 pg/mL Unknown Unknown F measurement (mass/volume) (test code = 77165-8) Ordering Physician UnknownErythrocyte sedimentation rate by Westergren oifnib8119-78-77 11:57:00Identifier 4537-7 Result Time 2019-01-28 11:57: 00Unknown Test Item Value Reference Range Comments Erythrocyte sedimentation rate by 48 mm/Hr Unknown Unknown F Westergren method (test code = 4537-7) Ordering Physician UnknownSerum or plasma albumin measurement by bromocresol green (BCG) dye binding method (vk4475-33-20 11:57:00Identifier 65808-1 Result Time 2019-01-28 11:57:00Unknown Test Item Value Reference Range Comments Serum or plasma albumin measurement by 3.7 g/dL Unknown Unknown F bromocresol green (BCG) dye binding method (ma (test code = 43179-2) Ordering Physician UnknownSerum or plasma alkaline phosphatase measurement ( enzymatic activity/volume)2019-01-28 11:57:00Identifier 6768-6 Result Time 01-28 11:57:00Unknown Test Item Value Reference Range Comments Serum or plasma alkaline phosphatase 98 U/L Unknown Unknown F measurement (enzymatic activity/volume) (test code = 6768-6) Ordering Physician Unknown
--- OUTSIDE RECORDS SUMMARY | 2019-06-04 17:30 | XMS REPORT ---
:1935 Author Organization [facility] Care Team Providers Name Role Phone Unavailable [...]
--- OUTSIDE RECORDS SUMMARY | 2019-06-04 17:30 | XMS REPORT ---
:1935 Author Organization [facility] Care Team Providers Name Role Phone Unavailable [...]
[2019-06-04] MEDS ORDERED: Diltiazem IV push/loading dose 5 MG/ML 5 ML vial (25 mg) IV PUSH ONE (17:44)
[2019-06-04] MEDS ORDERED: NS 0.9% 1000 ML** 1,000 ML IV ONE (17:44)
--- NOTE | 2019-06-04 17:51 | ED ---
GI/ HPI - HPI Summary HPI Summary: This pt is an 84 y/o female, with hx of dementia and CVAs, presenting to [facility] via EMS from [facility] for blood in her stool. reports pt was constipated a couple of days ago and had a bowel movement yesterday. states staff at [facility] saw a small amount of blood in patient's stool yesterday. Today pt had another bowel movement and also had blood in her stool. notes they are concerned due to patient taking anticoagulants. Per pt has hx of afib and is anticoagulated on Xarelto. reports patient's last colonoscopy was about [address] Pedraza. HPI IS LIMITED DUE TO LEVEL 5 CAVEAT - pt with dementia. - History of Current Complaint Chief Complaint: EDGIBleed Stated Complaint: POS GI BLEED PER EMS Hx Obtained From: Family/Booking Police Officer - Hx From Patient Unobtainable Due To: Dementia Onset/Duration: Started Days Ago, Still Present Timing: Lasting Days Severity: Mild Pain Intensity: 0 Associated Signs and Symptoms: Positive: Constipation, Blood w/Stool. Negative : Fever Aggravating Factor(s): Nothing Alleviating Factor(s): Nothing - Additional Pertinent History Primary Care Physician: [id number] - Allergy/Home Medications Allergies/Adverse Reactions: Allergies Allergy/AdvReac Type Severity Reaction Status Date / Time cephalexin Allergy Diarrhea Verified 04/05/19 15:56 lactose Allergy Diarrhea Verified 04/05/19 15:56 ramipril [From Altace] Allergy Unknown Verified 04/05/19 15:56 Reaction Details PMH/Surg Hx/FS Hx/Imm Hx Endocrine/Hematology History: Reports: Hx Anticoagulant Therapy, Hx Diabetes - DM II, Hx Thyroid Disease - ON DAILY MEDS Cardiovascular History: Reports: Hx Congestive Heart Failure, Hx Hypercholesterolemia, Hx Hypertension - ON MEDS, Other Cardiovascular Problems/ Disorders - 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, IDDM II Respiratory History: Reports: Hx Chronic Obstructive Pulmonary Disease (COPD) GI History: Reports: Other GI Disorders - gallstones Musculoskeletal History: Reports: Hx Back Problems Sensory History: Reports: Hx Cataracts, Hx Glaucoma Denies: Hx Contacts or Glasses, Hx Eye Injury, Hx Eye Prosthesis, Hx Legally Blind, Hx Macular Degeneration, Hx Vision Problem, Hx Deafness, Hx Hearing Aid, Hx Hearing Problem, Other Sensory Impairments Opthamlomology History: Reports: Hx Cataracts, Hx Glaucoma Denies: Hx Contacts or Glasses, Hx Eye Injury, Hx Eye Prosthesis, Hx Legally Blind, Hx Macular Degeneration, Hx Vision Problem, Other Sensory Impairments Neurological History: Reports: Hx Dementia, Hx Seizures, Hx Transient Ischemic Attacks (TIA) Denies: Hx Developmental Delay, Hx Headaches, Hx Migraine, Hx Nerve Disease, Hx Spinal Cord Injury Psychiatric History: Reports: Hx Anxiety - ON MEDS, Hx Depression - Cancer History Hx Chemotherapy: No Hx Radiation Therapy: No - Surgical History Surgery Procedure, Year, and Place: 1944 TONSILLECTOMY. 1984 HYSTERECTOMY AND APPENDECTOMY. 2011 RETINA SURGERY- RIGHT EYE- [place]. BREAST BIOPSY- [facility]. 12/18/13 RT EYE CATARACT [facility] Hx Anesthesia Reactions: No Infectious Disease History: No Infectious Disease History: Denies: Hx Clostridium Difficile, Hx Hepatitis, Hx Human Immunodeficiency Virus (HIV), Hx of Known/Suspected MRSA, Hx Shingles, Hx Tuberculosis, Hx Known/ Suspected VRE, Hx Known/Suspected VRSA, History Other Infectious Disease, Traveled Outside the [place] in Last 30 Days - Family History Known Family History: Positive: Cardiac Disease, Hypertension - Social History Alcohol Use: unable to obtain Alcohol Amount: REFRAINS NOW BECAUSE OF MEDS Hx Substance Use: No Substance Use Type: Reports: None Hx Tobacco Use: Yes Smoking Status (MU): Former Smoker Type: Cigarettes Amount Used/How Often: LESS THEN 1/2PPD CIGARETTES PER DAY X 60 YEARS Have You Smoked in the Last Year: Yes Review of Systems - ROS Summary Review of Systems Summary: ROS IS LIMITED DUE TO LEVEL 5 CAVEAT - pt with dementia Negative: Fever Gastrointestinal: Other - POSITIVE: blood in stool All Other Systems Reviewed And Are Negative: No Physical Exam - Summary Physical Exam Summary: VITAL SIGNS: Reviewed. GENERAL: Patient is a well-developed and nourished female who is lying comfortable in the stretcher. Patient is not in any acute respiratory distress. Patient is confused and unable to give any history. HEAD AND FACE: No signs of trauma. No ecchymosis, hematomas or skull depressions. No sinus tenderness. EYES: PERRLA, EOMI x 2, No injected conjunctiva, no nystagmus. EARS: Hearing grossly intact. Ear canals and tympanic membranes are within normal limits. MOUTH: Oropharynx within normal limits. NECK: Supple, trachea is midline, no adenopathy, no JVD, no carotid bruit, no c- spine tenderness, neck with full ROM. CHEST: Symmetric, no tenderness at palpation. LUNGS: Clear to auscultation bilaterally. No wheezing or crackles. CVS: Irregular rhythm and tachycardic rate, S1 and S2 present, no murmurs or gallops appreciated. ABDOMEN: Soft, non-tender. No signs of distention. No rebound, no guarding, and no masses palpated. Bowel sounds are normal. RECTAL EXAM: Shakila, ED Nurse, present as female glue sprayer. Patient with normal sphincter tone, no gross blood, no melena, no hemorrhoids. EXTREMITIES: FROM in all major joints, no edema, no cyanosis or clubbing. NEURO: Alert but not oriented, Patient is confused. No acute neurological deficits. Speech is normal and follows commands. SKIN: Dry and warm. Triage Information Reviewed: Yes Vital Signs On Initial Exam: Initial Vitals Temp Pulse Resp BP Pulse Ox 96.6 F 133 16 116/87 93 06/04/19 17:33 06/04/19 17:33 06/04/19 17:33 06/04/19 17:33 06/04/19 17:33 Vital Signs Reviewed: Yes Completion Of Physical Exam Limited Due To: Dementia, Level 5 Procedures - Sedation Patient Received Moderate/Deep Sedation with Procedure: No Diagnostics - Vital Signs Vital Signs Temp Pulse Resp BP Pulse Ox 06/04/19 17:33 96.6 F 133 16 116/87 93 - Laboratory Result Diagrams: 06/04/19 18:08 06/04/19 18:08 Lab Statement: Any lab studies that have been ordered have been reviewed, and results considered in the medical decision making process. - Radiology chest XR Radiology Interpretation Completed By: ED Physician Summary of Radiographic Findings: Cardiomegaly. No acute pathology. - EKG 17:41 Cardiac Rate: Tachycardia - at 134 bpm EKG Rhythm: Atrial Flutter EKG Comparison: No Significant Change - Similar to previous Summary of EKG Findings: EKG at 1741 shows atrial flutter at a rate of 134 bpm. No STEMI. Similar to previous. GIGU Course/Dx - Course Assessment/Plan: This pt is an 84 y/o female, with hx of dementia and CVAs, presenting to [facility] via EMS from [facility] for blood in her stool. reports pt was constipated for a couple of days ago and had a bowel movement yesterday. states staff at [facility] saw a small amount of blood in patient's stool yesterday. Today pt had another bowel movement and also had blood in her stool. notes they are concerned due to patient taking anticoagulants. Per pt has hx of afib and is anticoagulated on Xarelto. reports patient's last colonoscopy was about [address] Pedraza. HPI IS LIMITED DUE TO LEVEL 5 CAVEAT - pt with dementia. CBC without any significant abnormality. The H&H is stable. Chest x-ray shows no acute pathology. The rest of the blood work is still pending. EKG shows atrial flutter with RVR. The patient was given IV fluids and Cardizem. At 7 PM the patient will be signed out to Dr. Waller to follow-up the test results and for possible admission to the hospitalist services since the patient is in atrial flutter with RVR. At this time the patient is hemodynamically stable, alert and oriented 3. - Diagnoses Provider Diagnoses: Atrial flutter, Rectal bleed Discharge ED - Sign-Out/Discharge Documenting (check all that apply): Sign-Out Patient Signing out patient TO: Mikhail Waller - pending blood work - Discharge Plan Condition: Stable Referrals: Manda Rodriguez MD [Primary Care Provider] - - Attestation Statements Document Initiated by Kdibe: Yes Documenting Scribe: Vicky Lechuga Provider For Whom Kdibe is Documenting (Include Credential): Krzysztof Alcantar MD Scribe Attestation: Vicky Kowalski, scribed for Krzysztof Alcantar MD on 06/04/19 at 1840. Status of Scribe Document: Ready
[2019-06-04 18:15] LABS: ABS Basophils 0.1 10^3/ul (0-0.2); ABS Eosinophils 0.2 10^3/ul (0-0.6); ABS Lymphocytes 2.4 10^3/ul (1.0-4.8); ABS Monocytes 0.9 10^3/ul (0-0.8); ABS Neutrophils 4.2 10^3/ul (1.5-7.7); Eosinophil % 2.3 %; Hematocrit 43 % (35-47); Hemoglobin 14.8 g/dL (12.0-16.0); Lymphocyte % 30.9 %; Mean Corpuscular HGB Conc 34 g/dL (31-36); Mean Corpuscular Hemoglobin 31 pg (27-31); Mean Corpuscular Volume 89 fL (80-97); Mean Platelet Volume 8.8 fL (7.4-10.4); Platelet Count 221 10^3/uL (150-450); Red Blood Count 4.86 10^6 /uL (3.70-4.87); Red Cell Distribution Width 17 % (10-15); White Blood Count 7.8 10^3/uL (3.5-10.8)
[2019-06-04 18:27] LABS: Activated Partial Thrombo Time 48.6 seconds (26.0-38.0); INR 1.62 (0.82-1.09)
[2019-06-04 18:33] LABS: Albumin 3.7 g/dL (3.2-5.2); Albumin/Globulin Ratio 1.1 (1-3); BUN/Creatinine Ratio 25.4 (8-20); Calcium 9.2 mg/dL (8.6-10.3); EGFR Non-African American 84.3 (>60); Globulin 3.3 g/dL (2-4); Magnesium 2.1 mg/dL (1.9-2.7); Potassium 4.3 mmol/L (3.5-5.0); Total Bilirubin 0.5 mg/dL (0.2-1.0)
[2019-06-04 18:45] LABS: Troponin I 0.02 ng/mL (<0.03)
[2019-06-04 18:47] LABS: CKMB ng/mL 1.9 ng/mL (0.6-6.3)
[2019-06-04 19:10] LABS: TSH (Thyroid Stimulating Horm) 2.79 mcIU/mL (0.34-5.60)
--- NOTE | 2019-06-04 19:23 | ED ---
Progress - Progress Note Progress Note: Pt was received [place] [address]/04/19 shift change, pending bloodwork and possible admission. Re-Evaluation - Re-Evaluation First Eval Change: Improved Comment: Pt's HR dropped into the 80's after a dose of oral diltiazem. I asked her to talk to the [facility] about changing the dose on her regular diltiazem rx, depending on how her pulse is in general. Course/Dx - Course Course Of Treatment: Pt was received as a sign out from Dr. Alcantar at 190 shift change, pending bloodwork and possible admission. This pt is an 84 y/ o female, with hx of dementia and CVAs, presenting to [facility] via EMS from [facility] for blood in her stool. reports pt was constipated a couple of days ago and had a bowel movement yesterday. states staff at [facility] saw a small amount of blood in patient's stool yesterday. Today pt had another bowel movement and also had blood in her stool. Exam showed irregular rhythm with tachycardic rate. Rectal exam with nurse Shakila as accounting administrative assistant was normal. Bloodwork showed RDW H, abs monos H, INR H, APTT H, BUN/creatinine ratio H, glucose H, BNP H. EKG at 1741 shows atrial flutter at a rate of 134 bpm. No STEMI. Similar to previous. X-ray chest showed cardiomegaly. No acute pathology. Pt was given 1L NaCl IV, 60mg PO Cardizem, and 20mg IV Diltiazem. Pt was diagnosed with atrial flutter and rectal bleed, and discharged to home. - Diagnoses Provider Diagnoses: Atrial flutter, Rectal bleed Discharge ED - Sign-Out/Discharge Documenting (check all that apply): Patient Departure - dc - Discharge Plan Condition: Improved Disposition: HOME Patient Education Materials: Atrial Flutter (ED), Gastrointestinal Bleeding (ED ) Referrals: Manda Rodriguez MD [Primary Care Provider] - Additional Instructions: We kept you a bit longer to make sure we had good control of your heart rate, which has improved. Your doctor may wish to adjust the dosing on your diltiazem if the elevated heart rate seems to be persistent, but for now I would keep it the same. With respect to the bleeding, it appears to have stopped and your blood counts are good, so it is ok to discharge you now and have your doctor arrange further outpatient testing if needed. - Billing Disposition and Condition Condition: IMPROVED Disposition: Home - Attestation Statements Document Initiated by Kamar: Yes Documenting Scribe: El Dee Provider For Whom Kamar is Documenting (Include Credential): Mikhail Waller MD Scribe Attestation: IEl and Yosef Dee, scribed for Mikhail Waller MD on at 1842. Scribe Documentation Reviewed: Yes Provider Attestation: The documentation as recorded by the kamar, El Dee accurately reflects the service I personally performed and the decisions made by me, Mikhail Waller MD Status of Scryulissa Document: Viewed
[2019-06-04] MEDS ORDERED: Diltiazem TAB* 60 MG PO ONE (19:45)
[2019-06-04 22:13] VITALS: BP 124/83
== END 2019-06-04 22:30 | disposition home or self-care (01) ==
LOC: ED 17:21
DX: I48.92 Unspecified atrial flutter (principal); K62.5 Hemorrhage of anus and rectum; K59.00 Constipation, unspecified; E78.00 Pure hypercholesterolemia, unspecified; I10 Essential (primary) hypertension; I50.9 Heart failure, unspecified; F41.9 Anxiety disorder, unspecified; F32.9 Major depressive disorder, single episode, unspecified; E03.9 Hypothyroidism, unspecified; R94.31 Abnormal electrocardiogram [ECG] [EKG]; Z79.01 Long term (current) use of anticoagulants; Z79.899 Other long term (current) drug therapy; Z86.73 Personal history of transient ischemic attack (TIA), and cerebral infarction without residual deficits; Z87.891 Personal history of nicotine dependence
CPT/HCPCS: 36415; 71045; 80053; 82272; 82274; 82550; 82553; 83605; 83735; 83880; 84443; 84484; 85025; 85610; 85730; 93005; 96374; 99284; A9270-GY; G0328